=== PATIENT | male | born 1965 | race Caucasian/White ===

== ENCOUNTER 2017-01-08 08:15 | Outpatient (RCR) | payer MEDICARE, MEDICAID ==
[~2017-01-08 08:15] MED LIST: ALLE25CA OR; AMBI10TA OR; BUSP10TA2 OR; CELE40TA OR; HYDR1CAP25 PO; HYDR25CA PO; HYDR50CA2 PO; INDE1CAP5 PO; MINI2CAP PO; MIRT15TA3 PO; NORV5TAB PO; PARO20TA3 PO; PARO40TA2 PO; PAXI30TA2 PO; PAXI40TA2 PO; SERO200T PO; SERO400T OR; SERO400T PO; TRAZ100T OR; TRAZ100T2 PO; TRAZ50TA4 PO; ULTR50TA PO; VALP1CAP2 PO; VALP250S PO; VITAMIN B COMPLE1 OR; WELL100T2 PO; ambien PO; seroquel PO
== END 2017-01-13 ==
LOC: M PT 08:15
PROVIDERS: ATTEND Orthopaedic Surgery
DX: S46.112D Strain of muscle, fascia and tendon of long head of biceps, left arm, subsequent encounter (principal)
CPT/HCPCS: 97110; 97140; 97161; G8984; G8985

== ENCOUNTER 2017-02-07 08:30 | Outpatient (RCR) | payer MEDICARE, MEDICAID | END 2017-02-13 | LOC: M PT 08:30 | PROVIDERS: ATTEND Orthopaedic Surgery | DX: S46.112D Strain of muscle, fascia and tendon of long head of biceps, left arm, subsequent encounter (principal) | CPT/HCPCS: 97110; 97140; G8984; G8985 ==

== ENCOUNTER 2017-03-15 16:25 | Emergency (ER) | payer MEDICARE, MEDICAID ==
[~2017-03-15] VITALS: Ht 152.4 cm; Wt 62.5 kg
[~2017-03-15 16:25] MED LIST changes: +TRAZ50TA11 PO; -TRAZ50TA4 PO; -ULTR50TA PO; +ULTR50TA8 PO
[2017-03-15 17:06] LABS: BASO # 0.1 K/mm3 (0.0-0.2); BASO % 0.8 % (0.0-1.0); EOS # 0.3 K/mm3 (0.0-0.50); EOS % 3.2 % (0.0-3.0); LARGE UNSTAINED CELL # 0.3 K/mm3 (0.0-0.4); LARGE UNSTAINED CELL % 2.9 % (0.0-4.0); LYMPH # 3.3 K/mm3 (1.5-4.5); LYMPH % 33.2 % (24.0-44.0); MEAN CORPUSCULAR HEMOGLOBIN 29.2 pg (27.0-33.0); MEAN CORPUSCULAR HGB CONC 34.5 g/dl (32.0-36.5); MEAN CORPUSCULAR VOLUME 84.7 fl (80.0-96.0); MONO # 0.7 K/mm3 (0.0-0.8); MONO % 7.3 % (0.0-5.0); NEUTROPHILS # 5.2 K/mm3 (1.8-7.7); NEUTROPHILS % 52.6 % (36.0-66.0); PLATELET COUNT, AUTOMATED 136 k/mm3 (150-450); RED CELL DISTRIBUTION WIDTH 12.7 % (11.5-14.5)
[2017-03-15] MEDS: NS 1,000 ML IV SCH ×2 (17:15→18:24)
[2017-03-15 17:28] LABS: ANION GAP 9 MEQ/L (8-16); BLOOD UREA NITROGEN 6 MG/DL (7-18); CARBON DIOXIDE LEVEL 25 MEQ/L (21-32); CHLORIDE LEVEL 100 MEQ/L (98-107); CREATININE FOR GFR 0.99 MG/DL (0.70-1.30); GLOMERULAR FILTRATION RATE > 60.0 (>56); GLUCOSE, FASTING 83 MG/DL (70-105); POTASSIUM SERUM 4.2 MEQ/L (3.5-5.1); SODIUM LEVEL 134 MEQ/L (136-145)
[2017-03-15 18:38] VITALS: BP 126/90
--- NOTE | 2017-03-16 07:23 | ECGEPIP ---
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
== END 2017-03-15 18:41 | disposition home or self-care (01) ==
LOC: M ED 16:25
DX: F10.129 Alcohol abuse with intoxication, unspecified (principal); S50.312A Abrasion of left elbow, initial encounter; W18.09XD Striking against other object with subsequent fall, subsequent encounter; Y92.9 Unspecified place or not applicable; Y93.89 Activity, other specified; Y99.8 Other external cause status; F17.200 Nicotine dependence, unspecified, uncomplicated; Z79.899 Other long term (current) drug therapy
CPT/HCPCS: 36415; 80048; 82550; 82553; 84484; 85025; 93005; 93041; 94760; 96374; 99285; G0480

== ENCOUNTER 2017-12-06 11:55 | Inpatient (IN) | payer OTHER, MEDICARE, MEDICAID ==
[2017-12-06] MEDS: MULTIVITAMINS/MINERALS THERAP 1 TAB PO (09:00)
[2017-12-06] MEDS: NS 1,000 ML IV ×3 (12:26→18:21)
[2017-12-06 12:33] LABS: BASO # 0.1 10^3/uL (0.0-0.2); EOS # 0.1 10^3/uL (0.0-0.50); EOS % 1.4 % (0.0-3.0); HEMOGLOBIN 18.3 g/dl (14.0-18.0); IMMATURE GRANULOCYTE % 0.2 % (0-3.0); LYMPH # 1.9 10^3/uL (1.5-4.5); LYMPH % 19.1 % (24.0-44.0); MEAN CORPUSCULAR HEMOGLOBIN 29.8 pg (27.0-33.0); MEAN CORPUSCULAR HGB CONC 34.5 g/dl (32.0-36.5); MEAN CORPUSCULAR VOLUME 86.2 fl (80.0-96.0); MONO # 1.1 10^3/uL (0.0-0.8); MONO % 11.7 % (0.0-5.0); NEUTROPHILS # 6.5 10^3/uL (1.8-7.7); NEUTROPHILS % 66.6 % (36.0-66.0); PLATELET COUNT, AUTOMATED 151 10^3/uL (150-450); RED BLOOD COUNT 6.15 10^6/uL (4.30-6.10); RED CELL DISTRIBUTION WIDTH 13.1 % (11.5-14.5); WHITE BLOOD COUNT 9.7 10^3/uL (4.0-10.0)
[2017-12-06] MEDS: MECLIZINE 25 MG TABLET PO (12:51)
[2017-12-06] MEDS: LABETALOL HCL 100 MG/20 ML VIAL IV (12:52)
[2017-12-06 13:03] LABS: ACETAMINOPHEN LEVEL < 2.0 UG/ML (10.0-30.0); ALBUMIN 3.7 GM/DL (3.2-5.2); ALBUMIN/GLOBULIN RATIO 1.12 (1.00-1.93); ALKALINE PHOSPHATASE 82 U/L (45-117); ALT/SGPT 19 U/L (12-78); ANION GAP 7 MEQ/L (8-16); AST/SGOT 20 U/L (7-37); BILIRUBIN,DIRECT 0.1 MG/DL (0.0-0.2); BILIRUBIN,TOTAL 0.5 MG/DL (0.2-1.0); BLOOD UREA NITROGEN 21 MG/DL (7-18); CALCIUM LEVEL 10.7 MG/DL (8.5-10.1); CARBON DIOXIDE LEVEL 32 MEQ/L (21-32); CHLORIDE LEVEL 99 MEQ/L (98-107); CPK CREATINE PHOSPHOKINASE 106 U/L (39-308); CREATININE FOR GFR 2.65 MG/DL (0.70-1.30); ETHYL ALCOHOL (ETHANOL) < 0.003 % (0.000-0.010); GLOMERULAR FILTRATION RATE 26.9 (>56); GLUCOSE, FASTING 79 MG/DL (70-100); POTASSIUM SERUM 3.2 MEQ/L (3.5-5.1); SALICYLATE LEVEL 3.4 MG/DL (5.0-30.0); SODIUM LEVEL 138 MEQ/L (136-145); TROPONIN I < 0.02 NG/ML (< 0.10)
[2017-12-06 13:13] LABS: CK-MB VALUE MASS < 1.0 NG/ML (<3.6); MB/CK RELATIVE INDEX 0.94 (< OR =4)
[2017-12-06 14:58] LABS: KETONE, URINE AUTO RFX TRACE mg/dL (NEGATIVE); LEUKOCYTE ESTERASE UR AUTO RFX NEGATIVE (NEGATIVE); MUCUS, URINE RFX SMALL (NEGATIVE); NITRITE, URINE AUTO RFX NEGATIVE (NEGATIVE); RBC, URINE AUTO RFX 27 /HPF (0-3); SPECIFIC GRAVITY UR AUTO RFX 1.015 (1.002-1.035); SQUAM EPITHELIAL CELL UR AURFX 0 /HPF (0-6); WBC, URINE AUTO RFX 6 /HPF (0-3)
[2017-12-06 15:12] LABS: AMPHETAMINES LEVEL URINE NEGATIVE (NEGATIVE); BARBITURATES URINE NEGATIVE (NEGATIVE); BENZODIAZEPINES URINE NEGATIVE (NEGATIVE); CANNABINOIDS URINE NEGATIVE (NEGATIVE); COCAINE METABOLITE URINE NEGATIVE (NEGATIVE); METHADONE URINE NEGATIVE (NEGATIVE); OPIATES URINE NEGATIVE (NEGATIVE); PHENCYCLIDINE URINE NEGATIVE (NEGATIVE)
[2017-12-06] MEDS: THIAMINE 100 MG TAB PO (16:19)
[2017-12-06] MEDS: FOLIC ACID 1 MG TAB PO (16:19)
[2017-12-06] MEDS: NICOTINE 21MG/24HR 1 EA TRANSDERMAL TD (16:19)
[2017-12-06 16:22] LABS: OSMOLALITY SERUM 293 MOSM/KG (275-295)
[2017-12-06 16:33] LABS: URIC ACID 9.8 MG/DL (3.5-7.2)
[2017-12-06 16:33] LABS: MAGNESIUM LEVEL 1.6 MG/DL (1.8-2.4)
[2017-12-06 16:35] LABS: REASON FOR REVIEW ANEMIA / RBC MORPH; SLIDE REVIEW Report; SOURCE PERIPHERAL SMEAR
[2017-12-06 16:51] LABS: ESTIMATED AVERAGE GLUCOSE 97 MG/DL (60-110)
[2017-12-06] MEDS: OXAZEPAM 10 MG CAP PO (16:51)
[2017-12-06 17:41] LABS: ANION GAP 5 MEQ/L (8-16); BLOOD UREA NITROGEN 21 MG/DL (7-18); CALCIUM LEVEL 9.1 MG/DL (8.5-10.1); CARBON DIOXIDE LEVEL 31 MEQ/L (21-32); CHLORIDE LEVEL 104 MEQ/L (98-107); CK-MB VALUE MASS 1.1 NG/ML (<3.6); CPK CREATINE PHOSPHOKINASE 91 U/L (39-308); CREATININE FOR GFR 2.34 MG/DL (0.70-1.30); GLOMERULAR FILTRATION RATE 31.1 (>56); GLUCOSE, FASTING 101 MG/DL (70-100); POTASSIUM SERUM 2.9 MEQ/L (3.5-5.1); SODIUM LEVEL 140 MEQ/L (136-145); TROPONIN I < 0.02 NG/ML (< 0.10)
[2017-12-06 18:06] LABS: PHOSPHORUS LEVEL 2.3 MG/DL (2.5-4.9)
[2017-12-06] MEDS: MAG SULF 1GM/100ML (MAG RUN) 1 GM in APPROPRIATE DILUENT 1 EA IV ×2 (18:26→20:42)
[2017-12-06] MEDS: MIRTAZAPINE 15 MG TAB PO (20:42)
[2017-12-06] MEDS: QUEtiapine FUMARATE 200 MG TAB PO (20:42)
[2017-12-06] MEDS: BENZTROPINE 0.5 MG TAB PO (20:42)
[2017-12-06] MEDS: traZODone 100 MG TAB PO (20:43)
[2017-12-06] MEDS: amLODIPine 5 MG TAB PO (20:43)
[2017-12-06 23:42] LABS: OSMOLALITY URINE 450 MOSM/KG (500-800)
[2017-12-06 23:47] LABS: CALCIUM,RANDOM URINE 20.2 MG/DL; POTASSIUM RANDOM URINE 35.2 MEQ/L; SODIUM,RANDOM URINE 31 MEQ/L
[2017-12-07] MEDS: NS 1,000 ML IV ×2 (00:15→05:30)
[2017-12-07 01:27] LABS: CK-MB VALUE MASS 1.8 NG/ML (<3.6); CPK CREATINE PHOSPHOKINASE 106 U/L (39-308); MB/CK RELATIVE INDEX 1.69 (< OR =4); TROPONIN I < 0.02 NG/ML (< 0.10)
[2017-12-07] MEDS: POTASSIUM CHLORIDE 10 MEQ SR TABLET PO ×3 (03:56→12:51)
[2017-12-07 04:06] LABS: BASO # 0.1 10^3/uL (0.0-0.2); BASO % 0.8 % (0.0-1.0); EOS # 0.4 10^3/uL (0.0-0.50); EOS % 3.4 % (0.0-3.0); HEMATOCRIT 47.8 % (42.0-52.0); HEMOGLOBIN 16.7 g/dl (14.0-18.0); IMMATURE GRANULOCYTE % 0.3 % (0-3.0); LYMPH # 2.4 10^3/uL (1.5-4.5); LYMPH % 21.9 % (24.0-44.0); MEAN CORPUSCULAR HEMOGLOBIN 30.3 pg (27.0-33.0); MEAN CORPUSCULAR HGB CONC 34.9 g/dl (32.0-36.5); MEAN CORPUSCULAR VOLUME 86.6 fl (80.0-96.0); MONO # 1.4 10^3/uL (0.0-0.8); MONO % 12.5 % (0.0-5.0); NEUTROPHILS # 6.6 10^3/uL (1.8-7.7); NEUTROPHILS % 61.1 % (36.0-66.0); PLATELET COUNT, AUTOMATED 143 10^3/uL (150-450); RED BLOOD COUNT 5.52 10^6/uL (4.30-6.10); RED CELL DISTRIBUTION WIDTH 13.1 % (11.5-14.5); WHITE BLOOD COUNT 10.8 10^3/uL (4.0-10.0)
[2017-12-07] MEDS ORDERED: **hydrALAZINE** 10 MG TAB PO (04:15)
[2017-12-07] MEDS: hydrALAZINE INJ 20 MG/ML VIAL IV (04:18)
[2017-12-07 04:29] LABS: ALBUMIN/GLOBULIN RATIO 1.03 (1.00-1.93); ALKALINE PHOSPHATASE 66 U/L (45-117); ALT/SGPT 15 U/L (12-78); ANION GAP 6 MEQ/L (8-16); AST/SGOT 15 U/L (7-37); BILIRUBIN,TOTAL 0.3 MG/DL (0.2-1.0); BLOOD UREA NITROGEN 18 MG/DL (7-18); CALCIUM LEVEL 8.9 MG/DL (8.5-10.1); CARBON DIOXIDE LEVEL 30 MEQ/L (21-32); CHLORIDE LEVEL 107 MEQ/L (98-107); CREATININE FOR GFR 2.02 MG/DL (0.70-1.30); GLOMERULAR FILTRATION RATE 36.8 (>56); GLUCOSE, FASTING 82 MG/DL (70-100); MAGNESIUM LEVEL 2.3 MG/DL (1.8-2.4); POTASSIUM SERUM 2.8 MEQ/L (3.5-5.1); SODIUM LEVEL 143 MEQ/L (136-145); TOTAL PROTEIN 5.9 GM/DL (6.4-8.2)
[2017-12-07] MEDS ORDERED: SODIUM CHLORIDE 0.9% 1000 ML IV ×2 (04:45→05:15)
[2017-12-07] MEDS: amLODIPine 5 MG TAB PO (08:54)
[2017-12-07] MEDS: FOLIC ACID 1 MG TAB PO (08:54)
[2017-12-07] MEDS: THIAMINE 100 MG TAB PO (08:55)
[2017-12-07] MEDS: MULTIVITAMINS/MINERALS THERAP 1 TAB PO (08:55)
[2017-12-07] MEDS: PANTOPRAZOLE 40MG TAB (PROTONIX) PO (08:55)
[2017-12-07] MEDS: **hydrALAZINE** 10 MG TAB PO ×3 (08:55→17:47)
[2017-12-07 09:58] LABS: CK-MB VALUE MASS 1.4 NG/ML (<3.6); CPK CREATINE PHOSPHOKINASE 106 U/L (39-308); MB/CK RELATIVE INDEX 1.32 (< OR =4); TROPONIN I < 0.02 NG/ML (< 0.10)
[2017-12-07 14:42] LABS: ANION GAP 4 MEQ/L (8-16); BLOOD UREA NITROGEN 15 MG/DL (7-18); CALCIUM LEVEL 8.8 MG/DL (8.5-10.1); CARBON DIOXIDE LEVEL 31 MEQ/L (21-32); CHLORIDE LEVEL 110 MEQ/L (98-107); CREATININE FOR GFR 2.02 MG/DL (0.70-1.30); GLOMERULAR FILTRATION RATE 36.8 (>56); GLUCOSE, FASTING 77 MG/DL (70-100); POTASSIUM SERUM 3.9 MEQ/L (3.5-5.1); SODIUM LEVEL 145 MEQ/L (136-145)
[2017-12-07] MEDS: HEPARIN SOD (PORCINE) 5000 UNITS/ML VIAL SQ (20:56)
[2017-12-07] MEDS: **hydrALAZINE** 50 MG TAB PO (21:02)
[2017-12-07] MEDS: QUEtiapine FUMARATE 200 MG TAB PO (21:03)
[2017-12-07] MEDS: amLODIPine 10 MG TAB PO (21:03)
[2017-12-07] MEDS: traZODone 100 MG TAB PO (21:03)
[2017-12-07] MEDS: MIRTAZAPINE 15 MG TAB PO (21:03)
[2017-12-07] MEDS: BENZTROPINE 0.5 MG TAB PO (21:03)
[2017-12-08 03:51] LABS: BASO # 0.1 10^3/uL (0.0-0.2); EOS # 0.3 10^3/uL (0.0-0.50); EOS % 3.1 % (0.0-3.0); HEMATOCRIT 48.3 % (42.0-52.0); HEMOGLOBIN 16.2 g/dl (14.0-18.0); IMMATURE GRANULOCYTE % 0.1 % (0-3.0); LYMPH % 21.1 % (24.0-44.0); MEAN CORPUSCULAR HEMOGLOBIN 29.3 pg (27.0-33.0); MEAN CORPUSCULAR HGB CONC 33.5 g/dl (32.0-36.5); MEAN CORPUSCULAR VOLUME 87.5 fl (80.0-96.0); MONO # 1.3 10^3/uL (0.0-0.8); MONO % 14.4 % (0.0-5.0); NEUTROPHILS # 5.6 10^3/uL (1.8-7.7); NEUTROPHILS % 60.3 % (36.0-66.0); PLATELET COUNT, AUTOMATED 120 10^3/uL (150-450); RED BLOOD COUNT 5.52 10^6/uL (4.30-6.10); RED CELL DISTRIBUTION WIDTH 13.3 % (11.5-14.5); WHITE BLOOD COUNT 9.2 10^3/uL (4.0-10.0)
[2017-12-08 04:13] LABS: ALBUMIN 3.1 GM/DL (3.2-5.2); ALKALINE PHOSPHATASE 62 U/L (45-117); ALT/SGPT 17 U/L (12-78); ANION GAP 8 MEQ/L (8-16); AST/SGOT 18 U/L (7-37); BILIRUBIN,TOTAL 0.4 MG/DL (0.2-1.0); BLOOD UREA NITROGEN 11 MG/DL (7-18); CALCIUM LEVEL 8.5 MG/DL (8.5-10.1); CARBON DIOXIDE LEVEL 23 MEQ/L (21-32); CHLORIDE LEVEL 113 MEQ/L (98-107); CREATININE FOR GFR 1.69 MG/DL (0.70-1.30); GLOMERULAR FILTRATION RATE 45.2 (>56); GLUCOSE, FASTING 81 MG/DL (70-100); MAGNESIUM LEVEL 1.7 MG/DL (1.8-2.4); POTASSIUM SERUM 3.5 MEQ/L (3.5-5.1); SODIUM LEVEL 144 MEQ/L (136-145); TOTAL PROTEIN 6.2 GM/DL (6.4-8.2)
[2017-12-08] MEDS: HEPARIN SOD (PORCINE) 5000 UNITS/ML VIAL SQ (06:00)
[2017-12-08] MEDS: **hydrALAZINE** 50 MG TAB PO (06:19)
[2017-12-08] MEDS: FOLIC ACID 1 MG TAB PO (09:00)
[2017-12-08] MEDS: NS 1,000 ML IV (09:33)
[2017-12-08] MEDS: PANTOPRAZOLE 40MG TAB (PROTONIX) PO (09:34)
[2017-12-08] MEDS: THIAMINE 100 MG TAB PO (09:34)
[2017-12-08] MEDS: MULTIVITAMINS/MINERALS THERAP 1 TAB PO (09:34)
[2017-12-08] MEDS: POTASSIUM CHLORIDE 10 MEQ SR TABLET PO (09:34)
[2017-12-08] MEDS: MAG SULF 1GM/100ML (MAG RUN) 1 GM in APPROPRIATE DILUENT 1 EA IV (09:35)
== END 2017-12-08 13:15 | disposition home or self-care (01) | DRG 684 ==
LOC: M PCU 12-07 00:19 → M ED 11:55 → M ED INP 15:12
DX: N17.9 Acute kidney failure, unspecified (principal); E86.0 Dehydration; R55 Syncope and collapse; E87.6 Hypokalemia; I10 Essential (primary) hypertension; F41.9 Anxiety disorder, unspecified; F32.9 Major depressive disorder, single episode, unspecified; F20.9 Schizophrenia, unspecified; M19.90 Unspecified osteoarthritis, unspecified site; F10.10 Alcohol abuse, uncomplicated; Z79.899 Other long term (current) drug therapy; Z88.8 Allergy status to other drugs, medicaments and biological substances; F17.200 Nicotine dependence, unspecified, uncomplicated; Z86.73 Personal history of transient ischemic attack (TIA), and cerebral infarction without residual deficits; F43.10 Post-traumatic stress disorder, unspecified; M25.561 Pain in right knee; M25.562 Pain in left knee; R25.1 Tremor, unspecified

== ENCOUNTER → 2018-06-18 | Outpatient (CLI) | payer MEDICARE, MEDICAID, OTHER ==
[2018-06-18 11:04] LABS: BASO # 0.1 10^3/uL (0.0-0.2); BASO % 0.6 % (0.0-1.0); EOS # 0.5 10^3/uL (0.0-0.50); EOS % 4.4 % (0.0-3.0); HEMATOCRIT 31.3 % (42.0-52.0); HEMOGLOBIN 10.4 g/dl (13.5-17.5); IMMATURE GRANULOCYTE % 0.6 % (0-3.0); LYMPH # 2.4 10^3/uL (1.5-4.5); MEAN CORPUSCULAR HEMOGLOBIN 28.6 pg (27.0-33.0); MEAN CORPUSCULAR HGB CONC 33.2 g/dl (32.0-36.5); MONO # 1.3 10^3/uL (0.0-0.8); MONO % 11.5 % (0.0-5.0); NEUTROPHILS # 6.7 10^3/uL (1.8-7.7); NEUTROPHILS % 60.9 % (36.0-66.0); PLATELET COUNT, AUTOMATED 192 10^3/uL (150-450); RED BLOOD COUNT 3.64 10^6/uL (4.30-6.10); RED CELL DISTRIBUTION WIDTH 14.3 % (11.5-14.5); WHITE BLOOD COUNT 11.1 10^3/uL (4.0-10.0)
[2018-06-18 12:26] LABS: ESTIMATED AVERAGE GLUCOSE 111 MG/DL (60-110); HEMOGLOBIN A1c 5.5 %
[2018-06-18 12:35] LABS: ALT/SGPT 18 U/L (12-78); ANION GAP 9 MEQ/L (8-16); AST/SGOT 15 U/L (7-37); BLOOD UREA NITROGEN 18 MG/DL (7-18); CALCIUM LEVEL 9.3 MG/DL (8.5-10.1); CARBON DIOXIDE LEVEL 27 MEQ/L (21-32); CHLORIDE LEVEL 106 MEQ/L (98-107); CREATININE FOR GFR 1.73 MG/DL (0.70-1.30); GLOMERULAR FILTRATION RATE 43.9 (>56); GLUCOSE, FASTING 70 MG/DL (70-100); POTASSIUM SERUM 3.9 MEQ/L (3.5-5.1); PTH INTACT 33.4 PG/ML (18.5-88.0); SODIUM LEVEL 142 MEQ/L (136-145)
[2018-06-18 12:36] LABS: ALBUMIN 3.6 GM/DL (3.2-5.2); ALBUMIN/GLOBULIN RATIO 1.13 (1.00-1.93); ALKALINE PHOSPHATASE 81 U/L (45-117); BILIRUBIN,TOTAL 0.2 MG/DL (0.2-1.0); CHOLESTEROL LEVEL 193 MG/DL (<200); CHOLESTEROL RISK RATIO 4.825 (<5); FOLATE 18.8 NG/ML (>5.4); HDL CHOLESTEROL 40 MG/DL (>40); LDL CHOLESTEROL 103 MG/DL (<100); MAGNESIUM LEVEL 1.9 MG/DL (1.8-2.4); NON-HDL-C 153 MG/DL; TOTAL 25(OH) VITAMIN D 20.2 NG/ML (30.0-100.0); TOTAL PROTEIN 6.8 GM/DL (6.4-8.2); TRIGLYCERIDES LEVEL 250 MG/DL (<150)
== END ==
LOC: M LAB 10:31
DX: F20.9 Schizophrenia, unspecified (principal); N18.3 Chronic kidney disease, stage 3 (moderate); F10.99 Alcohol use, unspecified with unspecified alcohol-induced disorder; Z13.228 Encounter for screening for other metabolic disorders; I12.9 Hypertensive chronic kidney disease with stage 1 through stage 4 chronic kidney disease, or unspecified chronic kidney disease; E55.9 Vitamin D deficiency, unspecified
CPT/HCPCS: 82746

== ENCOUNTER → 2018-06-23 | Outpatient (CLI) | payer MEDICARE | LOC: M RAD 07:26 | DX: N20.0 Calculus of kidney (principal) | CPT/HCPCS: 74176 ==

== ENCOUNTER → 2018-07-03 | Outpatient (CLI) | payer MEDICARE ==
[2018-07-03 08:15] LABS: RETIC HEMOGLOBIN EQUIVALENT 31.7 pg (24-36); RETICULOCYTE # 56.6 10^9/L (17-77); RETICULOCYTE % 1.5 % (0.5-1.5)
[2018-07-03 08:40] LABS: FERRITIN 286 NG/ML (26-388); IRON (FE) 65 UG/DL (65-175); PERCENT SATURATION 26.2 % (19.7-50.0); TOTAL IRON BINDING CAPACITY 248 UG/DL (250-450)
== END ==
LOC: M RAD 07:32
DX: R91.8 Other nonspecific abnormal finding of lung field (principal); D64.9 Anemia, unspecified; Z87.891 Personal history of nicotine dependence
CPT/HCPCS: G0297

== ENCOUNTER → 2018-12-02 | Outpatient (REF) | payer MEDICARE, MEDICAID ==
[~2018-12-02] MED LIST changes: +ALKA1CHW PO; +AMLO10TA5 PO; +B-12500T2 PO; +BENZ0.5T PO; +D 101TAB PO; +D32000CA PO; +FOLI1TAB11 PO; -INDE1CAP5 PO; +INDE60CA4 PO; +MELO15TA28 PO; +MIRT45TA4 PO; +THIA100TA PO; +TRAZ-160 PO; +TRAZ-163 PO; -TRAZ50TA11 PO; +VITMTA PO
[2018-12-02 10:40] LABS: BASO # 0.1 10^3/uL (0.0-0.2); BASO % 1.2 % (0.0-1.0); EOS # 0.4 10^3/uL (0.0-0.50); EOS % 3.8 % (0.0-3.0); HEMATOCRIT 44.9 % (42.0-52.0); LYMPH # 2.2 10^3/uL (1.5-4.5); LYMPH % 23.7 % (24.0-44.0); MEAN CORPUSCULAR HEMOGLOBIN 27.6 pg (27.0-33.0); MEAN CORPUSCULAR HGB CONC 33.4 g/dl (32.0-36.5); MEAN CORPUSCULAR VOLUME 82.7 fl (80.0-96.0); MONO # 1.4 10^3/uL (0.0-0.8); MONO % 15.1 % (0.0-5.0); NEUTROPHILS # 5.2 10^3/uL (1.8-7.7); NEUTROPHILS % 55.8 % (36.0-66.0); PLATELET COUNT, AUTOMATED 166 10^3/uL (150-450); RED BLOOD COUNT 5.43 10^6/uL (4.30-6.10); WHITE BLOOD COUNT 9.3 10^3/uL (4.0-10.0)
[2018-12-02 10:58] LABS: HEMOGLOBIN A1c 5.6 %
[2018-12-02 11:20] LABS: ALBUMIN 3.6 GM/DL (3.2-5.2); BILIRUBIN,TOTAL 0.4 MG/DL (0.2-1.0); CREATININE FOR GFR 1.32 MG/DL (0.70-1.30); GLOMERULAR FILTRATION RATE 59.9 (>56); MAGNESIUM LEVEL 2.4 MG/DL (1.8-2.4); POTASSIUM SERUM 4.3 MEQ/L (3.5-5.1); THYROID STIMULATING HORMONE 1.74 uIU/ML (0.358-3.740)
== END ==
LOC: M SFHCPLAZ 09:01
PROVIDERS: ATTEND Nurse Practitioner Family
DX: D64.9 Anemia, unspecified (principal); I10 Essential (primary) hypertension; E78.5 Hyperlipidemia, unspecified
CPT/HCPCS: 36415; 80053; 80061; 83036; 83735; 84443; 85025; 85046; G0463

== ENCOUNTER → 2019-01-02 | Outpatient (REF) | payer MEDICARE, MEDICAID ==
[~2019-01-02] MED LIST changes: -D 101TAB PO; +VITA-144 PO
[2019-01-02 18:41] LABS: RHEUMATOID FACTOR QUANT < 10.0 IU/ML (<15.0)
[2019-01-02 18:42] LABS: VITAMIN B12 LEVEL 597 PG/ML
[2019-01-02 18:43] LABS: FOLATE > 24.0 NG/ML
[2019-01-07 00:06] LABS: CERULOPLASMIN 30.2 mg/dL (16.0-31.0); VITAMIN B1 LEVEL WHOLE BLOOD 153.8 nmol/L (66.5-200.0); VITAMIN B6,PYRIDOXAL PHOSPHATE 28.7 ug/L (5.3-46.7)
[2019-01-07 08:13] LABS: ANTINUCLEAR ANTIBODIES DIRECT Negative (Negative); COPPER PLASMA 125 ug/dL (72-166)
[2019-01-08 00:07] LABS: VITAMIN E(ALPHA TOCOPHEROL) 17.7 mg/L (7.0-25.1); VITAMIN E(GAMMA TOCOPHEROL) 1.6 mg/L (0.5-5.5)
== END ==
LOC: M LABNEURO 11:00
PROVIDERS: ATTEND Psychiatry & Neurology Neurology
DX: R25.1 Tremor, unspecified (principal)

== ENCOUNTER → 2019-01-27 | Outpatient (CLI) | payer MEDICARE, MEDICAID ==
--- NOTE | 2019-01-27 10:05 | REP ---
LUMBAR SPINE, FIVE VIEWS: HISTORY: Degenerative disc disease. There is no acute fracture or subluxation. The L2-3 through L5-S1 intervertebral discs are decreased in height consistent with disc degeneration. Osteophytes are present throughout the lumbar spine. The facet joints are normal in appearance. IMPRESSION:Degenerative change as described above. Electronically Signed by Darrick Harmon MD 01/27/2019 10:20 A
== END ==
LOC: M RAD 09:28
PROVIDERS: ATTEND Nurse Practitioner Family
DX: M25.78 Osteophyte, vertebrae (principal); M51.36 Other intervertebral disc degeneration, lumbar region; M51.37 Other intervertebral disc degeneration, lumbosacral region

== ENCOUNTER → 2019-03-03 | Outpatient (CLI) | payer MEDICARE, MEDICAID ==
[~2019-03-03] MED LIST changes: -TRAZ-160 PO; +TRAZ-252 PO
[2019-03-03 10:51] LABS: BASO # 0.1 10^3/uL (0.0-0.2); BASO % 1.2 % (0.0-1.0); EOS # 0.4 10^3/uL (0.0-0.50); EOS % 3.6 % (0.0-3.0); HEMOGLOBIN 14.6 g/dl (13.5-17.5); LYMPH # 2.4 10^3/uL (1.5-4.5); LYMPH % 24.7 % (24.0-44.0); MEAN CORPUSCULAR HEMOGLOBIN 27.8 pg (27.0-33.0); MEAN CORPUSCULAR HGB CONC 33.2 g/dl (32.0-36.5); MEAN CORPUSCULAR VOLUME 83.8 fl (80.0-96.0); MONO # 0.9 10^3/uL (0.0-0.8); MONO % 9.1 % (0.0-5.0); NEUTROPHILS # 5.9 10^3/uL (1.8-7.7); NEUTROPHILS % 60.9 % (36.0-66.0); PLATELET COUNT, AUTOMATED 167 10^3/uL (150-450); RED BLOOD COUNT 5.25 10^6/uL (4.30-6.10); WHITE BLOOD COUNT 9.6 10^3/uL (4.0-10.0)
[2019-03-03 11:00] LABS: INR 1.03; PROTHROMBIN TIME 13.6 SECONDS (12.1-14.4)
[2019-03-03 11:01] LABS: PARTIAL THROMBOPLASTIN TIME 28.4 SECONDS (25.4-37.6)
[2019-03-03 11:14] LABS: ALBUMIN 3.2 GM/DL (3.2-5.2); BILIRUBIN,TOTAL 0.1 MG/DL (0.2-1.0); CALCIUM LEVEL 9.3 MG/DL (8.5-10.1); CREATININE FOR GFR 1.43 MG/DL (0.70-1.30); GLOMERULAR FILTRATION RATE 54.7 (>56); MAGNESIUM LEVEL 1.9 MG/DL (1.8-2.4); POTASSIUM SERUM 4.5 MEQ/L (3.5-5.1); TOTAL PROTEIN 6.6 GM/DL (6.4-8.2)
== END ==
LOC: M LAB 09:54
PROVIDERS: ATTEND Nurse Practitioner Family
DX: I10 Essential (primary) hypertension (principal)
CPT/HCPCS: 36415; 80053; 83735; 85025; 85610; 85730; G0463

== ENCOUNTER 2019-08-27 16:47 | Observation (INO) | payer MEDICARE, MEDICAID ==
[~2019-08-27] VITALS: Ht 154.9 cm; Wt 57.8 kg
[~2019-08-27 16:47] MED LIST changes: -BENZ0.5T PO; +BENZ0.5T23 PO
--- NOTE | 2019-08-27 17:19 | REPVR ---
PROCEDURE INFORMATION: Exam: CT Head Without Contrast Exam date and time: 08/27/2019 5:09 PM Age: 54 years old Clinical history: Dizziness and weakness, extremity; Left; Additional info: CVA - nursing interventions must not delay CT TECHNIQUE: Imaging protocol: Computed tomography of the head without contrast. Radiation optimization: All CT scans at this facility use at least one of these dose optimization techniques: automated exposure control; mA and/or kV adjustment per patient size (includes targeted exams where dose is matched to clinical indication); or iterative reconstruction. Other technique: STROKE PROTOCOL was implemented. COMPARISON: CT Head without contrast 12/06/2017 12:27 PM FINDINGS: Brain: Minimal nonspecific hypodensities of the periventricular and deep subcortical white matter, most likely secondary to chronic small vessel ischemic change. No intracranial hemorrhage or extra-axial fluid collection. No evidence of mass effect or midline shift. Salgado-white matter differentiation is normal. Ventricles: No ventriculomegaly. Bones/joints: No acute osseus lesion or fracture. Sinuses: Unremarkable as visualized. Mastoid air cells: Unremarkable. Soft tissues: Unremarkable. IMPRESSION: No acute intracranial pathology. ASPECTS score 10. Electronically signed by: Mitch House On 08/27/2019 17:19:06 PM
[2019-08-27 17:44] LABS: BASO # 0.1 10^3/uL (0.0-0.2); BASO % 0.6 % (0.0-1.0); EOS # 0.1 10^3/uL (0.0-0.5); EOS % 0.9 % (0.0-3.0); HEMATOCRIT 54.4 % (42.0-52.0); HEMOGLOBIN 17.8 g/dl (13.5-17.5); LYMPH # 2.1 10^3/uL (1.5-5.0); MEAN CORPUSCULAR HEMOGLOBIN 25.2 pg (27.0-33.0); MEAN CORPUSCULAR HGB CONC 32.7 g/dl (32.0-36.5); MEAN CORPUSCULAR VOLUME 76.9 fl (80.0-96.0); MONO # 1.5 10^3/uL (0.0-0.8); NEUTROPHILS # 9.4 10^3/uL (1.5-8.5); NEUTROPHILS % 71.1 % (36.0-66.0); PLATELET COUNT, AUTOMATED 157 10^3/uL (150-450); RED BLOOD COUNT 7.07 10^6/uL (4.30-6.10); WHITE BLOOD COUNT 13.2 10^3/uL (4.0-10.0)
--- NOTE | 2019-08-27 17:47 | REP ---
REASON: Stoke like symptoms. PRIORS: 12/06/2017. FINDINGS: The superior mediastinal structures are midline. The cardiac silhouette is unremarkable in size, shape, and position. The diaphragmatic surfaces of the lungs are regular, and the costophrenic angles are clear. The pulmonary fowler are clear. The imaged osseous structures are intact. IMPRESSION: There is no acute cardiopulmonary disease. No change from the prior exam. Electronically Signed by Kalen Hahn DO 08/27/2019 05:56 P
[2019-08-27] MEDS ORDERED: ALLO100T PO (17:51)
[2019-08-27] MEDS ORDERED: AMLO5TAB6 PO (17:51)
[2019-08-27] MEDS ORDERED: HYDR-3363 PO (17:51)
[2019-08-27] MEDS ORDERED: PROAAER10 INH (17:51)
[2019-08-27] MEDS ORDERED: OMEP-221 PO (17:51)
[2019-08-27] MEDS ORDERED: SERO50TA PO (17:51)
[2019-08-27] MEDS ORDERED: DICL1GEL3 TOP (17:51)
[2019-08-27] MEDS ORDERED: CLOB0.0548 TOP (17:51)
[2019-08-27] MEDS ORDERED: CARV3.12 PO (17:51)
[2019-08-27 17:54] LABS: INR 1.08; PROTHROMBIN TIME 13.8 SECONDS (11.8-14.0)
[2019-08-27 18:08] LABS: BLOOD UREA NITROGEN 14 MG/DL (7-18); CALCIUM LEVEL 9.3 MG/DL (8.5-10.1); CARBON DIOXIDE LEVEL 26 MEQ/L (21-32); CHLORIDE LEVEL 99 MEQ/L (98-107); CPK CREATINE PHOSPHOKINASE 169 U/L (39-308); CREATININE FOR GFR 1.79 MG/DL (0.70-1.30); GLUCOSE, FASTING 107 MG/DL (70-100); MB/CK RELATIVE INDEX 0.59 (< OR =4); POTASSIUM SERUM 5.3 MEQ/L (3.5-5.1); SODIUM LEVEL 137 MEQ/L (136-145); TROPONIN I < 0.02 NG/ML (< 0.10)
[2019-08-27] MEDS ORDERED: BENZ-52 PO (18:27)
[2019-08-27] MEDS ORDERED: VITMTA PO (18:27)
[2019-08-27] MEDS ORDERED: FOLI1TAB11 PO (19:07)
[2019-08-27] MEDS ORDERED: VITA100066 PO (19:07)
[2019-08-27] MEDS ORDERED: MELA3TAB60 PO (19:07)
[2019-08-27] MEDS ORDERED: VITA-172 PO (19:07)
[2019-08-27] MEDS ORDERED: GABA-1171 PO (19:07)
[2019-08-27] MEDS ORDERED: POTA10808 PO (19:07)
[2019-08-27] MEDS ORDERED: TRAZ-186 PO (19:07)
[2019-08-27] MEDS ORDERED: SERT25TA85 PO (19:07)
[2019-08-27] MEDS ORDERED: CLOBETASOL PROPIONATE EMOLLIENT 0.05% CR 60 GM TOP PRN (19:30)
[2019-08-27] MEDS ORDERED: NS 1,000 ML IV SCH (19:30)
[2019-08-27] MEDS ORDERED: ALBUTEROL 90 MCG/ACT 8GM HFA INHALER INH PRN (19:30)
[2019-08-27] MEDS ORDERED: ASPIRIN 81 MG CHEW TABLET PO ONE (19:30)
--- NOTE | 2019-08-27 19:36 | HPEPDOC ---
[facility] Medical History & Physical Date of Admission Aug 27, 2019 Date of Service: Aug 27, 2019 Primary Care Physician: LISE ABBOTT Attending Physician: ELLIOTT FISCHER MD History and Physical TIME OF SERVICE: 8:55 PM CHIEF COMPLAINT: Slurred speech HISTORY OF PRESENT ILLNESS: The majority of the history was obtained from the patient's . The patient has been having lapses in his memory. This is a 54-year-old male who came to the hospital today because his son noticed that his speech was slurred; this has now resolved. For the last month, the patient's has noticed that his been sleeping a lot more, not eating well, and complaining of not feeling well; specifically, he has been feeling dizzy, has difficulty walking up the stairs and for long distances, and has an unsteady gait which requires him to use a cane. He has tremors which affect his hands and legs. Yesterday he "slipped off the bed", but he did not overtly fall. The patient's also added that his Psychiatrist has been tapering off his quetiapine, and adding other medications, because there is concern that he's developed parkinsonism. REVIEW OF SYSTEMS: 12 point review of systems negative except as listed in HPI PAST MEDICAL/ SURGICAL HISTORY: Chronic hypertension. Schizophrenia/PTSD/ Anxiety / depression. History of CVA / small vessel ischemic disease History of AVIS Bilateral chronic knee pain. Status post left shoulder surgery. Status post right knee surgery SOCIAL HISTORY: He smokes 2 packs per day. He drinks alcohol ( according to his he has cut down from a 6 pack from a 12 pack). [place] FAMILY HISTORY: CAD ALLERGIES: Please see below. HOME MEDICATIONS: Please see below. PHYSICAL EXAMINATION: VITAL SIGNS: Please see below. GEN: well nourished / well developed INTEGUMENT: Skin on lower neck and upper chest is flushed / has piloerection HEENT: normocephalic / atraumatic / lips acyanotic /mucus membranes moist and pink CVS: RRR/NMRG LUNGS: lungs are clear to auscultation bilaterally on room air ABDOMEN: there are no masses or lesions / bowel sounds are present / the abdomen is soft & not tender with palpation MSK/EXTREMITIES: range of motion intact in all 4 extremities NEURO: CN 2-12 are grossly intact / speech is not dysarthric / strength 5 /5 except for knee extension where the strength is +4/5 / biceps, brachioradials and patellar tendon reflexes 2+ PSYCH: alert and oriented to person place and time/ able to understand and follow all commands LABORATORY DATA: See below. IMAGING: CT of the head " IMPRESSION: No acute intracranial pathology. " Chest x-ray " IMPRESSION: There is no acute cardiopulmonary disease. No change from the prior exam." MRI of the brain without contrast " IMPRESSION: No MR evidence of acute infarct." Carotid ultrasound " IMPRESSION: 1. Minimal plaque bilaterally. 2. Otherwise negative carotid Doppler evaluation without evidence of hemodynamically significant stenosis. 0% stenosis" Renal ultrasound " IMPRESSION: No acute findings." MICROBIOLOGY: Please see below. EKG Shows Normal Sinus Rhythm with Occasional PVCs ASSESSMENT: Mr. Mcguire is a 54 old yr old with a past medical history of CVA, multiple psychiatric issues, and hypertension will be admitted for evaluation of trans ient slurred speech, possibly secondary to TIA. PLAN: 1 TIA? / History of CVA The slurred speech has resolved. On physical exam, he has lower extremity weakness , but this may be due to chronic knee pain. The unsteady gait has been ongoing for at least a month. Imaging studies including CT of the head, MRI of the brain, and carotid ultrasound were not consistent with a and acute stroke. He has no problems swallowing. Plan: admit to PCU / telemetry /fall precautions / f/u lipid panel for ACVD risk score & A1C, TSH, & Echo / PT/OT consult / c/w ASA, statin / the daytime team may consider out pt Neurology eval 2. Uncontrolled hypertension. Plan: Add HTCZ 12.5mg daily / c/w current dose of amlodipine / he may benefit from an outpatient and most her blood pressure monitor 3. Acute Renal Failure This is likely pre-renal / due to dehydration because he is not eating very much Baseline Cr 1.43--> today it is 1.79 He has a history of prerenal AVIS The renal ultrasound is unremarkable Plan: f/u BMP, ulytes for FENa or FEUrea, IVF 4.Schizophrenia/PTSD/ Anxiety / depression. Plan: Continue with current meds and follow up with psychiatrist as scheduled 5. Alcohol abuse. Plan: Fall precautions/seizure precautions/thiamine, multivitamin and folic acid / Ativan per [facility] protocol 6. Tobacco abuse. Plan: Smoking cessation education / declined nicotine patch DVT prophylaxis with SCDs. Disposition likely home after less than 2 midnight's stay Vital Signs Vital Signs Date Time Temp Pulse Resp B/P (MAP) Pulse Ox O2 Delivery O2 Flow Rate FiO2 08/27/19 18:47 94 98 08/27/19 18:45 20 148/97 (114) Room Air 08/27/19 16:52 97.7 Laboratory Data Labs 24H Laboratory Tests 2 08/27/19 17:05: Immature Granulocyte % (Auto) 0.4, Neutrophils (%) (Auto) 71.1H, Lymphocytes (%) (Auto) 16.0L, Monocytes (%) (Auto) 11.0H, Eosinophils (%) (Auto) 0.9, Basophils (%) (Auto) 0.6, Neutrophils # (Auto) 9.4H, Lymphocytes # (Auto) 2.1, Monocytes # (Auto) 1.5H, Eosinophils # (Auto) 0.1, Basophils # (Auto) 0.1, Nucleated Red Blood Cells % (auto) 0.0, Prothrombin Time 13.8, Prothromb Time International Ratio 1.08, Anion Gap 12, Glomerular Filtration Rate 42.0L, Calcium Level 9.3, Total Creatine Kinase 169, Creatine Kinase MB 1.0, Creatine Kinase MB Relative Index 0.59, Troponin I < 0.02 08/27/19 17:26: POC Glucose (Misc Panel) 118H, POC Sodium (Misc Panel) 134L, POC Potassium (Misc Panel) 5.8H, POC Chloride (Misc Panel) 100, POC Total CO2 (Misc Panel) 29.0H, POC Blood Urea Nitrogen (Misc Panel 19, POC Ionized Calcium (Misc Panel) 4.1L, POC Creatinine (Misc Panel) 1.7H, POC Hematocrit (Misc Panel) 58.0H 08/27/19 17:42: Bedside Glucose (Misc Panel) 122H CBC/BMP Laboratory Tests 08/27/19 17:05 Home Medications Scheduled Allopurinol (Allopurinol) 100 Mg Tablet, 100 MG PO DAILY Amlodipine Besylate (Amlodipine Besylate) 5 Mg Tablet, 5 MG PO DAILY Benztropine Mesylate (Benztropine Mesylate) 1 Mg Tablet, 1 MG PO QHS Cholecalciferol (Vitamin D3) (Vitamin D3) 1,000 Unit Tablet, 2,000 UNIT PO DAILY Cyanocobalamin (Vitamin B-12) (Vitamin B-12) 500 Mcg Tablet, 500 MCG PO DAILY Folic Acid (Folic Acid) 1 Mg Tablet, 1 MG PO DAILY Gabapentin (Gabapentin) 100 Mg Capsule, 100 MG PO QHS Melatonin (Melatonin) 3 Mg Tablet, 6 MG PO QHS Multivitamins (Thera M Plus Tablet) 1 Each Tablet, 1 TAB PO DAILY Omeprazole (Omeprazole) 40 Mg Capsule.dr, 40 MG PO DAILY Potassium Citrate (Potassium Citrate 10MEQ (Urocit-K)) 10 Meq Tablet.er, 10 MEQ PO DAILY Quetiapine Fumarate (Seroquel) 400 Mg Tab, 100 MG PO QHS Quetiapine Fumarate (Seroquel) 50 Mg Tablet, 75 MG PO QAM Sertraline Hcl (Sertraline HCl) 25 Mg Tablet, 75 MG PO DAILY Trazodone HCl (Trazodone HCl) 50 Mg Tablet, 50 MG PO QHS Scheduled PRN Albuterol Sulfate (Proair Hfa) 8.5 Gm Hfa.aer.ad, 2 PUFF INH Q6H PRN for SHORTNESS OF BREATH Clobetasol Propionate/Emoll (Clobetasol Emollient 0.05% Crm) 0.05% 15GM Cream..g., 1 DOSE TOP BID PRN for RASH/ITCHING APPLY TO BACK Hydroxyzine HCl (Hydroxyzine HCl) 25 Mg Tablet, 25 MG PO TID PRN for ANXIETY Allergies Coded Allergies: fluoxetine (Verified Adverse Reaction, Mild, DIZZY, 08/27/19) A-FIB/CHADSVASC A-FIB History Current/History of A-Fib/PAF?: No Current PO Anticoag Therapy: No ELLIOTT FISCHER MD Aug 27, 2019 19:36
[2019-08-27 20:07] LABS: CHOLESTEROL LEVEL 174 MG/DL (<200); CHOLESTEROL RISK RATIO 4.461 (<5); HDL CHOLESTEROL 39 MG/DL (>40); LDL CHOLESTEROL 92 MG/DL (<100); NON-HDL-C 135 MG/DL; TRIGLYCERIDES LEVEL 214 MG/DL (<150)
[2019-08-27 20:07] LABS: HEMOGLOBIN A1c 5.5 %
[2019-08-27] MEDS ORDERED: LORazepam 2 MG/ML VIAL (J2060) IV PRN (21:15)
--- NOTE | 2019-08-27 21:16 | REPVR ---
PROCEDURE INFORMATION: Exam: US Retroperitoneal Limited, Kidneys Exam date and time: 08/27/2019 8:44 PM Age: 54 years old Clinical history: Abnormal findings; Abnormal lab test; Abnormal kidney function lab tests; Additional info: Marcelino TECHNIQUE: Imaging protocol: Real-time ultrasound of the retroperitoneum with image documentation. Examination was focused on the kidneys. COMPARISON: CT ABD PELVIS W/O CONTRAST 06/23/2018 7:33 AM FINDINGS: Right kidney: The right kidney measures 9.8 cm in length. Normal echogenicity. No hydronephrosis or stones. Left kidney: The left kidney measures 10.4 cm in length. Normal echogenicity. No hydronephrosis or stones. Bladder: Unremarkable. IMPRESSION: No acute findings. Electronically signed by: Mitch House On 08/27/2019 21:16:16 PM
--- NOTE | 2019-08-27 21:37 | REPVR ---
PROCEDURE INFORMATION: Exam: US Duplex Bilateral Extracranial Arteries Exam date and time: 08/27/2019 8:44 PM Age: 54 years old Clinical history: Other: TIA TECHNIQUE: Imaging protocol: Real-time Duplex ultrasound scan of the bilateral carotid and vertebral arteries combining marquez scale, color Doppler and spectral waveform analysis. Bilateral exam. COMPARISON: CT Head without contrast 08/27/2019 5:08 PM FINDINGS: Right common carotid artery: The right common carotid artery proximally demonstrates normal waveforms and velocity of 63 cm/s, mid velocity is 55 cm/s and distal is 48 cm/s. Right internal carotid artery: Right proximal internal carotid artery demonstrates normal wave forms and velocity of 17 cm/s, mid is 25 cm/s and distally is 29 cm/s. Right ICA/CCA ratio: The right ICA/CCA ratio is 0.46. Right external carotid artery: Right external carotid artery demonstrates normal waveforms and velocity of 53 cm/s. Right vertebral artery: The right vertebral artery demonstrates antegrade flow with velocity of 15 cm/s. Left common carotid artery: The left common carotid artery proximally demonstrates normal waveforms and velocity of 54 cm/s, mid is 45 cm/s and distal is 49 cm/s. Left internal carotid artery: Left proximal internal carotid artery demonstrates normal waveforms with velocity of 36 cm/s, mid is 33 cm/s and distal is 35 cm/s. Left ICA/CCA ratio: The left ICA/CCA ratio is 0.68. Left external carotid artery: The left external carotid artery demonstrates normal wave forms and velocity of 42 cm/s. Left vertebral artery: The left vertebral artery demonstrates antegrade flow with velocity of 27 cm/s. Other findings: Minimal plaque bilaterally. IMPRESSION: 1. Minimal plaque bilaterally. 2. Otherwise negative carotid Doppler evaluation without evidence of hemodynamically significant stenosis. 0% stenosis COMMENT: Carotid Stenosis Reference using SRU criteria: Mild: less than 50% stenosis. ICA PSV is less than 125 cm/second and plaque or intimal thickening is visible. Moderate: 50-69% stenosis. ICA PSV is 125 to 230 cm/second and plaque is visible. Severe: 70-94% stenosis. ICA PSV is more than 230 cm/second and visible plaque and lumen narrowing are seen. Near occlusion: 95-99% stenosis. ICA PSV is variable and significant plaque and luminal narrowing are seen. Occluded: 100% stenosis. No flow identified. Electronically signed by: Rylan Lopez On 08/27/2019 21:37:17 PM
--- NOTE | 2019-08-27 22:11 | ECGEPIP ---
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
[2019-08-27] MEDS: NS 1,000 ML IV SCH (22:28)
[2019-08-27] MEDS: GABAPENTIN 100 MG CAP PO SCH (22:28)
[2019-08-27] MEDS: QUEtiapine FUMARATE 50 MG TAB PO SCH (22:29)
[2019-08-27] MEDS: PRAVASTATIN 20 MG TAB PO SCH (22:29)
[2019-08-27] MEDS: traZODone 50 MG TAB PO SCH (22:30)
[2019-08-27] MEDS ORDERED: THIAMINE HCL 200 MG/2 ML VIAL (J3411) IM ONE (22:30)
[2019-08-27] MEDS: BENZTROPINE 1 MG TAB PO SCH (22:31)
--- NOTE | 2019-08-27 22:33 | REPVR ---
PROCEDURE INFORMATION: Exam: MR Head Without Contrast Exam date and time: 08/27/2019 6:23 PM Age: 54 years old Clinical history: Patient HX: Dizziness, very limited exam, PT could not continue; Additional info: TIA TECHNIQUE: Imaging protocol: MR of the head without contrast. Axial DWI & ADC, and sagittal T1-weighted sequences were acquired. COMPARISON: MRI-Brain without Contrast 12/06/2017 7:25 PM FINDINGS: No restricted diffusion to suggest acute infarct. No evidence of mass effect or midline shift. Ventricles, cisterns, and sulci are normal. No evidence of hydrocephalus. Normal sized pituitary. The corpus callosum is normal. No evidence of extra-axial fluid collection. IMPRESSION: No MR evidence of acute infarct. Electronically signed by: Mitch House On 08/27/2019 22:32:37 PM
[2019-08-27] MEDS ORDERED: LORazepam 2 MG TAB PO PRN (23:45)
[2019-08-28] VITALS (7 sets, daily range): BP systolic 150–152; BP diastolic 90–100
[2019-08-28] MEDS ORDERED: hydroCHLOROthiazide 12.5 MG CAPSULE PO ONE (01:00)
[2019-08-28 06:52] LABS: HEMATOCRIT 52.1 % (42.0-52.0); HEMOGLOBIN 16.8 g/dl (13.5-17.5); MEAN CORPUSCULAR HGB CONC 32.2 g/dl (32.0-36.5); MEAN CORPUSCULAR VOLUME 77.4 fl (80.0-96.0); PLATELET COUNT, AUTOMATED 146 10^3/uL (150-450); RED BLOOD COUNT 6.73 10^6/uL (4.30-6.10); WHITE BLOOD COUNT 8.4 10^3/uL (4.0-10.0)
[2019-08-28 07:23] LABS: ALBUMIN 2.9 GM/DL (3.2-5.2); BILIRUBIN,TOTAL 0.4 MG/DL (0.2-1.0); CALCIUM LEVEL 8.4 MG/DL (8.5-10.1); CREATININE FOR GFR 1.48 MG/DL (0.70-1.30); GLOMERULAR FILTRATION RATE 52.3 (>56); POTASSIUM SERUM 3.2 MEQ/L (3.5-5.1); TOTAL PROTEIN 6.4 GM/DL (6.4-8.2)
[2019-08-28] MEDS ORDERED: FOLIC ACID 1 MG in NS 50 ML IV SCH (09:00)
[2019-08-28] MEDS ORDERED: ASPIRIN 81 MG ENTERIC TAB PO SCH (09:00)
[2019-08-28] MEDS ORDERED: FOLIC ACID 1 MG TAB PO SCH (09:00)
[2019-08-28] MEDS ORDERED: hydroCHLOROthiazide 12.5 MG CAPSULE PO SCH (09:00)
[2019-08-28] MEDS ORDERED: THIAMINE HCL 200 MG/2 ML VIAL (J3411) IM SCH (09:00)
[2019-08-28] MEDS ORDERED: amLODIPine 5 MG TAB PO SCH (09:00)
[2019-08-28] MEDS: QUEtiapine FUMARATE 25 MG TAB PO SCH (09:37)
[2019-08-28] MEDS: VITAMIN D 1,000 INTERNATIONAL UNITS TABLET PO SCH (09:37)
[2019-08-28] MEDS: ONDANSETRON 4 MG TAB (S0181) PO PRN ×2 (09:37→16:13)
[2019-08-28] MEDS: POTASSIUM CITRATE 1080 MG (10MEQ) TAB PO SCH (09:37)
[2019-08-28] MEDS: ASPIRIN 325 MG TAB PO SCH (09:38)
[2019-08-28] MEDS: CYANOCOBALAMIN 500 MCG TAB PO SCH (09:38)
[2019-08-28] MEDS: MULTIVITAMINS/MINERALS THERAP 1 TAB PO SCH (09:38)
[2019-08-28] MEDS: allopurinoL 100 MG TAB PO SCH (09:38)
[2019-08-28] MEDS: SERTRALINE HCL 25 MG TABLET PO SCH (09:38)
[2019-08-28] MEDS: hydrOXYzine 25 MG TAB PO PRN (09:38)
[2019-08-28] MEDS: OMEPRAZOLE 20 MG CAP PO SCH (09:38)
[2019-08-28] MEDS ORDERED: KCL 10MEQ/100ML SWI (KRUN) 10 MEQ in IV 1 EA IV ONE (12:00)
--- NOTE | 2019-08-28 12:17 | IPNPDOC ---
Subjective Date Seen The patient was seen on 08/28/19. Subjective Chief Complaint/HPI Presented with garbles speech and mild left sided weakness per patient. Resolved without recurrence Constitutional: Denies: Chills, Fever Pulmonary: Denies: Dyspnea, Cough Cardiovascular: Denies: Chest Pain, Palpitations Gastrointestinal: Denies: Nausea, Vomiting, Abdominal Pain, Diarrhea, Constipation Objective Physical Examination General Exam: Positive: Alert, No Acute Distress Chest Exam: Positive: Clear to auscultation, Normal air movement Heart Exam: Positive: Rate Normal, Regular Rhythm Telemetry: Positive: No significant arrhythmia Abdomen Exam: Positive: Normal bowel sounds, Soft; Negative: Tenderness Male Exam: Negative: Edema Neuro Exam: Positive: Normal Speech, Strength at 5/5 X4 ext, Cranial Nerves 3- 12 NL, Other (finger to nose intact. No asterixis) Assessment /Plan Problems (1) TIA (transient ischemic attack) Status: Acute Problem Text: 08/28 - No recurrent symptoms. ASA 325 mg started on admission MRI brain neg Carotids normal Echo pending COnt to monitor on tele for arrhythmia Get PT eval Probable d/c in am (2) Renal failure Status: Acute Response to Treatment: Improving Problem Text: renal function back to baseline Cre = 1.48 D/C HCTZ added on admission for HTN, but patient had AVIS due to "azotemia"? Cont IVF slow rate for now until we wee what renal fx is in am considering he got the HCTZ (3) HTN (hypertension) Status: Chronic Problem Text: BP remains a little high on Norvasc Stop HCTZ that was started on admission b/c of ARF on admission Increase Norvasc slightly (4) Hypokalemia Status: Acute Problem Text: Krun given (5) Alcohol intoxication Status: Acute Problem Text: patient states he drinks 3 - 5 beers a day which is a substantial decrease for him Monitor for withdrawl (6) Schizo-affective schizophrenia Status: Chronic Problem Text: Weaning off Seroquel per psych - we have him on 75 am/100 hs contu usual sertraline, Trazadone, Gabapentin, Cogentin Plan/VTE VTE Prophylaxis Ordered?: Yes VS, I&O, 24H, Fishbone Vital Signs/I&O Vital Signs Date Time Temp Pulse Resp B/P (MAP) Pulse Ox O2 Delivery O2 Flow Rate FiO2 08/28/19 09:40 92 139/95 08/28/19 06:00 97.5 17 96 Room Air I&O- Last 24 Hours up to 6 AM 08/28/19 06:00 Intake Total 510 ml Output Total 0 ml Balance 510 ml Laboratory Data 24H LABS Laboratory Tests 2 08/27/19 17:05: Immature Granulocyte % (Auto) 0.4, Neutrophils (%) (Auto) 71.1H, Lymphocytes (%) (Auto) 16.0L, Monocytes (%) (Auto) 11.0H, Eosinophils (%) (Auto) 0.9, Basophils (%) (Auto) 0.6, Neutrophils # (Auto) 9.4H, Lymphocytes # (Auto) 2.1, Monocytes # (Auto) 1.5H, Eosinophils # (Auto) 0.1, Basophils # (Auto) 0.1, Nucleated Red Blood Cells % (auto) 0.0, Prothrombin Time 13.8, Prothromb Time International Ratio 1.08, Anion Gap 12, Glomerular Filtration Rate 42.0L, Calcium Level 9.3, Total Creatine Kinase 169, Creatine Kinase MB 1.0, Creatine Kinase MB Relative Index 0.59, Troponin I < 0.02, Triglycerides Level 214H, Total Cholesterol 174, LDL Cholesterol 92, Non-HDL Cholesterol (LDL + VLDL) 135, Total HDL Cholesterol 39L, Cholesterol/HDL Ratio 4.461, Thyroid Stimulating Hormone (TSH) 2.550 08/27/19 17:26: POC Glucose (Misc Panel) 118H, POC Sodium (Misc Panel) 134L, POC Potassium (Misc Panel) 5.8H, POC Chloride (Misc Panel) 100, POC Total CO2 (Misc Panel) 29.0H, POC Blood Urea Nitrogen (Misc Panel 19, POC Ionized Calcium (Misc Panel) 4.1L, POC Creatinine (Misc Panel) 1.7H, POC Hematocrit (Misc Panel) 58.0H, Estimated Mean Plasma Glucose 111H, Hemoglobin A1c 5.5 08/27/19 17:42: Bedside Glucose (Misc Panel) 122H 08/28/19 04:37: Bedside Glucose (Misc Panel) 93 08/28/19 06:40: Nucleated Red Blood Cells % (auto) 0.0, Anion Gap 5L, Glomerular Filtration Rate 52.3L, Calcium Level 8.4L, Total Bilirubin 0.4, Aspartate Amino Transf (AST/SGOT) 17, Alanine Aminotransferase (ALT/SGPT) 19, Alkaline Phosphatase 104, Total Protein 6.4, Albumin 2.9L, Albumin/Globulin Ratio 0.83L CBC/BMP Laboratory Tests 08/27/19 17:05 08/28/19 06:40 PAXTON DE GUZMAN PA-C Aug 28, 2019 12:17
[2019-08-28] MEDS: NS 1,000 ML IV SCH (14:31)
[2019-08-28] MEDS: amLODIPine 5 MG TAB PO ONE ×2 (14:48→18:30)
[2019-08-28] MEDS: traZODone 50 MG TAB PO SCH (20:24)
[2019-08-28] MEDS: PRAVASTATIN 20 MG TAB PO SCH (20:24)
[2019-08-28] MEDS: BENZTROPINE 1 MG TAB PO SCH (20:25)
[2019-08-28] MEDS: QUEtiapine FUMARATE 50 MG TAB PO SCH (20:25)
[2019-08-28] MEDS: GABAPENTIN 100 MG CAP PO SCH (20:25)
[2019-08-29] VITALS (7 sets, daily range): BP systolic 125–162; BP diastolic 72–104
[2019-08-29] MEDS: NS 1,000 ML IV SCH (05:23)
[2019-08-29 05:58] LABS: HEMATOCRIT 49.9 % (42.0-52.0); HEMOGLOBIN 15.8 g/dl (13.5-17.5); MEAN CORPUSCULAR HEMOGLOBIN 24.8 pg (27.0-33.0); MEAN CORPUSCULAR HGB CONC 31.7 g/dl (32.0-36.5); MEAN CORPUSCULAR VOLUME 78.3 fl (80.0-96.0); PLATELET COUNT, AUTOMATED 137 10^3/uL (150-450); RED BLOOD COUNT 6.37 10^6/uL (4.30-6.10); WHITE BLOOD COUNT 9.2 10^3/uL (4.0-10.0)
[2019-08-29 06:20] LABS: ALBUMIN 2.9 GM/DL (3.2-5.2); BILIRUBIN,TOTAL 0.5 MG/DL (0.2-1.0); CREATININE FOR GFR 1.32 MG/DL (0.70-1.30); GLOMERULAR FILTRATION RATE 59.7 (>56); POTASSIUM SERUM 3.3 MEQ/L (3.5-5.1); TOTAL PROTEIN 6.4 GM/DL (6.4-8.2)
[2019-08-29] MEDS: VITAMIN D 1,000 INTERNATIONAL UNITS TABLET PO SCH (08:40)
[2019-08-29] MEDS: POTASSIUM CITRATE 1080 MG (10MEQ) TAB PO SCH (08:41)
[2019-08-29] MEDS: MULTIVITAMINS/MINERALS THERAP 1 TAB PO SCH (08:41)
[2019-08-29] MEDS: ASPIRIN 325 MG TAB PO SCH (08:41)
[2019-08-29] MEDS: CYANOCOBALAMIN 500 MCG TAB PO SCH (08:41)
[2019-08-29] MEDS: OMEPRAZOLE 20 MG CAP PO SCH (08:41)
[2019-08-29] MEDS: allopurinoL 100 MG TAB PO SCH (08:42)
[2019-08-29] MEDS: SERTRALINE HCL 25 MG TABLET PO SCH (08:42)
[2019-08-29] MEDS: QUEtiapine FUMARATE 25 MG TAB PO SCH (08:42)
[2019-08-29] MEDS: ONDANSETRON 4 MG TAB (S0181) PO PRN ×2 (08:47→15:36)
[2019-08-29] MEDS: hydrOXYzine 25 MG TAB PO PRN ×2 (08:47→18:47)
--- NOTE | 2019-08-29 18:48 | IPNPDOC ---
Subjective Date Seen The patient was seen on 08/29/19. Subjective Chief Complaint/HPI Yousuf reports he has not had any further episodes of garbled speech or confusion. Nursing staff reports he's been stable since admission to the floor. He reports that his balance is a little off, but this has been the case for years and is not any different than his baseline. General: Reports: Normal Appetite Pulmonary: Denies: Cough Cardiovascular: Denies: Chest Pain, Palpitations Neurological: Reports: Incoordination; Denies: Weakness, Numbness, Change in speech, Confusion Psych: Reports: Mood Normal Objective Physical Examination General Exam: Positive: Alert, Cooperative (sitting at the edge of his bed when I entered the room), No Acute Distress Eye Exam: Positive: Conjunctiva & lids normal; Negative: Sclera icteric ENT Exam: Positive: Mucous membr. moist/pink Neck Exam: Negative: Lymphadenopathy Chest Exam: Positive: Clear to auscultation, Normal air movement Heart Exam: Positive: Rate Normal, Regular Rhythm Telemetry: Positive: No significant arrhythmia Abdomen Exam: Positive: Normal bowel sounds, Soft; Negative: Tenderness Male Exam: Negative: Edema Extremity Exam: Negative: Edema Neuro Exam: Positive: Normal Speech, Normal Tone Psych Exam: Positive: Mental status NL, Mood NL, Oriented x 3 Assessment /Plan Problems (1) TIA (transient ischemic attack) Status: Acute Problem Text: No recurrent symptoms. ASA 325 mg started on admission. MRI brain neg. Carotids normal. Echo normal. Telemetry has showed no concerned for more than 48 hours and will be discontinued. Physical therapy has determined he is not safe for discharge yet, but may improve soon. Will likely discharge or move to [facility] in the morning. (2) HTN (hypertension) Status: Chronic Problem Text: BP remains a little high on Norvasc. We'll increase this to 10 mg starting tomorrow morning. (3) Hypokalemia Status: Acute Problem Text: I gave an oral supplement for repletion of potassium today. Continue to monitor. (4) Alcohol intoxication Status: Acute Problem Text: Patient states he drinks 3 - 5 beers a day which is a substantial decrease for him. Monitor for withdraw. [facility] protocol ordered. (5) Schizo-affective schizophrenia Status: Chronic Problem Text: Weaning off Seroquel per psych - we have him on 75 am/100 HS. Continue usual sertraline, Trazodone, Gabapentin, Cogentin (6) Renal failure Status: Resolved Response to Treatment: Improving Problem Text: Renal function back to baseline. Plan/VTE VTE Prophylaxis Ordered?: Yes (Lovenox) VS, I&O, 24H, Fishbone Vital Signs/I&O Vital Signs Date Time Temp Pulse Resp B/P (MAP) Pulse Ox O2 Delivery O2 Flow Rate FiO2 08/29/19 16:00 70 158/72 08/29/19 14:00 98.3 20 97 Room Air I&O- Last 24 Hours up to 6 AM 08/29/19 06:00 Intake Total 2330 ml Output Total 300 ml Balance 2030 ml Laboratory Data 24H LABS Laboratory Tests 2 08/29/19 05:18: Nucleated Red Blood Cells % (auto) 0.0, Anion Gap 9, Glomerular Filtration Rate 59.7, Calcium Level 8.0L, Total Bilirubin 0.5, Aspartate Amino Transf (AST/SGOT) 15, Alanine Aminotransferase (ALT/SGPT) 21, Alkaline Phosphatase 104, Total Protein 6.4, Albumin 2.9L, Albumin/Globulin Ratio 0.83L CBC/BMP Laboratory Tests 08/29/19 05:18 Eduardo Lebron MD Aug 29, 2019 6:48 pm
[2019-08-29] MEDS ORDERED: POTASSIUM CHLORIDE 10 MEQ SR TABLET PO ONE (19:00)
[2019-08-29] MEDS: QUEtiapine FUMARATE 50 MG TAB PO SCH (20:05)
[2019-08-29] MEDS: BENZTROPINE 1 MG TAB PO SCH (20:05)
[2019-08-29] MEDS: PRAVASTATIN 20 MG TAB PO SCH (20:05)
[2019-08-29] MEDS: traZODone 50 MG TAB PO SCH (20:05)
[2019-08-29] MEDS: GABAPENTIN 100 MG CAP PO SCH (20:05)
[2019-08-30 06:00] VITALS: BP_SYST 138; BP_SYST 148; BP_DIAS 90
[2019-08-30 06:15] LABS: HEMATOCRIT 49.5 % (42.0-52.0); HEMOGLOBIN 15.7 g/dl (13.5-17.5); MEAN CORPUSCULAR HEMOGLOBIN 24.8 pg (27.0-33.0); MEAN CORPUSCULAR HGB CONC 31.7 g/dl (32.0-36.5); MEAN CORPUSCULAR VOLUME 78.1 fl (80.0-96.0); PLATELET COUNT, AUTOMATED 143 10^3/uL (150-450); RED BLOOD COUNT 6.34 10^6/uL (4.30-6.10); WHITE BLOOD COUNT 9.3 10^3/uL (4.0-10.0)
[2019-08-30 06:39] LABS: ALBUMIN 2.7 GM/DL (3.2-5.2); BLOOD UREA NITROGEN 11 MG/DL (7-18); CALCIUM LEVEL 7.9 MG/DL (8.5-10.1); CARBON DIOXIDE LEVEL 25 MEQ/L (21-32); CHLORIDE LEVEL 109 MEQ/L (98-107); CREATININE FOR GFR 1.06 MG/DL (0.70-1.30); GLOMERULAR FILTRATION RATE > 60.0 (>56); GLUCOSE, FASTING 83 MG/DL (70-100); PHOSPHORUS LEVEL 2.6 MG/DL (2.5-4.9); SODIUM LEVEL 142 MEQ/L (136-145)
--- NOTE | 2019-08-30 07:33 | ECHO ---
DATE OF STUDY: 08/28/2019 REFERRING PHYSICIAN: Dr. Marcela Andrew INDICATION: Transient cerebral ischemia unspecified. HEIGHT: 155 cm. WEIGHT: 64 kg. 2-D MEASUREMENTS: Aortic root: 2.9 cm Left atrium: 3.1 cm Left ventricle diastole: 4.1 cm Ventricular septum: 0.92 cm Posterior wall: 0.92 cm Inferior vena cava: 0.9 cm (more than 50% respiratory variation) DOPPLER MEASUREMENTS: Aortic valve velocity: 97.9 cm/sec LVOT velocity: 73.1 cm/sec Mitral E velocity: 36.4 cm/sec Mitral A velocity: 75.8 cm/sec No aortic stenosis No aortic regurgitation No mitral stenosis No mitral regurgitation No tricuspid regurgitation No pulmonic regurgitation Pulmonary acceleration time: 160 ms MITRAL ANNULAR TISSUE DOPPLER: E prime septal: 4.35 cm/sec E prime lateral: 6.1 cm/sec DESCRIPTION: The rhythm was sinus. Image quality was fair. This was a 2-D, M-mode, color flow Doppler and pulse wave Doppler examination and included mitral annular tissue Doppler. CONCLUSIONS: 1. Normal left ventricle internal dimensions and wall thickness. Normal regional LV wall motion and wall thickening. Normal LV systolic function. LVEF 65% by visual estimate. Grade 1 LV diastolic dysfunction. 2. Very mild aortic valve sclerosis with a 3-cuspid aortic valve. 3. Very mild pericardial effusion. 4. Otherwise normal appearing echocardiogram Doppler findings.
[2019-08-30] MEDS ORDERED: ENOXAPARIN 40 MG/0.4 ML SYRINGE (J1650) SC SCH (09:00)
[2019-08-30] MEDS ORDERED: amLODIPine 10 MG TAB PO SCH (09:00)
[2019-08-30] MEDS: CYANOCOBALAMIN 500 MCG TAB PO SCH (09:49)
[2019-08-30] MEDS: POTASSIUM CITRATE 1080 MG (10MEQ) TAB PO SCH (09:49)
[2019-08-30] MEDS: ASPIRIN 325 MG TAB PO SCH (09:49)
[2019-08-30] MEDS: VITAMIN D 1,000 INTERNATIONAL UNITS TABLET PO SCH (09:49)
[2019-08-30] MEDS: MULTIVITAMINS/MINERALS THERAP 1 TAB PO SCH (09:49)
[2019-08-30] MEDS: OMEPRAZOLE 20 MG CAP PO SCH (09:49)
[2019-08-30] MEDS: SERTRALINE HCL 25 MG TABLET PO SCH (09:49)
[2019-08-30] MEDS: allopurinoL 100 MG TAB PO SCH (09:49)
[2019-08-30] MEDS: QUEtiapine FUMARATE 25 MG TAB PO SCH (09:49)
[2019-08-30 09:51] VITALS: BP 142/93
--- NOTE | 2019-08-30 13:15 | DS.PDOC ---
Discharge Summary General Date of Admission Aug 27, 2019 at 16:48 Date of Discharge 08/30/19 Attending Physician: Eduardo Lebron MD [facility] he reports that his physician is a Dr. Ross who practices on [facility]. Discharge Summary PROCEDURES PERFORMED DURING STAY: [None]. ADMITTING DIAGNOSES: 1. . DISCHARGE DIAGNOSES: 1. . COMPLICATIONS/CHIEF COMPLAINT: TIA. HISTORY OF PRESENT ILLNESS: . HOSPITAL COURSE: . DISCHARGE MEDICATIONS: Please see below. ALLERGIES: Please see below. PHYSICAL EXAMINATION ON DISCHARGE: VITAL SIGNS: Please see below. GENERAL: HEENT: NECK: CARDIOVASCULAR EXAMINATION: RESPIRATORY EXAMINATION: ABDOMINAL EXAMINATION: EXTREMITIES: SKIN: NEUROLOGICAL EXAMINATION: PSYCHIATRIC EXAMINATION: LABORATORY DATA: Please see below. IMAGING: PROGNOSIS: ACTIVITY: [As tolerated]. DIET: DISCHARGE PLAN: DISPOSITION: . DISCHARGE INSTRUCTIONS: 1. . ITEMS TO FOLLOWUP ON ON OUTPATIENT: 1. . DISCHARGE CONDITION: [Stable]. TIME SPENT ON DISCHARGE: Greater than minutes. Vital Signs/I&Os Vital Signs Date Time Temp Pulse Resp B/P (MAP) Pulse Ox O2 Delivery O2 Flow Rate FiO2 08/30/19 09:51 80 142/93 08/30/19 06:00 98.6 16 97 Room Air I&O- Last 24 Hours up to 6 AM 08/30/19 06:00 Intake Total 1080 ml Output Total 900 ml Balance 180 ml Laboratory Data Labs 24H Laboratory Tests 2 08/30/19 05:33: Nucleated Red Blood Cells % (auto) 0.0, Anion Gap 8, Glomerular Filtration Rate > 60.0, Calcium Level 7.9L, Phosphorus Level 2.6, Albumin 2.7L CBC/BMP Laboratory Tests 08/30/19 05:33 Discharge Medications Scheduled Allopurinol (Allopurinol) 100 Mg Tablet, 100 MG PO DAILY, (Reported) Amlodipine Besylate (Amlodipine Besylate) 5 Mg Tablet, 5 MG PO DAILY, (Reported) Benztropine Mesylate (Benztropine Mesylate) 1 Mg Tablet, 1 MG PO QHS, (Reported) Cholecalciferol (Vitamin D3) (Vitamin D3) 1,000 Unit Tablet, 2,000 UNIT PO DAILY, (Reported) Cyanocobalamin (Vitamin B-12) (Vitamin B-12) 500 Mcg Tablet, 500 MCG PO DAILY, (Reported) Folic Acid (Folic Acid) 1 Mg Tablet, 1 MG PO DAILY, (Reported) Gabapentin (Gabapentin) 100 Mg Capsule, 100 MG PO QHS, (Reported) Melatonin (Melatonin) 3 Mg Tablet, 6 MG PO QHS, (Reported) Multivitamins (Thera M Plus Tablet) 1 Each Tablet, 1 TAB PO DAILY, (Reported) Omeprazole (Omeprazole) 40 Mg Capsule.dr, 40 MG PO DAILY, (Reported) Potassium Citrate (Potassium Citrate 10MEQ (Urocit-K)) 10 Meq Tablet.er, 10 MEQ PO DAILY, (Reported) Quetiapine Fumarate (Seroquel) 400 Mg Tab, 100 MG PO QHS, (Reported) Quetiapine Fumarate (Seroquel) 50 Mg Tablet, 75 MG PO QAM, (Reported) Sertraline Hcl (Sertraline HCl) 25 Mg Tablet, 75 MG PO DAILY, (Reported) Trazodone HCl (Trazodone HCl) 50 Mg Tablet, 50 MG PO QHS, (Reported) Scheduled PRN Albuterol Sulfate (Proair Hfa) 8.5 Gm Hfa.aer.ad, 2 PUFF INH Q6H PRN for SHORTNESS OF BREATH, (Reported) Clobetasol Propionate/Emoll (Clobetasol Emollient 0.05% Crm) 0.05% 15GM Cream..g., 1 DOSE TOP BID PRN for RASH/ITCHING, (Reported) APPLY TO BACK Hydroxyzine HCl (Hydroxyzine HCl) 25 Mg Tablet, 25 MG PO TID PRN for ANXIETY, (Reported) Allergies Coded Allergies: fluoxetine (Verified Adverse Reaction, Mild, DIZZY, 08/27/19) Eduardo Lebron MD Aug 30, 2019 13:15
[2019-08-30] MEDS ORDERED: AMLO10TA5 PO (13:27)
[2019-08-30] MEDS ORDERED: ASPI-1 PO (13:27)
[2019-08-30] MEDS ORDERED: PRAV1TAB39 PO (13:27)
== END 2019-08-30 14:30 | disposition home or self-care (01) ==
LOC: M ED 16:47 → EDBD 16:47 → M ED INP 16:48 → M MSPAV 08-28 04:44
PROVIDERS: ADMIT General Practice; ATTEND Family Medicine
DX: G45.9 Transient cerebral ischemic attack, unspecified (principal); N17.9 Acute kidney failure, unspecified; I10 Essential (primary) hypertension; E87.6 Hypokalemia; F10.129 Alcohol abuse with intoxication, unspecified; F25.9 Schizoaffective disorder, unspecified; F41.9 Anxiety disorder, unspecified; F32.9 Major depressive disorder, single episode, unspecified; F17.218 Nicotine dependence, cigarettes, with other nicotine-induced disorders; Z79.899 Other long term (current) drug therapy; Z88.8 Allergy status to other drugs, medicaments and biological substances
CPT/HCPCS: 36415; 70450; 70551; 71045; 76775; 80047; 80048; 80053; 80061; 80069; 82550; 82553; 83036; 84443; 84484; 85025; 85027; 85610; 92610; 93005; 93041; 93306; 93880; 94760; 96360; 96361; 96372; 97116; 97161; 97165; 99285; G0378; J1650

== ENCOUNTER 2019-11-16 12:35 | Day surgery (SDC) | payer OTHER ==
[~2019-11-16] VITALS: Ht 154.9 cm; Wt 54.4 kg
[~2019-11-16 12:35] MED LIST changes: +ALLO100T PO; +AMLO5TAB6 PO; +ASPI-1 PO; +BENZ-52 PO; +CARV3.12 PO; +CLOB0.0548 TOP; +DICL1GEL3 TOP; +GABA-1171 PO; +HYDR-3363 PO; +MELA3TAB60 PO; +OMEP-221 PO; +POTA10808 PO; +PRAV1TAB39 PO; +PROAAER10 INH; +REME15TA2 PO; +SERO50TA PO; +SERT25TA85 PO; -TRAZ-163 PO; +TRAZ-186 PO; +TRAZ-257 PO; +VITA-172 PO; +VITA100066 PO; +VITAD1000T PO
[2019-11-16] MEDS ORDERED: MIDAZOLAM INJ 2 MG/2 ML VIAL (J2250) As Ordered ONE ×2 (13:38→13:39)
[2019-11-16] MEDS ORDERED: LIDOCAINE VISCOUS 2% SOLN 15ML UDC As Ordered ONE (13:40)
[2019-11-16] MEDS ORDERED: NS 1,000 ML IV SCH (13:45)
[2019-11-16] MEDS ORDERED: LIDOCAINE VISCOUS 2% SOLN 15ML UDC MT ONE (15:15)
[2019-11-16] MEDS ORDERED: MIDAZOLAM INJ 2 MG/2 ML VIAL (J2250) IV ONE ×2 (15:15)
[2019-11-16 15:25] VITALS: BP 136/70
--- NOTE | 2019-11-16 15:59 | T-ECHO ---
DATE OF STUDY: 11/16/2019 REFERRING PHYSICIAN: Dr. Danilo John INDICATION: Transient cerebral ischemia unspecified. PREPROCEDURE DIAGNOSIS: Transient cerebral ischemia unspecified. POSTPROCEDURE DIAGNOSIS: Transient cerebral ischemia unspecified, fibroelastoma involving the aortic valve. FINDINGS: Fibroelastoma aortic valve. PROCEDURE PERFORMED BY: Danilo John MD BITE BLOCK MAKER: None. IV SEDATION: Midazolam 4 mg IV. COMPLICATIONS: None. PROCEDURE DESCRIPTION: Rhythm was sinus. The patient received viscus lidocaine to gargle. He received a total of midazolam 4 mg IV for IV sedation. The patient tolerated the procedure well without any immediate complications. Rhythm was sinus. Left ventricle appeared normal in size and systolic function. Right ventricle appeared normal in size and systolic function. Atrial septum was intact anatomically and by color flow Doppler. Saline contrast times two was performed with Valsalva maneuver release and did not demonstrate any intracardiac shunting. Each bubble study was performed using 1 mL of the patient's own blood, 1 mL of air and 8 mL of injectable normal saline which was agitated back and forth between two 10 mL syringes via a 3-way stopcock. Aortic valve itself appeared structurally normal, however, there was the appearance of a fibroelastoma probably attached to the left aortic cusp. No aortic regurgitation. Mitral leaflets were structurally and functionally normal. Very mild mitral regurgitation was present and within physiologic limits. Pulmonary vein flow in the left upper pulmonary vein was normal. Pulmonary venous connections to the left atrium were anatomically normal. No mass or thrombi within the right atrium or right ventricle. Right ventricle was normal in systolic function. No pericardial effusion. Distal aortic arch and descending thoracic aorta showed mild atherosclerotic plaque. CONCLUSIONS: 1. 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 No aortic regurgitation. 2. Mild atherosclerotic plaque in the distal aortic arch and descending thoracic aorta. 3. Normal left ventricle size and systolic function. 4. No atrial septal defect or patent foramen ovale. Bubble study times two negative for detection of intracardiac shunting.
== END 2019-11-16 15:33 | disposition home or self-care (01) ==
LOC: M OPP 12:35
PROVIDERS: ATTEND Internal Medicine Cardiovascular Disease
DX: I35.9 Nonrheumatic aortic valve disorder, unspecified (principal); G45.9 Transient cerebral ischemic attack, unspecified; R94.31 Abnormal electrocardiogram [ECG] [EKG]; F17.210 Nicotine dependence, cigarettes, uncomplicated; Z79.899 Other long term (current) drug therapy
CPT/HCPCS: 93312; 93320; 93325; J2250

== ENCOUNTER → 2019-12-18 | Outpatient (CLI) | payer MEDICARE, OTHER ==
[2019-12-18 10:52] LABS: BASO # 0.2 10^3/uL (0.0-0.2); BASO % 1.4 % (0.0-1.0); EOS # 0.4 10^3/uL (0.0-0.5); HEMATOCRIT 47.2 % (42.0-52.0); HEMOGLOBIN 15.5 g/dl (13.5-17.5); LYMPH # 2.7 10^3/uL (1.5-5.0); LYMPH % 25.6 % (24.0-44.0); MEAN CORPUSCULAR HEMOGLOBIN 28.2 pg (27.0-33.0); MEAN CORPUSCULAR HGB CONC 32.8 g/dl (32.0-36.5); MEAN CORPUSCULAR VOLUME 85.8 fl (80.0-96.0); MONO # 0.9 10^3/uL (0.0-0.8); MONO % 8.7 % (0.0-5.0); NEUTROPHILS # 6.4 10^3/uL (1.5-8.5); NEUTROPHILS % 59.7 % (36.0-66.0); PLATELET COUNT, AUTOMATED 193 10^3/uL (150-450); WHITE BLOOD COUNT 10.6 10^3/uL (4.0-10.0)
[2019-12-18 11:20] LABS: BLOOD UREA NITROGEN 13 MG/DL (7-18); CALCIUM LEVEL 8.3 MG/DL (8.5-10.1); CARBON DIOXIDE LEVEL 25 MEQ/L (21-32); CHLORIDE LEVEL 109 MEQ/L (98-107); CREATININE FOR GFR 1.25 MG/DL (0.70-1.30); GLOMERULAR FILTRATION RATE > 60.0 (>56); GLUCOSE, FASTING 87 MG/DL (70-100); POTASSIUM SERUM 4.4 MEQ/L (3.5-5.1); SODIUM LEVEL 139 MEQ/L (136-145)
== END ==
LOC: M LAB 10:22
PROVIDERS: ATTEND Internal Medicine Cardiovascular Disease
DX: G45.9 Transient cerebral ischemic attack, unspecified (principal)

== ENCOUNTER → 2020-01-29 | Outpatient (CLI) | payer MEDICARE, MEDICAID ==
[~2020-01-29] MED LIST changes: -MELA3TAB60 PO; +MELA3TAB7 PO
--- NOTE | 2020-01-29 14:30 | REP ---
RIGHT INGUINAL ULTRASOUND WITH DUPLEX DOPPLER EVALUATION OF FEMORAL ARTERY AND VEIN: Real-time sonographic evaluation of right inguinal region performed at the site of a palpable lump, which is painful. There is a complex septated fluid collection at that location. This is located just anterior to the femoral artery and vein. It measures 4.5 x 3.1 x 6.2 cm. Duplex Doppler evaluation of the underlying femoral artery and vein demonstrate patent flow with no evidence of pseudoaneurysm. Electronically Signed by Wesley Salgado MD 01/29/2020 02:47 P
== END ==
LOC: M RAD 12:27
PROVIDERS: ATTEND Nurse Practitioner
DX: K66.8 Other specified disorders of peritoneum (principal); R10.31 Right lower quadrant pain

== ENCOUNTER → 2020-02-09 | Outpatient (CLI) | payer MEDICARE, MEDICAID ==
--- NOTE | 2020-02-09 16:19 | REP ---
Right lower extremity Duplex Doppler venous ultrasound: Real time compression and duplex Doppler interrogation of the right lower extremity deep venous system is performed. The right common femoral, superficial femoral and popliteal veins are fully compressible with transducer pressure and demonstrate normal spontaneous and phasic flow, without evidence of deep venous thrombosis. Impression: No evidence of deep venous thrombosis of the right lower extremity femoral popliteal venous system. A complex fluid collection is seen in the right inguinal region measuring 4.3 x 2.4 x 4.3 cm, likely a hematoma. Electronically Signed by Wesley Salgado MD 02/09/2020 04:09 P
== END ==
LOC: M RAD 15:26
PROVIDERS: ATTEND Nurse Practitioner
DX: M79.604 Pain in right leg (principal)

== ENCOUNTER → 2020-05-26 | Outpatient (CLI) | payer MEDICARE, MEDICAID ==
[~2020-05-26] MED LIST changes: -AMLO10TA5 PO; +AMLO1TAB24 PO; +AMLO1TAB25 PO; -AMLO5TAB6 PO; +D31000TA2 PO; -VITAD1000T PO
--- NOTE | 2020-05-26 13:15 | REPVR ---
PROCEDURE INFORMATION: Exam: MR Cervical Spine Without Contrast Exam date and time: 05/26/2020 11:52 AM Age: 55 years old Clinical indication: Pain; Cervicalgia TECHNIQUE: Imaging protocol: Multiplanar magnetic resonance images of the cervical spine without contrast. COMPARISON: No relevant prior studies available. FINDINGS: Vertebrae: There is straightening of the normal lumbar lordosis. There is 3 mm of grade 1 anterolisthesis of C4 with respect to C5. Normal vertebral body alignment is otherwise preserved. Vertebral body heights are within normal limits. There is moderate to severe intervertebral disc space loss at C6/7. Spinal cord: Normal signal. No cord compression. C2-C3: There is a shallow disc osteophyte complex. There is mild right and moderate left facet hypertrophy. There is mild left neural foraminal narrowing. C3-C4: There is a diffuse disc osteophyte complex. There is moderate to severe facet hypertrophy. There is moderate to severe bilateral neural foraminal narrowing. C4-C5: There is a diffuse disc osteophyte complex/uncovering related to listhesis. There is severe right and moderate left facet hypertrophy. There is severe right and moderate left neural foraminal narrowing. There is mild canal stenosis. C5-C6: There is a diffuse disc osteophyte complex. There is moderate facet hypertrophy. There is severe bilateral neural foraminal narrowing. There is mild canal stenosis. C6-C7: There is a diffuse disc osteophyte complex. There is moderate facet hypertrophy. There is moderate right and severe left neural foraminal narrowing. C7-T1: There is a shallow disc osteophyte complex. There is mild facet hypertrophy. There is mild bilateral neural foraminal narrowing. Vertebral arteries: Expected flow voids in the vertebral arteries. Soft tissues: Unremarkable. IMPRESSION: Degenerative disc disease and spondylosis as described. Changes contribute to multilevel moderate to severe neural foraminal narrowing. Electronically signed by: Marie Pierce On 05/26/2020 13:14:44 PM
== END ==
LOC: M RAD 11:40
PROVIDERS: ATTEND Nurse Practitioner Family
DX: M54.12 Radiculopathy, cervical region (principal); M25.78 Osteophyte, vertebrae

== ENCOUNTER → 2020-06-24 | Outpatient (CLI) | payer MEDICARE, MEDICAID ==
--- NOTE | 2020-06-29 08:08 | REP ---
CHEST CT WITHOUT CONTRAST HISTORY: Other nonspecific abnormal finding of lung field. COMPARISON: CT study of the chest from 07/03/2018. CT FINDINGS: Digital preliminary electrical prospecting operator radiograph shows surgical clips along the right mediastinum in this patient who is status post open heart surgery. There is vascular calcification along the course of the carotid. A tiny sliding-type hiatal hernia is seen. There are two tiny accessory splenules in the left upper quadrant. Normal adrenal glands. The visualized upper abdominal structures are unremarkable. There are scattered normal sized mediastinal lymph nodes, the largest of which is a precarinal lymph node. This measures 8 mm in short axis dimension and appears unchanged from the 07/03/2018 study. No pleural or pericardial effusion is seen. No bony destructive lesion is seen. Analysis of the lung windows demonstrate innumerable tiny 1-3 mm nodular densities and scattered subcentimeter nodules. There multiple new subcentimeter pulmonary nodules when compared with the 2018 prior study. There are multiple tiny subcentimeter air cysts or bullae amongst the nodular opacities. One nodular density 4 mm in diameter in the right lower lobe has a cavitary appearance or perhaps this is an air cyst with slight wall thickening. No endobronchial disease is seen. Study is otherwise unremarkable. IMPRESSION: Numerous new subcentimeter pulmonary nodules bilaterally. Multiple areas of air cyst formation or emphysematous change scattered in the lung fowler as well. This is also more prominent than on the prior study. Progressive inflammatory or granulomatous disease versus other etiologies. Malignancy is not excluded, but is considered less likely. Septic emboli would be a possibility also somewhat less likely. MTDD
[2020-07-08 01:07] LABS: ANCA-ATYPICAL <1:20 titer (Neg:<1:20); ASPERGILLUS FLAVUS ABY Negative (Neg:<1:1); ASPERGILLUS FUMIGATUS ABY Negative (Neg:<1:1); ASPERGILLUS NIGER ABY Negative (Neg:<1:1); BLASTOMYCES ANTIBODY LEVEL Negative (Neg:<1:1); CRYPTOCOCCUS ANTIGEN SER Negative (Negative); CYCLIC CITRULLINATED PEPTIDE 4 units (0-19); CYTOPLASMIC NEUTROP AB ANCA-C <1:20 titer (Neg:<1:20); PERINUCLEAR AB ANCA-P <1:20 titer (Neg:<1:20)
== END ==
LOC: M RAD 07:19
PROVIDERS: ATTEND Internal Medicine Pulmonary Disease
DX: R91.8 Other nonspecific abnormal finding of lung field (principal)

== ENCOUNTER → 2020-07-01 | Outpatient (REF) | payer MEDICARE, MEDICAID | LOC: M LAB REF 16:59 | PROVIDERS: ATTEND Internal Medicine Pulmonary Disease | DX: R91.8 Other nonspecific abnormal finding of lung field (principal) ==

== ENCOUNTER → 2020-07-09 | Outpatient (CLI) | payer MEDICARE, MEDICAID | LOC: M LABSMTC 10:36 | PROVIDERS: ATTEND Orthopaedic Surgery | DX: Z01.812 Encounter for preprocedural laboratory examination (principal); Z20.828 Contact with and (suspected) exposure to other viral communicable diseases ==

== ENCOUNTER → 2020-08-31 | Outpatient (CLI) | payer OTHER ==
--- NOTE | 2020-08-31 10:57 | REP ---
INDICATION: SOLITARY PULMONARY NODULE. COMPARISON: Chest CT studies dated 07/03/2018 in 06/24/2020. TECHNIQUE: Chest CT without IV contrast FINDINGS: There are multiple small lung nodules bilaterally as previously. Almost all these nodules are less than 6 mm in diameter with no evidence of interval enlargement. In fact, some of these nodules have decreased in size. These are all category 2 lung nodules with the possibility of malignancy less than 1% and require only annual chest CT surveillance. However, there is a 6 mm lung nodule in the lateral segment of the right middle lobe on image 53. This is unchanged from 06/24/2020 but was not present on 07/03/2018. This is a category 3 lung nodule with the probability of malignancy 1-2%. Six month follow-up chest CT for this nodule is recommended. There is no mediastinal or axillary lymph node enlargement. The study is insensitive for hilar lymph node enlargement in the absence of IV contrast. The unenhanced thoracic aorta is unremarkable except for a few calcified atheromatous plaques. Cardiac size is normal. There is no pericardial effusion. There is calcified atheroma in the coronary arteries. Upper abdomen: There is no adrenal nodule. The visualized areas of the unenhanced hepatic parenchyma, gallbladder, pancreas and spleen are unremarkable. There is a small hiatal hernia, unchanged. IMPRESSION: Category 3 right middle lobe lung nodule as described. 6 month follow-up chest CT is recommended. There are multiple other category 2 lung nodules as described above. <Electronically signed by Wesley Bay > 08/31/20 [id number]
== END ==
LOC: M RAD 09:05
PROVIDERS: ATTEND Family Medicine
DX: R91.1 Solitary pulmonary nodule (principal)

== ENCOUNTER → 2020-11-02 | Outpatient (CLI) | payer OTHER ==
[~2020-11-02] MED LIST changes: +ASPI81TA26 PO; +ATOR1TAB21 PO; +FERR32TA PO; +PRAZ2CAP PO; +PRIM50TA6 PO; +STIO1AER IN
== END ==
LOC: M LABSMTC 10:35
PROVIDERS: ATTEND Anesthesiology
DX: Z01.812 Encounter for preprocedural laboratory examination (principal); Z20.822 Contact with and (suspected) exposure to COVID-19

== ENCOUNTER 2020-11-07 12:39 | Day surgery (SDC) | payer MEDICARE, OTHER ==
[~2020-11-07] VITALS: Ht 154.9 cm; Wt 61.2 kg
[~2020-11-07 12:39] MED LIST changes: +LIDOCAINE 2% 100MG/5ML SDV (FOR ANES.) As Ordered ONE; +NS 1,000 ML IV ONE; +fentaNYL 100 MCG/2 ML INJECTION (J3010) As Ordered ONE; +propofoL 200 MG/20 ML VIAL As Ordered ONE
--- OUTSIDE RECORDS SUMMARY | 2020-11-07 13:07 | CCD | Continuity of Care Document ---
Author Author Yousuf LEE MD Organization Unknown Address [address] [place] [address] Phone [phone] Care Team Providers Care Real Estate Broker Associate Name Role Phone Lima Peralta M.D. AUTM [phone] AUTM Unavailable Sara Johnson M.D. AUTM [phone] Danilo John M.D. AUTM [phone] Problems Description No Information Available Social History Type Date Description Comments Sex Unknown ETOH Use Consumes 5 beers per day Tobacco Use Start: 09/16/78 Patient is a current smoker, smo kes every day hx: 2- 2.5 ppd. currenlty at 1/2 ppd, been slowly decreasing since last year Smoking Status Reviewed: 06/28/20 Patient is a current smoker, smokes every day hx: 2-2.5 ppd. currenlty at 1/2 ppd, been slowly decreasing since last year Allergies, Adverse Reactions, Alerts Description No Known Drug Allergies Medications Active Medications SIG Qnty Indications Ordering Provide r Date Magnesium Citrate 1.745GM/30ML Jennifer ution one 10 oz bottle green or clear only, use for additional prep at 2-3 days before procedure 296ml R93.3 Danilo Lee MD 09/21/2020 Miralax 17GM/Scoop Powder use as directed see dr lee colon preparation instructions 510gm R93.3 Hans Lee MD 09/21/2020 Nicotine Transdermal System Step 2 14mg/24HR Patches 24HR 1 patch topically every day. move patch to a different area of the skin for each application 28units F17.218 Sara Johnson M. D. 06/15/2020 Zolpidem Tartrate 10mg Tablets hs Unknown Docusate Sodium 100mg Capsules 1 by mouth twice a day Unknown Aspirin [address] Unknown Trazodone HCL 50mg Tablets 1 at bedtime Unknown Sertraline HCL 100mg Tablets 1.5 tabs by mouth every day Unknown Quetiapine Fumarate 25mg Tablets 1 tab by mouth 4 times daily as needed Unknown Primidone 50mg Tablets 1 by mouth twice a day Unknown Prazosin HCL 2mg Capsules 1 c ap daily Unknown Stiolto Respimat 2.5-2.5mcg/Act Ae rosol 2 puffs once daily Unknown Pantoprazole Sodium 40mg Tablets D R 1 tab before breakfast Unknown Hydroxyzine HCL 25mg Tablets 1 tab three times a day as needed Unknown Cyanocobalamin 500mg once daily Unknown Diclofenac Sodium 1% Gel 4gm twice daily Unknown Vitamin D (Cholecalciferol) 25mcg (1000 Ut) Capsules 1 by mouth every day Unknown 000 Ascorbic Acid 500mg Tablets 1 po qd Unknown Albuterol Sulfate HFA 108(90Base) mcg/Act Aerosol inhale two puffs by mouth four times a day as needed Unknown Clobetasol Propionate 0.05% Cream Apply To Affected Area S Of Back Twice Daily as Needed Externally For 10 Days Unknown Folic Acid 1mg Tablets Take One Tablet By Mouth Every Day Unknown Benztropine Mesylate 1mg Tablets Take One Tablet By Mouth Twice A Day Unknown Ferrous Gluconate 324(38Fe) mg Tab lets Take One Tablet By Mouth Twice A Day Unknown Potassium Citrate ER 10Meq (1080 mg) Tablets ER Take One Tablet By Mouth Three Times A Day With Meals Unknown Atorvastatin Calcium 20mg Tablets Take One Tablet By Mouth Every Day Unknown Amlodipine Besylate 10mg Tablets Take One Tablet By Mouth Every Day Unknown Allopurinol 100mg Tablets Take One Tablet By Mouth Every Day Unknown Immunizations Description No Information Available Vital Signs Date Vital Result Comment 09/21/2020 11:35am BP Systolic 130 mmHg BP Diastolic 82 mmHg Height 61 inches 5'1" Weight 144.00 lb BMI (Body Mass Index) 27.2 kg/m2 [place] Body Weight 112 lb Weight 65.318 kg BSA (Body Surface Area) 1.64 m2 06/28/2020 8:13am BP Systolic 142 mmHg BP Diastolic 84 mmHg Heart Rate 74 /min O2 % BldC Oximetry 98 % Height 61 inches 5'1" Weight 134.12 lb BMI (Body Mass Index) 25.3 kg/m2 [place] Body Weight 112 lb Weight 60.839 kg BSA (Body Surface Area) 1.59 m2 Results Test Acquired Date Facility Test Result H/L Range Note Sputum Culture And Gram Stain 07/01/2020 [facility] Main Lab [address] [place] [address] [phone] Gram Stain (SEE NOTE) Normal 1 Sputum Culture FULL REPORT IN L <SEE NOTE> Normal 2 Laboratory test finding 07/01/2020 [facility] Main Lab [address] [place] [address] [phone] Afb Smear & Culture Due to limited s <SEE NOTE> 3 Anti-Neutrophil Cytoplasmic AB 06/24/2020 [facility] Main Lab [address] [place] [address] [phone] Cytoplasmic Neutrop AB Anca-C <1:20 titer Normal N eg:<1:20 4 Perinuclear AB Anca-P <1:20 titer Normal Neg:<1:20 5 Anca-Atypical <1:20 titer Normal Neg:<1:20 6 Laboratory test finding 06/24/2020 [facility] Main Lab [address] [place] [address] [phone] Rheumatoid Factor Quant < 10.0 IU/mL Normal <15.0 Cyclic Citrullinated Peptide 4 units Normal 0-19 7 Fungal Titers([facility]) 06/24/2020 [facility] Main Lab [address] [place] [address] [phone] Histoplasmosis Antibody TNP Normal . 8 Blastomyces Antibody Level Negative Normal Neg:<1:1 Coccidiomycosis Antibody 0.2 IV Normal <=0.9 9 Cryptococcus Antigen Serum Negative Normal Negative 1 0 Aspergillus Antibodies 06/24/2020 [facility] Main Lab [address] [place] [address] [phone] Aspergillus Fumigatus Tasneem Negative Normal Neg:<1 :1 Aspergillus Flavus Tasneem Negative Normal Neg:<1:1 Aspergillus Niger Tasneem Negative Normal Neg:<1:1 FVL/Kristian 06/15/2020 [facility] SEE IMAGE FVC-Pred 3.44 L FVC-Pre 3.17 L FVC-%Pred-Pre 92 L FVC-LLN 2.73 L Fev1-Pred 2.64 L Fev1-Pre 2.54 L Fev1-%Pred-Pre 96 L Fev1-LLN 2.04 L Fev6-Pred 3.27 L Fev6-Pre 3.17 L Fev6-%Pred-Pre 96 L Fev6-LLN 2.58 L Ren1dyq-Zgzu 76 % Doq0tqh-Imo 80 % Pbd3fny-%Pred-Pre 104 % Fjx6vsr-IMO 67 % Sfb3uxp-Fjjs 95 % Cxe9nws-Qxm 100 % Tyz8cvj-%Pred-Pre 105 % FEFMax-Pred 7.53 L/E/sec FEFMax-Pre 8.04 L/E/sec FEFMax-%Pred-Pre 106 L/E/sec FEFMax-LLN 5.77 L/E/sec Qew5784-Lgaq 2.34 L/E/sec Miw0624-Wtm 2.45 L/E/sec Wpi5345-%Pred-Pre 104 L/E/sec Axw8417-AWH 1.12 L/E/sec ExpTime-Pre 5.77 sec Nrz5nlo7-Itan 79 % Ylv8hhm9-Emk 80 % Yts3aqw5-%Pred-Pre 100 % Vga9bqz2-DUW 70 % 1 QUALITY: GOOD FEW WBCS FEW EPITHELIAL CELLS MODERATE GRAM POSITIVE COCCI IN PAIRS, CHAINS AND CLUSTERS MODERATE GRAM POSITIVE RODS 2 FULL REPORT IN LAB NOTES (eC W and [facility]). NORMAL CINDI PRESENT 3 Due to limited sensitivity, smear results should be used as an adjunct in evaluating patient tuberculosis status. Cultural examination is highly recommended for clinical diagnosis. AFB smear Kinyoun NEGATIVE (NO AFB Seen ) 4 will discuss at follow-up 5 The presence of positive flu orescence exhibiting P-ANCA or C-ANCA patterns alone is not specific for the diagnosis of Nikunj's Granulomatosis (WG) or microscopic polyangiitis. Decisions about treatment should not be based solely on ANCA IFA results. The International ANCA Group Consensus recommends follow up testing of positive sera with both CO- 3 and MPO-ANCA enzyme immunoassays. As m any as 5% serum samples are positive only by EIA. Ref. AM J Clin Pathol 1999;111:507-513. 6 The atypical pANCA pattern h as been observed in a significant percentage of patients with ulcerative colitis, primary sclerosing cholangitis and autoimmune hepatitis. 7 Negative <20 Weak positive 20 - 39 Moderate positive 40 - 59 Strong positive >59 8 Test not performed. Unable t o perform test due to current unavailability of reagents or discontinuation of test. 9 INTERPRETIVE INFORMATION: Co ccidioides Antibody, Ig.9 IV or less: Negative - No signif icant level of Coccidioides IgG antibody detected. 1.0 - 1.4 IV: Equivocal - Question able presence of Coccidioides IgG antibody detected. Repeat testing in 10-14 days may be helpful. 1.5 IV or greater: Positive - Presence of IgG antibody to Coccidioides detected, suggestive of current or past infection. IgG antibody usually appears by the third week of infection and may persist for years. Both tube precipitin (TP) and CF antigens are represented in the RAMBO tests. 10 Performed at: [address] [id number] Stock Saw Operator: Taya Hathaway MD, Phone: [phone] Performed at: [employer] [place] [id number] Stock Saw Operator: Ruben Avitia MD, Phone: [phone] Procedures Date Code Description Status 06/15/2020 05767 Spirometry Completed Medical Devices Description No Information Available Encounters Type Date Location Provider Dx Diagnosis Office Visit 09/21/2020 11:30a [facility] E[facility]GI Practice Danilo Lee MD R93.3 Abnormal findings on dx imaging of prt digestive tract R12 Heartburn R91.8 Other nonspecific abnormal f inding of lung field Office Visit 06/28/2020 8:30a [facility] Pulmonary/Thoracic Sara Valera M.D. R91.8 Other nonspecific abnormal f inding of lung field J44.9 Chronic obstructive pulmonar y disease, unspecified F17.218 Nicotine dependence, cigaret naeem, w oth disorders R12 Heartburn Office Visit 06/15/2020 9:30a [facility] Pulmonary/Thoracic Sara Valera M.D. R91.8 Other nonspecific abnormal f inding of lung field J44.9 Chronic obstructive pulmonar y disease, unspecified F17.218 Nicotine dependence, cigaret naeem, w oth disorders Assessments Date Code Description Provider 09/21/2020 R93.3 Abnormal findings on diagnostic imaging of other parts of digestive tract Danilo Lee MD 09/21/2020 R12 Heartburn Danilo Lee MD 09/21/2020 R91.8 Other nonspecific abnormal findi ng of lung field Danilo Lee MD 06/28/2020 R91.8 Other nonspecific abnormal findi ng of lung field Sara Johnson M.D. 06/28/2020 J44.9 Chronic obstructive pulmonary di sease, unspecified Sara Johnson M.D. 06/28/2020 F17.218 Nicotine dependence, cigarettes, with other nicotine-induced disorders Sara Johnson M.D. 06/28/2020 R12 Heartburn Sara Johnson M.D. 06/15/2020 R91.8 Other nonspecific abnormal findi ng of lung field Sara Johnson M.D. 06/15/2020 J44.9 Chronic obstructive pulmonary di sease, unspecified Sara Johnson M.D. 06/15/2020 F17.218 Nicotine dependence, cigarettes, with other nicotine-induced disorders Sara Johnson M.D. Plan of Treatment Future Appointment(s):* 10/26/2020 1:00 pm - Pulmonary Lab at [facility] Pulmonary/Thoracic * 10/26/2020 2:00 pm - Sara Johnson M.D. at [facility] Pulmonary/Thoracic 09/21/2020 - Danilo Lee MD* R93.3 Abnormal findings on diagnostic imaging of other parts of digestive tract * R12 Heartburn * R91.8 Other nonspecific abnormal finding of lung field * * New Medication:* Magnesium Citrate 1.745 GM/30ML * Miralax 17 GM/Scoop * New Orders:* EGD/Upper Endoscopy, Ordered: 09/21/20 * Colonoscopy, Ordered: 09/21/20 * Comments:* Incidental finding of esophageal wall thickening in face of pulmonary nodules. Pt referred for eval esophagus and r/o mets --for EGD/Colon * Recommendations:* EGD/Colonoscopy Dr John to approve Functional Status Functional Condition Comment Date Status Independent with all ADL's Activ e Mental Status Mental Condition Comment Date Status None Active Referrals Refer to Reason for Referral Status Appt Date Danilo Lee MD multiple lung nodules, esoph ageal wall thickening, small hiatal hernia. Scheduled 09/21/2019 [facility], Gastroenterology [address], [address] [place] [address] [phone] Antony Baum M.D. multiple lung nodules, esop hageal wall thickening, small hiatal hernia. Last colonoscopy 5-6 yrs ago, never EGD Scheduled 09/21/2020 [address], [address] [place] [address] [phone] Radiology/Procedure 77605 CT CHEST NONE REQUIRED Closed
--- OUTSIDE RECORDS SUMMARY | 2020-11-07 13:07 | CCD | Continuity of Care Document ---
Author Author Yousuf MONACO MD Organization Unknown Address [address] [place] [address], [place] [address] Phone [phone] Care Team Providers Care Senior Quality Manager Name Role Phone Darrick Cee MD AUTM [phone] Danilo Macias MD AUTM [phone] Problems Active Problems Provider Date Transient cerebral ischemia Danilo Monaco MD Onset: 10/17 Electrocardiogram abnormal Danilo Monaco MD Onset: 10/26 Essential hypertension Danilo Monaco MD Onset: 0 Pure hyperglyceridemia Danilo Monaco MD Onset: 0 Tobacco user Danilo Monaco MD Onset: 10/26/2019 Counseling about tobacco use Danilo Monaco MD Onset: 06/2020 Dietary management surveillance Danilo Monaco MD Onset: 10/26/2019 Orthostatic hypotension Danilo Monaco MD Onset: 10/26/19 20 Benign neoplasm of heart Danilo Monaco MD Onset: 020 Preoperative cardiovascular examination Danilo Monaco MD Onset: 10/20/2020 Right bundle branch block AND left anterior fascicular block Danilo Monaco MD Onset: 10/20/2020 Single coronary vessel disease Danilo Monaco MD Onset: 0 10/20/2020 Palpitations Danilo Monaco MD Onset: 10/20/2020 Social History Type Date Description Comments Sex Unknown ETOH Use Does not consume alcohol Tobacco Use Start: Unknown Patient is a current smoker, smo kes every day started at age 14, at most 1 ppd Smoking Status Reviewed: 10/20/20 Patient is a current smoker, smokes every day started at age 14, at most 1 ppd Exercise Type/Frequency Does not exercise curren tly Exercise Limitations Shortness Of Breath Exercise Limitations Imbalance Exercise Limitations Dizziness Allergies, Adverse Reactions, Alerts Description No Known Drug Allergies Medications Active Medications SIG Qnty Indications Ordering Provide r Date Sertraline HCL 100mg Tablets 2 by mouth every day Unknown 10/19/2020 Potassium Chloride Melinda ER 10Meq Tablets ER 2 by mouth bid Unknown 10/19/2020 Quetiapine Fumarate 25mg Tablets 1 by mouth four times daily as needed Unknown 10/19/2020 Benztropine Mesylate 0.5mg Tablets 1 by mouth twice every day Unknown 10/19/2020 Ascorbic Acid 500mg Tablets 1 by mouth every day Unknown 10/19/2020 Atorvastatin Calcium 40mg Tablets 1/2 by mouth every night at bedtime Unknown 11/2020 Ferrous Gluconate 324(37.5Fe) mg T ablets 1 by mouth twice a day Unknown 10/19/2020 Pantoprazole Sodium 40mg Tablets D R 1 by mouth every day Unknown 10/19/2020 Prazosin HCL 2mg Capsules 1.5 by mouth daily at bedtime Unknown 10/19/2020 Primidone 50mg Tablets 1 by mouth twice daily Unknown 10/19/2020 Trazodone HCL 100mg Tablets 1 by mouth every night at bedtime Unknown Aspirin Ec 81mg Tablets DR 1 by mouth every day 90tabs G45.9 Danilo Monaco MD 10/26/2019 Albuterol Sulfate HFA 108(90Base) mcg/Act Aerosol inhale two puffs prior to each advair use Unknown 10/25/2019 Amlodipine Besylate 10mg Tablets 1 by mouth every day Unknown 10/25/2019 Vitamin D-3 25mcg (1000 Ut) Capsul es 2 by mouth every day Unknown 10/25/2019 Clobetasol Propionate 0.05% Cream as needed Unknown 10/25/2019 Vitamin B 12 500mcg Tablets 1 by mouth every day Unknown 10/25/2019 Diclofenac Sodium 1% Gel apply as directed Unknown 10/25/2019 Folic Acid 1mg Tablets 1 by mouth every day Unknown 10/25/2019 Hydroxyzine HCL 25mg Tablets 1 by mouth daily at bedtime as needed Unknown 10/25 Allopurinol 100mg Tablets 1 by mouth every day Unknown 10/25/2019 Striverdi Respimat 2.5mcg/Act Aero armin 2 puffs once daily Unknown 10/25/2019 Multivitamin Men Tablets 1 by mouth every day Unknown 10/18/2019 Immunizations Description No Information Available Vital Signs Date Vital Result Comment 10/20/2020 8:31am Weight 134.00 lb Height 61 inches 5'1" BMI (Body Mass Index) 25.3 kg/m2 Heart Rate 79 /min BP Systolic Sitting 133 mmHg CBP, adult cuff/Ra BP Diastolic Sitting 89 mmHg CBP, adult cuff/Ra BP Systolic Lying Down 143 mmHg Omron, adult cuff /Ra; HR: 70 bpm BP Diastolic Lying Down 80 mmHg Omron, adult cuf f/Ra; HR: 70 bpm BP Systolic Standing 119 mmHg Omron, adult cuff/R a; HR: 82 bpm BP Diastolic Standing 79 mmHg Omron, adult cuff/ Ra; HR: 82 bpm 10/26/2019 1:24pm Weight 126.00 lb Height 61 inches 5'1" BMI (Body Mass Index) 23.8 kg/m2 Heart Rate 88 /min Laying HR 81, Standi ng HR 93 BP Systolic Sitting 140 mmHg CBP adult cuff, Ra BP Diastolic Sitting 87 mmHg CBP adult cuff, Ra BP Systolic Lying Down 131 mmHg Omron adul cuff, Ra BP Diastolic Lying Down 81 mmHg Omron adul cuff, Ra BP Systolic Standing 94 mmHg Omron adult cuff Ra BP Diastolic Standing 66 mmHg Omron adult cuff R a Results Description No Information Available Procedures Date Code Description Status 10/20/2020 57584 Arterial Pressure Wa veform Analysis For Assessment Of Central Art Completed 10/20/2020 53801 ECG 12-Lead Completed Medical Devices Description No Information Available Encounters Type Date Location Provider Dx Diagnosis Office Visit 10/20/2020 8:15a Main Office Danilo Monaco MD I25.1 0 Athscl heart disease of [place] coronary artery w/o ang pctrs R94.31 Abnormal electrocardiogram [ ECG] [EKG] I10 Essential (primary) hyperten maria [place] carmen I95.1 Orthostatic hypotension I45.2 Bifascicular block Z01.810 Encounter for preprocedural cardiovascular examination F17.210 Nicotine dependence, cigaret naeem, uncomplicated R00.2 Palpitations Z71.6 Tobacco abuse counseling Assessments Date Code Description Provider 10/20/2020 I25.10 Atherosclerotic hear t disease of [place] coronary artery without angina pectoris Danilo Monaco MD 10/20/2020 R94.31 Abnormal electrocardiogram [ECG] [EKG] Danilo Monaco MD 10/20/2020 I10 Essential (primary) hypertension Danilo Monaco MD 10/20/2020 I95.1 Orthostatic hypotension Danilo Monaco MD 10/20/2020 I45.2 Bifascicular block Danilo church MD 10/20/2020 Z01.810 Encounter for preprocedural card iovascular examination Danilo Monaco MD 10/20/2020 F17.210 Nicotine dependence, cigarettes, uncomplicated Danilo Monaco MD 10/20/2020 R00.2 Palpitations Danilo Monaco MD 10/20/2020 Z71.6 Tobacco abuse counseling Danilo Monaco MD Plan of Treatment Future Appointment(s):* 10/20/2021 9:45 am - BILLY Dahl at Main Office * 12/09/2020 2:00 pm - Holter/Event/Telemetry at Main Office 10/20/2020 - Danilo Monaco MD* I25.10 Atherosclerotic heart disease of [place] coronary artery without angina pectoris * R94.31 Abnormal electrocardiogram [ECG] [EKG] * I10 Essential (primary) hypertension* New Orders:* Central Aortic Pulse Wave Analysis, Scheduled: 10/20/20 * I95.1 Orthostatic hypotension * I45.2 Bifascicular block * Z01.810 Encounter for preprocedural cardiovascular examination * F17.210 Nicotine dependence, cigarettes, uncomplicated * R00.2 Palpitations* New Orders:* Holter Monitor, Ordered: 10/20/20 * Z71.6 Tobacco abuse counseling * All * Follow up:* Follow-up in 12 months. Functional Status Functional Condition Comment Date Status Independent with all ADL's Activ e Requires assistance with ambulating with cane Active Mental Status Description No Information Available Referrals Description No Information Available
--- OUTSIDE RECORDS SUMMARY | 2020-11-07 13:07 | CCD ---
Author Author [facility] Organization [facility] Address Unknown Phone Unavailable Care Team Providers Care Center Rep Name Role Phone Rosanna Andrade Unavailable PROBLEMS Type Condition ICD9-CM Code [id number] Code Onset Dates Condition S tatus SNOMED Code Notes Problem Schizophrenia F20.9 Active 17200795 Problem Carpal tunnel syndrome of left wrist G56.02 Act maren 28802788 Problem Posttraumatic stress disorder F43.10 Active 47 851819 Problem Alcohol use disorder F10.99 Active 09316053 Problem Nicotine use disorder F17.200 Active 79884488 c ontinue to cut down Problem Vitamin D deficiency, unspecified E55.9 Active 73645884 followup with Ms. Lloyd Problem Essential tremor G25.0 Active 197393855 Problem Hyperlipidemia E78.5 Active 27216995 followup with cardiology and Ms. 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 Active 747904025 Problem Spondylosis without myelopathy or radiculopathy, cervical region M47.812 Active 3497619 ALLERGIES Allergen (clinical drug ingredient) Drug/Non Drug Allergy do cumented on EMR Reaction Allergy Type Onset Date Status fluoxetine Prozac decreased appitite Drug Allergy Acti ve ENCOUNTERS from 1963 to 2020-10-09 Encounter Location Date Provider Diagnosis [facility] [facility] [address] [facility] [address] [place] [address] Sep, Rosanna Bonej IMMUNIZATIONS Vaccine Route Administration Date Status Influenza (18 yrs & older) Flublok IM Intramuscular Jun 17, 2018 Administered Pneumococcal Adult 0.5mL (Pneumovax 23) IM Intramuscular Jul 28, 2018 Administered SOCIAL HISTORY Tobacco Use: Social History Observation Description Date Details (start date - stop date) Current Smoker Sex Assigned At : Social History Observation Description Sex Assigned At Unknown Education: Question Answer Notes Level of Education: Finished High School Audit Question Answer Notes Total Score: 17 Interpretation: Simple Advice plus Brief Counseling and Continued Monitoring Language: Question Answer Notes Languages spoken: Lao Christian: Question Answer Notes Christian 08 Bahai Sexual Hx: Question Answer Notes Had sex in the last 12 months (vaginal, oral, or anal)? Yes Have you ever had an STD? No with Women only Drug and Alcohol Question Answer Notes Total Score: 0 Interpretation: No problems reported Alcohol Screening: Question Answer Notes Did you have a drink containing alcohol in the past year? Ye s Points 8 Interpretation Positive How often did you have six or more drinks on one occas ion in the past year? Monthly (2 points) How many drinks did you have on a typica l day when you were drinking in the past year? 5 or 6 (2 points) How often did you have a drink containing alcohol in t he past year? Four or more times a week (4 points) Tobacco Use: Question Answer Notes Are you a: current smoker Smoking Cessation Information Given 09/07/2019 Patient counseled on the dangers of tobacco use and urged to quit: 09/07/2019 How many cigarettes a day do you smoke? 11-20 Are you interested in quitting? Thinking about quitting Counseled the patient on smoking cessation, education provid ed 09/07/2019 REASON FOR REFERRAL No Information VITAL SIGNS No information MEDICATIONS Medication SIG (Take, Route, Frequency, Duration) Notes Start Da te End Date Status Multivitamin Adult - Orally Acti ve Sertraline HCl 25 mg 3 tablets Orally Once a day Active Cyanocobalamin 500 MCG 1 tablet Orally Once a day Active Folic Acid 1 MG 1 tablet Orally Once a day for 30 Days Active Albuterol Sulfate HFA 108 (90 Base) MCG/ACT 2 puffs as needed Inhalation every 6 hrs Active Allopurinol 100 MG 1 tablet Orally Once a day for 30 Active Potassium Citrate ER 10 MEQ (1080 MG) 1 tablet with me als Orally Three times a day for 30 Active Gabapentin 100 MG 1 capsule Orally Once a day for 30 Active Atorvastatin Calcium 20 MG 1 tablet Orally Once a day for 30 Active AmLODIPine Besylate 10 MG 1 tablet Orally Once a day for 30 Active Benztropine Mesylate 1 MG 1 tablet at bedtime Orally Once a day Active Aspirin 325 MG 1 tablet Orally Once a day for 30 Days Active Ferrous Gluconate 324 (38 Fe) MG 1 tablet with water o r juice between meals Orally Twice a day for 30 days A ctive Quetiapine Fumarate 100 MG 1 tablet Orally Once a day Active HydrOXYzine HCl 25 MG 1 tab Orally three times daily as needed Active Cholecalciferol 1000 UNIT 2 capsules Orally Once a day for 30 Days Active DOK 100 MG 1 capsule Orally Once a day Active TraZODone HCl 100 MG 1 tablet at bedtime Orally Once a day Active Furosemide 20 MG 1 tablet Orally Once a day Not-Taking Oxycodone-Acetaminophen 5-325 MG (Schedule II Drug) 1 tablet Orally every 6 hrs as needed, mdd=4 for 30 Days January, Act maren Metoprolol Tartrate 25 mg 1/2 tablet Orally Twice a day for 30 days Active Clobetasol Propionate 0.05 % 1 application to back aff ected area Externally Twice a day as needed for 10 Act maren PROCEDURES No Information RESULTS No Results REASON FOR VISIT CT low dose lung screen program fu MEDICAL (GENERAL) HISTORY Type Description Date Medical History Schizophrenic depression - sees psych in [facility] building Medical History PTSD, h/o suicidal ideation, last attemp t 2013 Medical History disablility [facility] Medical History Nicotine use disorder -50Pack a year Medical History Hyperlipidemia Medical History Alcohol use disorder Medical History 06/2015 [facility], L ulnar nerve c ompression, 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 Ling Medical History MRI cervical Spine -11/2018 [facility] oderate cervical spondylosis At C6-7. Medical History TIA Surgical History meniscal repair L 2013 Surgical History colonoscopy 2016 Surgical History open heart Hospitalization History [facility] Hospitalization History [facility] MRI -no infarct, Carotid US: minimal plaque bilaterally 08/27/2019 - 08/30/2019 [facility] Goals Section No Information Health Concerns No Information MEDICAL EQUIPMENT No Information MENTAL STATUS No Information FUNCTIONAL STATUS No Information ASSESSMENTS No Information PLAN OF TREATMENT Medication Medication Name Sig Start Date Stop Date AmLODIPine Besylate 10 MG 1 tablet Orally Once a day for 30 Oxycodone-Acetaminophen 5-325 MG (Schedule II Drug) 1 tablet Orally every 6 hrs as needed, mdd=4 for 30 Days January, Atorvastatin Calcium 20 MG 1 tablet Orally Once a day for 30 Potassium Citrate ER 10 MEQ (1080 MG) 1 tablet with me als Orally Three times a day for 30 Gabapentin 100 MG 1 capsule Orally Once a day for 30 Aspirin 325 MG 1 tablet Orally Once a day for 30 Days Folic Acid 1 MG 1 tablet Orally Once a day for 30 Days Ferrous Gluconate 324 (38 Fe) MG 1 tablet with water o r juice between meals Orally Twice a day for 30 days Allopurinol 100 MG 1 tablet Orally Once a day for 30 Cholecalciferol 1000 UNIT 2 capsules Orally Once a day for 30 Da ys Metoprolol Tartrate 25 mg 1/2 tablet Orally Twice a day for 30 d ays Insurance Providers Payer Name Payer Address Payer Phone Insured Name Patient Relati onship to Insured Coverage Start Date Coverage End Date [facility] [id number] [facility] [id number] NANCY KEN MEDICAID [facility] [address] [facility] [address] NANCY KEN self
--- OUTSIDE RECORDS SUMMARY | 2020-11-07 13:07 | CCD ---
Author Author [facility] Organization [facility] Address Unknown Phone Unavailable Care Team Providers Care Airport Guide Name Role Phone Rosanna Andrade Unavailable PROBLEMS Type Condition ICD9-CM Code [id number] Code Onset Dates Condition S tatus W/U Status Risk SNOMED Code Notes Problem Schizophrenia F20.9 Active confirmed 209287 04 Problem Carpal tunnel syndrome of left wrist G56.02 Act maren confirmed 22646160 Problem Posttraumatic stress disorder F43.10 Active confirm ed 51672626 Problem Alcohol use disorder F10.99 Active confirmed 91568748 Problem Nicotine use disorder F17.200 Active confirmed 28974246 continue to cut down Problem Vitamin D deficiency, unspecified E55.9 Active con firmed 40318479 followup with Ms. Lloyd Problem Essential tremor G25.0 Active confirmed 609 619870 Problem Hyperlipidemia E78.5 Active confirmed 08372 004 followup with cardiology and Ms. 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 Active confirmed 721102344 Problem Spondylosis without myelopathy or radiculopathy, cervical region M47.812 Active confirmed 2793673 ALLERGIES Allergen (clinical drug ingredient) Drug/Non Drug Allergy do cumented on EMR Reaction Allergy Type Onset Date Status fluoxetine Prozac decreased appitite Drug Allergy Acti ve ENCOUNTERS from 1963 to 2020-10-28 Encounter Location Date Provider Diagnosis [address] [address] Oct, Rosanna Andrade IMMUNIZATIONS Vaccine Route Administration Date Status Influenza [...] Monitoring Language: Question Answer Notes Languages spoken: Icelandic Denominational: Question Answer Notes Denominational 08 Zoroastrian Sexual Hx: Question Answer Notes Had sex [...] Information RESULTS No Results REASON FOR VISIT pre conditions MEDICAL (GENERAL) HISTORY Type Description Date Medical History Schizophrenic depression - sees psych in [facility] building Medical History PTSD, h/o suicidal [...] History CKD stage III -Renal US 04/2018 [facility], urolithiasis Medical History Acute toxic likely metabolic encephalopathy c Acute renal failure -04/2018 [facility] Medical History COPD stage 1 - 06/2018 [...] Insured Coverage Start Date Coverage End Date MEDICAID [employer] [address] [facility] [id number] NANCY KEN [facility] [address] [facility] [id number] NANCY KEN [facility]
--- OUTSIDE RECORDS SUMMARY | 2020-11-07 13:10 | CCD ---
Author Author [facility] Address Unknown Phone Unavailable Care Team Providers Care Forensic Medical Examiner Name Role Phone EMMANUEL ELLER MD Unavailable Unavailable EMMANUEL ELLER MD Unavailable Unavailable EMMANUEL ELLER MD Unavailable Unavailable EMMANUEL ELLER MD Unavailable Unavailable EMMANUEL ELLER MD Unavailable Unavailable EMMANUEL ELLER MD Unavailable Unavailable EMMANUEL ELLER MD Unavailable Unavailable EMMANUEL ELLER MD Unavailable Unavailable EMMANUEL ELLER MD Unavailable Unavailable EMMANUEL ELLER MD Unavailable Unavailable EMMANUEL ELLER MD Unavailable Unavailable EMMANUEL ELLER MD Unavailable Unavailable EMMANUEL ELLER MD Unavailable Unavailable EMMANUEL ELLER MD Unavailable Unavailable EMMANUEL ELLER MD Unavailable Unavailable EMMANUEL ELLER MD Unavailable Unavailable EMMANUEL ELLER MD Unavailable Unavailable EMMANUEL ELLER MD Unavailable Unavailable EMMANUEL ELLER MD Unavailable Unavailable EMMANUEL ELLER MD Unavailable Unavailable EMMANUEL ELLER MD Unavailable Unavailable EMMANUEL ELLER MD Unavailable Unavailable EMMANUEL ELLER MD Unavailable Unavailable EMMANUEL ELLER MD Unavailable Unavailable EMMANUEL ELLER MD Unavailable Unavailable EMMANUEL ELLER MD Unavailable Unavailable NAZEM, AHMAD MD Unavailable Unavailable NAZEM, AHMAD MD Unavailable Unavailable NAZEM, AHMAD MD Unavailable Unavailable NAZEM, AHMAD MD Unavailable Unavailable NAZEM, AHMAD MD Unavailable Unavailable NAZEM, AHMAD MD Unavailable Unavailable NAZEM, AHMAD MD Unavailable Unavailable NAZEM, AHMAD MD Unavailable Unavailable NAZEM, AHMAD MD Unavailable Unavailable NAZEM, AHMAD MD Unavailable Unavailable NAZEM, AHMAD MD Unavailable Unavailable NAZEM, AHMAD MD Unavailable Unavailable NAZEM, AHMAD MD Unavailable Unavailable NAZEM, AHMAD MD Unavailable Unavailable NAZEM, AHMAD MD Unavailable Unavailable NAZEM, AHMAD MD Unavailable Unavailable NAZEM, AHMAD MD Unavailable Unavailable NAZEM, AHMAD MD Unavailable Unavailable NAZEM, AHMAD MD Unavailable Unavailable NAZEM, AHMAD MD Unavailable Unavailable NAZEM, AHMAD MD Unavailable Unavailable NAZEM, AHMAD MD Unavailable Unavailable NAZEM, AHMAD MD Unavailable Unavailable NAZEM, AHMAD MD Unavailable Unavailable NAZEM, AHMAD MD Unavailable Unavailable NAZEM, AHMAD MD Unavailable Unavailable NAZEM, AHMAD MD Unavailable Unavailable NAZEM, AHMAD MD Unavailable Unavailable NAZEM, AHMAD MD Unavailable Unavailable NAZEM, AHMAD MD Unavailable Unavailable NAZEM, AHMAD MD Unavailable Unavailable NAZEM, AHMAD MD Unavailable Unavailable NAZEM, AHMAD MD Unavailable Unavailable NAZEM, AHMAD MD Unavailable Unavailable Rose Jaquez MD Unavailable Unavailable Rose Jaquez MD Unavailable Unavailable Rose Jaquez MD Unavailable Unavailable Rose Jaquez MD Unavailable Unavailable Rose Jaquez MD Unavailable Unavailable Rose Jaquez MD Unavailable Unavailable Rose Jaquez MD Unavailable Unavailable Rose Jaquez MD Unavailable Unavailable Rose Jaquez MD Unavailable Unavailable Rose Jaquez MD Unavailable Unavailable oRse Jaquez MD Unavailable Unavailable Rose Jaquez MD Unavailable Unavailable Rose Jaquez MD Unavailable Unavailable Rose Jaquez MD Unavailable Unavailable Rose Jaquez MD Unavailable Unavailable Rose Jaquez MD Unavailable Unavailable Rose Jaquez MD Unavailable Unavailable Rose Jaquez MD Unavailable Unavailable MCELHERAN, NAYELY PA Unavailable Unavailable MCELHERAN, NAYELY PA Unavailable Unavailable MCELHERAN, NAYELY PA Unavailable Unavailable MCELHERAN, NAYELY PA Unavailable Unavailable MCELHERAN, NAYELY PA Unavailable Unavailable MCELHERAN, NAYELY PA Unavailable Unavailable MCELHERAN, NAYELY PA Unavailable Unavailable MCELHERAN, NAYELY PA Unavailable Unavailable MCELHERAN, NAYELY PA Unavailable Unavailable MCELHERAN, NAYELY PA Unavailable Unavailable MCELHERAN, NAYELY PA Unavailable Unavailable MCELHERAN, NAYELY PA Unavailable Unavailable MCELHERAN, NAYELY PA Unavailable Unavailable MCELHERAN, NAYELY PA Unavailable Unavailable MCELHERAN, NAYELY PA Unavailable Unavailable MCELHERAN, NAYELY PA Unavailable Unavailable MCELHERAN, NAYELY PA Unavailable Unavailable MCELHERAN, NAYELY PA Unavailable Unavailable MCELHERAN, NAYELY PA Unavailable Unavailable MCELHERAN, NAYELY PA Unavailable Unavailable MCELHERAN, NAYELY PA Unavailable Unavailable MCELHERAN, NAYELY PA Unavailable Unavailable MCELHERAN, NAYELY PA Unavailable Unavailable MCELHERAN, NAYELY PA Unavailable Unavailable MCELHERAN, NAYELY PA Unavailable Unavailable MCELHERAN, NAYELY PA Unavailable Unavailable MCELHERAN, NAYELY PA Unavailable Unavailable MCELHERAN, NAYELY PA Unavailable Unavailable Miguelito Hobbs MD Unavailable Unavailable Miguelito Hobbs MD Unavailable Unavailable Miguelito Hobbs MD Unavailable Unavailable Miguelito Hobbs MD Unavailable Unavailable Miguelito Hobbs MD Unavailable Unavailable Miguelito Hobbs MD Unavailable Unavailable Miguelito Hobbs MD Unavailable Unavailable Miguelito Hobbs MD Unavailable Unavailable Miguelito Hobbs MD Unavailable Unavailable Miguelito Hobbs MD Unavailable Unavailable Miguelito Hobbs MD Unavailable Unavailable Miguelito Hobbs MD Unavailable Unavailable Miguelito Hobbs MD Unavailable Unavailable Miguelito Hobbs MD Unavailable Unavailable Miguelito Hobbs MD Unavailable Unavailable Miguelito Hobbs MD Unavailable Unavailable Miguelito Hobbs MD Unavailable Unavailable Miguelito Hobbs MD Unavailable Unavailable Miguelito Hobbs MD Unavailable Unavailable Izabela Merritt DO Unavailable Unavailable Sun, Merritt DO Unavailable Unavailable Sun, Merritt DO Unavailable Unavailable Sun, Merritt DO Unavailable Unavailable Sun, Merritt DO Unavailable Unavailable Sun, Merritt DO Unavailable Unavailable Sun, Merritt DO Unavailable Unavailable Sun, Merritt DO Unavailable Unavailable Sun, Merritt DO Unavailable Unavailable Sun, Merritt DO Unavailable Unavailable Sun, Merritt DO Unavailable Unavailable Sun, Merritt DO Unavailable Unavailable Sun, Merritt DO Unavailable Unavailable Sun, Merritt DO Unavailable Unavailable Sun, Merritt DO Unavailable Unavailable Sun, Merritt DO Unavailable Unavailable Sun, Merritt DO Unavailable Unavailable Sun, Merritt DO Unavailable Unavailable Sun, Merritt DO Unavailable Unavailable Sun, Merritt DO Unavailable Unavailable Sun, Merritt DO Unavailable Unavailable Sun, Merritt DO Unavailable Unavailable Sun, Merritt DO Unavailable Unavailable Sun, Merritt DO Unavailable Unavailable Sun, Merritt DO Unavailable Unavailable Sun, Merritt DO Unavailable Unavailable Sun, Merritt DO Unavailable Unavailable Sun, Merritt DO Unavailable Unavailable Sun, Merritt DO Unavailable Unavailable Sun, Merritt DO Unavailable Unavailable Sun, Merritt DO Unavailable Unavailable Sun, Merritt DO Unavailable Unavailable Sun, Merritt DO Unavailable Unavailable Sun, Merritt DO Unavailable Unavailable Sun, Merritt DO Unavailable Unavailable Sun, Merritt DO Unavailable Unavailable Sun, Merritt DO Unavailable Unavailable Sun, Merritt DO Unavailable Unavailable Sun, Merritt DO Unavailable Unavailable Sun, Merritt DO Unavailable Unavailable Sun, Merritt DO Unavailable Unavailable Sun, Merritt DO Unavailable Unavailable Sun, Merritt DO Unavailable Unavailable Sun, Merritt DO Unavailable Unavailable Sun, Merritt DO Unavailable Unavailable Sun, Merritt DO Unavailable Unavailable Sun, Merritt DO Unavailable Unavailable Sun, Merritt DO Unavailable Unavailable Sun, Merritt DO Unavailable Unavailable Sun, Merritt DO Unavailable Unavailable Sun, Merritt DO Unavailable Unavailable Sun, Merritt DO Unavailable Unavailable Sun, Merritt DO Unavailable Unavailable Sun, Merritt DO Unavailable Unavailable Sun, Merritt DO Unavailable Unavailable Sun, Merritt DO Unavailable Unavailable Sun, Merritt DO Unavailable Unavailable Sun, Merritt DO Unavailable Unavailable Sun, Merritt DO Unavailable Unavailable Sun, Merritt DO Unavailable Unavailable Sun, Merritt DO Unavailable Unavailable Sun, Merritt DO Unavailable Unavailable Sun, Merritt DO Unavailable Unavailable Sun, Merritt DO Unavailable Unavailable Sara Johnson MD Unavailable Unavailable Sara Johnson MD Unavailable Unavailable Sara Johnson MD Unavailable Unavailable Sara Johnson MD Unavailable Unavailable Sara Johnson MD Unavailable Unavailable Sara Johnson MD Unavailable Unavailable Sara Johnson MD Unavailable Unavailable Sara Johnson MD Unavailable Unavailable Sara Johnson MD Unavailable Unavailable Sara Johnson MD Unavailable Unavailable Sara Johnson MD Unavailable Unavailable Sara Johnson MD Unavailable Unavailable Sara Johnson MD Unavailable Unavailable Sara Johnson MD Unavailable Unavailable Sara Johnson MD Unavailable Unavailable Sara Johnson MD Unavailable Unavailable Sara Johnson MD Unavailable Unavailable Sara Johnson MD Unavailable Unavailable Sara Johnson MD Unavailable Unavailable Sara Johnson MD Unavailable Unavailable Sara Johnson MD Unavailable Unavailable Sara Johnson MD Unavailable Unavailable Sara Johnson MD Unavailable Unavailable AlexSara mccoy MD Unavailable Unavailable AlexSara mccoy MD Unavailable Unavailable Detor, Nando Narayanany MANAGER PHOTOGRAPHY Unavailable Unavailable Detor, Nando Narayanany MANAGER PHOTOGRAPHY Unavailable Unavailable Detor, Nando Narayanany MANAGER PHOTOGRAPHY Unavailable Unavailable Detor, Nando Narayanany MANAGER PHOTOGRAPHY Unavailable Unavailable Detor, Nando Narayanany MANAGER PHOTOGRAPHY Unavailable Unavailable Detor, Nando Narayanany MANAGER PHOTOGRAPHY Unavailable Unavailable Detor, Nando Alexandra MANAGER PHOTOGRAPHY Unavailable Unavailable Detor, Nando Narayanany MANAGER PHOTOGRAPHY Unavailable Unavailable Detor, Nando Narayanany MANAGER PHOTOGRAPHY Unavailable Unavailable Detor, Nando Narayanany MANAGER PHOTOGRAPHY Unavailable Unavailable Detor, Nando Narayanany MANAGER PHOTOGRAPHY Unavailable Unavailable Detor, Nando Narayanany MANAGER PHOTOGRAPHY Unavailable Unavailable Detor, M Alexandra MANAGER PHOTOGRAPHY Unavailable Unavailable Detor, Nando Narayanany MANAGER PHOTOGRAPHY Unavailable Unavailable Detor, M Alexandra MANAGER PHOTOGRAPHY Unavailable Unavailable Detor, M Alexandra MANAGER PHOTOGRAPHY Unavailable Unavailable Detor, M Alexandra MANAGER PHOTOGRAPHY Unavailable Unavailable Detor, M Alexandra MANAGER PHOTOGRAPHY Unavailable Unavailable Detor, M Alexandra MANAGER PHOTOGRAPHY Unavailable Unavailable Detor, M Alexandra MANAGER PHOTOGRAPHY Unavailable Unavailable Detor, M Alexandra MANAGER PHOTOGRAPHY Unavailable Unavailable Detor, M Alexandra MANAGER PHOTOGRAPHY Unavailable Unavailable Detor, M Alexandra MANAGER PHOTOGRAPHY Unavailable Unavailable Detor, M Alexandra MANAGER PHOTOGRAPHY Unavailable Unavailable Detor, M Alexandra MANAGER PHOTOGRAPHY Unavailable Unavailable Detor, M Alexandra MANAGER PHOTOGRAPHY Unavailable Unavailable Detor, M Alexandra MANAGER PHOTOGRAPHY Unavailable Unavailable Detor, M Alexandra MANAGER PHOTOGRAPHY Unavailable Unavailable Detor, Nando Narayanany MANAGER PHOTOGRAPHY Unavailable Unavailable Detor, Nando Narayanany MANAGER PHOTOGRAPHY Unavailable Unavailable Detor, M Alexandra MANAGER PHOTOGRAPHY Unavailable Unavailable Detor, Nando Narayanany MANAGER PHOTOGRAPHY Unavailable Unavailable Detor, Nando Narayanany MANAGER PHOTOGRAPHY Unavailable Unavailable Detor, Nando Narayanany MANAGER PHOTOGRAPHY Unavailable Unavailable Detor, Nando Narayanany MANAGER PHOTOGRAPHY Unavailable Unavailable Detor, Nando Narayanany MANAGER PHOTOGRAPHY Unavailable Unavailable REINDL, MIGUELITO CARTWRIGHT Unavailable Unavailable REINDL, MIGUELITO CARTWRIGHT Unavailable Unavailable REINDL, MIGUELITO CARTWRIGHT Unavailable Unavailable REINDL, MIGUELITO CARTWRIGHT Unavailable Unavailable REINDL, MIGUELITO CARTWRIGHT Unavailable Unavailable REINDL, MIGUELITO CARTWRIGHT Unavailable Unavailable REINDL, MIGUELITO CARTWRIGHT Unavailable Unavailable REINDL, MIGUELITO CARTWRIGHT Unavailable Unavailable REINDL, MIGUELITO CARTWRIGHT Unavailable Unavailable REINDL, MIGUELITO CARTWRIGHT Unavailable Unavailable REINDL, MIGUELITO CARTWRIGHT Unavailable Unavailable REINDL, MIGUELITO CARTWRIGHT Unavailable Unavailable REINDL, MIGUELITO CARTWRIGHT Unavailable Unavailable REINDL, MIGUELITO CARTWRIGHT Unavailable Unavailable REINDL, MIGUELITO CARTWRIGHT Unavailable Unavailable REINDL, MIGUELITO CARTWRIGHT Unavailable Unavailable REINDL, MIGUELITO CARTWRIGHT Unavailable Unavailable REINDL, MIGUELITO CARTWRIGHT Unavailable Unavailable REINDL, MIGUELITO CARTWRIGHT Unavailable Unavailable REINDL, MIGUELITO CARTWRIGHT Unavailable Unavailable REINDL, MIGUELITO CARTWRIGHT Unavailable Unavailable REINDL, MIGUELITO CARTWRIGHT Unavailable Unavailable REINDL, MIGUELITO CARTWRIGHT Unavailable Unavailable REINDL, MIGUELITO CARTWRIGHT Unavailable Unavailable REINDL, MIGUELITO CARTWRIGHT Unavailable Unavailable REINDL, MIGUELITO CARTWRIGHT Unavailable Unavailable REINDL, MIGUELITO CARTWRIGHT Unavailable Unavailable REINDL, MIGUELITO CARTWRIGHT Unavailable Unavailable REINDL, MIGUELITO CARTWRIGHT Unavailable Unavailable REINDL, MIGUELITO CARTWRIGHT Unavailable Unavailable REINDL, MIGUELITO CARTWRIGHT Unavailable Unavailable REINDL, MIGUELITO CARTWRIGHT Unavailable Unavailable REINDL, MIGUELITO CARTWRIGHT Unavailable Unavailable REINDL, MIGUELITO CARTWRIGHT Unavailable Unavailable REINDL, MIGUELITO MD Unavailable Unavailable REINDL, MIGUELITO CARTWRIGHT Unavailable Unavailable REINDL, MIGUELITO CARTWRIGHT Unavailable Unavailable REINDL, MIGUELITO CARTWRIGHT Unavailable Unavailable REINDL, MIGUELITO CARTWRIGHT Unavailable Unavailable REINDL, MIGUELITO CARTWRIGHT Unavailable Unavailable REINDL, MIGUELITO CARTWRIGHT Unavailable Unavailable REINDL, MIGUELITO CARTWRIGHT Unavailable Unavailable REINDL, MIGUELITO CARTWRIGHT Unavailable Unavailable REINDL, MIGUELITO CARTWRIGHT Unavailable Unavailable MARK, S AYCHELLY CARTWRIGHT Unavailable Unavailable MARK, S AYMAN MD Unavailable Unavailable MARK S AYCHELLY CARTWRIGHT Unavailable Unavailable MARK, S AYCHELLY MD Unavailable Unavailable MARK S AYCHELLY MD Unavailable Unavailable MARK S AYMAN MD Unavailable Unavailable MARK, S AYMAN MD Unavailable Unavailable MARK, S AYCHELLY CARTWRIGHT Unavailable Unavailable MARK, S AYCHELLY CARTWRIGHT Unavailable Unavailable MARK, S AYCHELLY CARTWRIGHT Unavailable Unavailable MARK S AYMAN MD Unavailable Unavailable MARK, S AYCHELLY MD Unavailable Unavailable MARK, S AYCHELLY CARTWRIGHT Unavailable Unavailable MARK, S AYCHELLY CARTWRIGHT Unavailable Unavailable MARK, S AYCHELLY CARTWRIGHT Unavailable Unavailable MARK, S AYCHELLY MD Unavailable Unavailable MARK, S AYCHELLY MD Unavailable Unavailable MARK, S AYCHELLY MD Unavailable Unavailable MARK, S AYCHELLY CARTWRIGHT Unavailable Unavailable MARK, S AYCHELLY CARTWRIGHT Unavailable Unavailable MARK, S AYCHELLY CARTWRIGHT Unavailable Unavailable MARK S AYCHELLY MD Unavailable Unavailable MARK, S AYCHELLY MD Unavailable Unavailable MARK, S AYCHELLY MD Unavailable Unavailable MARK, S AYCHELLY CARTWRIGHT Unavailable Unavailable MARK, S AYCHELLY MD Unavailable Unavailable MARK, S AYCHELLY MD Unavailable Unavailable MARK S AYMAN MD Unavailable Unavailable MARK S AYMAN MD Unavailable Unavailable MARK S AYMAN MD Unavailable Unavailable MARK, S AYMAN MD Unavailable Unavailable MARK, S AYMAN MD Unavailable Unavailable MARK, S AYMAN MD Unavailable Unavailable MARK S AYMAN MD Unavailable Unavailable MARK, S AYMAN MD Unavailable Unavailable MARK, S AYMAN MD Unavailable Unavailable MARK, S AYMAN MD Unavailable Unavailable MARK, S AYMAN MD Unavailable Unavailable MARK, S AYMAN MD Unavailable Unavailable MARK, S AYMAN MD Unavailable Unavailable MARK, S AYMAN MD Unavailable Unavailable MARK, S AYMAN MD Unavailable Unavailable MARK, S AYMAN MD Unavailable Unavailable MARK, S AYMAN MD Unavailable Unavailable MARK, S AYMAN MD Unavailable Unavailable MARK, S AYMAN MD Unavailable Unavailable MARK, S AYMAN MD Unavailable Unavailable MARK, S AYMAN MD Unavailable Unavailable MARK, S AYMAN MD Unavailable Unavailable MARK, S AYMAN MD Unavailable Unavailable MARK, S AYMAN MD Unavailable Unavailable MARK, S AYMAN MD Unavailable Unavailable MARK, S AYMAN MD Unavailable Unavailable MARK, S AYMAN MD Unavailable Unavailable MARK, S AYMAN MD Unavailable Unavailable MARK, S AYMAN MD Unavailable Unavailable MARK, S AYMAN MD Unavailable Unavailable MARK, S AYMAN MD Unavailable Unavailable MARK, S AYMAN MD Unavailable Unavailable MARK, S AYMAN MD Unavailable Unavailable MARK, S AYMAN MD Unavailable Unavailable MARK, S AYMAN MD Unavailable Unavailable MARK, S AYMAN MD Unavailable Unavailable MARK, S AYMAN MD Unavailable Unavailable MARK, S AYMAN MD Unavailable Unavailable MARK, S AYMAN MD Unavailable Unavailable MARK, S AYMAN MD Unavailable Unavailable MARK, S AYMAN MD Unavailable Unavailable MARK, S AYMAN MD Unavailable Unavailable MARK, S AYMAN MD Unavailable Unavailable MARK, S AYMAN MD Unavailable Unavailable MARK, S AYMAN MD Unavailable Unavailable MARK, S AYMAN MD Unavailable Unavailable MARK, S AYMAN MD Unavailable Unavailable MARK, S AYMAN MD Unavailable Unavailable MARK, S AYMAN MD Unavailable Unavailable MARK, S AYMAN MD Unavailable Unavailable MARK, S AYMAN MD Unavailable Unavailable MARK, S AYMAN MD Unavailable Unavailable MARK, S AYMAN MD Unavailable Unavailable MARK, S AYMAN MD Unavailable Unavailable MARK, S AYMAN MD Unavailable Unavailable Natasha STERLING MD Unavailable Unavailable Natasha STERLING MD Unavailable Unavailable BART, A THOM MD Unavailable Unavailable BART, A THOM MD Unavailable Unavailable BART, A THOM MD Unavailable Unavailable BART, A THOM MD Unavailable Unavailable BART, A THOM MD Unavailable Unavailable BART, A THOM MD Unavailable Unavailable BART, A THOM MD Unavailable Unavailable BART, A THOM MD Unavailable Unavailable BART, A THOM MD Unavailable Unavailable BRAT, A THOM MD Unavailable Unavailable BART, A THOM MD Unavailable Unavailable BART, A THOM MD Unavailable Unavailable BART, A THOM MD Unavailable Unavailable BART, A THOM MD Unavailable Unavailable BART, A THOM MD Unavailable Unavailable BART, A THOM MD Unavailable Unavailable BART, A THOM MD Unavailable Unavailable BART, A THOM MD Unavailable Unavailable BART, A THOM MD Unavailable Unavailable BART, A THOM MD Unavailable Unavailable BART, A THOM MD Unavailable Unavailable BART, A THOM MD Unavailable Unavailable BART, A THOM MD Unavailable Unavailable BART, A THOM MD Unavailable Unavailable BART, A THOM MD Unavailable Unavailable BART, A THOM MD Unavailable Unavailable BART, A THOM MD Unavailable Unavailable BART, A THOM MD Unavailable Unavailable BART, A THOM MD Unavailable Unavailable BART, A THOM MD Unavailable Unavailable BART, A THOM MD Unavailable Unavailable BART, A THOM MD Unavailable Unavailable BART, A THOM MD Unavailable Unavailable BART, A THOM MD Unavailable Unavailable BART, A THOM MD Unavailable Unavailable BART, A THOM MD Unavailable Unavailable BART, A THOM MD Unavailable Unavailable BART, A THOM MD Unavailable Unavailable BART, A THOM MD Unavailable Unavailable BART, A THOM MD Unavailable Unavailable BART, A THOM MD Unavailable Unavailable BART, A THOM MD Unavailable Unavailable BART, A THOM MD Unavailable Unavailable BART, A THOM CARTWRIGHT Unavailable Unavailable BART, A THOM MD Unavailable Unavailable BATR, A THOM MD Unavailable Unavailable BART, A THOM MD Unavailable Unavailable BART, A THOM MD Unavailable Unavailable BART, A THOM MD Unavailable Unavailable BART, A THOM MD Unavailable Unavailable BART, A THOM MD Unavailable Unavailable BART, A THOM MD Unavailable Unavailable BART, A THOM MD Unavailable Unavailable BART, A THOM MD Unavailable Unavailable BART, A THOM MD Unavailable Unavailable BART, A THOM MD Unavailable Unavailable BART, A THOM MD Unavailable Unavailable BART, A THOM MD Unavailable Unavailable BART, A THOM MD Unavailable Unavailable BART, A THOM MD Unavailable Unavailable BART, A THOM CARTWRIGHT Unavailable Unavailable BART, A THOM MD Unavailable Unavailable BART, A THOM MD Unavailable Unavailable BART, A THOM MD Unavailable Unavailable BART, Natasha TOBAR MD Unavailable Unavailable BART, Natasha TOBAR MD Unavailable Unavailable BART, Natasha TOBAR MD Unavailable Unavailable BART, Natasha TOBAR MD Unavailable Unavailable ANTECOL, Farhat FARLEY MD Unavailable Unavailable ANTECOL, Farhat FARLEY MD Unavailable Unavailable ANTECOL, Farhat FARLEY MD Unavailable Unavailable ANTECOL, Farhat FARLEY MD Unavailable Unavailable ANTECOL, Farhat FARLEY MD Unavailable Unavailable ANTECOL, Farhat FARLEY MD Unavailable Unavailable ANTECOL, Farhat FARLEY MD Unavailable Unavailable ANTECOL, Farhat FARLEY MD Unavailable Unavailable ANTECOL, Farhta FARLEY MD Unavailable Unavailable ANTECOL, Farhat FARLEY MD Unavailable Unavailable ANTECOL, Farhat FARLEY MD Unavailable Unavailable ANTECOL, Farhat FARLEY MD Unavailable Unavailable ANTECOL, Farhat FARLEY MD Unavailable Unavailable ANTECOL, Farhat FARLEY MD Unavailable Unavailable ANTECOL, Farhat FARLEY MD Unavailable Unavailable ANTECOL, Farhat FARLEY MD Unavailable Unavailable ANTECOL, Farhat FARLEY MD Unavailable Unavailable ANTECOL, Farhat FARLEY MD Unavailable Unavailable ANTECOL, Farhat FARLEY MD Unavailable Unavailable ANTECOL, Farhat FARLEY MD Unavailable Unavailable ANTECOL, Farhat FARLEY MD Unavailable Unavailable ANTECOL, Farhat FARLEY MD Unavailable Unavailable ANTECOL, Farhat FARLEY MD Unavailable Unavailable ANTECOL, Farhat FARLEY MD Unavailable Unavailable ANTECOL, Farhat FARLEY MD Unavailable Unavailable ANTECOL, Farhat FARLEY MD Unavailable Unavailable ANTECOL, Farhat FARLEY MD Unavailable Unavailable ANTECOL, Farhat FARLEY MD Unavailable Unavailable ANTECOL, Farhat FARLEY MD Unavailable Unavailable ANTECOL, Farhat FARLEY MD Unavailable Unavailable ANTECOL, Farhat FARLEY MD Unavailable Unavailable ANTECOL, Farhat FARLEY MD Unavailable Unavailable ANTECOL, Farhat FARLEY MD Unavailable Unavailable ANTECOL, Farhat FARLEY MD Unavailable Unavailable ANTECOL, Farhat FARLEY MD Unavailable Unavailable ANTECOL, Farhat FARLEY MD Unavailable Unavailable ANTECOL, Farhat FARLEY MD Unavailable Unavailable ANTECOL, Farhat FARLEY MD Unavailable Unavailable ANTECOL, Farhat FARLEY MD Unavailable Unavailable ANTECOL, Farhat FARLEY MD Unavailable Unavailable ANTECOL, Farhat FARLEY MD Unavailable Unavailable ANTECOL, Farhat FARLEY MD Unavailable Unavailable ANTECOL, Farhat FARLEY MD Unavailable Unavailable ANTECOL, Farhat FARLEY MD Unavailable Unavailable ANTECOL, Farhat FARLEY MD Unavailable Unavailable ANTECOL, Farhat FARLEY MD Unavailable Unavailable ANTECOL, Farhat FARLEY MD Unavailable Unavailable ANTECOL, Farhat FARLEY MD Unavailable Unavailable ANTECOL, Farhat FARLEY MD Unavailable Unavailable ANTECOL, Farhat FARLEY MD Unavailable Unavailable ANTECOL, Farhat FARLEY MD Unavailable Unavailable ANTECOL, Farhat FARLEY MD Unavailable Unavailable ANTECOL, Farhat FARLEY MD Unavailable Unavailable ANTECOL, Farhat FARLEY MD Unavailable Unavailable ANTECOL, Farhat FARLEY MD Unavailable Unavailable Tori Bell MD Unavailable Unavailable Tori Bell MD Unavailable Unavailable Tori Bell MD Unavailable Unavailable Tori Bell MD Unavailable Unavailable Ali, Tori MD Unavailable Unavailable Ali, Tori MD Unavailable Unavailable Ali, Tori MD Unavailable Unavailable Ali, Tori MD Unavailable Unavailable Ali, Tori MD Unavailable Unavailable Ali, Tori MD Unavailable Unavailable Ali, Tori MD Unavailable Unavailable Ali, Tori MD Unavailable Unavailable Ali, Tori MD Unavailable Unavailable Ali, Tori MD Unavailable Unavailable Ali, Tori MD Unavailable Unavailable Ali, Tori MD Unavailable Unavailable Ali, Tori MD Unavailable Unavailable Ali, Tori MD Unavailable Unavailable Ali, Tori MD Unavailable Unavailable Ali, Tori MD Unavailable Unavailable Ali, Tori MD Unavailable Unavailable Ali, Tori MD Unavailable Unavailable Ali, Tori MD Unavailable Unavailable Ali, Tori MD Unavailable Unavailable Ali, Tori MD Unavailable Unavailable Ali, Tori MD Unavailable Unavailable Ali, Tori MD Unavailable Unavailable Ali, Tori MD Unavailable Unavailable Ali, Tori MD Unavailable Unavailable Ali, Tori MD Unavailable Unavailable Ali, Tori MD Unavailable Unavailable Ali, Tori MD Unavailable Unavailable Ali, Tori MD Unavailable Unavailable Ali, Tori MD Unavailable Unavailable Ali, Tori MD Unavailable Unavailable Ali, Tori MD Unavailable Unavailable Ali, Tori MD Unavailable Unavailable Ali, Tori MD Unavailable Unavailable Ali, Tori MD Unavailable Unavailable Ali, Tori MD Unavailable Unavailable Ali, Tori MD Unavailable Unavailable Ali, Tori MD Unavailable Unavailable Ali, Tori MD Unavailable Unavailable Ali, Tori MD Unavailable Unavailable Ali, Tori MD Unavailable Unavailable Ali, Tori MD Unavailable Unavailable Ali, Tori MD Unavailable Unavailable Ali, Tori MD Unavailable Unavailable Ali, Tori MD Unavailable Unavailable NAZEM, AHMAD MD Unavailable Unavailable NAZEM, AHMAD MD Unavailable Unavailable NAZEM, AHMAD MD Unavailable Unavailable NAZEM, AHMAD MD Unavailable Unavailable NAZEM, AHMAD MD Unavailable Unavailable NAZEM, AHMAD MD Unavailable Unavailable NAZEM, AHMAD MD Unavailable Unavailable NAZEM, AHMAD MD Unavailable Unavailable NAZEM, AHMAD MD Unavailable Unavailable NAZEM, AHMAD MD Unavailable Unavailable NAZEM, AHMAD MD Unavailable Unavailable NAZEM, AHMAD MD Unavailable Unavailable NAZEM, AHMAD MD Unavailable Unavailable NAZEM, AHMAD MD Unavailable Unavailable NAZEM, AHMAD MD Unavailable Unavailable NAZEM, AHMAD MD Unavailable Unavailable NAZEM, AHMAD MD Unavailable Unavailable NAZEM, AHMAD MD Unavailable Unavailable NAZEM, AHMAD MD Unavailable Unavailable NAZEM, AHMAD MD Unavailable Unavailable NAZEM, AHMAD MD Unavailable Unavailable NAZEM, AHMAD MD Unavailable Unavailable NAZEM, AHMAD MD Unavailable Unavailable NAZEM, AHMAD MD Unavailable Unavailable NAZEM, AHMAD MD Unavailable Unavailable NAZEM, AHMAD MD Unavailable Unavailable NAZEM, AHMAD MD Unavailable Unavailable NAZEM, AHMAD MD Unavailable Unavailable NAZEM, AHMAD MD Unavailable Unavailable NAZEM, AHMAD MD Unavailable Unavailable NAZEM, AHMAD MD Unavailable Unavailable NAZEM, AHMAD MD Unavailable Unavailable NAZEM, AHMAD MD Unavailable Unavailable NAZEM, AHMAD MD Unavailable Unavailable NAZEM, AHMAD MD Unavailable Unavailable NAZEM, AHMAD MD Unavailable Unavailable NAZEM, AHMAD MD Unavailable Unavailable NAZEM, AHMAD MD Unavailable Unavailable NAZEM, AHMAD MD Unavailable Unavailable NAZEM, AHMAD MD Unavailable Unavailable NAZEM, AHMAD MD Unavailable Unavailable NAZEM, AHMAD MD Unavailable Unavailable NAZEM, AHMAD MD Unavailable Unavailable NAZEM, AHMAD MD Unavailable Unavailable NAZEM, AHMAD MD Unavailable Unavailable NAZEM, AHMAD MD Unavailable Unavailable NAZEM, AHMAD MD Unavailable Unavailable NAZEM, AHMAD MD Unavailable Unavailable NAZEM, AHMAD MD Unavailable Unavailable NAZEM, AHMAD MD Unavailable Unavailable NAZEM, AHMAD MD Unavailable Unavailable NAZEM, AHMAD MD Unavailable Unavailable NAZEM, AHMAD MD Unavailable Unavailable NAZEM, AHMAD MD Unavailable Unavailable NAZEM, AHMAD MD Unavailable Unavailable NAZEM, AHMAD MD Unavailable Unavailable NAZEM, AHMAD MD Unavailable Unavailable NAZEM, AHMAD MD Unavailable Unavailable NAZEM, AHMAD MD Unavailable Unavailable NAZEM, AHMAD MD Unavailable Unavailable Rose Fan MD Unavailable Unavailable Rose Fan MD Unavailable Unavailable Rose Fan MD Unavailable Unavailable Rose Fan MD Unavailable Unavailable Rose Fan MD Unavailable Unavailable Rose Fan MD Unavailable Unavailable Rose Fan MD Unavailable Unavailable Rose Fan MD Unavailable Unavailable Rose Fan MD Unavailable Unavailable Rose Fan MD Unavailable Unavailable Fan, Rose Avalos MD Unavailable Unavailable Fan, Rose Avalos MD Unavailable Unavailable Fan, Rose Avalos MD Unavailable Unavailable Fan, Rose Avalos MD Unavailable Unavailable Fan, Rose Avalos MD Unavailable Unavailable Fan, Rose Avalos MD Unavailable Unavailable Fan, Rose Avalos MD Unavailable Unavailable Fan, Rose Avalos MD Unavailable Unavailable Fan, Rose Avalos MD Unavailable Unavailable Fan, Rose Avalos MD Unavailable Unavailable Fan, Rose Avalos MD Unavailable Unavailable Fna, Rose Avalos MD Unavailable Unavailable Fan, Rose Avalos MD Unavailable Unavailable Fan, Rose Avalos MD Unavailable Unavailable Fan, Rose Avalos MD Unavailable Unavailable Fan, Rose Avalos MD Unavailable Unavailable Fan, Rose Avalos MD Unavailable Unavailable Fan, Rose Avalos MD Unavailable Unavailable Fan, Rose Avalos MD Unavailable Unavailable Fan, Rose Avalos MD Unavailable Unavailable Fan, Rose Avalos MD Unavailable Unavailable Fan, Rose Avalos MD Unavailable Unavailable Fan, Rose Avalos MD Unavailable Unavailable Fan, Rose Avalos MD Unavailable Unavailable Fan, Rose Avalos MD Unavailable Unavailable Fan, Rose Avalos MD Unavailable Unavailable Fan, Rose Avalos MD Unavailable Unavailable Fan, Rose Avalos MD Unavailable Unavailable Fan, Rose Avalos MD Unavailable Unavailable Fan, Rose Avalos MD Unavailable Unavailable Fan, Rose Avalos MD Unavailable Unavailable Fan, Rose Avalos MD Unavailable Unavailable Fan, Rose Avalos MD Unavailable Unavailable Fan, Rose Avalos MD Unavailable Unavailable Fan, Rose Avalos MD Unavailable Unavailable Fan, Rose Avalos MD Unavailable Unavailable Fan, Rose Avalos MD Unavailable Unavailable Fan, Rose Avalos MD Unavailable Unavailable Barter, D Andres MANAGER PHOTOGRAPHY Unavailable Unavailable Barter, D Andres MANAGER PHOTOGRAPHY Unavailable Unavailable Barter, D Andres MANAGER PHOTOGRAPHY Unavailable Unavailable Barter, D Andres MANAGER PHOTOGRAPHY Unavailable Unavailable Barter, D Andres MANAGER PHOTOGRAPHY Unavailable Unavailable Barter, D Andres MANAGER PHOTOGRAPHY Unavailable Unavailable Barter, D Andres MANAGER PHOTOGRAPHY Unavailable Unavailable Barter, D Andres MANAGER PHOTOGRAPHY Unavailable Unavailable Barter, D Andres MANAGER PHOTOGRAPHY Unavailable Unavailable Barter, D Andres MANAGER PHOTOGRAPHY Unavailable Unavailable Barter, D Andres MANAGER PHOTOGRAPHY Unavailable Unavailable Barter, D Andres MANAGER PHOTOGRAPHY Unavailable Unavailable Barter, D Andres MANAGER PHOTOGRAPHY Unavailable Unavailable Barter, D Andres MANAGER PHOTOGRAPHY Unavailable Unavailable Barter, D Andres MANAGER PHOTOGRAPHY Unavailable Unavailable Barter, D Andres MANAGER PHOTOGRAPHY Unavailable Unavailable Barter, D Andres MANAGER PHOTOGRAPHY Unavailable Unavailable Barter, D Andres MANAGER PHOTOGRAPHY Unavailable Unavailable Barter, D Andres MANAGER PHOTOGRAPHY Unavailable Unavailable Barter, D Andres MANAGER PHOTOGRAPHY Unavailable Unavailable Barter, D Andres MANAGER PHOTOGRAPHY Unavailable Unavailable Barter, D Andres MANAGER PHOTOGRAPHY Unavailable Unavailable Barter, D Andres MANAGER PHOTOGRAPHY Unavailable Unavailable Barter, D Andres MANAGER PHOTOGRAPHY Unavailable Unavailable Barter, D Andres MANAGER PHOTOGRAPHY Unavailable Unavailable Barter, D Andres MANAGER PHOTOGRAPHY Unavailable Unavailable Barter, D Andres MANAGER PHOTOGRAPHY Unavailable Unavailable Barter, D Andres MANAGER PHOTOGRAPHY Unavailable Unavailable Barter, D Andres MANAGER PHOTOGRAPHY Unavailable Unavailable Barter, D Andres MANAGER PHOTOGRAPHY Unavailable Unavailable Barter, D Andres MANAGER PHOTOGRAPHY Unavailable Unavailable Barter, D Andres MANAGER PHOTOGRAPHY Unavailable Unavailable Barter, D Andres MANAGER PHOTOGRAPHY Unavailable Unavailable Barter, D Andres MANAGER PHOTOGRAPHY Unavailable Unavailable Barter, D Andres MANAGER PHOTOGRAPHY Unavailable Unavailable Barter, D Andres MANAGER PHOTOGRAPHY Unavailable Unavailable Barter, D Andres MANAGER PHOTOGRAPHY Unavailable Unavailable Barter, D Andres MANAGER PHOTOGRAPHY Unavailable Unavailable Barter, D Andres MANAGER PHOTOGRAPHY Unavailable Unavailable Barter, D Andres MANAGER PHOTOGRAPHY Unavailable Unavailable Barter, D Andres MANAGER PHOTOGRAPHY Unavailable Unavailable Barter, D Andres MANAGER PHOTOGRAPHY Unavailable Unavailable Barter, D Andres MANAGER PHOTOGRAPHY Unavailable Unavailable Barter, D Andres MANAGER PHOTOGRAPHY Unavailable Unavailable Barter, D Andres MANAGER PHOTOGRAPHY Unavailable Unavailable Barter, D Andres MANAGER PHOTOGRAPHY Unavailable Unavailable Barter, D Andres MANAGER PHOTOGRAPHY Unavailable Unavailable Barter, D Andres MANAGER PHOTOGRAPHY Unavailable Unavailable Barter, D Andres MANAGER PHOTOGRAPHY Unavailable Unavailable Barter, D Andres MANAGER PHOTOGRAPHY Unavailable Unavailable Barter, D Andres MANAGER PHOTOGRAPHY Unavailable Unavailable Barter, D Andres MANAGER PHOTOGRAPHY Unavailable Unavailable Barter, D Andres MANAGER PHOTOGRAPHY Unavailable Unavailable Barter, D Andres MANAGER PHOTOGRAPHY Unavailable Unavailable Re-disclosure Warning The records that you are about to access may contain information from federally-assisted alcohol or drug abuse programs. If such information is present, then the following federally mandated warning applies: This information has been disclosed to you from records protected by federal confidentiality rules (42 CFR part 2). The federal rules prohibit you from making any further disclosure of this information unless further disclosure is expressly permitted by the written consent of the person to whom it pertains or as otherwise permitted by 42 CFR part 2. A general authorization for the release of medical or other information is NOT sufficient for this purpose. The Federal rules restrict any use of the information to criminally investigate or prosecute any alcohol or drug abuse patient.The records that you are about to access may contain highly sensitive health information, the redisclosure of which is protected by Article 27-F of the [facility] Public Health law. If you continue you may have access to information: Regarding HIV / AIDS; Provided by facilities licensed or operated by the [facility] Office of Mental Health; or Provided by the [facility] Office for People With Developmental Disabilities. If such information is present, then the following [facility] mandated warning applies: This information has been disclosed to you from confidential records which are protected by state law. State law prohibits you from making any further disclosure of this information without the specific written consent of the person to whom it pertains, or as otherwise permitted by law. Any unauthorized further disclosure in violation of state law may result in a fine or fci sentence or both. A general authorization for the release of medical or other information is NOT sufficient authorization for further disc losure. Allergies and Adverse Reactions Type Description Substance Reaction Status Data Source(s ) Prozac Prozac Fluoxetine 40 MG Oral Capsule [Prozac] decrease d appitite Active eCW1 ([facility]) Family History Family Member Name Family Member Gender Family Member Status Date o f Status Description Data Source(s) Unknown Male Problem MEDENT ([facility]) Unknown Unknown Problem MEDENT ([facility]) Encounters Encounter Providers Location Date Indications Data Source(s ) Unknown [address] [facility] [address] 10/28/2020 12:00:00 AM EST eCW1 ([facility]) Outpatient Referrer: EMMANUEL ELLER MD 10/20/2020 02:58:59 PM EST [facility] Outpatient Attender: MIGUELITO JOHN MD Main Office 10/20/2020 07:15:00 AM EST MEDENT ([facility]) Unknown [address] [facility] [address] 09/27/2020 12:00:00 AM EST eCW1 ([facility]) Outpatient Attender: MIGUELITO Saini/Itz/Yuval/Rein dl 09/21/2020 10:30:00 AM EST MEDENT ([facility]) Office Visit Attender: NAYELY CERVANTES Physical Therapy 07/20/2020 01:30:00 PM EST MEDENT ([facility]) Outpatient Attender: Sara Saini/Itz/Yuval/Nura ndl 06/28/2020 08:30:00 AM EDT MEDENT ([facility]) Outpatient Attender: Sara Saini/Itz/Yuval/Nura ndrose 06/15/2020 09:30:00 AM EDT MEDENT ([facility]) Outpatient Attender: Robbie Fan MD Physical Therapy 06/09/2020 0 8:15:00 AM EDT MEDENT ([facility]) Outpatient Attender: Robbie Fna MD Physical Therapy 06/02/2020 0 8:15:00 AM EDT MEDENT ([facility]) Outpatient Referrer: Andres ROBERTS 02/15/2020 05:52:[address] [facility] Outpatient Attender: Alexandra ROBERTS MOCAM-MOCAM[facility] 02/09/2020 0 1:08:15 PM ED[place] [address] [address] 02/01/2020 12:00:00 AM EDT eCW1 ([facility] [address] [address] 01/29/2020 12:00:00 AM EDT eCW1 ([facility] [address] [address] 01/28/2020 12:00:00 AM EDT eCW1 ([facility] [address] [place] [address] 01/28/2020 12:00:00 AM EDT eCW1 ([facility] [address] [address] 01/28/2020 12:00:00 AM EDT eCW1 ([facility]) Outpatient Attender: Alexandra ROBERTS M[place]ATH[place]-MOCAM 01/26/2020 12:00:00 AM EDT [facility] Inpatient Attender: EMMANUEL ELLER MDAdmitter: EMMANUEL ELLER MD [id number] 01/11/2020 05:13:00 AM EDT - 01/18/2020 11:07:00 AM EDT [facility] Patient discharged. Outpatient Attender: EMMANUEL ELLER MDReferrer: EMMANUEL ELLER MD [id number] 01/07/2020 08:36:00 AM EDT - 01/07/2020 11:59:00 PM EDT [facility] Patient discharged. Outpatient Attender: EMMANUEL ELLER MDReferrer: EMMANUEL ELLER MD [email or web address] 01/07/2020 07:37:44 AM EDT - 01/07/2020 08:45:55 AM EDT [facility] Outpatient Attender: Tori Bell MD Main office [facility] 01/01/2020 10:45:00 AM EDT MEDENT ([facility]) Outpatient Attender: PRISCILLA FLORES MDA dmitter: PRISCILLA FLORES MDReferrer: PRISCILLA FLORES MD [id number].CVAU 12/30/2019 09:58:00 AM EDT - 12/30/2019 03:40:00 PM EDT [facility] Patient discharged. SDC Attender: Rylan Jaquez MDAt tender: THOM STERLING MDAdmitter: THOM STERLING MDReferrer: Miguelito Hobbs MD [id number] 12/16/2019 11:04:42 AM EDT - 12/22/2019 12:50:00 PM EDT [facility] Patient discharged. Outpatient Attender: Merritt Gurrola DO [facility] 5 12/11/2019 10:30:00 A M EDT MEDENT ([facility]) Outpatient Referrer: EMMANUEL ELLER MD 12/09/2019 09:15:22 AM EDT [facility] Outpatient Attender: EMMANUEL ELLER MD [email or web address].CSA 020 12:00:00 AM EDT - 12/09/2019 09:20:18 AM EDT [facility] es Outpatient Attender: MIGUELITO JOHN MD Main Office 11/24/2019 09:00:00 AM EDT MEDENT ([facility]) [facility] Rheumatology [address] [place] [address] 11/10/2019 12:00:00 AM EST eCW1 ([facility]) [facility] [address] [address] 11/10/2019 12:00:00 AM EST eCW1 ([facility]) Outpatient Attender: MIGUELITO JOHN MD Main Office 10/26/2019 12:30:00 PM EST MEDENT ([facility]) [facility] [address] [address] 10/05/2019 12:00:00 AM EST eCW1 ([facility]) Outpatient Referrer: Andres ROBERTS 09/17/2019 08:42:00 P M EST [facility] Immunizations Vaccine Date Status Description Data Source(s) INFLUENZA VIRUS VACCINE QUADRIVALENT 2020-21 (6 MOS AN D UP) 06/10/2020 12:00:00 AM EDT completed [facility] Medications Medication Brand Name Start Date Product Form Dose Route Admi nistrative Instructions Pharmacy Instructions Status Indications Reaction Description Data Source(s) Prazosin 2 MG Oral Capsule Prazosin HCL 10/19/2020 12:00:00 AM EST ORAL active MEDENT ([facility]) pantoprazole 40 MG Delayed Release Oral Tablet Pantoprazole Sodium 10/19/2020 12:00:00 AM EST ORAL active M EDENT ([facility]) Trazodone Hydrochloride 100 MG Oral Tablet Trazodone HCL 10/19/2020 12:00:00 AM EST ORAL active MEDENT ([facility]) Primidone 50 MG Oral Tablet Primidone 10/19/2020 12:00:00 AM EST ORAL active MEDENT ([facility]) atorvastatin 40 MG Oral Tablet Atorvastatin Calcium 10/19/2020 1 2:00:00 AM EST ORAL active MEDENT ( [facility]) Ascorbic Acid 500 MG Oral Tablet Ascorbic Acid 10/19/2020 12:00:00 AM EST ORAL active MEDENT ([facility]) ferrous gluconate 324 MG Oral Tablet Ferrous Gluconate 11/2020 12:00:00 AM EST ORAL active MEDENT ([facility]) Potassium Chloride 10 MEQ Extended Release Oral Tablet Potassium Chloride [facility] 10/19/2020 12:00:00 AM EST ORAL active MEDENT ([facility]) Sertraline 100 MG Oral Tablet Sertraline HCL 10/19/2020 12:00:[address] ORAL active MEDENT ([facility]) benztropine mesylate 0.5 MG Oral Tablet Benztropine Mesylate 10/19/2020 12:00:00 AM EST ORAL active MEDENT ([facility]) quetiapine 25 MG Oral Tablet Quetiapine Fumarate 10/19/2020 12:00:00 AM EST ORAL active MEDENT ([facility]) 17 gram/dose 09/21/2020 12:00:00 AM EST powder [address] ROGERS FOR COLON PREPERATION INSTRUCTIONS USE DIRECTED BY DR ROGERS FOR COLON PREPERATION INSTRUCTIONS SOLD: 09/22/2020 [facility] magnesium citrate 58.2 MG/ML Oral Solution Magnesium Citrate 09/21/2020 12:00:00 AM EST active MEDENT ([facility], ) POLYETHYLENE GLYCOL 3350 142 MG/ML Oral Solution [Miralax] M iralax 09/21/2020 12:00:00 AM EST active M EDENT ([facility], ) 50 mg 09/13/2020 12:00:00 AM EST tablet 60 TAKE 1/2 TABLET BY MOUTH AT BEDTIME FOR 1 WEEK THEN TAKE 1/2 TABLET TWO TIMES A DAY FOR 1 WEEK THEN TAKE ONE TABLET BY MOUTH TWICE A DAY TAKE 1/2 TABLET BY MOUTH AT BEDTIME FOR 1 WEEK THEN TAKE 1/2 TABLET TWO TIMES A DAY FOR 1 WEEK THEN TAKE ONE TABLET BY MOUTH TWICE A DAY SOLD: 09/19/2020 [facility] 50 mg 09/13/2020 12:00:00 AM EST tablet 60 TAKE 1/2 TABLET BY MOUTH AT BEDTIME FOR 1 WEEK THEN TAKE 1/2 TABLET TWO TIMES A DAY FOR 1 WEEK THEN TAKE ONE TABLET BY MOUTH TWICE A DAY TAKE 1/2 TABLET BY MOUTH AT BEDTIME FOR 1 WEEK THEN TAKE 1/2 TABLET TWO TIMES A DAY FOR 1 WEEK THEN TAKE ONE TABLET BY MOUTH TWICE A DAY SOLD: 10/19/2020 [facility] 10 mEq (1,080 mg) 07/27/2020 12:00:00 AM EST tablet extended release 90 TAKE ONE TABLET BY MOUTH THREE TIMES A DAY WITH MEALS TAKE ONE TABLET BY MOUTH THREE TIMES A DAY WITH MEALS SOLD: 07/29/2020 [facility] 100 mg 07/27/2020 12:00:00 AM EST capsule 30 TAKE ONE CAPSULE BY MOUTH EVERY DAY TAKE ONE CAPSULE BY MOUTH EVERY DAY SOLD: 07/29/2020 [facility] atorvastatin 20 MG Oral Tablet ATORVASTATIN CALCIUM 07/27/2020 1 2:00:00 AM EST tablet 30 TAKE ONE TABLET BY MOUTH EVERY D AY TAKE ONE TABLET BY MOUTH EVERY DAY SOLD: 07/29/2020 [facility] 100 mg 07/27/2020 12:00:00 AM EST tablet 30 TAKE ONE TABLET BY MOUTH EVERY DAY TAKE ONE TABLET BY MOUTH EVERY DAY SOLD: 07/29/2020 [facility] 10 mg 07/27/2020 12:00:00 AM EST tablet 30 TAKE ONE TABLET BY MOUTH EVERY DAY TAKE ONE TABLET BY MOUTH EVERY DAY SOLD: 07/29/2020 [facility] 1 mg 07/15/2020 12:00:00 AM EDT tablet 60 TAKE ONE TABLET BY MOUTH TWICE A DAY TAKE ONE TABLET BY MOUTH TWICE A DAY SOLD: 07/21/2020 [facility] 50 mg 07/15/2020 12:00:00 AM EDT tablet 60 TAKE 1/2 TABLET BY MOUTH AT BEDTIME FOR 1 WEEK THEN TAKE 1/2 TABLET TWO TIMES A DAY FOR 1 WEEK THEN TAKE ONE TABLET BY MOUTH TWICE A DAY TAKE 1/2 TABLET BY MOUTH AT BEDTIME FOR 1 WEEK THEN TAKE 1/2 TABLET TWO TIMES A DAY FOR 1 WEEK THEN TAKE ONE TABLET BY MOUTH TWICE A DAY SOLD: 07/21/2020 [facility] 50 mg 07/15/2020 12:00:00 AM EDT tablet 60 TAKE 1/2 TABLET BY MOUTH AT BEDTIME FOR 1 WEEK THEN TAKE 1/2 TABLET TWO TIMES A DAY FOR 1 WEEK THEN TAKE ONE TABLET BY MOUTH TWICE A DAY TAKE 1/2 TABLET BY MOUTH AT BEDTIME FOR 1 WEEK THEN TAKE 1/2 TABLET TWO TIMES A DAY FOR 1 WEEK THEN TAKE ONE TABLET BY MOUTH TWICE A DAY SOLD: 08/17/2020 [facility] 5-325 mg 07/14/2020 12:00:00 AM EDT tablet 6 TAKE ONE TABLET BY MOUTH EVERY 4 TO 6 HOURS NEEDED FOR POST OP PAIN, MAXIMUM DAILY DOSE = SIX TABLETS TAKE ONE TABLET BY MOUTH EVERY 4 TO 6 HOURS NEEDED FOR POST OP PAIN, MAXIMUM DAILY DOSE = SIX TABLETS SOLD: 07/14/2020 [facility] Acetaminophen 325 MG / Hydrocodone Bitartrate 5 MG Ora l Tablet Hydrocodone-Acetaminophen 06/23/2020 12:00:00 AM EDT active MEDENT ([facility]) 24 HR Nicotine 0.583 MG/HR Transdermal Patch Nicotine Transd ermal System Step 2 06/15/2020 12:00:00 AM EDT active MEDENT ([facility], ) 14 mg/24 hr 06/15/2020 12:00:00 AM EDT patch 24 hour 28 APPLY ONE PATCH TO THE SKIN EVERY DAY, MOVE PATCH TO A DIFFERENT AREA EACH APPLICATION APPLY ONE PATCH TO THE SKIN EVERY DAY, MOVE PATCH TO A DIFFERENT AREA EACH APPLICATION SOLD: 06/16/2020 [facility] Acetaminophen 325 MG / Oxycodone Hydroch loride 5 MG Oral Tablet Oxycodone- Acetaminophen 5-325 MG Oxycodone-Acetaminophen 5-325 MG 02/01/2020 12:00:00 A M EDT active Oxycodone-Acetami nophen 5-325 MG eCW1 ([facility]) Acetaminophen 325 MG / Oxycodone Hydroch loride 5 MG Oral Tablet Oxycodone- Acetaminophen 5-325 MG Oxycodone-Acetaminophen 5-325 MG 02/01/2020 12:00:00 A M EDT active Oxycodone-Acetami nophen 5-325 MG eCW1 ([facility]) Acetaminophen 325 MG / Oxycodone Hydroch loride 5 MG Oral Tablet Oxycodone- Acetaminophen 5-325 MG Oxycodone-Acetaminophen 5-325 MG 02/01/2020 12:00:00 A M EDT active ([facility] ) 1 tablet eCW1 ([facility]) 5-325 mg 02/01/2020 12:00:00 AM EDT tablet 120 TAKE ONE TABLET BY MOUTH EVERY 6 HOURS NEEDED MAXIMUM DAILY DOSE = 4 TABLETS TAKE ONE TABLET BY MOUTH EVERY 6 HOURS NEEDED MAXIMUM DAILY DOSE = 4 TABLETS SOLD: 02/01/2020 [facility] 100 mg 01/29/2020 12:00:00 AM EDT tablet 30 TAKE ONE TABLET BY MOUTH EVERY DAY TAKE ONE TABLET BY MOUTH EVERY DAY SOLD: 06/29/2020 [facility] atorvastatin 20 MG Oral Tablet ATORVASTATIN CALCIUM 01/29/2020 1 2:00:00 AM EDT tablet 30 TAKE ONE TABLET BY MOUTH EVERY D AY TAKE ONE TABLET BY MOUTH EVERY DAY SOLD: 04/23/2020 [facility] 10 mEq (1,080 mg) 01/29/2020 12:00:00 AM EDT tablet extended release 90 TAKE ONE TABLET BY MOUTH THREE TIMES A DAY WITH MEALS TAKE ONE TABLET BY MOUTH THREE TIMES A DAY WITH MEALS SOLD: 05/24/2020 [facility] 10 mg 01/29/2020 12:00:00 AM EDT tablet 30 TAKE ONE TABLET BY MOUTH EVERY DAY TAKE ONE TABLET BY MOUTH EVERY DAY SOLD: 06/29/2020 [facility] 100 mg 01/29/2020 12:00:00 AM EDT capsule 30 TAKE ONE CAPSULE BY MOUTH EVERY DAY TAKE ONE CAPSULE BY MOUTH EVERY DAY SOLD: 05/24/2020 [facility] atorvastatin 20 MG Oral Tablet ATORVASTATIN CALCIUM 01/29/2020 1 2:00:00 AM EDT tablet 30 TAKE ONE TABLET BY MOUTH EVERY D AY TAKE ONE TABLET BY MOUTH EVERY DAY SOLD: 06/29/2020 [facility] 100 mg 01/29/2020 12:00:00 AM EDT tablet 30 TAKE ONE TABLET BY MOUTH EVERY DAY TAKE ONE TABLET BY MOUTH EVERY DAY SOLD: 02/26/2020 [facility] 100 mg 01/29/2020 12:00:00 AM EDT capsule 30 TAKE ONE CAPSULE BY MOUTH EVERY DAY TAKE ONE CAPSULE BY MOUTH EVERY DAY SOLD: 01/29/2020 [facility] 100 mg 01/29/2020 12:00:00 AM EDT capsule 30 TAKE ONE CAPSULE BY MOUTH EVERY DAY TAKE ONE CAPSULE BY MOUTH EVERY DAY SOLD: 02/26/2020 [facility] 10 mg 01/29/2020 12:00:00 AM EDT tablet 30 TAKE ONE TABLET BY MOUTH EVERY DAY TAKE ONE TABLET BY MOUTH EVERY DAY SOLD: 03/25/2020 [facility] 25 mg 01/29/2020 12:00:00 AM EDT tablet 30 TAKE 1/2 TABLET BY MOUTH TWO TIMES A DAY TAKE 1/2 TABLET BY MOUTH TWO TIMES A DAY SOLD: 01/29/2020 [facility] 10 mg 01/29/2020 12:00:00 AM EDT tablet 30 TAKE ONE TABLET BY MOUTH EVERY DAY TAKE ONE TABLET BY MOUTH EVERY DAY SOLD: 04/23/2020 [facility] 100 mg 01/29/2020 12:00:00 AM EDT capsule 30 TAKE ONE CAPSULE BY MOUTH EVERY DAY TAKE ONE CAPSULE BY MOUTH EVERY DAY SOLD: 06/29/2020 [facility] 10 mg 01/29/2020 12:00:00 AM EDT tablet 30 TAKE ONE TABLET BY MOUTH EVERY DAY TAKE ONE TABLET BY MOUTH EVERY DAY SOLD: 02/26/2020 [facility] 10 mg 01/29/2020 12:00:00 AM EDT tablet 30 TAKE ONE TABLET BY MOUTH EVERY DAY TAKE ONE TABLET BY MOUTH EVERY DAY SOLD: 05/24/2020 [facility] 10 mg 01/29/2020 12:00:00 AM EDT tablet 30 TAKE ONE TABLET BY MOUTH EVERY DAY TAKE ONE TABLET BY MOUTH EVERY DAY SOLD: 01/29/2020 [facility] atorvastatin 20 MG Oral Tablet ATORVASTATIN CALCIUM 01/29/2020 1 2:00:00 AM EDT tablet 30 TAKE ONE TABLET BY MOUTH EVERY D AY TAKE ONE TABLET BY MOUTH EVERY DAY SOLD: 02/24/2020 [facility] 100 mg 01/29/2020 12:00:00 AM EDT capsule 30 TAKE ONE CAPSULE BY MOUTH EVERY DAY TAKE ONE CAPSULE BY MOUTH EVERY DAY SOLD: 03/25/2020 [facility] 100 mg 01/29/2020 12:00:00 AM EDT capsule 30 TAKE ONE CAPSULE BY MOUTH EVERY DAY TAKE ONE CAPSULE BY MOUTH EVERY DAY SOLD: 04/23/2020 [facility] 100 mg 01/29/2020 12:00:00 AM EDT tablet 30 TAKE ONE TABLET BY MOUTH EVERY DAY TAKE ONE TABLET BY MOUTH EVERY DAY SOLD: 03/25/2020 [facility] 100 mg 01/29/2020 12:00:00 AM EDT tablet 30 TAKE ONE TABLET BY MOUTH EVERY DAY TAKE ONE TABLET BY MOUTH EVERY DAY SOLD: 05/24/2020 [facility] 100 mg 01/29/2020 12:00:00 AM EDT tablet 30 TAKE ONE TABLET BY MOUTH EVERY DAY TAKE ONE TABLET BY MOUTH EVERY DAY SOLD: 01/29/2020 [facility] 1 mg 01/29/2020 12:00:00 AM EDT tablet 30 TAKE ONE TABLET BY MOUTH EVERY DAY TAKE ONE TABLET BY MOUTH EVERY DAY SOLD: 01/29/2020 [facility] 10 mEq (1,080 mg) 01/29/2020 12:00:00 AM EDT tablet extended release 90 TAKE ONE TABLET BY MOUTH THREE TIMES A DAY WITH MEALS TAKE ONE TABLET BY MOUTH THREE TIMES A DAY WITH MEALS SOLD: 06/29/2020 [facility] 10 mEq (1,080 mg) 01/29/2020 12:00:00 AM EDT tablet extended release 90 TAKE ONE TABLET BY MOUTH THREE TIMES A DAY WITH MEALS TAKE ONE TABLET BY MOUTH THREE TIMES A DAY WITH MEALS SOLD: 03/25/2020 [facility] 10 mEq (1,080 mg) 01/29/2020 12:00:00 AM EDT tablet extended release 90 TAKE ONE TABLET BY MOUTH THREE TIMES A DAY WITH MEALS TAKE ONE TABLET BY MOUTH THREE TIMES A DAY WITH MEALS SOLD: 01/29/2020 [facility] 10 mEq (1,080 mg) 01/29/2020 12:00:00 AM EDT tablet extended release 90 TAKE ONE TABLET BY MOUTH THREE TIMES A DAY WITH MEALS TAKE ONE TABLET BY MOUTH THREE TIMES A DAY WITH MEALS SOLD: 02/26/2020 [facility] 10 mEq (1,080 mg) 01/29/2020 12:00:00 AM EDT tablet extended release 90 TAKE ONE TABLET BY MOUTH THREE TIMES A DAY WITH MEALS TAKE ONE TABLET BY MOUTH THREE TIMES A DAY WITH MEALS SOLD: 04/23/2020 [facility] atorvastatin 20 MG Oral Tablet ATORVASTATIN CALCIUM 01/29/2020 1 2:00:00 AM EDT tablet 30 TAKE ONE TABLET BY MOUTH EVERY D AY TAKE ONE TABLET BY MOUTH EVERY DAY SOLD: 03/25/2020 [facility] atorvastatin 20 MG Oral Tablet ATORVASTATIN CALCIUM 01/29/2020 1 2:00:00 AM EDT tablet 30 TAKE ONE TABLET BY MOUTH EVERY D AY TAKE ONE TABLET BY MOUTH EVERY DAY SOLD: 05/24/2020 [facility] 100 mg 01/29/2020 12:00:00 AM EDT tablet 30 TAKE ONE TABLET BY MOUTH EVERY DAY TAKE ONE TABLET BY MOUTH EVERY DAY SOLD: 04/23/2020 [facility] atorvastatin 20 MG Oral Tablet ATORVASTATIN CALCIUM 01/29/2020 1 2:00:00 AM EDT tablet 30 TAKE ONE TABLET BY MOUTH EVERY D AY TAKE ONE TABLET BY MOUTH EVERY DAY SOLD: 01/29/2020 [facility] 5-325 mg 01/26/2020 12:00:00 AM EDT tablet 20 TAKE ONE TABLET BY MOUTH EVERY 6 HOURS NEEDED MAXIMUM DAILY DOSE = FOUR TABLETS TAKE ONE TABLET BY MOUTH EVERY 6 HOURS NEEDED MAXIMUM DAILY DOSE = FOUR TABLETS SOLD: 01/26/2020 [facility] 100 mg 01/18/2020 12:00:00 AM EDT capsule 60 TAKE ONE CAPSULE BY MOUTH TWICE A DAY TAKE ONE CAPSULE BY MOUTH TWICE A DAY SOLD: 02/24/2020 [facility] Ascorbic Acid 500 MG Oral Tablet ascorbic acid (VITAMI N C) 500 MG tablet ascorbic acid (VITAMIN C) 500 MG tablet 01/18/2020 12:00:00 AM EDT 500 mg Oral active Take 1 tablet (500 m g total) by mouth daily [facility] atorvastatin 20 MG Oral Tablet atorvastatin (LIPITOR) 20 MG tablet atorvastatin (LIPITOR) 20 MG tablet 01/18/2020 12:00:00 AM EDT 20 mg Oral active Take 1 tablet (20 mg total) by mouth daily [facility] atorvastatin 20 MG Oral Tablet ATORVASTATIN CALCIUM 01/18/2020 1 2:00:00 AM EDT tablet 30 TAKE ONE TABLET BY MOUTH EVERY D AY TAKE ONE TABLET BY MOUTH EVERY DAY SOLD: 01/18/2020 [facility] 5-325 mg 01/18/2020 12:00:00 AM EDT tablet 30 TAKE ONE TABLET BY MOUTH EVERY 4 HOURS NEEDED, MAXIMUM DAILY DOSE = SIX TABLETS TAKE ONE TABLET BY MOUTH EVERY 4 HOURS NEEDED, MAXIMUM DAILY DOSE = SIX TABLETS SOLD: 01/18/2020 [facility] ferrous gluconate 324 MG Oral Tablet ferrous gluconate (FERGON) 324 MG tablet ferrous gluconate (FERGON) 324 MG tablet 01/18/2020 12:00:00 AM EDT 324 mg Oral active Take 1 tablet (324 m g total) by mouth 2 (two) times a day [facility] Docusate Sodium 100 MG Oral Capsule docusate sodium (, DSS,) 100 MG CAPS docusate sodium (,DSS,) 100 MG CAPS 01/18/2020 12:00:00 AM EDT 100 mg Oral active Take 1 capsule (100 mg total) by mouth 2 (two) times a day [facility] Furosemide 20 MG Oral Tablet furosemide (LASIX) 20 MG tablet furosemide (LASIX) 20 MG tablet 01/18/2020 12:00:00 AM EDT 20 mg Oral activ e Take 1 tablet (20 mg total) by mouth every morning for 7 days [facility] Metoprolol Tartrate 25 MG Oral Tablet me toprolol tartrate (LOPRESSOR) 25 MG tablet metoprolol tartrate (LOPRESSOR) 25 MG tablet 01/18/2020 12:0 0:00 AM EDT 12.5 mg Oral active Take 0.5 tablets (12.5 mg total) by mouth 2 (two) times a day [facility] Acetaminophen 325 MG / Oxycodone Hydroch loride 5 MG Oral Tablet oxyCODONE- acetaminophen (PERCOCET) 5-325 MG per tablet oxyCODONE-acetaminophen (PERCOCET) 5-325 MG per tablet 01/18/2020 12:00:00 AM EDT 1 {tbl} Oral active Take 1 tablet by mouth every 4 (four) hours as needed Max Daily Amount: 6 tablets [facility] potassium chloride SA (K-DUR,KLOR-CON) 10 MEQ tablet [id number] 01/18/2020 12:00:00 AM EDT 10 meq Oral active Take 1 tablet (10 mEq total) by mouth daily for 7 days Take with Lasix [facility] 25 mg 01/18/2020 12:00:00 AM EDT tablet 30 TAKE 1/2 TABLET BY MOUTH TWO TIMES A DAY TAKE 1/2 TABLET BY MOUTH TWO TIMES A DAY SOLD: 01/18/2020 [facility] 20 mg 01/18/2020 12:00:00 AM EDT tablet 7 TAKE ONE TABLET BY MOUTH EVERY MORNING FOR 7 DAYS TAKE ONE TABLET BY MOUTH EVERY MORNING FOR 7 DAYS SOLD : 01/26/2020 [facility] 20 mg 01/18/2020 12:00:00 AM EDT tablet 7 TAKE ONE TABLET BY MOUTH EVERY MORNING FOR 7 DAYS TAKE ONE TABLET BY MOUTH EVERY MORNING FOR 7 DAYS SOLD : 01/18/2020 [facility] 25 mg 01/18/2020 12:00:00 AM EDT tablet 30 TAKE 1/2 TABLET BY MOUTH TWO TIMES A DAY TAKE 1/2 TABLET BY MOUTH TWO TIMES A DAY SOLD: 02/24/2020 [facility] 500 mg 01/18/2020 12:00:00 AM EDT tablet 30 TAKE ONE TABLET BY MOUTH EVERY DAY TAKE ONE TABLET BY MOUTH EVERY DAY SOLD: 02/24/2020 [facility] 324 mg (38 mg iron) 01/18/2020 12:00:00 AM EDT tablet 60 TAKE ONE TABLET BY MOUTH TWICE A DAY TAKE ONE TABLET BY MOUTH TWICE A DAY SOLD: 01/18/2020 [facility] 324 mg (38 mg iron) 01/18/2020 12:00:00 AM EDT tablet 60 TAKE ONE TABLET BY MOUTH TWICE A DAY TAKE ONE TABLET BY MOUTH TWICE A DAY SOLD: 02/24/2020 [facility] 10 mEq 01/18/2020 12:00:00 AM EDT tablet,ER particles/cry stals 7 TAKE ONE TABLET BY MOUTH EVERY DAY FOR 7 DAYS WITH FUROSEMIDE TAKE ONE TABLET BY MOUTH EVERY DAY FOR 7 DAYS WITH FUROSEMIDE SOLD: 01/18/2020 [facility] 100 mg 01/18/2020 12:00:00 AM EDT capsule 60 TAKE ONE CAPSULE BY MOUTH TWICE A DAY TAKE ONE CAPSULE BY MOUTH TWICE A DAY SOLD: 01/18/2020 [facility] 500 mg 01/18/2020 12:00:00 AM EDT tablet 30 TAKE ONE TABLET BY MOUTH EVERY DAY TAKE ONE TABLET BY MOUTH EVERY DAY SOLD: 01/18/2020 [facility] Folic Acid 1 MG Oral Tablet folic acid (FOLVITE) table t 1 mg folic acid (FOLVITE) tablet 1 mg 01/17/2020 09:00:00 AM EDT 1 mg Oral active 1 mg, Oral, Daily, First dose on 01/17/20 at 0900, Post-op [facility] Medication administered onsite Ascorbic Acid 500 MG Oral Tablet ascorbic acid (VITAMI N C) tablet 500 mg ascorbic acid (VITAMIN C) tablet 500 mg 01/17/2020 09:00:00 AM EDT 500 mg Oral active 500 mg, Oral, Daily, First dose on 01/17/20 at 0900, Post-op [facility] Medication administered onsite DAILY ULI (THERAGRAN) 1 tablet [id number] 01/17/2020 09:00:00 AM EDT 1 {tbl} Oral active 1 tablet, Oral, Daily, First dose on 01/17/20 at 0900, Post-op [facility] Medication administered onsite POLYETHYLENE GLYCOL 3350 142 MG/ML Oral Solution polyethylene glycol (GLYCOLAX) packet 17 g polyethylene glycol (GLYCOLAX) packet 17 g 01/17/2020 09:00:00 AM EDT 17 g Oral active 17 g, Or al, Daily, First dose on 01/17/20 at 0900, Post-op
Start 2nd POD and continue until result.
[facility] Medication administered onsite Furosemide 20 MG Oral Tablet furosemide (LASIX) tablet 20 mg furosemide (LASIX) tablet 20 mg 01/17/2020 09:00:00 AM EDT 20 mg Oral activ e 20 mg, Oral, Every morning, First dose on 01/17/20 at 0900 [facility] Medication administered onsite Docusate Sodium 100 MG Oral Capsule docusate sodium (C OLACE) capsule 100 mg docusate sodium (COLACE) capsule 100 mg 01/16/2020 09:00:00 PM EDT 100 mg Oral active 100 mg, Oral, 2 times daily, First dose on 01/16/20 at 2100, Post-op
hold for loose stools
[facility] Medication administered onsite ferrous gluconate 324 MG Oral Tablet ferrous gluconate (FERGON) tablet 324 mg ferrous gluconate (FERGON) tablet 324 mg 01/16/2020 09:00:00 PM EDT 324 mg Oral active 324 mg, Oral, 2 times daily, First dose on 01/16/20 at 2100, Post-op
Start when taking good p.o. intake.
[facility] Medication administered onsite normal saline flush 0.9 % injection 3 mL [id number] 01/16/2020 02:00:00 PM EDT 3 mL Intravenous active 3 mL , Intravenous, PROTOCOL, First dose on 01/16/20 at 1400, Post-op
May convert IV to a saline lock when taking in good p.o. intake (minimally 600 mL).
[facility] Medication administered onsite heparin (porcine) injection 5,000 Units [id number] 01/16/20 02:00:00 PM EDT 5000 U Subcutaneous active 5,000 Units , Subcutaneous, Every 8 hours (scheduled), First dose on 01/16/20 at 1400, Post-op
Hold for platelet count less than 90,000, INR greater than or equal to 1.7 if receiving coumadin therapy
[facility] Medication administered onsite acetaminophen (TYLENOL) 325 MG tablet 650 mg 0 12:32:38 PM EDT 650 mg Oral active [Order 1 S tart] Name: acetaminophen (TYLENOL) 325 MG tablet 650 mg Signed Summary: 650 mg, Oral, Every 4 hours PRN, fever, for temperature of 101 or greater. May also give for mild non-cardiac pain., Starting 01/16/20 at 1232, Post-op
"Maximum dose of acetaminophen is 4,000 mg from all sources in 24 hours."
[Order 1 End] [Order 2 Start] Name: acetaminophen (TYLENOL) suppository 650 mg Signed Summary: 650 mg (1 suppository), Rectal, Every 4 hours PRN, fever, for temperature of 101 or greater. May also give for mild non-cardiac pain., Starting 01/16/20 at 1232, Post-op [Order 2 End] [facility] Medication administered onsite potassium chloride SA (K-DUR,KLOR-CON) CR tablet 10 mEq 5528 901/16/2020 12:32:37 PM EDT 10 meq Oral active 10 mEq, Oral, As needed, Serum K+ 3.9-4.1, Starting 01/16/20 at 1232, Post-op
For serum creatinine (SCR) greater than 1.5
[facility] Medication administered onsite potassium chloride SA (K-DUR,KLOR-CON) CR tablet 20 mEq 5528 935901/16/2020 12:32:37 PM EDT 20 meq Oral active 20 mEq, Oral, As needed, Serum K+ 3.5-3.8, Starting 01/16/20 at 1232, Post-op
For serum creatinine (SCR) greater than 1.5
[facility] Medication administered onsite potassium chloride SA (K-DUR,KLOR-CON) CR tablet 20 mEq 5528 901/16/2020 12:32:37 PM EDT 20 meq Oral active 20 mEq, Oral, As needed, Serum K+ 3.9-4.1, Starting 01/16/20 at 1232, Post-op
For serum creatinine (SCR) 0.8 to 1.5
[facility] Medication administered onsite potassium chloride SA (K-DUR,KLOR-CON) CR tablet 40 mEq 5528 9-359-01/16/2020 12:32:37 PM EDT 40 meq Oral active 40 mEq, Oral, As needed, Serum K+ 3.5-3.8, Starting 01/16/20 at 1232, Post-op
For serum creatinine (SCR) 0.8 to 1.5
[facility] Medication administered onsite magnesium sulfate 1 g in dextrose 5% infusion (premix) 17213 -[id number] 01/16/2020 12:32:36 PM EDT 1 g Intravenous active 1 g, Intravenous, at 200 mL/hr, As needed, serum Mg 1.9-2.1, Starting 01/16/20 at 1232, Post-op
Give 1 grams magnesium sulfate IV x 1 run over 1 hourFor serum creatinine (SCR) greater than 1.5
[facility] Medication administered onsite 50 ML Magnesium Sulfate 40 MG/ML Injecti on magnesium sulfate 2 g in sterile diluent magnesium sulfate 2 g in sterile diluent 01/16/2020 12:32:36 PM EDT 2 g Intravenous active 2 g, Int ravenous, at 50 mL/hr, As needed, serum Mg 1.5-1.8, Starting 01/16/20 at 1232, Post-op
Give 2 grams magnesium sulfate IV x 1 run over 1 hour.For serum creatinine (SCR) greater than 1.5
[facility] Medication administered onsite 50 ML Magnesium Sulfate 40 MG/ML Injecti on magnesium sulfate 2 g in sterile diluent magnesium sulfate 2 g in sterile diluent 01/16/2020 12:32:36 PM EDT 2 g Intravenous active 2 g, Int ravenous, at 50 mL/hr, As needed, serum Mg 1.9-2.1, Starting 01/16/20 at 1232, Post-op
Give 2 grams magnesium sulfate IV x 1 run over 1 hour.For serum creatinine (SCR) 0.8 to 1.5
[facility] Medication administered onsite 50 ML Magnesium Sulfate 40 MG/ML Injecti on magnesium sulfate 2 g in sterile diluent magnesium sulfate 2 g in sterile diluent 01/16/2020 12:32:36 PM EDT 2 g Intravenous active 2 g, Int ravenous, at 50 mL/hr, As needed, serum Mg 1.5-1.8, Starting 01/16/20 at 1232, Post-op
Give 2 grams magnesium sulfate IV x 2 runs over 1 hour each.For serum creatinine (SCR) 0.8 to 1.5
[facility] Medication administered onsite Bisacodyl 10 MG Rectal Suppository bisacodyl (DULCOLAX ) suppository 10 mg bisacodyl (DULCOLAX) suppository 10 mg 01/16/2020 12:32:36 PM EDT 10 mg Rectal active 10 mg, Rectal, Daily PRN, constipation, Starting 01/16/20 at 1232, Post-op
If polyethylene glycol not effective.
[facility] Medication administered onsite ondansetron (ZOFRAN) injection 4 mg [id number] 01/16/2020 12:32:3 6 PM EDT 4 mg Intravenous active 4 mg, In travenous, Every 6 hours PRN, nausea, vomiting, Starting 01/16/20 at 1232, Post-op
If no response in 15-30 minutes, give metoclopramide 10 mg IV x 1 then q6h prn N/V.
[facility] Medication administered onsite Nitroglycerin 0.4 MG Sublingual Tablet n itroglycerin (NITROSTAT) SL tablet 0.4 mg nitroglycerin (NITROSTAT) SL tablet 0.4 mg 01/16/2020 12:32:36 P M EDT 0.4 mg Sublingual active 0.4 mg, S ublingual, Every 5 min PRN, chest pain, Starting 01/16/20 at 1232, Post-op
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 Notify MD/PA/[employer].
[facility] Medication administered onsite Aluminum Hydroxide 64 MG/ML Oral Suspens ion aluminum hydroxide (ALTERNAGEL) suspension 15 mL aluminum hydroxide (ALTERNAGEL) suspension 15 mL 01/15 12:32:35 PM EDT 15 mL Oral active 15 mL, Oral, Every 4 hours PRN, for indigestion/ gas, Starting 01/16/20 at 1232, Post-op [facility] Medication administered onsite Albuterol 0.83 MG/ML Inhalant Solution a lbuterol (PROVENTIL) nebulizer solution 2.5 mg albuterol (PROVENTIL) nebulizer solution 2.5 mg 2019 12:32:35 PM EDT 2.5 mg active 2.5 mg, Nebulization, RT every 2 hours as needed, wheezing, shortness of breath, Starting 01/16/20 at 1232, Post-op [facility] Medication administered onsite furosemide (LASIX) injection 40 mg [id number] 01/16/2020 09:00:00 AM EDT 40 mg Intravenous completed 40 mg, I ntravenous, Once, 01/16/20 at 0900, For 1 dose [facility] Medication administered onsite furosemide (LASIX) injection 40 mg [id number] 01/15/2020 05:00:00 PM EDT 40 mg Intravenous aborted 40 mg, I ntravenous, LOOPBID, First dose on Sat01/15/20 at 1700 [facility] Medication administered onsite furosemide (LASIX) injection 40 mg [id number] 01/15/2020 10:00:00 AM EDT 40 mg Intravenous completed 40 mg, I ntravenous, Once, Sat01/15/20 at 1000, For 1 dose [facility] Medication administered onsite furosemide (LASIX) injection 40 mg [id number] 01/14/2020 09:00:00 PM EDT 40 mg Intravenous completed 40 mg, I ntravenous, Once, Erin 01/14/20 at 2100, For 1 dose [facility] Medication administered onsite potassium chloride SA (K-DUR,KLOR-CON) CR tablet 40 mEq [id number] 01/14/2020 08:00:00 PM EDT 40 meq Oral completed 40 mEq, Oral, Once, Erin 01/14/20 at 2000, For 1 dose [facility] Medication administered onsite Magnesium Oxide (MAG-OX) tablet 400 mg [id number] 0 08:00:00 PM EDT 400 mg Oral completed 400 mg, Oral, Once, Sat01/14/20 at 2000, For 1 dose [facility] Medication administered onsite Methylprednisolone 40 MG/ML Injectable S olution methylPREDNISolone sodium succinate (Solu-MEDROL) injection 60 mg methylPREDNISolone sodium succinate (Solu-MEDROL) injection 60 mg 01/14/2020 09:00:00 AM EDT 60 mg I ntravenous completed 60 mg, Intraveno us, Every 12 hours (scheduled), First dose on Sat01/14/20 at 0900, For 4 doses [facility] Medication administered onsite Metoprolol Tartrate 25 MG Oral Tablet me toprolol tartrate (LOPRESSOR) tablet 12.5 mg metoprolol tartrate (LOPRESSOR) tablet 12.5 mg 09:00:00 AM EDT 12.5 mg Oral active 12.5 mg, Oral, 2 times daily, First dose on Sat01/14/20 at 0900
Hold for SBP<105 HR<60
[facility] Medication administered onsite furosemide (LASIX) injection 20 mg [id number] 01/13/2020 05:00:00 PM EDT 20 mg Intravenous aborted 20 mg, I ntravenous, LOOPBID, First dose on Sat01/13/20 at 1700 [facility] Medication administered onsite POLYETHYLENE GLYCOL 3350 142 MG/ML Oral Solution polyethylene glycol (GLYCOLAX) packet 17 g polyethylene glycol (GLYCOLAX) packet 17 g 01/13/2020 09:00:00 AM EDT 17 g Oral aborted 17 g, Or al, Daily, First dose on Sat01/13/20 at 0900, PACU & Post-op
Starting 2nd POD, give every day until result
[facility] Medication administered onsite ferrous gluconate 324 MG Oral Tablet ferrous gluconate (FERGON) tablet 324 mg ferrous gluconate (FERGON) tablet 324 mg 01/13/2020 07:00:00 AM EDT 324 mg Oral aborted 324 mg, Oral, 2 times daily before meals, First dose on Sat01/13/20 at 0700, PACU & Post-op
Start POD #2
[facility] Medication administered onsite norepinephrine bitartrate (LEVOPHED) 4 m g in sodium chloride (NS) 0.9 % 250 mL infusion 01/13/2020 02:00:00 AM EDT Intravenous ab orted 0-4 mcg/min (0-15 mL/hr), Intravenous, Continuous, Starting Sat01/13/20 at 0200, Until 01/16/20 at 1232, at 0-15 mL/hr [facility] Medication administered onsite Dexmedetomidine HCl 400 mcg in sodium chloride (NS) 0.9 % 10 0 mL infusion 01/12/2020 10:00:00 PM EDT Intravenous aborted 0.2-0.4 mcg/kg/hr ?? 64.9 kg (3.245-6.49 mL/hr, rounded to 3.2-6.5 mL/hr), Intravenous, Continuous, Starting Sat01/12/20 at 2200, Until 01/16/20 at 1232, at 3.2-6.5 mL/hr [facility] Medication administered onsite 60 ACTUAT formoterol fumarate 0.005 MG/A CTUAT / mometasone furoate 0.2 MG/ACTUAT Metered Dose Inhaler mometasone-formoterol (DULERA) 200-5 MCG/ACT inhaler 2 puff mometasone-formoterol (DULERA) 200-5 MCG/ACT inhaler 2 puff 01/12/2020 08:00:00 PM EDT 2 {puff} Inhalation aborted 2 pu ff, Inhalation, 2 times daily, First dose on Sat01/12/20 at 2000
Please send a spacer home with patient if discharged with a metered dose inhaler. After use of steroid inhaler please have patient rinse mouth with water
[facility] Medication administered onsite furosemide (LASIX) injection 40 mg [id number] 01/12/2020 06:00:00 PM EDT 40 mg Intravenous completed 40 mg, I ntravenous, Once, Sat01/12/20 at 1800, For 1 dose [facility] Medication administered onsite fentaNYL Citrate (PF) (SUBLIMAZE) injection 25 mcg [id number] 01/12/2020 01:36:37 PM EDT 25 ug Intravenous aborted 25 mcg, Intravenous, Every 2 hour PRN, severe pain if oral ineffective after 1 hour, or if unable to take PO pain meds, Starting Sat01/12/20 at 1336, For 7 days [facility] Medication administered onsite clopidogrel 75 MG Oral Tablet clopidogrel (PLAVIX) tab let 75 mg clopidogrel (PLAVIX) tablet 75 mg 01/12/2020 09:00:00 AM EDT 75 mg Oral active 75 mg, Oral, Daily, First dose on Sat01/12/20 at 0900
Start first PODHold for Platelet count less than 90,000
[facility] Medication administered onsite Aspirin 81 MG Delayed Release Oral Tablet aspirin EC t ablet 81 mg aspirin EC tablet 81 mg 01/12/2020 09:00:00 AM EDT 81 mg Oral activ e 81 mg, Oral, Daily, First dose on Sat01/12/20 at 0900
Hold for platelet count less than 90,000.If OG tube in place, give non-enteric coated aspirin.
[facility] Medication administered onsite Ascorbic Acid 500 MG Oral Tablet ascorbic acid (VITAMI N C) tablet 500 mg ascorbic acid (VITAMIN C) tablet 500 mg 01/12/2020 09:00:00 AM EDT 500 mg Oral aborted 500 mg, Oral, Daily, First dose on Sat01/12/20 at 0900, PACU & Post-op
Give PO/OG.Start first POD.
[facility] Medication administered onsite Folic Acid 1 MG Oral Tablet folic acid (FOLVITE) table t 1 mg folic acid (FOLVITE) tablet 1 mg 01/12/2020 09:00:00 AM EDT 1 mg Oral aborted 1 mg, Oral, Daily, First dose on Sat01/12/20 at 0900, PACU & Post-op
Give PO/OG.Start first POD
[facility] Medication administered onsite Docusate Sodium 100 MG Oral Capsule docusate sodium (C OLACE) capsule 100 mg docusate sodium (COLACE) capsule 100 mg 01/12/2020 09:00:00 AM EDT 100 mg Oral aborted 100 mg, Oral, Daily, First dose on Sat01/12/20 at 0900, PACU & Post-op
Give PO/OG.Start first POD
[facility] Medication administered onsite heparin (porcine) injection 5,000 Units [id number] 01/12/20 06:00:00 AM EDT 5000 U Subcutaneous aborted 5,000 Units , Subcutaneous, Every 8 hours (scheduled), First dose on Sat01/12/20 at 0600, PACU & Post-op
Start first POD. Hold for platelet count less than 90,000, INR greater than or equal to 1.7 if receiving coumadin therapy.
[facility] Medication administered onsite normal saline flush 0.9 % injection 3 mL [id number] 01/12/2020 06:00:00 AM EDT 3 mL Intravenous aborted 3 mL , Intravenous, PROTOCOL, First dose on Sat01/12/20 at 0600, PACU & Post-op
May convert to saline lock with minimally 600 ml PO intake on first POD; prior to transfer
[facility] Medication administered onsite albumin human 5 % bottle 25 g [id number] 01/11/2020 09:02:50 PM EDT 25 g Intravenous completed 25 g, Intrave nous, As needed, other, volume, Indications: volume, Starting Sat01/11/20 at 2102, For 1 dose [facility] Medication administered onsite pantoprazole 40 MG Delayed Release Oral Tablet pantoprazole (PROTONIX) EC tablet 40 mg pantoprazole (PROTONIX) EC tablet 40 mg 01/11/2020 09:00:00 PM E DT 40 mg Oral active Gastroesophageal Reflux Diseas e 40 mg, Oral, Daily, Indications: Gastroesophageal Reflux Disease, First dose on Sat01/11/20 at 2100
Start after extubationDo Not Crush
[facility] Gastroesophageal Reflux Disease Medication administered onsite Regular Insulin, Human 100 UNT/ML Inject able Solution [Humulin R] insulin regular (HumuLIN,NovoLIN) IV injection 10 Units insulin regular (HumuLIN,NovoLIN) IV injection 10 Units 01/11/2020 09:00:00 PM EDT 10 U Intravenous completed 10 Units, Int ravenous, Once, Sat01/11/20 at 2100, For 1 dose [facility] Medication administered onsite Trazodone Hydrochloride 100 MG Oral Tablet traZODone ( DESYREL) tablet 50 mg traZODone (DESYREL) tablet 50 mg 01/11/2020 09:00:00 PM EDT 50 mg Oral active 50 mg, Oral, Nightly, First dose on Sat01/11/20 at 2100 [facility] [facility] dextrose 10 % infusion [id number] 01/11/2020 09:00:00 PM EDT 75 mL/h Intravenous completed 75 mL/hr, Int ravenous, at 75 mL/hr, Continuous, Starting Sat01/11/20 at 2100, For 6 hours [facility] Medication administered onsite dextrose 50 % solution 25-50 g [id number] 01/11/2020 09:00:00 PM ED T Intravenous completed 25-50 g, Intr avenous, Once, Sat01/11/20 at 2100, For 1 dose
For BS <150 give 50 g (2 amp D50 or 100 ml)For BS 150-300 give 25 g (1 amp D50 or 50 ml).For BS>300 hold D50.
[facility] Medication administered onsite furosemide (LASIX) injection 40 mg [id number] 01/11/2020 09:00:00 PM EDT 40 mg Intravenous completed 40 mg, I ntravenous, Once, Sat01/11/20 at 2100, For 1 dose [facility] Medication administered onsite dextrose 5 % and sodium chloride 0.45 % infusion [id number] 0 01/11/2020 08:00:00 PM EDT Intravenous aborted at 0-80 mL/hr, Intravenous, Continuous, Starting Sat01/11/20 at 2000
80 ml/hr total IV rate. From 0600 first post-op day, adjust IV and PO intake so that total fluid intake is 2 liters in 24 hours.
[facility] Medication administered onsite sodium bicarbonate 8.4 % injection 100 mEq [id number] 01/11/2020 08:00:00 PM EDT 100 meq Intravenous completed 10 0 mEq, Intravenous, Once, Sat01/11/20 at 2000, For 1 dose [facility] Medication administered onsite Cefazolin 1000 MG Injection ceFAZolin (ANCEF) injectio n 1 g ceFAZolin (ANCEF) injection 1 g 01/11/2020 07:00:00 PM EDT 1 g Intravenous completed 1 g, Intravenous, Every 8 hours (relative), First dose on Sat01/11/20 at 1900, For 5 doses, PACU & Post-op
Not to exceed 48 hours from time of closure.Time of closure = 1200Reconstitute with 10 ml sterile water for injection. Administer IV push over 3 minutes. Use within 1 hour of reconstitution
[facility] Medication administered onsite albumin human 5 % bottle 12.5 g [id number] 01/11/2020 03:30:49 PM EDT 12.5 g Intravenous aborted 12.5 g, Intra venous, As needed, other, volume, Indications: volume, Starting Sat01/11/20 at 1530, For 1 day [facility] Medication administered onsite benztropine mesylate 1 MG Oral Tablet benztropine (COG ENTIN) tablet 1 mg benztropine (COGENTIN) tablet 1 mg 01/11/2020 02:00:00 PM EDT 1 mg Oral active 1 mg, Oral, 2 times daily, First dose on Sat01/11/20 at 1400 [facility] Medication administered onsite Vitamin B 12 1 MG/ML Injectable Solution cyanocobalami n injection 1,000 mcg cyanocobalamin injection 1,000 mcg 01/11/2020 02:00:00 PM EDT 10 00 ug Subcutaneous completed 1,000 mcg, S ubcutaneous, Once, Sat01/11/20 at 1400, For 1 dose, PACU & Post-op
DEEP SUBCUTANEOUS
[facility] Medication administered onsite Famotidine (PEPCID) injection 20 mg [id number] 01/11/2020 02:00:0 0 PM EDT 20 mg Intravenous aborted 20 mg, I ntravenous, Every 12 hours (scheduled), First dose on Sat01/11/20 at 1400, PACU & Post-op
D/C after extubation
[facility] Medication administered onsite quetiapine 100 MG Oral Tablet QUEtiapine (SEROquel) ta blet 100 mg QUEtiapine (SEROquel) tablet 100 mg 01/11/2020 02:00:00 PM EDT 100 mg Oral active 100 mg, Oral, 2 times daily, First dose on Sat01/11/20 at 1400 [facility] Medication administered onsite Primidone 50 MG Oral Tablet primidone (MYSOLINE) table t 50 mg primidone (MYSOLINE) tablet 50 mg 01/11/2020 02:00:00 PM EDT 50 mg Oral active 50 mg, Oral, Daily, First dose on Sat01/11/20 at 1400 [facility] Medication administered onsite Albuterol 0.833 MG/ML / Ipratropium Brom belle 0.167 MG/ML Inhalant Solution ipratropium-albuterol (DUO-NEB) 0.5-2.5 mg/mL nebulizer solution 3 mL ipratropium-albuterol (DUO-NEB) 0.5-2.5 mg/mL nebulizer solution 3 mL 01/11/2020 02:00:00 PM EDT 3 mL Inhalation active 3 mL, Inhalation, 3 times daily, First dose on Sat01/11/20 at 1400 [facility] Medication administered onsite Dexmedetomidine HCl 400 mcg in sodium chloride (NS) 0.9 % 10 0 mL infusion 01/11/2020 01:00:00 PM EDT Intravenous aborted Post-op, 0.2-0.7 mcg/kg/hr ?? 62.9 kg (3.145-11.0075 mL/hr, rounded to 3.1-11 mL/hr), Intravenous, Continuous, Starting Sat01/11/20 at 1300, Until Sat01/11/20 at 2345, at 3.1-11 mL/hr [facility] Medication administered onsite propofol (DIPRIVAN) infusion 10 mg/mL [id number] 01/11/2020 01:00 :00 PM EDT Intravenous completed 0-25 mcg /kg/min ?? 62.9 kg (0-9.435 mL/hr, rounded to 0-9.4 mL/hr), Intravenous, at 0-9.4 mL/hr, Continuous, Starting Sat01/11/20 at 1300, For 2 hours, Post-op
Titrate to maintain target RASS score 0 to -2May give IV bolus of 0.5 mg/kg over 1 minute to maintain target sedation score. If needed may repeat x 1 in 10 minutes prn.PROPOFOL OFF 2 HOURS AFTER A DMISSION TO CVICU
[facility] Medication administered onsite dextrose 5 % and sodium chloride 0.45 % with KCl 20 mEq/L in fusion [id number] 01/11/2020 01:00:00 PM EDT Intravenous aborted at 0-80 mL/hr, 0-80 mL/hr, Intravenous, Continuous, Starting Sat01/11/20 at 1300, Post-op
80 ml/hr total IV rate. From 0600 first post-op day, adjust IV and PO intake so that total fluid intake is 2 liters in 24 hours.
[facility] Medication administered onsite EPINEPHrine 4 mg in dextrose 5 % 250 mL infusion 01/10 01:00:00 PM EDT Intravenous aborted PACU & P ost-op, 0-2 mcg/min (0-7.5 mL/hr), Intravenous, Continuous, Starting Sat01/11/20 at 1300, Until 01/16/20 at 1232, at 0-7.5 mL/hr [facility] Medication administered onsite oxyCODONE-acetaminophen (PERCOCET) 5-325 MG 1 tablet 01/11/2020 12:41:58 PM EDT 1 {tbl} Oral active [Order 1 Start] Name: oxyCODONE-acetaminophen (PERCOCET) 5-325 MG 1 tablet Signed Summary: 1 tablet, Oral, Every 4 hours PRN, moderate pain (4-6), Starting Sat01/11/20 at 1241, For 7 days
For pain after extubation. Discontinue all previous opiate orders before starting.
[Order 1 End] [Order 2 Start] Name: oxyCODONE-acetaminophen (PERCOCET) 5-325 MG 2 tablet Signed Summary: 2 tablet, Oral, Every 4 hours PRN, severe pain (7-10), Starting Sat01/11/20 at 1241, For 7 days
For pain after extubation. Discontinue all previous opiate orders before starting.
[Order 2 End] [facility] Medication administered onsite sodium chloride 0.9% (NS) infusion [id number] 01/11/2020 12:41:57 PM EDT 10 mL/h Intravenous aborted at 10 mL /hr, 10 mL/hr, Intravenous, As needed, other, Starting Sat01/11/20 at 1241, Post-op
Flush solution for hemodynamic monitoring lines
[facility] Medication administered onsite potassium chloride 20 mEq in 50 mL IVPB (ICU/PCU Only) [id number] 01/11/2020 12:41:57 PM EDT 20 meq Intravenous aborted 20 mEq, Intravenous, Administer over 60 Minutes, As needed, other, Starting Sat01/11/20 at 1241, PACU & Post-op
For Serum K+ 3.5 to 3.8, give 20 meq for 2 doses, each dose over an hour through a central lineFor Serum K+ 3.9 to 4.1, give 20 meq for 1 dose, over 1 hour through a central line
[facility] Medication administered onsite 50 ML Magnesium Sulfate 40 MG/ML Injecti on magnesium sulfate 2 g in sterile diluent magnesium sulfate 2 g in sterile diluent 01/11/2020 12:41:56 PM EDT 2 g Intravenous aborted 2 g, Int ravenous, Administer over 1 Hours
As needed, for serum Mg+ 1.5 to 1.8, Starting Sat01/11/20 at 1241, PACU & Post- op
Run over 1 hour through a central line
[facility] Medication administered onsite HYDROmorphone (DILAUDID) injection 0.5 mg [id number] 01/11/2020 12:41:56 PM EDT 0.5 mg Intravenous aborted 0.5 mg, Intravenous, Every 5 min PRN, severe pain (7-10), Starting 01/11/20 at 1241, For 7 days
Indicated for patients less than 75 years of age and not frail patients.FOR EXTUBATED PATIENTS ONLY. DISCONTINUE 6 HOURS POST EXTUBATION.Maximum dose 2 mg.
[facility] Medication administered onsite HYDROmorphone (DILAUDID) injection 0.5 mg [id number] 01/11/2020 12:41:56 PM EDT 0.5 mg Intravenous aborted 0.5 mg, Intravenous, Every 10 min PRN, severe pain (7-10), Starting 01/11/20 at 1241, For 7 days, PACU & Post- op
Indicated for patients less than 75 years of age and not frail patients.FOR INTUBATED PATIENTS ONLY. DISCONTINUE POST EXTUBATION.Maximum dose 3 mg.
[facility] Medication administered onsite ondansetron (ZOFRAN) injection 4 mg [id number] 01/11/2020 12:41:5 6 PM EDT 4 mg Intravenous aborted 4 mg, In travenous, Every 6 hours PRN, nausea, vomiting, Starting 01/11/20 at 1241, PACU & Post-op [facility] Medication administered onsite fentaNYL Citrate (PF) (SUBLIMAZE) injection 25 mcg [id number] 01/11/2020 12:41:55 PM EDT 25 ug Intravenous aborted 25 mcg, Intravenous, Every 10 min PRN, moderate pain (4-6), Starting 01/11/20 at 1241, For 7 days, PACU & Post-op
Maximum 10 doses in a 24-hour period. DISCONTINUE 6 HOURS POST EXTUBATION
[facility] Medication administered onsite albumin human 5 % bottle 12.5 g [id number] 01/11/2020 12:41:54 PM EDT 12.5 g Intravenous completed Hypotension 12.5 g, Intr avenous, As needed, other, Fluid resuscitation, Indications: Hypotension, Starting 01/11/20 at 1241, For 2 doses, PACU & Post-op
Patient must have at least one of the following criteria:Urine output less than 0.5 mL/kg/hrMAP less than 65 mmHgSystolic BP less than 90 mmHgHeart rate greater than 100 beats/minute with MAP less than 65 mmHgCardiac Index less than 2.0 L/min
[facility] Hypotension Medication administered onsite BUPIVACAINE 0.5% (Q-BALL) 330 mL 01/11/2020 10:00:00 AM EDT 330 mL Topical active 330 mL, Topical , Continuous, Starting Sat01/11/20 at 1000, Intra- op
OR room 5
Please indicate single or double lumen: Double Lumen [facility] Medication administered onsite Metoprolol Tartrate 25 MG Oral Tablet me toprolol tartrate (LOPRESSOR) tablet 12.5 mg metoprolol tartrate (LOPRESSOR) tablet 12.5 mg 020 09:00:00 AM EDT 12.5 mg Oral aborted 12.5 mg, Oral, 2 times daily, First dose on Sat01/11/20 at 0900, Pre-op
Hold for HR < 60, or SBP <100
[facility] Medication administered onsite Magnesium Chloride 0.55310 MEQ/ML / Pota ssium Chloride 0.0497 MEQ/ML / Sodium Acetate 0.0163 MEQ/ML / Sodium Chloride 0.0899 MEQ/ML / Sodium gluconate 5.02 MG/ML Injectable Solution [Normosol-R] electrolyte-R (NORMOSOL-R/PLASMALYTE-R) solution electrolyte-R (NORMOSOL-R/PLASMALYTE-R) solution 01/10 06:00:00 AM EDT Intravenous aborted at 3 0 mL/hr, Intravenous, Continuous, Starting Sat01/11/20 at 0600, Pre-op
For cardiac surgery patients only
[facility] Medication administered onsite heparin (porcine) injection 5,000 Units [id number] 01/11/20 06:00:00 AM EDT 5000 U Subcutaneous completed 5,000 Uni ts, Subcutaneous, Once, Sat01/11/20 at 0600, For 1 dose, Pre-op
Once on admission. Hold for platelets < 90,000.
[facility] Medication administered onsite 10 mg 01/06/2020 12:00:00 AM EDT cartridge 504 INHALE 1 CARTRIDGE BY MOUTH NEEDED FOR SMOKING CESSATION ( TAKE DEEP INHALATIONS OVER 20 MINUTES ) , MAXIMUM DAILY DOSE = 16 CARTRIDGES INHALE 1 CARTRIDGE BY MOUTH NEEDED FO R SMOKING CESSATION ( TAKE DEEP INHALATIONS OVER 20 MINUTES ) , MAXIMUM DAILY DOSE = 16 CARTRIDGES SOLD: 01/06/2020 [facility] 1 mg 01/01/2020 12:00:00 AM EDT tablet 60 TAKE ONE TABLET BY MOUTH TWICE A DAY TAKE ONE TABLET BY MOUTH TWICE A DAY SOLD: 03/09/2020 [facility] Primidone 50 MG Oral Tablet Primidone 01/01/2020 12:00:00 AM EDT active [facility] ([facility], ) 1 mg 01/01/2020 12:00:00 AM EDT tablet 60 TAKE ONE TABLET BY MOUTH TWICE A DAY TAKE ONE TABLET BY MOUTH TWICE A DAY SOLD: 02/10/2020 [facility] 1 mg 01/01/2020 12:00:00 AM EDT tablet 60 TAKE ONE TABLET BY MOUTH TWICE A DAY TAKE ONE TABLET BY MOUTH TWICE A DAY SOLD: 01/01/2020 [facility] 1 mg 01/01/2020 12:00:00 AM EDT tablet 60 TAKE ONE TABLET BY MOUTH TWICE A DAY TAKE ONE TABLET BY MOUTH TWICE A DAY SOLD: 06/12/2020 [facility] 1 mg 01/01/2020 12:00:00 AM EDT tablet 60 TAKE ONE TABLET BY MOUTH TWICE A DAY TAKE ONE TABLET BY MOUTH TWICE A DAY SOLD: 04/07/2020 [facility] 1 mg 01/01/2020 12:00:00 AM EDT tablet 60 TAKE ONE TABLET BY MOUTH TWICE A DAY TAKE ONE TABLET BY MOUTH TWICE A DAY SOLD: 05/10/2020 [facility] 50 mg 01/01/2020 12:00:00 AM EDT tablet 60 TAKE 1/2 TABLET BY MOUTH AT BEDTIME FOR 1 WEEK THEN TAKE 1/2 TABLET TWO TIMES A DAY FOR 1 WEEK THEN TAKE ONE TABLET BY MOUTH TWICE A DAY TAKE 1/2 TABLET BY MOUTH AT BEDTIME FOR 1 WEEK THEN TAKE 1/2 TABLET TWO TIMES A DAY FOR 1 WEEK THEN TAKE ONE TABLET BY MOUTH TWICE A DAY SOLD: 05/10/2020 [facility] 50 mg 01/01/2020 12:00:00 AM EDT tablet 60 TAKE 1/2 TABLET BY MOUTH AT BEDTIME FOR 1 WEEK THEN TAKE 1/2 TABLET TWO TIMES A DAY FOR 1 WEEK THEN TAKE ONE TABLET BY MOUTH TWICE A DAY TAKE 1/2 TABLET BY MOUTH AT BEDTIME FOR 1 WEEK THEN TAKE 1/2 TABLET TWO TIMES A DAY FOR 1 WEEK THEN TAKE ONE TABLET BY MOUTH TWICE A DAY SOLD: 04/07/2020 [facility] 50 mg 01/01/2020 12:00:00 AM EDT tablet 60 TAKE 1/2 TABLET BY MOUTH AT BEDTIME FOR 1 WEEK THEN TAKE 1/2 TABLET TWO TIMES A DAY FOR 1 WEEK THEN TAKE ONE TABLET BY MOUTH TWICE A DAY TAKE 1/2 TABLET BY MOUTH AT BEDTIME FOR 1 WEEK THEN TAKE 1/2 TABLET TWO TIMES A DAY FOR 1 WEEK THEN TAKE ONE TABLET BY MOUTH TWICE A DAY SOLD: 01/01/2020 [facility] 50 mg 01/01/2020 12:00:00 AM EDT tablet 60 TAKE 1/2 TABLET BY MOUTH AT BEDTIME FOR 1 WEEK THEN TAKE 1/2 TABLET TWO TIMES A DAY FOR 1 WEEK THEN TAKE ONE TABLET BY MOUTH TWICE A DAY TAKE 1/2 TABLET BY MOUTH AT BEDTIME FOR 1 WEEK THEN TAKE 1/2 TABLET TWO TIMES A DAY FOR 1 WEEK THEN TAKE ONE TABLET BY MOUTH TWICE A DAY SOLD: 03/09/2020 [facility] 50 mg 01/01/2020 12:00:00 AM EDT tablet 60 TAKE 1/2 TABLET BY MOUTH AT BEDTIME FOR 1 WEEK THEN TAKE 1/2 TABLET TWO TIMES A DAY FOR 1 WEEK THEN TAKE ONE TABLET BY MOUTH TWICE A DAY TAKE 1/2 TABLET BY MOUTH AT BEDTIME FOR 1 WEEK THEN TAKE 1/2 TABLET TWO TIMES A DAY FOR 1 WEEK THEN TAKE ONE TABLET BY MOUTH TWICE A DAY SOLD: 02/10/2020 [facility] 50 mg 01/01/2020 12:00:00 AM EDT tablet 60 TAKE 1/2 TABLET BY MOUTH AT BEDTIME FOR 1 WEEK THEN TAKE 1/2 TABLET TWO TIMES A DAY FOR 1 WEEK THEN TAKE ONE TABLET BY MOUTH TWICE A DAY TAKE 1/2 TABLET BY MOUTH AT BEDTIME FOR 1 WEEK THEN TAKE 1/2 TABLET TWO TIMES A DAY FOR 1 WEEK THEN TAKE ONE TABLET BY MOUTH TWICE A DAY SOLD: 06/12/2020 [facility] sodium chloride 0.9% (NS) infusion [id number] 12/30/2019 02:00:00 PM EDT 75 mL/h Intravenous active at 75 mL /hr, 75 mL/hr, Intravenous, Continuous, Starting Sat12/30/19 at 1400, For 2 hours, Post-op [facility] Medication administered onsite normal saline flush 0.9 % injection 3 mL [id number] 12/30/2019 02:00:00 PM EDT 3 mL Intravenous active 3 mL , Intravenous, Every 8 hours (scheduled), First dose on Sat12/30/19 at 1400, Pre-op
Rapid push positive pressure flushing shall be performed with a 10 cc normal saline syringe to check the PATENCY of a PIV site prior to any infusion therapy initiation unless resistance is met.
[facility] Medication administered onsite normal saline flush 0.9 % injection 3 mL [id number] 12/30/2019 02:00:00 PM EDT 3 mL Intravenous active 3 mL , Intravenous, PROTOCOL, First dose on Sat12/30/19 at 1400, Pre-op
flush per protocol, D/C Main IV fluid if appropriate
[facility] Medication administered onsite iopamidol (ISOVUE-370) 76 % [id number] 12/30/2019 01:17:44 PM EDT active As needed, Starting Sat12/30/19 at 1317, Intra-Procedu re [facility] Medication administered onsite 1 ML heparin sodium, porcine 1000 UNT/ML Injection hep juanito (porcine) injection heparin (porcine) injection 12/30/2019 01:12:43 PM EDT active As needed, Starting Sat12/30/19 at 1312, Intra-Procedure [facility] Medication administered onsite 4 ML Verapamil hydrochloride 2.5 MG/ML Injection verap zuleyka (ISOPTIN) injection verapamil (ISOPTIN) injection 12/30/2019 01:12:34 PM EDT active As needed, Starting Sat12/30/19 at 1312, Intra-Procedure [facility] Medication administered onsite lidocaine 1 % injection [id number] 12/30/2019 01:11:02 PM EDT active As needed, Starting Sat12/30/19 at 1311, Intra-Procedure [facility] Medication administered onsite fentaNYL Citrate (PF) (SUBLIMAZE) injection [id number] 12/30/2019 01:04:47 PM EDT active As neede d, Starting Sat12/30/19 at 1304, Intra-Procedure [facility] Medication administered onsite 2 ML Midazolam 1 MG/ML Injection midazolam (VERSED) in jection midazolam (VERSED) injection 12/30/2019 01:04:35 PM EDT active As needed, Starting Sat12/30/19 at 1304, Intra-Procedure [facility] Medication administered onsite sodium chloride 0.9% (NS) infusion [id number] 12/30/2019 11:00:00 AM EDT 100 mL/h Intravenous active at 100 m L/hr, 100 mL/hr, Intravenous, Continuous, Starting Sat12/30/19 at 1100, Pre-op
Start two hours prior to scheduled start time
[facility] Medication administered onsite Acetaminophen 325 MG Oral Tablet acetaminophen (TYLENO L) 325 MG tablet 650 mg acetaminophen (TYLENOL) 325 MG tablet 650 mg 12/30/2019 10:19:34 AM EDT 650 mg Oral active 650 mg, Or al, Every 4 hours PRN, headaches, and non cardiac pain, Starting Sat12/30/19 at 1019, Pre-op
"Maximum dose of acetaminophen is 4,000 mg from all sources in 24 hours."
[facility] Medication administered onsite normal saline flush 0.9 % injection 3 mL [id number] 12/22/2019 02:00:00 PM EDT 3 mL Intravenous active 3 mL , Intravenous, Every 8 hours (scheduled), First dose on Sat12/22/19 at 1400, Pre-op
Rapid push positive pressure flushing shall be performed with a 10 cc normal saline syringe to check the PATENCY of a PIV site prior to any infusion therapy initiation unless resistance is met.
[facility] Medication administered onsite Albuterol 0.833 MG/ML / Ipratropium Brom belle 0.167 MG/ML Inhalant Solution ipratropium-albuterol (DUO-NEB) 0.5-2.5 mg/mL nebulizer solution 3 mL ipratropium-albuterol (DUO-NEB) 0.5-2.5 mg/mL nebulizer solution 3 mL 12/22/2019 12:09:35 PM EDT 3 mL Inhalation active 3 mL, Inhalation, Once as needed, shortness of breath, Starting 12/22/19 at 1209, For 1 dose, PACU (only) [facility] Medication administered onsite ondansetron (ZOFRAN) injection 4 mg [id number] 12/22/2019 12:09:3 5 PM EDT 4 mg Intravenous active 4 mg, In travenous, Once as needed, nausea, vomiting, Starting 12/22/19 at 1209, For 1 dose, PACU (only)
If not given in last 4 hours
[facility] Medication administered onsite clopidogrel 75 MG Oral Tablet Clopidogrel Bisulfate 12/15/2019 1 2:00:00 AM EDT active MED[facility] ( [facility]) 75 mg 12/15/2019 12:00:00 AM EDT tablet 5 TAKE 2 TABLETS BY MOUTH ON 12/27/19 FOLLOWED BY 1 TABLET BY MOUTH EVERY MORNING UNTIL PROCEDURE TAKE 2 TABLETS BY MOUTH ON 12/27/19 FOLLOWED BY 1 TABLET BY MOUTH EVERY MORNING UNTIL PROCEDURE SOLD: 12/16/2019 [facility] Aspirin 81 MG Delayed Release Oral Tablet Aspirin Ec 2019 12:00:00 AM EST ORAL active MED[facility] ( [facility]) Cholecalciferol 1000 UNT Oral Capsule Vitamin D-3 10/25/2019 12:00 :00 AM EST ORAL active [facility] ([facility]) Clobetasol Propionate 0.5 MG/ML Topical Cream Clobetasol Pro pionate 10/25/2019 12:00:00 AM EST active M [facility]ENT ([facility]) Vitamin B 12 0.5 MG Oral Tablet Vitamin B 12 10/25/2019 12:00:[address] ORAL active [facility] ([facility]) Diclofenac Sodium 0.01 MG/MG Topical Gel Diclofenac Sodium 10/25/2019 12:00:00 AM EST active [facility] ([facility]) 60 ACTUAT Albuterol 0.09 MG/ACTUAT Metered Dose Inhaler Albu terol Sulfate HFA 10/25/2019 12:00:00 AM EST RESPIRATORY active [facility] ([facility]) Amlodipine 10 MG Oral Tablet Amlodipine Besylate 10/25/2019 12:00:00 AM EST ORAL active [facility] ([facility]) Folic Acid 1 MG Oral Tablet Folic Acid 10/25/2019 12:00:00 AM EST ORAL active [facility] ([facility]) gabapentin 100 MG Oral Capsule Gabapentin 10/25/2019 12:00:00 AM EST ORAL completed [facility] ([facility]) quetiapine 100 MG Oral Tablet Quetiapine Fumarate 10/25/2019 12:00: 00 AM EST ORAL active [facility] ([facility]) Sertraline 100 MG Oral Tablet Sertraline HCL 10/25/2019 12:00:[address] ORAL active [facility] ([facility]) carvedilol 3.125 MG Oral Tablet Carvedilol 10/25/2019 12:00:00 AM EST ORAL completed [facility] ([facility]) potassium citrate 10 MEQ Extended Release Oral Tablet Potass ium Citrate ER 10/25/2019 12:00:00 AM EST ORAL active [facility] ([facility]) Allopurinol 100 MG Oral Tablet Allopurinol 10/25/2019 12:00:00 AM EST ORAL active [facility] ([facility]) Hydroxyzine Hydrochloride 25 MG Oral Tablet Hydroxyzine HCL 10/25/2019 12:00:00 AM EST ORAL active [facility] ([facility]) benztropine mesylate 1 MG Oral Tablet Benztropine Mesylate 0 10/25/2019 12:00:00 AM EST ORAL active [facility] ([facility]) 60 ACTUAT olodaterol 0.0025 MG/ACTUAT Metered Dose Inh aler [Striverdi] Striverdi Respimat 10/25/2019 12:00:00 AM EST RESPIRATORY active [facility] ([facility]) Ascorbic Acid 60 MG / Beta Carotene 5000 UNT / Copper Sulfate 40 MG / dl-alpha tocopheryl acetate 30 UNT / Sodium Selenite 0.04 MG / Zinc Oxide 40 MG Oral Tablet Multivitamin Men 10/18/2019 12:00:00 AM EST ORAL active [facility] ([facility]) Melatonin 3 MG Oral Capsule Melatonin 10/18/2019 12:00:00 AM EST ORAL active [facility] ([facility]) 0.05 % 08/17/2019 12:00:00 AM EST cream 30 APPLY TO AFFECTED AREA(S) OF BACK TWICE DAILY NEEDED EXTERNALLY FOR 10 DAYS APPLY TO AFFECTED AREA(S) OF BACK TWICE DAILY NEEDED EXTERNALLY FOR 10 DAYS SOLD: 12/18/2019 [facility] 40 mg 07/27/2019 12:00:00 AM EST capsule,delayed release (DR/EC) 90 TAKE ONE CAPSULE BY MOUTH EVERY DAY TAKE ONE CAPSULE BY MOUTH EVERY DAY SOLD: 10/27/2019 [facility] 100 mg 07/22/2019 12:00:00 AM EST tablet 90 TAKE ONE TABLET BY MOUTH EVERY DAY TAKE ONE TABLET BY MOUTH EVERY DAY SOLD: 10/22/2019 [facility] Mirtazapine 15 MG Oral Tablet mirtazapine (REMERON) 15 MG tablet mirtazapine (REMERON) 15 MG tablet 15 mg Oral aborted Take 15 mg by mouth nightly [facility] Melatonin 3 MG Oral Tablet Melatonin 3 MG TABS Melatonin 3 MG TABS 6 mg Oral aborted Take 6 mg by mouth n ightly [facility] Amlodipine 10 MG Oral Tablet amLODIPine (NORVASC) 10 M G tablet amLODIPine (NORVASC) 10 MG tablet 10 mg Oral aborted T taylor 10 mg by mouth daily [facility] Vitamin B 12 0.5 MG Oral Tablet vitamin B-12 (CYANOCOB ALAMIN) 500 MCG tablet vitamin B-12 (CYANOCOBALAMIN) 500 MCG tablet 500 ug Oral aborted Take 500 mcg by mouth daily [facility] gabapentin 100 MG Oral Capsule gabapentin (NEURONTIN) 100 MG capsule gabapentin (NEURONTIN) 100 MG capsule 100 mg Oral aborted Take 100 mg by mouth daily [facility] Insurance Providers Payer name Policy type / Coverage type Policy ID Covered libertarian ID Covered libertarian's relationship to jean Policy Jean Plan Information [facility] [id number] SP [id number] ADMINISTRATION [id number] SP [id number] [facility] O [id number] S [id number] EMEDNY [id number] SP [id number] [facility]) O [id number] S [id number] MEDICAID M [id number] [facility] [id number] SP [id number] MEDICAID [id number] Katt [id number] [facility] MEDICARE [id number] Katt [id number] MEDICAID [id number] Katt [id number] [facility] MEDICARE [id number] Katt [id number] WPS [facility] [id number] SP [id number] MEDICAID [id number] SP [id number] MEDICAID [id number] [facility] MEDICARE [id number] MEDICARE [id number] Katt [id number] [facility] [id number] SP [id number] MEDICARE [id number] Katt [id number] MEDICARE [id number] Katt [id number] M21 OTHER B [id number] Self [id number] UHC UNITED MEDICARE DUAL G [id number] Self [id number] MEDICARE A [id number] Self [id number] A ANSI-Commercial [id number] ANSI-Not a Secondary Insurance [id number] ANSI-Medicaid [id number] ANSI-Medicaid [id number] ANSI-Medicare Part B [id number] ANSI-Medicare Part B [id number] ANSI-Medicaid [id number] ANSI-Not a Secondary Insurance [id number] ANSI-Medicaid [id number] ANSI-Commercial [id number] BS Ren[place] Hmo Blue Option Medigap Part B [id number] Self [id number] [place] Medig[place] Part B [id number] Self [id number] [facility] Medicare Dual Complet Commercial [id number] Self [id number] ANSI-Not a Secondary Insurance [id number] ANSI-Medicaid [id number] ANSI-Commercial [id number] ANSI-Medicaid [id number] ANSI-Medicare Part B [id number] BS Ren[place] Hmo Blue Option Medigap Part B [id number] Self [id number] [place] [id number] Self [id number] [facility] Medicare Dual Complet Commercial [id number] Self [id number] BS Ren[place] Hmo Blue Option Medigap Part B [id number] Self [id number] [place]ig[place] [id number] Self [id number] [facility] Medicare Dual Complet Commercial [id number] Self [id number] BS [place] Hmo Blue Option Medigap Part B [id number] Self [id number] [place] [id number] Self [id number] [facility] Medicare Dual Complet Commercial [id number] Self [id number] ANSI-Commercial [id number] ANSI-Medicaid [id number] ANSI-Medicare Part B [id number] ANSI-Medicaid [id number] ANSI-Not a Secondary Insurance [id number] MEDICARE [id number] SP [id number] ANSI-Medicaid [id number] ANSI-Not a Secondary Insurance [id number] ANSI-Medicaid [id number] ANSI-Medicare Part B [id number] ANSI-Commercial [id number] BS [place] Hmo Blue Option Medigap Part B [id number] Self [id number] [place] [id number] Self [id number] [facility] Medicare Dual Complet Commercial [id number] Self [id number] ANSI-Medicare Part B [id number] ANSI-Not a Secondary Insurance [id number] ANSI-Medicaid [id number] ANSI-Commercial [id number] ANSI-Medicaid [id number] ANSI-Medicaid [id number] ANSI-Medicaid [id number] ANSI-Commercial [id number] ANSI-Not a Secondary Insurance [id number] ANSI-Medicare Part B [id number] ANSI-Medicaid [id number] ANSI-Medicare Part B [id number] ANSI-Not a Secondary Insurance [id number] ANSI-Commercial [id number] ANSI-Medicaid [id number] ANSI-Not a Secondary Insurance [id number] ANSI-Medicaid [id number] ANSI-Medicare Part B [id number] ANSI-Medicaid [id number] ANSI-Commercial [id number]-[id number] ANSI-Commercial [id number]-[id number] ANSI-Medicare Part B [id number] ANSI-Medicaid [id number] ANSI-Medicaid [id number] ANSI-Not a Secondary Insurance [id number] 4[facility] [id number] ANSI-Not a Secondary Insurance [id number] ANSI-Medicaid [id number] ANSI-Medicare Part B [id number] ANSI-Commercial [id number]-[id number]-[id number] ANSI-Medicaid [id number] ANSI-Commercial [id number]-[id number]-[id number] ANSI-Medicaid [id number] ANSI-Medicare Part B [id number] ANSI-Not a Secondary Insurance [id number] ANSI-Medicaid [id number] ANSI-Medicaid [id number] ANSI-Medicare Part B [id number] ANSI-Medicaid [id number] ANSI-Commercial [id number] ANSI-Not a Secondary Insurance [id number] ANSI-Medicaid [id number] ANSI-Commercial [id number] ANSI-Not a Secondary Insurance [id number] ANSI-Medicaid [id number] ANSI-Medicare Part B [id number] ANSI-Commercial [id number] ANSI-Not a Secondary Insurance [id number] ANSI-Medicaid [id number] ANSI-Medicare Part B [id number] ANSI-Medicaid [id number] OTHER B [id number] Self [id number] [facility] I [id number] Self [id number] MEDICARE [id number] SP [id number] A MEDICARE C [id number] S [id number] A UNHC AMERICHOICE XIX -HMO [id number] 18 [id number] MEDICARE PART A -CLINIC [id number] 18 [id number] MEDICAID -CLINIC [id number] UNHC AMERICHOICE XIX -HMO [id number] 18 [id number] [employer]/UNHC MEDICARE -CLINIC [id number] 18 [id number] [facility] HMO O [id number] S [id number] MEDICARE PART A -O/P [id number] 18 [id number] [employer] UNHC MEDICARE -O/P [id number] 18 [id number] [facility]) O [id number] S [id number] MEDICARE COMPLETE [id number] SP [id number] [facility] DUAL COMPLETE O [id number] S [id number] MEDICARE PART A -CLINIC [id number] 18 [id number] [facility] [id number] S [id number] [facility] O [id number] S [id number] UNHC COMMUNITY PLAN [facility] [id number] SP [id number] [facility] Medicaid Medicaid Self Medicare [place] Medicare Primary Self [facility] I [id number] Self [id number] [facility] [id number] SP [id number] UNHC COMMUNITY PLAN [facility] [id number] SP [id number] NON VA CARE [id number] SP [id number] [facility] BLUE [id number] SP [id number] [facility] P [id number] S [id number] Problems, Conditions, and Diagnoses Code Display Name Description Problem Type Effective Dates Data Source(s) 73867199 Palpitations Palpitations Problem 10/20/2020 12:00:00 A M EST [facility] ([facility]) 076028646 Single coronary vessel disease Single coronary vessel disease Problem 10/20/2020 12:00:00 AM EST [facility] ([facility]) 22997383 Right bundle branch block AND left anter ior fascicular block Right bundle branch block AND left anterior fascicular block Problem 10/20/2020 12:00:00 AM EST [facility] ([facility]) 855878888 Preoperative cardiovascular examination Preoperative cardiovascular examination Problem 10/20/2020 12:00:00 AM EST [facility] ([facility]) C80.1 [id number] Blastoma Problem 01/28/2020 12:00:00 AM ED T eCW1 ([facility]) C80.1 249897060 Blastoma Problem 01/28/2020 12:00:00 AM ED T eCW1 ([facility]) F41.9 Anxiety Anxiety 88357089 01/13/2020 12:00:00 AM ED T [facility] F10.10 Alcohol abuse Alcohol abuse 00828782 01/13/2020 12:00:00 AM EDT [facility] F33.41 Recurrent major depressive disorder, in partial remission Recurrent major depressive disorder, in partial remission 68923616 01/13/2020 12:00: 00 AM EDT [facility] F25.0 Schizo affective schizophrenia Schizo affective schizo phrenia 98481341 01/13/2020 12:00:00 AM EDT [facility] I10 Essential hypertension Essential hypertension 44724557 01/13/2020 12:00:00 AM EDT [facility] K21.9 Gastroesophageal reflux disease without esophagitis Gastroesophageal reflux disease without esophagitis 72768435 01/13/2020 12:00:00 AM ED T [facility] 659427103 Essential tremor Essential tremor Problem 01/01/2020 12 :00:00 AM EDT [facility] ([facility] ) I35.9 Aortic valve disease Aortic valve disease 78886585 12/11/2019 12:00:00 AM EDT [facility] 13197857 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) 72105325 Orthostatic hypotension Orthostatic hypotension Proble m 10/26/2019 12:00:00 AM EST [facility] ([facility]) 939952011 Dietary management surveillance Dietary manageme nt surveillance Problem 10/26/2019 12:00:00 AM EST [facility] ([facility]) 436089602 Counseling about tobacco use Counseling about tobacco use Problem 10/26/2019 12:00:00 AM EST [facility] ([facility]) 460955499 Tobacco user Tobacco user Problem 10/26/2019 12:00:00 A M EST [facility] ([facility]) 020689526 Pure hyperglyceridemia Pure hyperglyceridemia Problem 10/26/2019 12:00:00 AM EST [facility] ([facility]) 37018416 Essential hypertension Essential hypertension Problem 10/26/2019 12:00:00 AM EST [facility] ([facility]) 620517701 Electrocardiogram abnormal Electrocardiogram abnormal Problem 10/26/2019 12:00:00 AM EST [facility] ([facility]) 644371608 Transient cerebral ischemia Transient cerebral ischemi a Problem 10/26/2019 12:00:00 AM EST [facility] (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 Diag nosis 01/11/2020 05:13:00 AM EDT [facility] I35.9 Nonrheumatic aortic valve disorder, unsp ecified Nonrheumatic aortic valve disorder, unsp Diagnosis 01/11/2020 05:13:00 AM EDT [facility] Q23.1 Congenital insufficiency of aortic valve Congenital insufficiency of aortic valve Diagnosis 01/11/2020 05:13:00 AM EDT [facility] Z01.810 Encounter for preprocedural cardiovascul ar examination Encounter for preprocedural cardiovascul Diagnosis 12/30/2019 09:58:00 AM EDT [facility] R94.39 Abnormal result of other cardiovascular function study Abnormal result of other cardiovascular Diagnosis 12/30/2019 09:58:00 AM EDT [facility] R93.3 Abnormal findings on diagnostic imaging of other parts of digestive tract Abnormal findings on diagnostic imaging Diagnosis 12/22/2019 09:07:00 AM EDT [facility] I35.9 Nonrheumatic aortic valve disorder, unsp ecified Nonrheumatic aortic valve disorder, unsp Diagnosis 12/09/2019 08:24:06 AM EDT [facility] Surgeries/Procedures Procedure Description Date Indications Data Source(s) ECG ROUTINE ECG W/LEAST 12 LDS W/I&R 10/20/2020 12:00: 00 AM EST [facility] ([facility]) Arterial Pressure Waveform Analysis For Assessment Of Centra l Art 10/20/2020 12:00:00 AM EST [facility] ([facility]) TENDON SHEATH INCISION 07/14/2020 12:00:00 AM EDT [facility] ([facility]) Spirometry 06/15/2020 12:00:00 AM EDT Nando CUEVAS ([facility]) RADEX SPINE CRV COMPL W/OBLQ&FLEX&/XTN STDS 06/09/2020 12:00:00 AM EDT [facility] ([facility] ) RADEX FINGR MINIMUM 2 VIEWS 05/27/2020 12:00:00 AM EDT [facility] ([facility]) TRANS CARE MGMT 14 DAY DISCH 01/28/2020 12:00:00 AM ED T eCW1 ([facility]) BLOOD COUNT COMPLETE AUTOMATED CBC Timed 01/18/2020 1:55 A M EDT 01/18/2020 05:55:00 AM EDT [facility] MAGNESIUM MAGNESIUM Timed 01/18/2020 1:55 AM EDT 01/18/2020 05:55:00 AM EDT [facility] BASIC METABOLIC PANEL CALCIUM TOTAL BASIC METABOLIC PANEL Timed 01/18/2020 1:55 AM EDT 01/18/2020 05:55:00 AM EDT [facility] XR CHEST PA AND LATERAL XR CHEST PA AND LATERAL Routine 01/17/2020 8:40 AM EDT 01/17/2020 12:40:39 PM EDT [facility] ECG ROUTINE ECG W/LEAST 12 LDS TRCG ONLY W/O I&R ECG 12-LEAD Routine 01/17/2020 5:47 AM EDT 01/17/2020 09:47:37 AM EDT [facility] BLOOD COUNT COMPLETE AUTOMATED CBC Timed 01/17/2020 2:28 A M EDT 01/17/2020 06:28:00 AM EDT [facility] MAGNESIUM MAGNESIUM Timed 01/17/2020 2:28 AM EDT 01/17/2020 06:28:00 AM EDT [facility] BASIC METABOLIC PANEL CALCIUM TOTAL BASIC METABOLIC PANEL Timed 01/17/2020 2:28 AM EDT 01/17/2020 06:28:00 AM EDT [facility] GLUC BLD GLUC MNTR DEV CLEARED FDA SPEC HOME USE POCT GLUCOSE Routine 01/16/2020 8:25 AM EDT 01/16/2020 12:25:00 PM EDT [facility] BLOOD COUNT COMPLETE AUTOMATED CBC STAT 01/16/2020 3:31 A M EDT 01/16/2020 07:31:00 AM EDT [facility] MAGNESIUM MAGNESIUM STAT 01/16/2020 3:31 AM EDT 01/16/2020 07:31:00 AM EDT [facility] BASIC METABOLIC PANEL CALCIUM TOTAL BASIC METABOLIC PANEL Routi ne 01/16/2020 3:31 AM EDT 01/16/2020 07:31:00 AM EDT [facility] POTASSIUM SERUM PLASMA/WHOLE BLOOD POTASSIUM STAT 01/15/2020 11: 38 PM EDT 01/16/2020 03:38:00 AM EDT [facility] MAGNESIUM MAGNESIUM STAT 01/15/2020 11:38 PM EDT 01/16/2020 03:38:00 AM EDT [facility] POTASSIUM SERUM PLASMA/WHOLE BLOOD POTASSIUM STAT 01/15/2020 8: 42 PM EDT 01/16/2020 12:42:00 AM EDT [facility] MAGNESIUM MAGNESIUM STAT 01/15/2020 8:42 PM EDT 01/16/2020 12:42:00 AM EDT [facility] POTASSIUM SERUM PLASMA/WHOLE BLOOD POTASSIUM STAT 01/15/2020 12: 16 PM EDT 01/15/2020 04:16:00 PM EDT [facility] MAGNESIUM MAGNESIUM STAT 01/15/2020 12:16 PM EDT 01/15/2020 04:16:00 PM EDT [facility] XR CHEST PORTABLE XR CHEST PORTABLE STAT 01/15/2020 8:02 AM EDT 01/15/2020 12:02:25 PM EDT [facility] PROCALCITONIN (PCT) PROCALCITONIN STAT 01/15/2020 6:55 AM EDT 01/15/2020 10:55:00 AM EDT [facility] POC ARTERIAL BLOOD GAS POC ARTERIAL BLOOD GAS Routine 020 6:45 AM EDT 01/15/2020 10:45:00 AM EDT [facility] BLOOD COUNT AUTOMATED DIFFERENTIAL WBC COUNT MANUAL DIFFERENTIA L Add-On 01/15/2020 3:00 AM EDT 01/15/2020 07:00:00 AM EDT [facility] BLOOD COUNT COMPLETE AUTOMATED CBC Routine 01/15/2020 3:00 A M EDT 01/15/2020 07:00:00 AM EDT [facility] MAGNESIUM MAGNESIUM Routine 01/15/2020 3:00 AM EDT 01/15/2020 07:00:00 AM EDT [facility] BASIC METABOLIC PANEL CALCIUM TOTAL BASIC METABOLIC PANEL Routi ne 01/15/2020 3:00 AM EDT 01/15/2020 07:00:00 AM EDT [facility] POTASSIUM SERUM PLASMA/WHOLE BLOOD POTASSIUM Routine 01/14/2020 6:44 PM EDT 01/14/2020 10:44:00 PM EDT [facility] MAGNESIUM MAGNESIUM Routine 01/14/2020 6:44 PM EDT 01/14/2020 10:44:00 PM EDT [facility] GLUC BLD GLUC MNTR DEV CLEARED FDA SPEC HOME USE POCT GLUCOSE Routine 01/14/2020 12:37 PM EDT 01/14/2020 04:37:00 PM EDT [facility] GLUC BLD GLUC MNTR DEV CLEARED FDA SPEC HOME USE POCT GLUCOSE Routine 01/14/2020 7:57 AM EDT 01/14/2020 11:57:00 AM EDT [facility] BLOOD COUNT COMPLETE AUTOMATED CBC Timed 01/14/2020 3:25 A M EDT 01/14/2020 07:25:00 AM EDT [facility] MAGNESIUM MAGNESIUM Timed 01/14/2020 3:25 AM EDT 01/14/2020 07:25:00 AM EDT [facility] CALCIUM IONIZED CALCIUM, IONIZED Timed 01/14/2020 3:25 AM EDT 01/14/2020 07:25:00 AM EDT [facility] BASIC METABOLIC PANEL CALCIUM TOTAL BASIC METABOLIC PANEL Timed 01/14/2020 3:25 AM EDT 01/14/2020 07:25:00 AM EDT [facility] GLUC BLD GLUC MNTR DEV CLEARED FDA SPEC HOME USE POCT GLUCOSE Routine 01/13/2020 6:08 PM EDT 01/13/2020 10:08:00 PM EDT [facility] POC ARTERIAL BLOOD GAS POC ARTERIAL BLOOD GAS Routine 020 12:24 PM EDT 01/13/2020 04:24:00 PM EDT [facility] ECHO TTHRC R-T 2D W/WOM-MODE COMPL SPEC&COLR DOP ECHOCARDIO GRAM TRANSTHORACIC Routine 01/13/2020 10:38 AM EDT 01/13/2020 02:38:19 PM EDT [facility] XR CHEST PORTABLE XR CHEST PORTABLE STAT 01/13/2020 9:51 AM EDT 01/13/2020 01:51:22 PM EDT [facility] GLUC BLD GLUC MNTR DEV CLEARED FDA SPEC HOME USE POCT GLUCOSE Routine 01/13/2020 7:53 AM EDT 01/13/2020 11:53:00 AM EDT [facility] BLOOD COUNT COMPLETE AUTOMATED CBC Timed 01/13/2020 2:18 A M EDT 01/13/2020 06:18:00 AM EDT [facility] MAGNESIUM MAGNESIUM Timed 01/13/2020 2:18 AM EDT 01/13/2020 06:18:00 AM EDT [facility] CALCIUM IONIZED CALCIUM, IONIZED Timed 01/13/2020 2:18 AM EDT 01/13/2020 06:18:00 AM EDT [facility] BASIC METABOLIC PANEL CALCIUM TOTAL BASIC METABOLIC PANEL Timed 01/13/2020 2:18 AM EDT 01/13/2020 06:18:00 AM EDT [facility] POTASSIUM SERUM PLASMA/WHOLE BLOOD POTASSIUM STAT 01/12/2020 9: 53 PM EDT 01/13/2020 01:53:00 AM EDT [facility] MAGNESIUM MAGNESIUM STAT 01/12/2020 9:53 PM EDT 01/13/2020 01:53:00 AM EDT [facility] POC ARTERIAL BLOOD GAS POC ARTERIAL BLOOD GAS Routine 020 2:06 PM EDT 01/12/2020 06:06:00 PM EDT [facility] XR CHEST PORTABLE XR CHEST PORTABLE STAT 01/12/2020 1:31 PM EDT 01/12/2020 05:31:56 PM EDT [facility] GLUC BLD GLUC MNTR DEV CLEARED FDA SPEC HOME USE POCT GLUCOSE Routine 01/12/2020 12:34 PM EDT 01/12/2020 04:34:00 PM EDT [facility] POC MIX VENOUS BLOOD GAS POC MIX VENOUS BLOOD GAS Routine 01/12/2020 12:02 PM EDT 01/12/2020 04:02:00 PM EDT [facility] POC ARTERIAL BLOOD GAS POC ARTERIAL BLOOD GAS Routine 020 11:58 AM EDT 01/12/2020 03:58:00 PM EDT [facility] GLUC BLD GLUC MNTR DEV CLEARED FDA SPEC HOME USE POCT GLUCOSE Routine 01/12/2020 5:32 AM EDT 01/12/2020 09:32:00 AM EDT [facility] GLUC BLD GLUC MNTR DEV CLEARED FDA SPEC HOME USE POCT GLUCOSE Routine 01/12/2020 3:25 AM EDT 01/12/2020 07:25:00 AM EDT [facility] BLOOD COUNT COMPLETE AUTOMATED CBC Timed 01/12/2020 3:18 A M EDT 01/12/2020 07:18:00 AM EDT [facility] MAGNESIUM MAGNESIUM Timed 01/12/2020 3:18 AM EDT 01/12/2020 07:18:00 AM EDT [facility] CALCIUM IONIZED CALCIUM, IONIZED Timed 01/12/2020 3:18 AM EDT 01/12/2020 07:18:00 AM EDT [facility] BASIC METABOLIC PANEL CALCIUM TOTAL BASIC METABOLIC PANEL Timed 01/12/2020 3:18 AM EDT 01/12/2020 07:18:00 AM EDT [facility] GLUC BLD GLUC MNTR DEV CLEARED FDA SPEC HOME USE POCT GLUCOSE Routine 01/12/2020 2:15 AM EDT 01/12/2020 06:15:00 AM EDT [facility] GLUC BLD GLUC MNTR DEV CLEARED FDA SPEC HOME USE POCT GLUCOSE Routine 01/11/2020 11:54 PM EDT 01/12/2020 03:54:00 AM EDT [facility] POC ARTERIAL BLOOD GAS POC ARTERIAL BLOOD GAS Routine 020 11:07 PM EDT 01/12/2020 03:07:00 AM EDT [facility] GLUC BLD GLUC MNTR DEV CLEARED FDA SPEC HOME USE POCT GLUCOSE Routine 01/11/2020 11:06 PM EDT 01/12/2020 03:06:00 AM EDT [facility] GLUC BLD GLUC MNTR DEV CLEARED FDA SPEC HOME USE POCT GLUCOSE Routine 01/11/2020 10:33 PM EDT 01/12/2020 02:33:00 AM EDT [facility] BASIC METABOLIC PANEL CALCIUM TOTAL BASIC METABOLIC PANEL Timed 01/11/2020 10:30 PM EDT 01/12/2020 02:30:00 AM EDT [facility] GLUC BLD GLUC MNTR DEV CLEARED FDA SPEC HOME USE POCT GLUCOSE Routine 01/11/2020 10:00 PM EDT 01/12/2020 02:00:00 AM EDT [facility] POC ARTERIAL BLOOD GAS W LYTES POC ARTERIAL BLOOD GAS W MERY R outine 01/11/2020 9:24 PM EDT 01/12/2020 01:24:00 AM EDT [facility] GLUC BLD GLUC MNTR DEV CLEARED FDA SPEC HOME USE POCT GLUCOSE Routine 01/11/2020 9:01 PM EDT 01/12/2020 01:01:00 AM EDT [facility] GLUC BLD GLUC MNTR DEV CLEARED FDA SPEC HOME USE POCT GLUCOSE Routine 01/11/2020 8:30 PM EDT 01/12/2020 12:30:00 AM EDT [facility] BASIC METABOLIC PANEL CALCIUM TOTAL BASIC METABOLIC PANEL Timed 01/11/2020 8:30 PM EDT 01/12/2020 12:30:00 AM EDT [facility] BLOOD COUNT COMPLETE AUTOMATED CBC STAT 01/11/2020 7:35 P M EDT 01/11/2020 11:35:00 PM EDT [facility] LACTATE LACTIC ACID Timed 01/11/2020 7:35 PM EDT 01/11/2020 11:35:00 PM EDT [facility] POC ARTERIAL BLOOD GAS W LYTES POC ARTERIAL BLOOD GAS W JOBYTES R outine 01/11/2020 7:17 PM EDT 01/11/2020 11:17:00 PM EDT [facility] GLUC BLD GLUC MNTR DEV CLEARED FDA SPEC HOME USE POCT GLUCOSE Routine 01/11/2020 7:09 PM EDT 01/11/2020 11:09:00 PM EDT [facility] POTASSIUM SERUM PLASMA/WHOLE BLOOD POTASSIUM STAT 01/11/2020 7: 07 PM EDT 01/11/2020 11:07:00 PM EDT [facility] POTASSIUM SERUM PLASMA/WHOLE BLOOD POTASSIUM STAT 01/11/2020 5: 14 PM EDT 01/11/2020 09:14:00 PM EDT [facility] GLUC BLD GLUC MNTR DEV CLEARED FDA SPEC HOME USE POCT GLUCOSE Routine 01/11/2020 5:10 PM EDT 01/11/2020 09:10:00 PM EDT [facility] POC ARTERIAL BLOOD GAS POC ARTERIAL BLOOD GAS Routine 020 5:06 PM EDT 01/11/2020 09:06:00 PM EDT [facility] GLUC BLD GLUC MNTR DEV CLEARED FDA SPEC HOME USE POCT GLUCOSE Routine 01/11/2020 3:15 PM EDT 01/11/2020 07:15:00 PM EDT [facility] LEVEL IV SURG PATHOLOGY GROSS&MICROSCOPIC EXAM [facility] HISTOLOGY Routine 01/11/2020 2:50 PM EDT 01/11/2020 06:50:00 PM EDT [facility] POC ARTERIAL BLOOD GAS POC ARTERIAL BLOOD GAS Routine 020 1:21 PM EDT 01/11/2020 05:21:00 PM EDT [facility] GLUC BLD GLUC MNTR DEV CLEARED FDA SPEC HOME USE POCT GLUCOSE Routine 01/11/2020 1:19 PM EDT 01/11/2020 05:19:00 PM EDT [facility] XR CHEST PORTABLE XR CHEST PORTABLE STAT 01/11/2020 1:03 PM EDT 01/11/2020 05:03:13 PM EDT [facility] ECG ROUTINE ECG W/LEAST 12 LDS TRCG ONLY W/O I&R ECG 12-LEAD Routine 01/11/2020 1:00 PM EDT 01/11/2020 05:00:57 PM EDT [facility] GLUC BLD GLUC MNTR DEV CLEARED FDA SPEC HOME USE POCT GLUCOSE Routine 01/11/2020 12:51 PM EDT 01/11/2020 04:51:00 PM EDT [facility] BLOOD COUNT COMPLETE AUTOMATED CBC STAT 01/11/2020 12:45 P M EDT 01/11/2020 04:45:00 PM EDT [facility] MAGNESIUM MAGNESIUM STAT 01/11/2020 12:45 PM EDT 01/11/2020 04:45:00 PM EDT [facility] CALCIUM IONIZED CALCIUM, IONIZED STAT 01/11/2020 12:45 PM EDT 01/11/2020 04:45:00 PM EDT [facility] BASIC METABOLIC PANEL CALCIUM TOTAL BASIC METABOLIC PANEL STAT 01/11/2020 12:45 PM EDT 01/11/2020 04:45:00 PM EDT [facility] POC ARTERIAL BLOOD GAS W MERY POC ARTERIAL BLOOD GAS W MERY mckeon 01/11/2020 11:49 AM EDT 01/11/2020 03:49:00 PM EDT [facility] POC ACT POC ACT Routine 01/11/2020 11:48 AM EDT 020 03:48:00 PM EDT [facility] POCT VENOUS BLOOD GAS W MERY POCT VENOUS BLOOD GAS W MERY kunz 01/11/2020 11:11 AM EDT 01/11/2020 03:11:00 PM EDT [facility] POC ACT POC ACT Routine 01/11/2020 11:11 AM EDT 020 03:11:00 PM EDT [facility] THROMBOPLASTIN TIME PARTIAL PLASMA/WHOLE BLOOD APTT Routine 01/11/2020 11:10 AM EDT 01/11/2020 03:10:00 PM EDT [facility] PROTHROMBIN TIME PROTIME-INR Routine 01/11/2020 11:10 AM EDT 01/11/2020 03:10:00 PM EDT [facility] POCT VENOUS BLOOD GAS W MERY POCT VENOUS BLOOD GAS W MERY kunz 01/11/2020 10:48 AM EDT 01/11/2020 02:48:00 PM EDT [facility] POC ACT POC ACT Routine 01/11/2020 10:48 AM EDT 020 02:48:00 PM EDT [facility] POCT VENOUS BLOOD GAS W LYTES POCT VENOUS BLOOD GAS W JOBYELIZABETH Leonel knighte 01/11/2020 10:18 AM EDT 01/11/2020 02:18:00 PM EDT [facility] POC ACT POC ACT Routine 01/11/2020 10:17 AM EDT 020 02:17:00 PM EDT [facility] POC ARTERIAL BLOOD GAS W LYTES POC ARTERIAL BLOOD GAS W LYELIZABETH R outine 01/11/2020 9:42 AM EDT 01/11/2020 01:42:00 PM EDT [facility] POCT VENOUS BLOOD GAS W LYTES POCT VENOUS BLOOD GAS W MERY kunz 01/11/2020 9:38 AM EDT 01/11/2020 01:38:00 PM EDT [facility] POC ACT POC ACT Routine 01/11/2020 9:37 AM EDT 020 01:37:00 PM EDT [facility] POC ARTERIAL BLOOD GAS W LYTES POC ARTERIAL BLOOD GAS W JOBYELIZABETH R outine 01/11/2020 8:59 AM EDT 01/11/2020 12:59:00 PM EDT [facility] POC ACT POC ACT Routine 01/11/2020 8:58 AM EDT 020 12:58:00 PM EDT [facility] POCT VENOUS BLOOD GAS W LYTES POCT VENOUS BLOOD GAS W MERY kunz 01/11/2020 8:09 AM EDT 01/11/2020 12:09:00 PM EDT [facility] POC ACT POC ACT Routine 01/11/2020 8:09 AM EDT 020 12:09:00 PM EDT [facility] EXC INTRACARDIAC 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, WITH ATRIAL MYXOMA EXCISION 01/11/2020 7:25 AM EDT Congenital insufficiency of aortic valve 01/11/2020 11 :25:00 AM EDT - 01/11/2020 05:22:00 PM EDT Congenital insufficiency of aortic valve [facility] Congenital insufficiency of aortic valve POCT VENOUS BLOOD GAS W MERY POCT VENOUS BLOOD GAS W MERY knighte 01/11/2020 6:18 AM EDT 01/11/2020 10:18:00 AM EDT [facility] GLUC BLD GLUC MNTR DEV CLEARED FDA SPEC HOME USE POCT GLUCOSE Routine 01/11/2020 5:58 AM EDT 01/11/2020 09:58:00 AM EDT [facility] BLOOD TYPING ABO PREPARE RBC Routine 01/11/2020 12:01 AM EDT 01/11/2020 04:01:00 AM EDT [facility] POC ARTERIAL BLOOD GAS POC ARTERIAL BLOOD GAS Routine 020 8:45 AM EDT 01/07/2020 12:45:00 PM EDT [facility] ECG ROUTINE ECG W/LEAST 12 LDS TRCG ONLY W/O I&R ECG 12-LEAD Routine 01/07/2020 8:20 AM EDT Benign neoplasm of heart 01/07/2020 12:20:18 PM EDT Benign neopl asm of [facility] Benign neoplasm of heart URNLS DIP STICK/TABLET RGNT AUTO W/O MICROSCOPY URINALYSIS W/O MICRO Routine 01/07/2020 8:20 AM EDT Benign neoplasm of heart 01/07/2020 12:20:00 PM EDT Benign neopl asm of [facility] Benign neoplasm of heart ROOM TEMP AB SCREEN ROOM TEMP AB SCREEN Routine 01/07/2020 8 :10 AM EDT Benign neoplasm of heart 01/07/2020 12:10:00 PM EDT Benign neopl asm of heart [facility] Benign neoplasm of heart NT PRO BNP NT PRO BNP Routine 01/07/2020 8:10 AM EDT Benign neoplasm of heart 01/07/2020 12:10:00 PM EDT Benign neopl asm of heart [facility] Benign neoplasm of heart THROMBOPLASTIN TIME PARTIAL PLASMA/WHOLE BLOOD APTT Routine 01/07/2020 8:10 AM EDT Benign neoplasm of heart 01/07/2020 12:10:00 PM EDT Benign neopl asm of [facility] Benign neoplasm of heart PROTHROMBIN TIME PROTIME-INR Routine 01/07/2020 8:10 AM EDT Benign neoplasm of heart 01/07/2020 12:10:00 PM EDT Benign neopl asm of heart [facility] Benign neoplasm of heart BLOOD COUNT COMPLETE AUTO&AUTO DIFRNTL WBC COUNT CBC AND DIFFER ENTIAL Routine 01/07/2020 8:10 AM EDT Benign neoplasm of heart 01/07/2020 12:10:00 PM EDT Benign neopl asm of heart [facility] Benign neoplasm of heart BLOOD TYPING ABO TYPE AND SCREEN Routine 01/07/2020 8:10 AM EDT Benign neoplasm of heart 01/07/2020 12:10:00 PM EDT Benign neopl asm of heart [facility] Benign neoplasm of heart HEMOGLOBIN GLYCOSYLATED A1C HEMOGLOBIN A1C Routine 01/07/2020 8:10 AM EDT Benign neoplasm of heart 01/07/2020 12:10:00 PM EDT Benign neopl asm of heart [facility] Benign neoplasm of heart COMPREHENSIVE METABOLIC PANEL COMPREHENSIVE METABOLIC PANEL Rou ze 01/07/2020 8:10 AM EDT Benign neoplasm of heart 01/07/2020 12:10:00 PM EDT Benign neopl asm of heart [facility] Benign neoplasm of heart CARDIAC CATHETERIZATION CARDIAC CATHETERIZATION Routine 12/30/2019 1:19 PM EDT Abnormal result of other cardiovascular function study Pre-operative cardiovascular examination 12/30/2019 05:19:14 PM EDT Pre- operative cardiovascular examinationAbnormal result of other cardiovascular function study [facility] Pre-operative cardiovascular examination Abnormal result of other cardiovascular function study Coronary Angiography W/O LHC No LV Gram 12/30/2019 12: 00:00 AM EDT [facility] ([facility]) UPPER NDSC BIOPSY SINGLE/MULTIPLE 12/22/2019 12:00:00 AM EDT [facility] ([facility]) XTRNL PT ACTIVATED ECG RECORD MONITOR 30 DAYS 11/11/19 20 12:00:00 AM EST [facility] ([facility]) XTRNL PT ACTIVTD ECG DWNLD 30 DAYS PHYS R&I 11/11/2019 12:00:00 AM EST [facility] ([facility]) ECG ROUTINE ECG W/LEAST 12 LDS W/I&R 10/26/2019 12:00: 00 AM EST [facility] ([facility]) Arterial Pressure Waveform Analysis For Assessment Of Centra l Art 10/26/2019 12:00:00 AM EST [facility] ([facility]) Results ID Date Data Source [id number] 11/02/2020 10:20:00 AM EST [facility] Name Value Range Interpretation Code Description Data Jennifer rce(s) Supporting Document(s) SARS coronavirus 2 RNA Not Detected [facility] This lab was ordered by [facility] and reported by [facility]. ID Date Data Source [id number] 07/09/2020 11:00:00 AM EDT [facility] ([facility]) Name Value Range Interpretation Code Description Data Jennifer rce(s) Supporting Document(s) Coronavirus 2019 Nasopharygeal Laboratory test result [facility] ([facility]) This nucleic acid amplification test was developed and its performance characteristics determined by [facility]. Nucleic acid amplification tests include PCR and TMA. This test has not been FDA cleared or approved. This test has been authorized by FDA under an Emergency Use Authorization (EUA). This test is only authorized for the duration of time the declaration that circumstances exist justifying the authorization of the emergency use of in vitro diagnostic tests for detection of SARS-CoV-2 virus and/or diagnosis of COVID-19 infection under section 564(b)(1) of the Act, 21 U.S.C. 360bbb-3 (b) (1), unless the authorization is terminated or revoked sooner. When diagnostic testing is negative, the possibility of a false negative result should be considered in the context of a patient's recent exposures and the presence of clinical signs and symptoms consistent with COVID-19. An individual without symptoms of COVID-19 and who is not shedding SARS-CoV-2 virus would expect to have a negative (not detected) result in this assay. Performed at: [facility] [id number] Customer Field Representative: Shirlene Hernández MD, Phone: [phone] Not Detected ID Date Data Source [id number] 07/09/2020 11:00:00 AM EDT [facility] Name Value Range Interpretation Code Description Data Jennifer rce(s) Supporting Document(s) SARS coronavirus 2 RNA [facility] This lab was ordered by [facility] and reported by [facility]. ID Date Data Source [id number] 07/01/2020 08:46:00 AM EDT [facility] ([facility]) Name Value Range Interpretation Code Description Data Jennifer rce(s) Supporting Document(s) Mycobacterium sp identified in Unspecifi ed specimen by Organism specific culture Laboratory test result [facility] ([facility]) Due to limited sensitivity, smear result s should be used as an adjunct in evaluating patient tuberculosis status. Cultural examination is highly recommended for clinical diagnosis. AFB smear Kinyoun NEGATIVE (NO AFB Seen ) ID Date Data Source [id number] 07/01/2020 08:46:00 AM EDT [facility] ([facility]) Name Value Range Interpretation Code Description Data Jennifer rce(s) Supporting Document(s) Gram Stain Laboratory test result Normal (applies to non-n umeric results) [facility] ([facility]) QUALITY: GOOD FEW WBCS FEW EPITHELIAL CELLS MODERATE GRAM POSITIVE COCCI IN PAIRS, CHAINS AND CLUSTERS MODERATE GRAM POSITIVE RODS Sputum Culture Laboratory test result Normal (applies to non-numeric results) [facility] ([facility]) FULL REPORT IN LAB NOTES ([facility] and [facility] ). NORMAL CINDI PRESENT ID Date Data Source [id number] 06/24/2020 07:49:00 AM EDT [facility] ([facility]) Name Value Range Interpretation Code Description Data Jennifer rce(s) Supporting Document(s) Aspergillus Fumigatus Tasneem Laboratory test result Normal (applies to non- numeric results) [facility] ([facility]) will discuss at follow-up Aspergillus Flavus Tasneem Laboratory test result No rmal (applies to non-numeric results) [facility] ([facility]) will discuss at follow-up Aspergillus Niger Tasneem Laboratory test result Nor mal (applies to non-numeric results) [facility] ([facility]) will discuss at follow-up ID Date Data Source [id number] 06/24/2020 07:49:00 AM EDT [facility] ([facility]) Name Value Range Interpretation Code Description Data Jennifer rce(s) Supporting Document(s) Blastomyces Antibody Level Laboratory test result Normal (applies to non- numeric results) [facility] ([facility]) will discuss at follow-up Histoplasmosis Antibody Laboratory test result N ormal (applies to non-numeric results) [facility] ([facility]) will discuss at follow-up Cryptococcus sp Ag [Presence] in Serum by Immunoassay Laboratory test result Normal (applies to non-numeric results) [facility] ([facility]) will discuss at follow-up Coccidioides sp Ab [Units/volume] in Serum 0.2 IV Normal (applies to non- numeric results) [facility] ([facility]) will discuss at follow-up ID Date Data Source [id number] 06/24/2020 07:49:00 AM EDT [facility] ([facility]) Name Value Range Interpretation Code Description Data Jennifer rce(s) Supporting Document(s) Rheumatoid factor [Units/volume] in Serum or Plasma Laboratory t est result Normal (applies to non-numeric results) [facility] ([facility]) will discuss at follow-up Cyclic citrullinated peptide IgG Ab [Units/volume] in Serum or Plasma 4 units 0-19 Normal (applies to non-numeric results) [facility] ([facility]) will discuss at follow-up ID Date Data Source [id number] 06/24/2020 07:49:00 AM EDT [facility] ([facility]) Name Value Range Interpretation Code Description Data Jennifer rce(s) Supporting Document(s) Cytoplasmic Neutrop AB Anca-C Laboratory test result Normal (applies to non- numeric results) [facility] ([facility]) will discuss at follow-up Perinuclear AB Anca-P Laboratory test result Nor mal (applies to non-numeric results) [facility] ([facility]) will discuss at follow-up Anca-Atypical Laboratory test result Normal (applies t o non-numeric results) [facility] ([facility]) will discuss at follow-up ID Date Data Source [id number] 06/15/2020 09:01:00 AM EDT [facility]) Name Value Range Interpretation Code Description Data Jennifer rce(s) Supporting Document(s) PDFReport Laboratory test result [facility] ([facility], ) FVC-Pred 3.44 L [facility] ([facility], ) FVC-Pre 3.17 L [facility] ([facility]) FVC-%Pred-Pre 92 L [facility] ([facility]) Fev1-Pred 2.64 L [facility] ([facility], ) FVC-LLN 2.73 L [facility] ([facility]) Fev1-%Pred-Pre 96 L [facility] ([facility]) Fev1-LLN 2.04 L [facility] ([facility]) Fev1-Pre 2.54 L [facility] ([facility]) Fev6-%Pred-Pre 96 L [facility] ([facility]) Fev6-Pre 3.17 L [facility] ([facility]) Fev6-Pred 3.27 L [facility] ([facility]) Fev6-LLN 2.58 L [facility] ([facility]) Gdv7cko-Tevl 76 % [facility] ([facility]) Oua8wmv-Fez 80 % [facility] ([facility]) Joa4epw-Yzkt 95 % [facility] ([facility]) Wsw6njl-YKC 67 % [facility] ([facility]) Ajt6bwb-%Pred-Pre 104 % [facility] ([facility]) Mzl4nte-%Pred-Pre 105 % [facility] ([facility]) Dzs4riq-Oxd 100 % [facility] ([facility]) FEFMax-Pred 7.53 L/E/sec [facility] ([facility]) FEFMax-Pre 8.04 L/E/sec [facility] ([facility]) FEFMax-%Pred-Pre 106 L/E/sec [facility] ([facility]) FEFMax-LLN 5.77 L/E/sec [facility] ([facility]) [id number]-Dhbt 2.34 L/E/sec [facility] ([facility], ) Ezo9971-Dfd 2.45 L/E/sec [facility] ([facility], ) Kuv9511-%Pred-Pre 104 L/E/sec [facility] ([facility], ) ExpTime-Pre 5.77 sec [facility] ([facility]) Oyr2eub8-Kvfw 79 % [facility] ([facility], ) Mvn7xnj9-Qxk 80 % [facility] ([facility]) Glx4505-QKC 1.12 L/E/sec [facility] ([facility]) Mgl9aew3-KVV 70 % [facility] ([facility]) Zkl2yhq7-%Pred-Pre 100 % [facility] ([facility]) ID Date Data Source [id number] 06/03/2020 10:37:00 AM EDT [facility] ([facility]) Name Value Range Interpretation Code Description Data Jennifer rce(s) Supporting Document(s) Laboratory test finding (navigational concept) Laboratory test result [facility] ([facility]) ID Date Data Source [id number] 02/09/2020 08:14:11 PM [facility]T [facility]FORMATION[facility] Name Date of Age Gend*PT [id number] Yousuf Ken 1965 54 years M ---PT Location Admission Date/Time Visit ID Attending Provider --- --- --- --- EPI ID CSN Admitting Provider [id number] ---Cardiothoracic Surgery Post Operative Follow UpName: Yousuf Ken : 1965MRN: [id number] Visit Date: February 09, 2020ASSESSMENT:Pt doing well 1 month s/p excision fibroelastomaRight thigh pain, not classic nerve pain or post op pain so will r/o DVTalthough suspicion lowVSS and incisions healedPLAN:-[facility] to r/o DVT- may use heat or ice PRN to right medial thigh. Call for any worseningdiscomfort, erythema, edema.- 15 lbs lifting restriction x 6 weeks from surgeryFollow up with Supervisor Asphalt Paving: Dr. John and PCP: Luann Kwan to office 6 months pulm nodulesSUBJECTIVE:Yousuf Ken is a pleasant 54 years male who recently underwent minimallyinvasive and aortic valve exploration and removal of the fibroelastoma from theleft main coronary cusp and right femoral arterial and venous cannulation andinsertion of the left subclavian pacemaker catheter on 01/11/[address] Eller.Pt tolerated the procedure well. He did require bipap and high flow oxygen Andwas given IV steroids after extubation. The patient was discharged on POD 7.The patient reported edema to right groin femoral cannulation site so we r/ofemoral artery pseudoaneurysm about 2 weeks ago. He later c/o pain and numbnessto anterior thigh. He describes this pain as deep and "comes and goes" but hedoes c/o pain when he presses on the anterior thigh from the groin to middle ofthigh. From the mid thigh to knee he c/o numbness. He does not describe aburning sensation. He has not noted edema or discoloration to the leg. Heotherwise feels well. The patient denies any fevers, chills, dizziness, dyspnea,chest pain or palpitations. Past Medical History:Diagnosis Date Advanced Airway Equipment Used Alcohol abuse Anxiety Benign neoplasm of heart Chronic kidney disease Depression GERD (gastroesophageal reflux disease) Hypertension Knee pain, left using cane for ambulation Papillary fibroelastoma of heart Schizoaffective schizophrenia Seizures last episode was possibly 2019 ?? TIA (transient ischemic attack) 08/27/2019Past Surgical History:Procedure Laterality Date ATRIAL MYXOMA EXCISION N/A 01/11/2020 Procedure: RIGHT HEARTPORT THORACOTOMY, RIGHT FEMORAL ARTERIAL AND VENOUSCANNULATION, REMOVAL OF AORTIC TUMOR FIBROELASTOMA, WITH CLAIRE; Surgeon: MD Alexandro; Laterality: N/A; CARDIAC CATHETERIZATION N/A 12/30/2019 Procedure: CATHETERIZATION, HEART, LEFT; Surgeon: Priscilla Flores MD;Laterality: N/A; CARPAL TUNNEL RELEASE Left COLONOSCOPY ELBOW ARTHROSCOPY Left KNEE CARTILAGE SURGERY Left PANENDOSCOPY N/A 12/22/2019 Procedure: ENDOSCOPY, UPPER GASTROINTESTINAL (GI) TRACT W BIOPSY; Surgeon:Thom Sterling MD; Laterality: N/A; ROTATOR CUFF REPAIR LeftAllergies: Prozac [fluoxetine hcl]OBJECTIVE:VITALS: blood pressure is 106/72 and his pulse is 79. His respiration is 16 andoxygen saturation is 98%.Physical ExamGeneral: AO x 3. In no apparent distress.Heart: +S1,S2. RegularLungs: Clear to auscultation bilaterally. Good respiratory ef fort. No use ofaccessory muscles. No wheezes, rales, rhonchiIncision: right chest incision healed, right groin healed.Extremities: Warm and well perfused. No edema. No erythema. No warmth to touch.Numbness from knee to mid thigh right leg, discomfort to palpation mid anteriorthigh to right groin. No palpable cords.Neuro: Grossly intactSignature: Alexandra Joaquin NPDate: February 09, 2020Time: 1:44 PM Name Value Range Interpretation Code Description Data Jennifer rce(s) Supporting Document(s) ID Date Data Source [id number] 01/31/2020 09:09:55 PM EDT [facility] INFORMATIONPatient MRN Name Date of Age Gend*PT [id number] Yousuf Ken W 1965 54 years M IPPT Location Admission Date/Time Visit ID Attending [id number] 01/11/20 0513 --- --- EPI ID CSN Admitting Prov ider [id number] Emmanuel Eller MD([id number]) Attestation signed by Emmanuel Eller MD at 01/31/2020 9:09 PMI saw and evaluated the patient and reviewed PA/CARBIDE DIE MAKER's note. I agree with thehistory, physical and medical decision making.Emmanuel Eller MD01/31/20209:09 PM Surgical Discharge SummaryYousuf KenMRN: [id number] date: 01/11/2020Admitting Physician: LOPEZ Beverlyischarge date and time:Discharge Orders Placed(From admission, onward) Start Ordered 01/18/20 09 Discharge patient OnceExpected Discharge Date: 01/18/20Expected Discharge Time: MiddayDischarge Disposition: Home or Self Care 01/18/20920Discharge Physician: Radames Santoyo Diagnosis: Aortic valve diseaseSecondary Diagnoses:Active Hospital Problems Diagnosis Date Noted Gastroesophageal reflux disease without esophagitis 01/13/2020 Essential hypertension 01/13/2020 Schizo affective schizophrenia 01/13/2020 Recurrent major depressive disorder, in partial remission 01/13/2020 Alcohol abuse 01/13/2020 Anxiety 01/13/2020 Aortic valve disease 12/11/2019Resolved Hospital ProblemsNo resolved problems to display.Discharge Medications: see AVSIndication for Admission: Mr Tammy hall is a 54 years old white male with history ofhypertension, depression anxiety, schizophrenia, tobacco dependence, alcoholabuse, and seizure disorder who was evaluated [facility] ER on08/27/2019 with a syncopal episode, questionable TIA. CT chest indicatedfibro-elastoma. Subsequently he underwent cardiac evaluation. CLAIRE date11/16/2019 concluded fibroelastoma attached to the aortic valve. Patientunderwent cardiac catheterization in preparation for the surgery which showedmild LAD lesion 40% stenosis. Patient denies any chest pain, heart palpitation, PND, peripheral edema,shortn ess of breath, or further syncopal episode. Subsequently he was referredto Dr. Eller for surgical evaluation. All options were discussed. Patient isnow scheduled to undergo MEDIAN STERNOTOMY, WITH ATRIAL MYXOMA EXCISION PER MDRESECTION FIBROELASTOMA on 01/11/2020Hospital Course & Complications:Patient was taken to the OR on 01/11/2020 for Heartport Removal of AVFibroelastoma, the patient tolerated this procedure well and was taken to theCVICU in stable condition. Patient was on an Epi and Levo drip post operativelyand these drips were weaned. Patient was in a sinus rhythm. Patient wasextubated on operative night but required bipap and high flow oxygen for a fewdays in the ICU. He was also given IV steroids for 48 hours, this in conjunctionwith diuresis we were able to wean his oxygen by POD5. Patient was transferredto the D4 step down unit in stable condition on POD5. The chest tubes wereremoved on POD2. Patient did well over the next two days, was diuresed, weanedoff oxygen, ambulated, wo rked on incentive spirometry, had a BM, started on aBB, ASA/Plavix, Statin.The patient is now safe for discharge on POD7, and care plan was discussed withcovering attending provider. The patient is eager to go [place] today.Lab ResultsComponent Value Date WBC 14.5 (H) 01/18/2020 HGB 11.0 (L) 01/18/2020 HCT 33.9 (L) 01/18/2020 PLT 221 01/18/2020 ALT 54 01/07/2020 AST 31 01/07/2020 NA 141 01/18/2020 K 4.1 01/18/2020 CL 104 01/18/2020 CREATININE 1.09 01/18/2020 BUN 42 (H) 01/18/2020 CO2 29 01/18/2020 INR 1.31 01/11/2020 HGBA1C 5.4 01/07/2020Past Medical History:Past Medical History:D iagnosis Date Advanced Airway Equipment Used Alcohol abuse Anxiety Benign neoplasm of heart Chronic kidney disease Depression GERD (gastroesophageal reflux disease) Hypertension Knee pain, left using cane for ambulation Papillary fibroelastoma of heart Schizoaffective schizophrenia Seizures last episode was possibly 2019 ?? TIA (transient ischemic attack) 08/27/2019Surgical Procedures:Procedure(s):RIGHT HEARTPORT THORACOTOMY, RIGHT FEMORAL ARTERIAL AND VENOUS CANNULATION,REMOVAL OF AORTIC TUMOR FIBROELASTOMA, WITH CLAIRE (N/A)Discharge Exam:Vitals: Temp: [98 F-98.9 F] 98.1 FHeart Rate: [72-84] 80Resp: [18-20] 18BP: (100-121)/(58-75) 114/73Awake in Bed. NADWound Healing Well. No Drainage. No Erythema.Heart RegularLungs CTAABD Soft NTExt Warm No EdemaFemoral Cannulation Site: RLE Healing Well. No Drainage. Small seroma forming.Mildly TTP.Discharged Condition:stableDisposition: Home or Self CareSignature: Fede Song PADate: January 18, 2020Time: 10:37 AM Name Value Range Interpretation Code Description Data Jennifer rce(s) Supporting Document(s) ID Date Data Source [id number] 01/26/2020 11:39:01 AM [facility]T [facility]FORMATIONPatient MRN Name Date of Age Gend*PT [id number] Yousuf Ken W 1965 54 years M ---PT Location Admission Date/Time Visit ID Attending Provider --- --- --- --- EPI ID CSN Admitting Pro vider [id number] ---Assessment/Plan:Diagnoses and all orders for this visit:Right groin pain- US Lower extremity arterial doppler RIGHT; Future Will schedule @ [facility] and call patient with time. Explained will r/opseuodaneurysm. If worsening pain, or if erythema, edema, drainage/bleedingdevelop present to ED. Overall low suspicion. Pain should resolve with timeAortic valve disease - 15 lbs lifting restriction x 6 weeksDIAGNOSISAORTIC VALVE - LEFT MAIN CUSP, BIOPSY: FIBROELASTOMA. F/u with Dr. John and PCPOther orders- oxyCODONE-acetaminophen (PERCOCET) 5-325 MG per tablet; Take 1 tablet bymouth every 6 (six) hours as needed Max Daily Amount: 4 tabletsistop Reference #: [id number] doing very well 3 weeks s/p excision fibroelastoma.BP well controlledIncisions healing wellPain to femoral cannulation site with "episodes" of swelling - r/opseudoaneurysm as aboveThis telemedicine assessment was conducted remotely with the assistance ofelectronic communication technology: Telephone and Interactive Video [id number] -1+HPI, ROS, Low MDM or 15+ min counseling services director Face to FaceI have spent 15 minutes with the patient discussing the above diagnoses andcounseling/coordinating the patient's care.Imaging results were reviewed with the patient. and Other medical recordsreviewed.Subjective:Patient was identifie d by name and date of .Verbal consent was obtained from the patient for this telemedicine visit.Patient is aware of the risks, limitations, and benefits of a telemedicinevisit.Patient ID: Yousuf Ken is a 54 years male.Chief Complaint: s/p minimally invasive and aortic valve exploration and removalof the fibroblastoma from the left main coronary cusp and right femoral arterialand venous cannulation and insertion of the left subclavian pacemaker catheterHPI This patient underwent minimally invasive and aortic valve exploration andremoval of the fibroblastoma from the left main coronary cusp and right femoralarterial and venous cannulation and insertion of the left subclavian pacemakercatheter on 01/11/[address] Eller. Pt tolerated the procedure well. He didrequire bipap and high flow oxygen And was given IV steroids after extubation.The patient was discharged on POD 7.He presents for 3 week telemed follow up. He feels well. The patient denies anyfevers, chills, dizziness, dyspnea, chest pain or palpitations. His onlycomplaint is some incisional pain in the chest and more so in the right groin.He states the area is swollen at times and has been bothering him sincedischarge. He denies any erythema, drainage from the site and no pulsatile mass.The following portions of the patient's history were reviewed and updated asappropriate: allergies, current medications were reconciled with dischargemedications if applicable, past medical history, past surgical history andproblem listReview of Systems see HPIObjective:Vital Signs: As reported by patient are BP 112/73 . If Blood pressure was notreported, no BP cuff was available.Physical Exam: General: Alert, No acute distress.Oriented to person, place, and situation.Respiratory: Normal respiratory effort, no increased work of breathing.Psych: Mood and affect appropriate.Right chest healing wellRight groin healing well, no erythema, edema or open areas noted Name Value Range Interpretation Code Description Data Jennifer rce(s) Supporting Document(s) ID Date Data Source [id number] 01/18/2020 08:28:00 AM EDT [facility] Name Value Range Interpretation Code Description Data Jennifer rce(s) Supporting Document(s) White Blood Count 14.5 [facility] Platelets 221 [facility] Red Blood Count 4.10 [facility] Hemoglobin 11.0 [facility] ([facility]) Hematocrit 33.9 [facility] ([facility]) ID Date Data Source [id number] 01/18/2020 08:28:00 AM EDT [facility] Name Value Range Interpretation Code Description Data Jennifer rce(s) Supporting Document(s) Magnesium Level 2.2 [facility] ([facility] ID Date Data Source [id number] 01/18/2020 08:28:00 AM EDT [facility]) Name Value Range Interpretation Code Description Data Jennifer rce(s) Supporting Document(s) Glucose 88 [facility] Blood Urea Nitrogen 42 [facility] ([facility]) Sodium 141 [facility] Creatinine 1.09 [facility] ([facility]) Potassium 4.1 [facility] Carbon Dioxide 29 [facility] Chloride 104 [facility] Calcium 8.8 [facility] Glomerular filtration rate/1.73 sq M.pre dicted [Volume Rate/Area] in Serum or Plasma by Creatinine-based formula (MDRD) Laboratory test result [facility] ([facility]) ID Date Data Source [id number] 01/18/2020 02:56:22 AM EDT [facility] Name Value Range Interpretation Code Description Data Jennifer rce(s) Supporting Document(s) MAGNESIUM 2.2 mg/dL (1.7-2.4) [facility] ID Date Data Source [id number] 01/18/2020 02:56:22 AM EDT [facility] Name Value Range Interpretation Code Description Data Jennifer rce(s) Supporting Document(s) SODIUM 141 mmol/L (136-145) [facility] POTASSIUM 4.1 mmol/L (3.6-5.2) [facility] CHLORIDE 104 mmol/L (100-108) [facility] CO2 29 mmol/L (22-31) [facility] ANION GAP 8 mmol/L (7-16) [facility] UREA NITROGEN 42 mg/dL (7-24) H [facility] CREATININE 1.09 mg/dL (0.80-1.30) [facility] BUN/CREAT RATIO 38.5 RATIO (10.0-20.0) H [facility] GLUCOSE 88 mg/dL (70-99) [facility] CALCIUM 8.8 mg/dL (8.4-10.2) [facility] GFR >60 ml/min/1.73m2 (>59) [facility] GFR ( AMER) >60 ml/min/1.73m2 (>59) [facility] GFR INTERPRETATION [facility] --NORMAL KIDNEY FUNCTION OR MILD DISEASE - GFR >OR= 60CHRONIC KIDNEY DISEASE - GFR 15 - 59RENAL FAILURE - GFR <15 Est. GFR calculation based on the MDRDstudy equation, which assumes a steadystate for creatinine. Est. GFR should notbe used for medication dosing. ID Date Data Source [id number] 01/18/2020 02:38:42 AM EDT [facility] Name Value Range Interpretation Code Description Data Jennifer rce(s) Supporting Document(s) WBC 14.5 10*3/uL (4.1-11.0) H [facility] RBC 4.10 10*6/uL (4.60-6.10) L [facility] HGB 11.0 g/dL (13.5-18.0) L [facility] HCT 33.9 % (41.0-53.0) L [facility] MCV 82.7 fL (80.0-95.0) [facility] MCH 26.9 pg (27.0-32.0) L [facility] MCHC 32.5 g/dL (32.0-36.0) [facility] RDW 14.1 % (10.5-14.5) [facility] PLT 221 10*3/uL (150-450) [facility] MPV 10.2 fL (7.1-10.7) [facility] ID Date Data Source [id number] 01/17/2020 08:49:27 AM EDT [address] [address]Ec[place] Name: YOUSUF DAWSONOB: 1965Sex: MOrdering Provider: MARISSA DANGAuthoridavey Prov: MARISSA DANGRefsaskia Provider: Procedure Performed: XR CHEST PA AND LATERALExam Date: 01/17/2020 08:40MRN: [id number] Number: [id number] Class: InpatientAccount #: [id number] for Exam: ATX/effusionsTechnique: PA and lateral views obtained.Comparison: January 15, 2020Findings: Mild emphysematous changes. Significantly improved pulmonary edema. Small residual pleural effusions are noted. Minimal streaky infiltrate left lung base.There are multiple wires and surgical clips overlying the mediastinum. There is no pneumothorax. The bones appear slightly osteopenic for a male. Cardiac size is upper normal. No adenopathy is appreciated.IMPRESSION: Improving pulmonary edema. Small residual pleural effusions and mild left basilar atelectasis.Report electronically signed by: MONSE BUTLER On 01/17/2020 8:49 AMWorkstation ID: [id number] Name Value Range Interpretation Code Description Data Jennifer rce(s) Supporting Document(s) ID Date Data Source [id number] 01/17/2020 08:16:20 AM EDT [facility] Name Value Range Interpretation Code Description Data Jennifer rce(s) Supporting Document(s) EKG [facility] TDBSDz4yGuUHImPer3CwZnIcCQAvNW6ewuj7D5R1cFIsX4OcpMMpd4hnE8SgI8YfOJReFIYGGJ6KcZKr jb2 [file] wYllXBtriRCn0tEA8OHlZUJYGbEQPFMsXKHuRGPGMSALoONWCHjGTWLCiXJMxNNxBQ5KKoJLWZCpVVAC TTJLBQQOvRFTJYiYVAIUmXXYjAKooGjLPspSPMZdMHQ4STASG6BSwwOKGJtTHNRWrTKRQVTuwVKDUlvY OWFtGKOjPRFeCdPNofJJUwblPVKkcVWM2EOdoOASyf bJFVuiRZJaQTRpEDTKr0WUNs8hJ9yoNJXk8ZG77tjj6ZbmqrW97T26sp95COX9miO0LH7etWI5SrTdox /GjRh7hrMYCX6qntC+VXNVzV/OiSf9kl3DPQ30zEjlq+1cBVw6+xnLr7NDIBYm4k4ckfJl9lccabyct1 5d7iQs98vt4w3/N1nx/f1GqtJwql8gRCztuTOCgxFD VrlBQOk/I1CwiPZmjkISSYqwAl1DsG+ruBFuclVR9TX0v6EeVAK9O0sTpOFHQ+Og7egKht96Gn4OIrbI T3oNrM8TmwSYAi6SZLr/T7tskBQXcmJWZXaCqUivKCsb4wEUdN0QQHqtFpmdFEbLxOh58kK/PtaczVfI 1n6YhCfpHRCWDaNBuMZis+woLbUGNBKXaElvqmW3Cw AE9eEUgW0clXOtvPyP6iEjgmyv7k2+vz5/VB8XAeT4xe5wrKedocgfxe3IiFviyyawzq13hOkoro9vaj 5XwSftdvKrjc5oaEpbdmiqvw1VwRyrkkMsgr23aTglnd2zmmc6+8gr/DWkzmy04U4Mdl1/lwsPFQbEAU GxHFhkSxMVFsUBQbFcWGRbFxUWxgFBsZxYZGsbFRbH DIVq1Pezf1hU/6/O3NK9jZ9p/k49S+y3nS//e6MzmXqJOtQ4+1cct//9Umygvl/Pe135fNkfPiZAof4M DuKA+ZZ4qX7z7RE+lggVqx3aU6B+bzmHod0dW8P+pidAci5ug2N+opyGon9zv2Q+eldTsx1ib4N+pdqH na5kU5U+xclYaw0dZ3L+idxMcd1r32U+rkcFgv1l75 N+fnnGls0g38o+/TvFXjf3FEwuZI3UNN1/Ajh7ggfxx3FX+U91s+n3ruNQELuUzFKxLE3tF2mdaS6c18 aF5FwgqcLqz7fF6MjmeuFzu0hD9Chkteefz9up0Ihrfogri1zp3Dashfdjb6xv0NjgmqFif4hu8Smbel Quc9ai3Mdkze3fx2i73Sosxp7pe8u05Sxcmg0iu6w3 RiVUPyXXC50N84jStjUgDF1X4uc3s/eBIpI6SBapByLgfh1PNvYI+LP8o6MZ/SI2FlTI4A9B3IB9LnED 3B1W9WJ3SeDA6B4V9OP3RvCQ0O7Q2FD7JpUX5R1S3Uf2UuCf9U0R6Mn8NcGf1N1V1Ip5CwMs6n6X9Ub1 RrNc5g0Y0Vx5RoIe1w1Z6PzG+1bZtsI2Lip9a6Nm+6 7N8O/NfvJuILf/4kAbX5HiwUleYdopkEZozJCaY6YXmA2ZDfLGDB+gFZsA+twtnaV0ZJLVa2yr9volgy X5jeoaTQOupEZcJuAJJNscBN8pGlwQpp6rqvAYia67XDrVV3VZzkQLwGsEMqUmrVnd2EoSZq58rVsm9e IM8e0TJVZx9wW/WXcSQOTUTa1RAgEYYyNzAW9uiyIH r1KbbXaDZZtCvXRMdr8GFJOfG28pIiLUgGrHmtVH+YlR9dL2k3KtG4jJeWXWvgSpGmRRioxQTvJ1JR9p MARIA GUADALUPE+oZVSsIldAInT+QLmJxtHwHifM3IH+EQghCJTRCJ/PO2JFv31UBR+A8VESlKwqmQhahUDk/YBAmYR [file] 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2) [facility] CHLORIDE 100 mmol/L (100-108) [facility] CO2 30 mmol/L (22-31) [facility] ANION GAP 8 mmol/L (7-16) [facility] UREA NITROGEN 45 mg/dL (7-24) H [facility] CREATININE 1.19 mg/dL (0.80-1.30) [facility] BUN/CREAT RATIO 37.8 RATIO (10.0-20.0) H [facility] GLUCOSE 86 mg/dL (70-99) [facility] CALCIUM 8.8 mg/dL (8.4-10.2) [facility] GFR >60 ml/min/1.73m2 (>59) [facility] GFR ( AM) >60 ml/min/1.73m2 (>59) [facility] GFR INTERPRETATION [facility] --NORMAL KIDNEY FUNCTION OR MILD DISEASE - GFR >OR= 60CHRONIC KIDNEY DISEASE - GFR 15 - 59RENAL FAILURE - GFR <15 Est. GFR calculation based on the MDRDstudy equation, which assumes a steadystate for creatinine. Est. GFR should notbe used for medication dosing. ID Date Data Source [id number] 01/17/2020 03:31:25 AM EDT [facility] Name Value Range Interpretation Code Description Data Jennifer rce(s) Supporting Document(s) WBC 11.2 10*3/uL (4.1-11.0) H [facility] RBC 3.85 10*6/uL (4.60-6.10) L [facility] HGB 10.4 g/dL (13.5-18.0) L [facility] HCT 32.0 % (41.0-53.0) L [facility] MCV 83.2 fL (80.0-95.0) [facility] MCH 27.2 pg (27.0-32.0) [facility] MCHC 32.6 g/dL (32.0-36.0) [facility] RDW 13.9 % (10.5-14.5) [facility] PLT 164 10*3/uL (150-450) [facility] MPV 10.4 fL (7.1-10.7) [facility] ID Date Data Source [id number] 01/16/2020 08:26:59 AM EDT [facility] Name Value Range Interpretation Code Description Data Jennifer rce(s) Supporting Document(s) POC NOVA GLU 106 mg/dL (70-99) H [facility] ID Date Data Source [id number] 01/16/2020 04:40:47 AM EDT [facility] Name Value Range Interpretation Code Description Data Jennifer rce(s) Supporting Document(s) SODIUM 137 mmol/L (136-145) [facility] POTASSIUM 4.3 mmol/L (3.6-5.2) [facility] CHLORIDE 99 mmol/L (100-108) L [facility] CO2 31 mmol/L (22-31) [facility] ANION GAP 7 mmol/L (7-16) [facility] UREA NITROGEN 49 mg/dL (7-24) H [facility] CREATININE 1.28 mg/dL (0.80-1.30) [facility] BUN/CREAT RATIO 38.3 RATIO (10.0-20.0) H [facility] GLUCOSE 123 mg/dL (70-99) H [facility] CALCIUM 9.2 mg/dL (8.4-10.2) [facility] GFR 58 ml/min/1.73m2 (>59) L [facility] GFR ( AMER) >60 ml/min/1.73m2 (>59) [facility] GFR INTERPRETATION [facility] --NORMAL KIDNEY FUNCTION OR MILD DISEASE - GFR >OR= 60CHRONIC KIDNEY DISEASE - GFR 15 - 59RENAL FAILURE - GFR <15 Est. GFR calculation based on the MDRDstudy equation, which assumes a steadystate for creatinine. Est. GFR should notbe used for medication dosing. ID Date Data Source [id number] 01/16/2020 04:40:47 AM EDT [facility] Name Value Range Interpretation Code Description Data Jennifer rce(s) Supporting Document(s) MAGNESIUM 2.4 mg/dL (1.7-2.4) [facility] ID Date Data Source [id number] 01/16/2020 04:38:13 AM EDT [facility] Name Value Range Interpretation Code Description Data Jennifer rce(s) Supporting Document(s) WBC 15.0 10*3/uL (4.1-11.0) H [facility] RBC 3.61 10*6/uL (4.60-6.10) L [facility] HGB 9.9 g/dL (13.5-18.0) L [facility] HCT 30.1 % (41.0-53.0) L [facility] MCV 83.3 fL (80.0-95.0) [facility] MCH 27.4 pg (27.0-32.0) [facility] MCHC 32.9 g/dL (32.0-36.0) [facility] RDW 13.7 % (10.5-14.5) [facility] PLT 131 10*3/uL (150-450) L [facility] MPV 11.0 fL (7.1-10.7) H [facility] ID Date Data Source [id number] 01/16/2020 12:22:24 AM EDT [facility] Name Value Range Interpretation Code Description Data Jennifer rce(s) Supporting Document(s) MAGNESIUM 2.2 mg/dL (1.7-2.4) [facility] ID Date Data Source [id number] 01/16/2020 12:18:13 AM EDT [facility] Name Value Range Interpretation Code Description Data Jennifer rce(s) Supporting Document(s) POTASSIUM 4.2 mmol/L (3.6-5.2) [facility] ID Date Data Source [id number] 01/15/2020 09:31:35 PM EDT [facility] Name Value Range Interpretation Code Description Data Jennifer rce(s) Supporting Document(s) MAGNESIUM 2.2 mg/dL (1.7-2.4) [facility] ID Date Data Source [id number] 01/15/2020 09:29:06 PM EDT [facility] Name Value Range Interpretation Code Description Data Jennifer rce(s) Supporting Document(s) POTASSIUM 4.0 mmol/L (3.6-5.2) [facility] ID Date Data Source [id number] 01/15/2020 01:24:11 PM EDT [facility] Name Value Range Interpretation Code Description Data Jennifer rce(s) Supporting Document(s) MAGNESIUM 2.5 mg/dL (1.7-2.4) H [facility] ID Date Data Source [id number] 01/15/2020 01:21:41 PM EDT [facility] Name Value Range Interpretation Code Description Data Jennifer rce(s) Supporting Document(s) POTASSIUM 4.2 mmol/L (3.6-5.2) [facility] ID Date Data Source [id number] 01/15/2020 08:17:42 AM EDT [address] [address]Bkkbl[place] Name: YOUSUF DAWSONOB: 1965Sex: MOrdering Provider: FEDE COLOSIMOAuthorizing Prov: FEDE COLOSIMOReferring Provider: Procedure Performed: XR CHEST PORTABLEExam Date: 01/15/2020 08:02MRN: [id number] Number: [id number] Class: InpatientAccount #: [id number] for Exam: effusionsTechnique: AP portable view obtained.Comparison: Multiple prior studies most recent 01/13/2020Findings: There is a left-sided central venous line sheath with tip overlying mid left brachiocephalic vein. [place] catheter has been removed in the interval. No pneumothorax.Interval worsening of moderate diffuse bilateral parenchymal lung disease compatible pneumonia or edema. No pleural effusions or pneumothorax. Cardiac and mediastinal silhouettes likely unchanged allowing for differences in patient positioning; supine today compared to upright imaging previously.IMPRESSION: Increasing moderate diffuse bilateral parenchymal lung disease compatible with pneumonia or edema.No pneumothorax. No obvious pleural effusions.Prominence to the cardiac and mediastinal silhouettes, but this may be secondary to differences in patient positioning. Image obtained with the patient in supine position today.This study was communicated via the departmental critical results reporting protocol. .Report electronically signed by: LESLY ROBLERO On 01/15/2020 8:17 AMWorkstation ID: [id number] Name Value Range Interpretation Code Description Data Jennifer rce(s) Supporting Document(s) ID Date Data Source [id number] 01/15/2020 08:15:42 AM EDT [facility] Name Value Range Interpretation Code Description Data Jennifer rce(s) Supporting Document(s) PROCALCITONIN @ 0.94 ng/mL (<0.10) H [facility] INTERPRETATION OF RESULT < 0.51 Sepsis is not likely.0.51-2.00 Sepsis is possible, but other conditions are known to elevate PCT.2.01-9.99 Sepsis is likely, unless other causes are known. > 9.99 Important systemic inflammatory response, almost exclusively due to severe bacterial sepsis or septic shock.PERFORMED AT [address] [place] [address] ID Date Data Source [id number] 01/15/2020 06:49:49 AM EDT [facility] Name Value Range Interpretation Code Description Data Jennifer rce(s) Supporting Document(s) POC TEMPERATURE [facility] POC SOURCE [facility] PUNCTURE SITE [facility] O2 THERAPY [facility] POC FIO2 90 [facility] AC TEST [facility] LITER FLOW 20 L/min [facility] P[facility] PH 7.42 pH (7.35-7.45) [facility] POC PCO2 49.8 MMHG (32.0-48.0) H [facility] POC PO2 123 MMHG (83-108) H [facility] POC SAT O2 99 % (95-99) [facility] P[facility] BASE EXCESS 7 MMOL/L (0-3) H [facility] POC HCO3 32.3 MMOL/L (21.0-29.0) H [facility] POC TOTAL CO2 34 MMOL/L (23.0-32.0) [facility] ID Date Data Source [id number] 01/15/2020 04:01:50 AM EDT [facility] Name Value Range Interpretation Code Description Data Jennifer rce(s) Supporting Document(s) SODIUM 138 mmol/L (136-145) [facility] POTASSIUM 4.4 mmol/L (3.6-5.2) [facility] CHLORIDE 101 mmol/L (100-108) [facility] CO2 29 mmol/L (22-31) [facility] ANION GAP 8 mmol/L (7-16) [facility] UREA NITROGEN 30 mg/dL (7-24) H [facility] CREATININE 1.13 mg/dL (0.80-1.30) [facility] BUN/CREAT RATIO 26.5 RATIO (10.0-20.0) H [facility] GLUCOSE 114 mg/dL (70-99) H [facility] CALCIUM 8.6 mg/dL (8.4-10.2) [facility] GFR >60 ml/min/1.73m2 (>59) [facility] GFR ( AMER) >60 ml/min/1.73m2 (>59) [facility] GFR INTERPRETATION [facility] --NORMAL KIDNEY FUNCTION OR MILD DISEASE - GFR >OR= 60CHRONIC KIDNEY DISEASE - GFR 15 - 59RENAL FAILURE - GFR <15 Est. GFR calculation based on the MDRDstudy equation, which assumes a steadystate for creatinine. Est. GFR should notbe used for medication dosing. ID Date Data Source [id number] 01/15/2020 03:48:20 AM EDT [facility] Name Value Range Interpretation Code Description Data Jennifer rce(s) Supporting Document(s) WBC 18.5 10*3/uL (4.1-11.0) [facility] RBC 3.59 10*6/uL (4.60-6.10) L [facility] HGB 9.7 g/dL (13.5-18.0) L [facility] HCT 29.3 % (41.0-53.0) [facility] MCV 81.6 fL (80.0-95.0) [facility] MCH 27.0 pg (27.0-32.0) [facility] MCHC 33.0 g/dL (32.0-36.0) [facility] RDW 14.2 % (10.5-14.5) [facility] PLT 78 10*3/uL (150-450) L [facility] MPV 11.0 fL (7.1-10.7) [facility] ID Date Data Source [id number] 01/15/2020 08:07:44 AM EDT [facility] Name Value Range Interpretation Code Description Data Jennifer rce(s) Supporting Document(s) NEUT % 91.0 % (35.0-75.0) [facility] LYMPH % 2.0 % (16.0-52.0) L [facility] MONO % 7.0 % (0.0-8.0) [facility] NEUT # 16.8 10*3/uL (1.8-7.7) [facility] LYMPH # 0.4 10*3/uL (1.2-4.8) L [facility] MONO # 1.3 10*3/uL (0.0-0.8) [facility] POLY 1+ [facility] TARGET 1+ [facility] LARGE PLT 1+ [facility] ID Date Data Source [id number] 01/15/2020 04:01:50 AM EDT [facility] Name Value Range Interpretation Code Description Data Jennifer rce(s) Supporting Document(s) MAGNESIUM 2.2 mg/dL (1.7-2.4) [facility] ID Date Data Source [id number] 01/14/2020 07:20:27 PM EDT [facility] Name Value Range Interpretation Code Description Data Jennifer rce(s) Supporting Document(s) MAGNESIUM 2.1 mg/dL (1.7-2.4) [facility] ID Date Data Source [id number] 01/14/2020 07:20:27 PM EDT [facility] Name Value Range Interpretation Code Description Data Jennifer rce(s) Supporting Document(s) POTASSIUM 3.7 mmol/L (3.6-5.2) [facility] ID Date Data Source [id number] 01/14/2020 12:38:53 PM EDT [facility] Name Value Range Interpretation Code Description Data Jennifer rce(s) Supporting Document(s) POC NOVA GLU 120 mg/dL (70-99) H [facility] ID Date Data Source [id number] 01/14/2020 07:58:44 AM EDT [facility] Name Value Range Interpretation Code Description Data Jennifer rce(s) Supporting Document(s) POC NOVA GLU 116 mg/dL (70-99) H [facility] ID Date Data Source [id number] 01/14/2020 04:18:42 AM EDT [facility] Name Value Range Interpretation Code Description Data Jennifer rce(s) Supporting Document(s) MAGNESIUM 2.1 mg/dL (1.7-2.4) [facility] ID Date Data Source [id number] 01/14/2020 04:18:42 AM EDT [facility] Name Value Range Interpretation Code Description Data Jennifer rce(s) Supporting Document(s) SODIUM 137 mmol/L (136-145) [facility] POTASSIUM 4.3 mmol/L (3.6-5.2) [facility] CHLORIDE 103 mmol/L (100-108) [facility] CO2 26 mmol/L (22-31) [facility] ANION GAP 8 mmol/L (7-16) [facility] UREA NITROGEN 23 mg/dL (7-24) [facility] CREATININE 1.01 mg/dL (0.80-1.30) [facility] BUN/CREAT RATIO 22.8 RATIO (10.0-20.0) [facility] GLUCOSE 99 mg/dL (70-99) [facility] CALCIUM 8.6 mg/dL (8.4-10.2) [facility] GFR >60 ml/min/1.73m2 (>59) [facility] GFR ( AMER) >60 ml/min/1.73m2 (>59) [facility] GFR INTERPRETATION [facility] --NORMAL KIDNEY FUNCTION OR MILD DISEASE - GFR >OR= 60CHRONIC KIDNEY DISEASE - GFR 15 - 59RENAL FAILURE - GFR <15 Est. GFR calculation based on the MDRDstudy equation, which assumes a steadystate for creatinine. Est. GFR should notbe used for medication dosing. ID Date Data Source [id number] 01/14/2020 04:08:57 AM EDT [facility] Name Value Range Interpretation Code Description Data Jennifer rce(s) Supporting Document(s) CALCIUM IONIZED 5.28 mg/dL (4.64-5.28) [facility] IONIZED CALCIUM NORMALIZED TO PH 7.40 AN D 37 DEGREES C. ID Date Data Source [id number] 01/14/2020 03:54:40 AM EDT [facility] Name Value Range Interpretation Code Description Data Jennifer rce(s) Supporting Document(s) WBC 15.8 10*3/uL (4.1-11.0) H [facility] RBC 3.42 10*6/uL (4.60-6.10) L [facility] HGB 9.6 g/dL (13.5-18.0) L [facility] HCT 28.4 % (41.0-53.0) L [facility] MCV 83.0 fL (80.0-95.0) [facility] MCH 28.2 pg (27.0-32.0) [facility] MCHC 34.0 g/dL (32.0-36.0) [facility] RDW 13.8 % (10.5-14.5) [facility] PLT 60 10*3/uL (150-450) L [facility] MPV 10.1 fL (7.1-10.7) [facility] ID Date Data Source [id number] 01/13/2020 06:10:08 PM EDT [facility] Name Value Range Interpretation Code Description Data Jennifer rce(s) Supporting Document(s) POC NOVA GLU 110 mg/dL (70-99) H [facility] ID Date Data Source [id number] 01/13/2020 12:27:45 PM EDT [facility] Name Value Range Interpretation Code Description Data Jennifer rce(s) Supporting Document(s) POC TEMPERATURE [facility] 37.0C POC SOURCE [facility] PUNCTURE SITE [facility] O2 THERAPY [facility] POC FIO2 95 [facility] AC TEST [facility] LITER FLOW 40 L/min [facility] POC PH 7.43 pH (7.35-7.45) [facility] POC PCO2 38.9 MMHG (32.0-48.0) [facility] POC PO2 80 MMHG (83-108) L [facility] POC SAT O2 96 % (95-99) [facility] POC BASE EXCESS 1 MMOL/L (0-3) [facility] POC HCO3 25.8 MMOL/L (21.0-29.0) [facility] POC TOTAL CO2 27 MMOL/L (23.0-32.0) [facility] ID Date Data Source [id number] 01/13/2020 11:03:04 AM EDT [facility] Name Value Range Interpretation Code Description Data Jennifer rce(s) Supporting Document(s) &PDF [facility] QVBETd7tMeLFKlBt96/PYWvdNRNiu2OfVPorOKx0SFwjNNNwX7FssEguPGZRYc4VJOnFFh5KQXlqDzNg yKE [file] V3h82RTDW+T1hPyJZBKTWi9O9WIqA2zCiRq7x7WwcwReJ6jj6kV6rbcnkQ8aLH7MjLt+DtvfJvA7R+castañeda [file] ICAgICAgICAgICAgICAgICAgICAgICAgICAgICAgIC AgICAgICAgICAgICAgICAgICAgICAgICAgICAgICAgICAgICAgICAgICAgICAgICAgICAgICAgICAgIC KiTX1KWPIrPXQjISHbGXNbPDRzJOZiNCAbTIWiJPHkDBRwTRFnVRIvOPNlEAGxJJCyQLTdJDOaYWPyLT AgICAgICAgICAgICAgICAgICAgICAgICAgICAgICAg QTNuNCTsMIKdOWQpPJ5IIEGnMMUoBAFyLIMdKNVrOESqDGAdAUHzBLCxHGMmPEFyIOEcFGGaIOHoMWHw EJDoLVHhCJApNWLhRLRmPCLiXPYiPABmMTZvWTDcMUZwQYZkTAQxQTJyFFUhSZZqYWAtJUAaCT5LNNDz ICAgICAgICAgICAgICAgICAgICAgICAgICAgICAgIC AgICAgICAgICAgICAgICAgICAgICAgICAgICAgICAgICAgICAgICAgICAgICAgICAgICAgICAgICAgIC SnSRHpMX0PCYWgJWLlICLxVGRnLYVuQTSwJUTyWOTwANZsHRVyKNQtZWToHEEfYKDySKSzQRGxJHAeGJ AgICAgICAgICAgICAgICAgICAgICAgICAgICAgICAg UYAySCNhMIKeAKMgVVCzMK6QNVZuAZWiHAWsORKdGMIaBGQfBKAcFBUpDTVaZGZyPOFfYYWkHURtXXZo QLWdJULoLZZiQTQwMKNsXUWuRNEmDCNoHQHwUIRmLORsYNZgDXWqWIYfZCJbKXKaNOEgAZGiSPXaTN2I ICAgICAgICAgICAgICAgICAgICAgICAgICAgICAgIC AgICAgICAgICAgICAgICAgICAgICAgICAgICAgICAgICAgICAgICAgICAgICAgICAgICAgICAgICAgIC TtCIKeRZJzWN5GUCUgEXYaCUNgMFGgOOGpRITzBGYmEPUjHYYbBSFiTPClJXTeGKNaTLHpTMHxFPNdYF AgICAgICAgICAgICAgICAgICAgICAgICAgICAgICAg CDLzMFFfEXOeTRPhKYGxXVLnNB1OCQJnDSZwZHZjZNZnPTZbVFJaAEDcMPJeBHRqHUSfUFVlKFIiVCYe ICAgICAgICAgICAgICAgICAgICAgICAgICAgICAgICAgICAgICAgICAgICAgICAgICAgICAgICAgICAg VS2DIHUdVTTnJSXyYFZqIRHvKYRsOUCiKGZnFSPtHQ AgICAgICAgICAgICAgICAgICAgICAgICAgICAgICAgICAgICAgICAgICAgICAgICAgICAgICAgICAgIC XvZEMnUTJpKOLuUD0DKG67lQZdx4B8RCSmPI7qudo/Ej3KBGmxneNbcOLlJC3MMpDlPX2kob3SVfOzLL 7aaz1OIAlACgAyR3L4hQRwFISrKZUVHkTzD15aHGhf Vm59SRhkIZYrGeXdVLk0Yi7AAuXcJ7cfTJSlFxN8PMJgZiU6HVFxWeI4PXSwJyJlJHGhSRRnCE0TUIWa F123vlPmCH9SYi7PCgAxQR2orn1SSsdkTZGySxoEIxr6BRtdZY8OfAKbW4CxdPLgs5fXCoSsH1XHJIV9 EIZpTz3HVIVyMdYfACMmSAzvNP9jHCHaKZNQwLfgof K1EI2VQV1zwqCdIX1FZuFuIb1zXb9SKuFsF0CwD0XpMHHnAMNIZIonQW9CYNPnHHY5GVNjMFWhKIMDHs XkN37cNZ5TU4Dmh15rYaD5UUZpCqBtEHvxKH82oHrlrnRlsQOraIdyWU9ANe8+DQplbmRvYmoNCnhyZW WKKtRpGVXXEjIiUZIeFRPjQTAmSwA5BaHrLq4HNQCf TSNvOQZnWgGqQQCnXPEaPVyqAPDfCPG7NmI2IYDnTXXmZB5HCyBsJOAwAxO6GqJnHWBqXBGlkw1LRIBw FWSpMYF0PlYvNJZlMGSoNMacTNOsALAtUDfjXAEqVJCqTN1SNxGxPCWdJWOkDKsgDZQdLYHdjf6JREVg GHAdYBbkWjEiQDBiLKYdKPqgZQUrAGF7PJY2RZWvRP KkSR4NWgNiGNVnGHlhNfpyXXJrHPZyhy6CXZLaYNLwKnM7TSRwNPDaORTnNQhwSARsXGT5OwkkUVHeVM KzMW4TOxDuEOJeARl9MZjpCTWnAOBrio5SCVQwQZZsFYQ0DWFuMOHbXJEsOUcyDOBbSQF0BaN8YOYpVQ CrEO7UPmDmIWXeZTt9PgrwVQZoZINptp0TFCPjCKKy IZx5WyHwNLGgQIKtRTdjWSKaBGToSZp0WJEpVPUsXV7WPqPsITWgKFAkBGubCZFfUKEecx5SOEJoZOTe QwF9UAShBHHzYDKjOAzjRDIjHEMzQJReZCJsMHWoQW3QMeOiMIVcQWB7BtetSJGcKWJtwp0BSFMgVYTj WmdpLxZtCETxWILwGGtlFANeLAXgBTB7HISfCSZsKA 5ZDaIzWIMqUtR7GSBaAVQiZZGbip8EXRUhAKYjJPF7HPZwQXLxYGDoQTazXMUwWTK2Cwv6SVHqETRoTM 0SZjWuDSNcNuLoFQugGPTxKBOqsb0YIIEyQJTrBSG4THIwVLUtHJKeFYpyKQQrKFJ0PXnsPTQkLJUaOY 0OLzRkDRQbBci7KWImEZOgJGZzrn1LOHGjDXY3JwG3 BKThVMOsRPDqGKkfJHKhUBR1LSA4SYGwMRYeLX1UJwWoNYUjLIPfAeNoLBDtGXGctj1VFCMxHKW8OES0 XVLsSHLxWEZgTVfiNCKuXGP6YSYpPXCrPQBhCO7FGfBkHNLpCdA5QHLtYVBfQPNutf6UAJQjQGW5MEX1 KTZmBSLkYGRkODyoBSQkNJZ7Yyr7PCSiYCKaPN6ZJw IzBYKeNoA7MLMxCDMpTGPvca9NiHZaqOiypd3MYQmFUw0GkVlzMEOlGYvqWh5wdQCiYBCfXIPODn5Qji FtKRDnPOUWFLchXGVmGYJqWSL8UJWhMFYnHLb6EDNyPrn6YzI3STFfCOz7OMgfUvD0OuA6VeYzXBDoBh KeTJedTZZdBvF6Cfs4LNHpXUH9IED+BV6cWMv+Yv8Ib5GolkZ9syVdYMi8RejoPA7ZULDPG1RMSw== ID Date Data Source [id number] 01/13/2020 09:58:14 AM EDT [address] [address]Xatwcgp Name: YOUSUF Puga NILAMONDOB: 1965Sex: MOrdering Provider: NAYELY Curry Prov: NAYELY Arce Provider: Procedure Performed: XR CHEST PORTABLEExam Date: 01/13/2020 09:51MRN: [id number] Number: [id number] Class: InpatientAccount #: [id number] for Exam: s/p CT removalTechnique: AP portable view obtained.Comparison: Chest x-ray 01/12/2020.Findings: Right-sided chest tube is been removed. No pneumothorax is seen. Brookside-Josiah catheter and left-sided pacing wire unchanged. Bilateral patchy parenchymal disease compatible with pneumonia versus edema unchanged.IMPRESSION: 1. Right-sided chest tube removed. No pneumothorax.2. Bilateral patchy airspace disease compatible with pneumonia versus edema unchanged.Report electronically signed by: CHADD BRITT On 01/13/2020 9:58 AMWorkstation ID: [id number] Name Value Range Interpretation Code Description Data Jennifer rce(s) Supporting Document(s) ID Date Data Source [id number] 01/13/2020 07:56:14 AM EDT [facility] Name Value Range Interpretation Code Description Data Jennifer rce(s) Supporting Document(s) POC NOVA GLU 108 mg/dL (70-99) H [facility] ID Date Data Source [id number] 01/13/2020 03:12:42 AM EDT [facility] Name Value Range Interpretation Code Description Data Jennifer rce(s) Supporting Document(s) MAGNESIUM 2.5 mg/dL (1.7-2.4) H [facility] ID Date Data Source [id number] 01/13/2020 03:12:42 AM EDT [facility] Name Value Range Interpretation Code Description Data Jennifer rce(s) Supporting Document(s) SODIUM 139 mmol/L (136-145) [facility] POTASSIUM 4.2 mmol/L (3.6-5.2) [facility] CHLORIDE 104 mmol/L (100-108) [facility] CO2 28 mmol/L (22-31) [facility] ANION GAP 7 mmol/L (7-16) [facility] UREA NITROGEN 21 mg/dL (7-24) [facility] CREATININE 1.35 mg/dL (0.80-1.30) H [facility] BUN/CREAT RATIO 15.6 RATIO (10.0-20.0) [facility] GLUCOSE 105 mg/dL (70-99) H [facility] CALCIUM 8.5 mg/dL (8.4-10.2) [facility] GFR 55 ml/min/1.73m2 (>59) L [facility] GFR ( AMER) >60 ml/min/1.73m2 (>59) [facility] GFR INTERPRETATION [facility] --NORMAL KIDNEY FUNCTION OR MILD DISEASE - GFR >OR= 60CHRONIC KIDNEY DISEASE - GFR 15 - 59RENAL FAILURE - GFR <15 Est. GFR calculation based on the MDRDstudy equation, which assumes a steadystate for creatinine. Est. GFR should notbe used for medication dosing. ID Date Data Source [id number] 01/13/2020 03:03:17 AM EDT [facility] Name Value Range Interpretation Code Description Data Jennifer rce(s) Supporting Document(s) CALCIUM IONIZED 4.80 mg/dL (4.64-5.28) [facility] IONIZED CALCIUM NORMALIZED TO PH 7.40 AN D 37 DEGREES C. ID Date Data Source [id number] 01/13/2020 02:52:47 AM EDT [facility] Name Value Range Interpretation Code Description Data Jennifer rce(s) Supporting Document(s) WBC 17.8 10*3/uL (4.1-11.0) H [facility] RBC 3.59 10*6/uL (4.60-6.10) L [facility] HGB 9.7 g/dL (13.5-18.0) L [facility] HCT 29.7 % (41.0-53.0) L [facility] MCV 82.7 fL (80.0-95.0) [facility] MCH 27.0 pg (27.0-32.0) [facility] MCHC 32.7 g/dL (32.0-36.0) [facility] RDW 14.3 % (10.5-14.5) [facility] PLT 75 10*3/uL (150-450) L [facility] MPV 10.6 fL (7.1-10.7) [facility] ID Date Data Source [id number] 01/12/2020 10:35:02 PM EDT [facility] Name Value Range Interpretation Code Description Data Jennifer rce(s) Supporting Document(s) MAGNESIUM 1.8 mg/dL (1.7-2.4) [facility] ID Date Data Source [id number] 01/12/2020 10:32:28 PM EDT [facility] Name Value Range Interpretation Code Description Data Jennifer rce(s) Supporting Document(s) POTASSIUM 3.9 mmol/L (3.6-5.2) [facility] ID Date Data Source [id number] 01/12/2020 02:09:40 PM EDT [facility] Name Value Range Interpretation Code Description Data Jennifer rce(s) Supporting Document(s) POC TEMPERATURE [facility] 37.0C POC SOURCE [facility] PUNCTURE SITE [facility] O2 THERAPY [facility] POC FIO2 90 [facility] AC TEST [facility] LITER FLOW 40 L/min [facility] POC PH 7.39 pH (7.35-7.45) [facility] POC PCO2 38.4 MMHG (32.0-48.0) [facility] POC PO2 80 MMHG (83-108) L [facility] POC SAT O2 96 % (95-99) [facility] POC BASE DEFICIT 2 MMOL/L (0-2) [facility] POC HCO3 23.2 MMOL/L (21.0-29.0) [facility] POC TOTAL CO2 24 MMOL/L (23.0-32.0) [facility] ID Date Data Source [id number] 01/12/2020 01:44:36 PM EDT [address] [address]Mfncyfr Name: YOUSUF DAWSONOB: 1965Sex: MOrdering Provider: CROW MORELDAuthorizing Prov: CROW MORELDReferring Provider: Procedure Performed: XR CHEST PORTABLEExam Date: 01/12/2020 13:31MRN: [id number] Number: [id number] Class: InpatientAccount #: [id number] for Exam: SOB POD1 s/p Open heart SurgeryTechnique: AP portable view obtained.Comparison: 01/11/2020Findings: Endotracheal tube and NG tube have been removed. Distal tip of Brookside-Josiah catheter in the right main pulmonary artery. Right-sided chest tube unchanged.Diffuse central pulmonary opacity asymmetrically involving both lungs most likely representing pulmonary edema. No pleural effusion. No abnormal mediastinal widening.IMPRESSION: Diffuse central pulmonary opacity asymmetrically involving both lungs most likely representing pulmonary edema. Bilateral pneumonia could have a similar appearance.Report electronically signed by: MERRITT WOLFE On 01/12/2020 1:44 PMWorkstation ID: [id number] Name Value Range Interpretation Code Description Data Jennifer rce(s) Supporting Document(s) ID Date Data Source [id number] 01/12/2020 12:36:36 PM EDT [facility] Name Value Range Interpretation Code Description Data Jennifer rce(s) Supporting Document(s) POC NOVA GLU 99 mg/dL (70-99) [facility] ID Date Data Source [id number] 01/12/2020 12:05:18 PM EDT [facility] Name Value Range Interpretation Code Description Data Jennifer rce(s) Supporting Document(s) POC TEMPERATURE [facility] 37.0C POC SOURCE [facility] PUNCTURE SITE [facility] O2 THERAPY [facility] CP BYPASS [facility] AC TEST [facility] LITER FLOW 15 L/min [facility] POC MIX FRANCISCO PH 7.33 (7.32-7.36) [facility] POC MIX FRANCISCO PCO2 49.4 mm[Hg] (46.0-50.0) [facility] POC MIX FRANCISCO PO2 24 mm[Hg] (35-45) L [facility] POC MIX FRANCISCO SO2 39 % (60-80) L [facility] POC MIX [place]ANCISCO BASE EX 0 mmol/L [facility] POC MIX [place]ANCISCO HCO3 26.3 mmol/L [facility] POC MIX [place]ANCISCO CO2 28 mmol/L [facility] POC HCT 31 % (41.0-53.0) L [facility] POC SODIUM 139 MMOL/L (136-145) [facility] POC POTASSIUM 4.5 MMOL/L (3.6-5.2) [facility] POC IONIZED CALCIUM 5.0 MG/DL (4.6-5.3) [facility] POC GLU 102 MG/DL (70-99) H [facility] PER[facility] ID Date Data Source [id number] 01/12/2020 12:05:13 PM EDT [facility] Name Value Range Interpretation Code Description Data Jennifer rce(s) Supporting Document(s) POC TEMPERATURE [facility] 37.0C POC SOURCE [facility] PUNCTURE SITE [facility] O2 THERAPY [facility] AC TEST [facility] LITER FLOW 15 L/min [facility] POC PH 7.37 pH (7.35-7.45) [facility] POC PCO2 40.6 MMHG (32.0-48.0) [facility] POC PO2 55 MMHG (83-108) L [facility] POC SAT O2 87 % (95-99) L [facility] POC BASE DEFICIT 2 MMOL/L (0-2) [facility] POC HCO3 23.4 MMOL/L (21.0-29.0) [facility] POC TOTAL CO2 25 MMOL/L (23.0-32.0) [facility] ID Date Data Source [id number] 01/12/2020 09:46:49 AM EDT [facility] Name Value Range Interpretation Code Description Data Jennifer rce(s) Supporting Document(s) EKG [facility] BWTFYi0uEeHFGxKkh4ZlSiPgWIZgFI8gqrb9Z9Z1fZFoI8AclWDyg2qeQ2NhS4NoXIYrGFITHU5BuHTg jb2 [file] 7t8Oonqk0ZUs7kJDOTWA3Aw/Juan Jose/MshjHcNWRnxJBKQqyzRCRtcDJzK9tUcBYRjlaDKrS6hZcf1tPRt [file] GZt/fUy8Y4hPrhto1/19x+YXaciL58/ybdSX7+/vl+X7+6tr613g6i9K+/thNJSx26/7/P6d+tdvY/tree deadener f//mcmxV0L/+4F1sGoye5J/wna+yxgLD8cTruHQZRea3vJbGZbpplAByg7lpStai6gaEOlo68oHNbg91 fjLkY43q8amJ65n8giV4sq7idP1mt3km1+raomuLri 89qkoswpqWvj24owbnicaTdt73bljr003p4ry002z4nv398c9ua135wmcZiVWTZ5ZT0WWVayJ/J5h470 L7ge6Lz50a48jI9QX+gm/Q6KqVL1LFm6ZJWx/d8HRbMOBvf4AEuc5oaFGmo6vkQeqz7paDEra56bCJcf 80vzpkX96g7yaY21d5odE4yu7xhV0gp3xcJuc49Sda l0ryHlg12Dirf5hmIud00qXrnl49cyyc255u5iz401v5ma276e0xwL26CQHYEP8I3cgEgavhZQyljlL3 sAzXOo2v+RmVLWYllVZjgEX77M8bFBgpsK3fCaz7jbs2dv6bxl3py7mn0+whDuk8b8fLlp5scIUbn0ny Uuwg5kvTnzf77jWoqh96exU0AxmWEZm4svM3TfrMCX u4neK3Spt2x6nvlz9lqGkns5iaQsqk1htPrhi92oDzhsf6WLcedaNw+8L//td5hrp++/mJoV4szaiI2q TaRT9h/8KvbuameVUzX/idr/3RUpvnW9+jwswdEsOCK8CSESwWqtJ6qbcB+on0E/QF+nE8vw5WipNsLg SElnop5CQ4rUz8OwaE3gU2AFfB8ZC65J5yRBUw6Noy ep0lvMS1uoOoPd915C1lJl4C4w+O/xtK4fB0LiRr9Y0h3y69yyUxIJ46MOG4m8J0MaY9hT+FA/QAfYOO 2kcy97Wdn/6cNCagC+gHi+ykv+587ME8GMcJOOs3rxZ+6Jn+bKynxakJPLnlfl7j5G/alrdwxMIVtv6I 77eNritQ04186b/BxJwS6ie4Un4V2VrT4LHllzVl2f su1UC01O21r/hcK9hXfV/4HaFVd4/osiQg5Hvp4i6ru+n15AdmvA6EZ608d6p2nWwjuGs/y1JZZiUT0e zT0sgdJ7aY8s6qSW9rYdshbS2/fuEF+ur/WAM6CQ9/d+7+jwv/d+H/esPiBtcczFg1jte4JuaeayZJ57 tloFv32+NhV5KD3HvIf+7/m0QtgGkEn9FI254+nqbH R7wWGy7ARGwWOk5Ku29N2/oRYz9jYiZ+w0GfSH/tmcr0jSUsnSkHXQhzDR+7/T40hF9uczqVPB4r7sU4 0he4n7Kw3HsrxgBU5Co48pL946L7E+TskJen5IB54ep0A/x4fRu755kal6z9h8fPT3gsQr70o4HNx+fV 4rbhXB2agnGiT/oJ+fO0qg8Q8vHX3ZSiYf7Z4NWgn9 YH0bHI3dO/195f/86H/E94Q2Nwpa/0Wg/9N1zciH2g27jGQG8nbfx7/yb41MD4/p4qwD9btTakRS50HK 7iFZ82yvKNyy07hIDCfG0ocSS8BdcKAha9chBKRlz9eb8y+WvPV+fxZYdBX9/7vO1p0cp1Lp1Q/HzeXX 7hDfpu+rupg2fu+HI6td5jDqn2Ih6qLiw2+vNAfx74 j4PNNqu9uqFzQX9Ml0k/GT90kyOKIljxzAds+KhfdtM4i6xTs1uWtnPzEEb/0gqWhmX0ItkqwitBL6rl 5ljfCoJlQ2BRsgY2aKhXVtgeU1K49tt/17Wdof3F2L0Wcn3n0YH9M+WjvY7/6/i/ttI71wtsrQX/+kI5 cJ2D1o6Hd/87MV/ZN8M56fcb90Ba9To/c4CO/jwNdM xXE+2dmK8m+lVfXr5jaUNh2XGW4JO9uV2lOv44KhAJ+Wr1/ss3nijoa/+j6aLbhufScZnwuQULcZQB0v dc6AQdzyarpx7F66ygG+ecF1/QxuFLIwy4kr0cbcJB4Ffz4rQzc9k43/vU97zt/q9lIryKl5rChIun2z qXzkg0jRSj5RjOgGJ/f/R+QQtfnbZH7/uKA7rzarXn /mnq7TG9+Cipbosb9VU3Epj4mXy0O8KTxdusok83GC3Y/DvaXfG0w4Y2Nn/o8x1yDy8d6VZk3PuyQ88t n2KJfjt/gezcf3X/b6y/G/24rl2OXxxknIMz8nY4GWgcl5vlVK9hU42H7+hiCq5CNHQ+6lC05idrjO2W vrxMEg2YYrQ+ovwF+kL5ja/Os8bqD+PZ+J7+v0P6/w 7p/zuk5+otAK0UsXa5Od9S8PcOXLjayY2PwaDCOXm7lfQirjnp8CF+OsHHQ4HdbMqeWl/2/Dy05+eh3Z +HCtKjvYr/q/i/iv+r+I1eIK7oO+3VCTram/hiF81N2lfAbc2pYZvysoluj6sq/oTIlKHracK89cFV1b 07ImOteejhCs1j45T2Z9/dsHcaR/re75/1pD9DlPB+ QD/s4Ey83TnbB3ql6iucPD9GI8tkIzA+EBB7qOsqGYbgg95V0JBszrTjbRb5353v7IoVYHVg+1TYOzyR dsOq932mExcK8YP4Phjj6dU+WkZ8e1vs0XaGvlDhKywv9K52ZhLVrkZ1GpVLwu9UhR//TyFIpkw24aSH /+v4v47/6/i/FtCQ0Yx81e+Q0vrHMB/QBXQBXbsfpv 7oywK7idskqx5+nPqr7P+z19+R+qtKg/am/mqGihiCf7jesv0y9pWYo/hN/WCUcd3xtt72yTmB71P6DQ i/C+T08DuBK0Wb0Ymd5Vco0QtOt7XX7YoEZhUivvw83SdFCt3VjAl7S/WQsY8xH4YiK2mE6cu+cATaGw C4ohMLyzDoOf6BFUFS+RxX2or8iqha3aOIvOhOxOd+ D8zPG+8tX3hr1nt5/x7UaFiiI4LpsZbb8bh/G/44w039gy9R5ryVQ0/e+L8b//tpH5h8dsrm291k+XkM FEqT9nSxvKPPWcpoqbkGZvcp0h+mm1JvsEnawrwk6K8WcrqU3cXTcu0o0YRQo81VCH5vXeCB9VIqF1Vh gI60rmY27zZ/Oi/9ghhGcOD36thlUY5oJEa5Jnp268 ddi8001bE1yR48Ol/P52HfR+/5+Mzla6q6iSc8nwkXKUT8U7/T+vbzoO9+j/U2tD9pOQ37f/ynn9GL04 vDb3XEpZEg+dyO0x6r5NOu2muURveoxkr8oalL+xEeYjgK8Y72+L+j8aQN/N/VrCGuPvt3W3LrQNsgHB S9dcQ3Ib/uvVNOj9qW+jraGH0axY2MrM+aPiCD72VV /VYO17pY/udkvSSU7qTQ/lmahHo0P9aRgqiqnMFH6Upei+H/GtoL/CCOh5VO/wv9lUF/KJ92Pwiw+L+O 9roifetjDforc/wjw73egD/vW+qvbhjlnPYevYGl/hhRbk9xSsttPO2+d929F8Nx8bpVG1/7ezLCdl38 b7qn16FOW7pTII/aFz4j2e2vYuOU484Dpggd1RFBd6 sOe6c5+pzK+4Q65Haapz7IZAnZicXmwj1+GtmWg6/pq7aG164npeJ+son+jTfppMDyf3Fy0uzUfcA9+3 9Xr7+K81CZdiBkU6O3fT5+Jcgg5H2/WOjPq/YB38mvR+/021af314YoQ3+vNCfF/hwJH4Q8j+jS9Ee6d oD81Vg/Ab6c6A/B/zyRWdR5gwmq4K8ppM7aH/orwz6 K4u+u7LGM7abxi2Ornny1d8wwW15xvbLz/t4smPNt/3FJuEsaJ9jtygZ+iuD/kanh6GZ6HbyfaCsJskq Moz2Qn/l0F/50/pYh/7FK0G4YEeOeCIn+hx/cx197G6y+isHvnKcD/ylCQ6og8LxFC2WsxAG6tomY5b1 uWa2Cqn6MmxY+v6/Dv2VQ3/n2O552FibljKgc1bSJ3 L3+k0K04ZfYjTMkmjApnlekMRexQ9v0m2Ci+9MglAMhdDMLsp8/2npeOUkgn1/civacpAybZ6l+WCFG0 +6Ud769I86vopq0MP51MwOKyM5BF921WPXV+tzfAjorc/t9F7yymTCI+cjv8ijlUgMmmr3uQbkLEMQHL sR0JxmX+dk92C5Y61ID4ihqHJQnlghxbcpxGjocN/c P89ESGC3V03Y5jJI/uU266KiuBe1/2DNv9q0elAc7/tu6M/e+fo63BsWQ42Up4s9/XVHf/YB+uR5hyK5 P+czVE9gA6T+kb73++1te3K7Aut3l9bA0/jE+L03O7mh7/j6LxnJkBbq5M0j2kb/qryGcgzpHXRH+gk6 9npK1CynMRexJ/CVT/cvoiccX6PMUy8tmJ9F20vb1L 5c1WbTvpFdd/ZP3l61m8U7r/XtvtDehfZCf+NTWfx3R04V8os/xUyj6vA/N9Be3L/yUKQfSI//C/2VQ3 /rlqKP3vsmlplcshBb+Tz3YlIqajHlUu+w88YslYnZ+NkD/ve8b0msoNb0Ljxe95Q6nz2h+Em549713L dTFnF9D/3dWH9x/4p49JTO4vK6pQAs+Q6Ug/+7N+rt 9s6n+/J6B3qb8vpxGqlyAT2H4/uiE+92ZuqvPNPk/Cu2cl44p8m1l8qRxzNgkpW6ss0N58+ZT+B7At+5 Qe/+PKX/00NM5COrXkzcxppn/Y7c9NLKwfcN+SsLna45lHvqxGi4vxo/ju1YtjQeJMy1TDG+o/w+H5za 56JQW7EX9B8PUlK5MBF+aI88gdvPU6m2tkXxtMZBdq CqOggL9bSRCvkzZEgcs6dd7h1pFx27sa+a0F/Qmn77OFZuakoxZ72hPEw8hj+aA+2F/ulEilTZYOx7G2 /C61EqoB7tfE5LftxNl+H/GtqL++2L49ft9ZjL6D+hv5qG/zq86fRiT81Wajz96/p8YSa+yvForY+christopher /WmmM0dK7op76sC06Ee2VTxnnmqpIsf5XjbzTttT98 7TgZJrQTO9GnY6ijoYmri1yBW+H5qscyu3w3q8yPkyVRzkLl89jTudch1Mu4VtHLhngolBIAlcCcteC8 anq/64rb01Dn8OmB3D+9198J/eAhvL45L+zvrbp6iw83Yhfpef5IaANy/u9s/fOcGL/NM0B23SrhpZ3n 7UGecw9nJ+/40awOv1Bbkc2Ts32VX+bC/FdZd8bzT7 nD93TCvnjqn9Tx8E2t9DYAbvmH5F4M3NP+Tc3kgR5+F/7vQnsXxi/ut0/awqeGr6X6Lr+nTNxvnzGQHv MV7l/JLID78COjNZyN/yfO4pT8v/PfmSI2vi/r48GJeVDTtcpw4oqPX+oGm36og1nr/UA5Bjr+70Z7N9 yQ47U6GR2boUuwpzUxp2McLeSozt17Qc23mfOwV/Ru 33pR6E3ceGtN3/Pf9bR+Lt6C0g28J65C65hzsud+mLWZtbpBrgai49Tfztq2hd0663rM5htTakoo118/ iYCuoOd+P+s8y5UGJN4SO/3VIyMXe0lh8q4d+QP30mK3lOrrfWTVh062fhlef/k8OeNQ94lTzl+64W9d W6m/laIPB0nmYT+gn/SQ0j61W2zuw7T7/u6ED5C9xx yE75V2S41TrmA7V/RNSNkxp5h0l2g4+f0LHp7CZrf/is05UOR491O7uNTgsjj+3jLjr87GOk4NStr/tX D/te9986q/DPSiK89v6T4lH00m80hL3+9K/VWmMQFdQO/0bYe7b4Mrl1n2mD4FDj08M4m02NRP+tnj2t PbU3zpsP6yZ+horzXeWHg/aErRh7l5ClF9544nxfU7 K9g4BL0hxApOROKO+eqt7cXbi9b/IU7EZ8o0AF/9/nLMz6W/Sgfc1EGCT/cqYr2Sibq7oR9OxtdpH/F/ in7fquhDdJw66j6UiupdFOsetAZ4z5Yi+roF/dXC/luZ03OS2wvLgkaJ8i8zfP+m6ho40aKAK+eig68i +9FTX1OV8oaJthDjAJ7wnGot2Cr6znF0lvO+cK3GGw t2ypMpmMP6/09yePovXklmtskvUj37D8jP+6KSGbvoqjU6Tn3l3BgMdW/g/wb6M/RXK7D+QrnswQn4nn a+icl028cTrwffiy0/cu2+P7kSX+V/SXxVaQzlWM/w46Zq4emTT8vKMk4oGg/eGL+143as9xx0wXE+d+ PJeBo/x/OZ0cgIcIc+lxasgifO1DZzL+i/43HU [file] blvvP//vU/f//hXZb+mwb+/tef//concrete batching plant operator//7z9///vOPv//C89Z/OdjzY2etjq1x/zQskoj3Yv4iicR4c+ [file] MDAwMDAyOTggMDAwMDAgbiAKMDAwMDAwMDQwOSAwMD EzCJPpQKojPMHmDTCwQEByOCZsRZSpTW5bTuJsNXSeLOM4TNTtRGQtUEOttwDJQEWdMJIhWCq5HNOpIA UvQCDhDSilFKEcZJXxFBQ2GPMzFNSeWM1jBhDuSAOwRGY8UlUqFBEkBMQosiRWQYIlRVOfHPP4RsToOU KpCYAnHHisDIXnHKJuDWpaERRoETXrAR0dLyDhRVWv UTWdITzfEGNxSIDhfbHGROAaNUYgDAAiVzWeBBXaYWFjVJfoPDBhYHD0MIJtEDMyRRUfCG6jUsAoIMVn PML6YLlxJCNwENFptvCKBLDiFALrPIqjFVWsBSEhNUEkWPwfRVLjSYHjJKH1TADzLBUfSX6iYyDbQYMo FIHlBWArHrV2GmGwNhIXtYGiqUjbkta0SUkxE9p2QR CjKKouYX4cqkPyUORcIhznIh5pyJQ6NQHbKspGWd4Uz3SqxaM9vsFlFuZtHaC3FupnMRKGHv== ID Date Data Source [id number] 01/12/2020 07:23:36 AM EDT [facility] INFORMATIONPatient MRN Name Date of Age Gend*PT [id number] Yousuf Ken W 1965 54 years M SDAPT Location Admission Date/Time Visit ID Attending Provider --- --- --- --- EPI ID [facility] Admitting Provider [id number] ---CLAIRE ExamPerformed by: Chung Palmer MDInformation: Diagnostic Indication for CLAIRE: hemodynamic monitoring and defect repairevaluation Physician Requesting Echo: Emmanuel Eller MD Patient Location: [place] Intubated: Yes Bite Block: Yes Heart Visualized: Yes Insertion: Easy Probe Type: Multiplane Modalities: 2D, color flow mapping, continuous wave Doppler and pulse waveDopplerEchocardiographic and Doppler Measurements:Ventricles: Right Ventricle: Cavity size: normal Hypertrophy: No Thrombus: No Global Function: normal Left Ventricle: Cavity size: normal Hypertrophy: No Thrombus: No Global Function: Normal Ejection Fraction %: 60 Regional wall motion is normal unless noted below:Valves: Aortic Valve: Annulus: normal Stenosis: none Area (cm ): 2.29 Mean Gradient (mmHg): 2 Regurg: none Leaflet Morphology: vegetation Leaflet Motion: normal Mitral Valve: Annulus: normal Stenosis: none Area (cm ): 4 Mean Gradient (mmHg): 1 Regurg: none Leaflet Morphology: normal Leaflet Motion: normal Tricuspi d Valve: Annulus: normal Stenosis: none Regurg: trace/trivial Leaflet Morphology: normal Pulmonic Valve: Annulus: normal Stenosis: none Regurg: trace/trivialAorta: Ascending Aorta: Size: normal Dissection: No Plaque thickness (mm): 0-3 Plaque Mobile: No Aortic Arch: Size: normal Dissection: No Plaque thickness (mm): 0-3 Plaque Mobile: No Descending Aorta: Size: normal Dissection: No Plaque thickness (mm): 0-3 Plaque Mobile: NoAtria: Right Atrium: Size: normal SEC (Smoke): No Thrombus: No Tumor: No Device: Yes Left Atrium: Size: normal SEC (Smoke): No Thrombus: No Tumor: No Device: No Left Atrial Appendage: normal Septa: Intra-Atrial Septal Morphology: normal Intra-Ventricular Septal Morphology: normalSTS Required Documentation: Pre OP CPB: Diffuse Aortic Calcification (Porcelain Aorta): No Assessment of Ascending Aorta/Arch for Atheroma/Plaque: Yes Assessment of Aorta Disease: Normal Aorta/No or minimal plaque Aortic Condition Altered Plan: No Highest Level Aortic Insufficiency/Regurg: None Highest Level Mitral Insufficiency/Regurg: None Highest Level Tricuspid Insufficiency/Regurg: Trace/trivial MARCIO (cm ): 2.29 Aortic Mean Gradient (mmHg): 2 MVA (cm ): 4 Mitral Mean Gradient (mmHg): 1 Post OP CPB: Post Op Echo Performed to Evaluate Valve(s): Yes Highest Level Aortic Insufficiency/Regurg: None Highest Level Mitral Insufficiency/Regurg: None Highest Level Tricuspid Insufficiency/Regurg: Trace/trivial Highest Level Pulmonic Insufficiency/Regurg: Trace/trivial Post Op Ejection Fraction %: 60 Repaired/Replaced Aortic Valve: No MARCIO (cm ): 2.24 Mean Gradient (mmHg): 2 Repaired/Replaced Mitral Valve: No MVA (cm ): 4 Mean Gradient (mmHg): 1 Repaired/Replaced Tricuspid Valve: No Mean Gradient (mmHg): Not assessed New RWMAs: NoAnesthesia Information: Anesthesiologist: Chung Palmer MD 2nd Anesthesiologist: Gallo Adamson MD Addl Anesthesia Staff: Puc. [place] Surgeon: Emmanuel Eller MD Echocardiogram Comments: There is a mobile mass on the left AV leaflet. It isdifficult to get an accurate size or tell where it is originating from butappears in some views to be at the tip of the left AV leaflet.Post CPB there is no foreign material seen remaining on the AV. There is no ,AI, TALIA, aortic dissection or PFO seen. His LV and RV function was initiallydepressed coming off CPB but going back on bypass and waiting a bit thisimproved back up to his pre bypass RV and LV function. Name Value Range Interpretation Code Description Data Jennifer rce(s) Supporting Document(s) ID Date Data Source [id number] 01/12/2020 05:33:29 AM EDT [facility] Name Value Range Interpretation Code Description Data Jennifer rce(s) Supporting Document(s) POC NOVA GLU 121 mg/dL (70-99) H [facility] [place] [facility] CLINICAL STAFF ID Date Data Source [id number] 01/12/2020 03:27:43 AM EDT [facility] Name Value Range Interpretation Code Description Data Jennifer rce(s) Supporting Document(s) POC NOVA GLU 137 mg/dL (70-99) H [facility] [place] [facility] STAFF ID Date Data Source [id number] 01/12/2020 04:05:10 AM EDT [facility] Name Value Range Interpretation Code Description Data Jennifer rce(s) Supporting Document(s) SODIUM 141 mmol/L (136-145) [facility] POTASSIUM 4.7 mmol/L (3.6-5.2) [facility] CHLORIDE 107 mmol/L (100-108) [facility] CO2 25 mmol/L (22-31) [facility] ANION GAP 9 mmol/L (7-16) [facility] UREA NITROGEN 17 mg/dL (7-24) [facility] CREATININE 1.55 mg/dL (0.80-1.30) H [facility] BUN/CREAT RATIO 11.0 RATIO (10.0-20.0) [facility] GLUCOSE 122 mg/dL (70-99) H [facility] CALCIUM 8.5 mg/dL (8.4-10.2) [facility] GFR 47 ml/min/1.73m2 (>59) L [facility] GFR ( AMER) 56 ml/min/1.73m2 (>59) L [facility] GFR INTERPRETATION [facility] --NORMAL KIDNEY FUNCTION OR MILD DISEASE - GFR >OR= 60CHRONIC KIDNEY DISEASE - GFR 15 - 59RENAL FAILURE - GFR <15 Est. GFR calculation based on the MDRDstudy equation, which assumes a steadystate for creatinine. Est. GFR should notbe used for medication dosing. ID Date Data Source [id number] 01/12/2020 04:05:10 AM EDT [facility] Name Value Range Interpretation Code Description Data Jennifer rce(s) Supporting Document(s) MAGNESIUM 2.2 mg/dL (1.7-2.4) [facility] ID Date Data Source [id number] 01/12/2020 03:54:24 AM EDT [facility] Name Value Range Interpretation Code Description Data Jennifer rce(s) Supporting Document(s) CALCIUM IONIZED 4.80 mg/dL (4.64-5.28) [facility] IONIZED CALCIUM NORMALIZED TO PH 7.40 AN D 37 DEGREES C. ID Date Data Source [id number] 01/12/2020 03:33:14 AM EDT [facility] Name Value Range Interpretation Code Description Data Jennifer rce(s) Supporting Document(s) WBC 14.0 10*3/uL (4.1-11.0) H [facility] RBC 3.61 10*6/uL (4.60-6.10) L [facility] HGB 9.9 g/dL (13.5-18.0) L [facility] HCT 30.2 % (41.0-53.0) L [facility] MCV 83.8 fL (80.0-95.0) [facility] MCH 27.3 pg (27.0-32.0) [facility] MCHC 32.6 g/dL (32.0-36.0) [facility] RDW 14.0 % (10.5-14.5) [facility] PLT 91 10*3/uL (150-450) L [facility] MPV 10.7 fL (7.1-10.7) [facility] ID Date Data Source [id number] 01/12/2020 02:16:42 AM EDT [facility] Name Value Range Interpretation Code Description Data Jennifer rce(s) Supporting Document(s) POC NOVA GLU 149 mg/dL (70-99) H [facility] [place] [facility] STAFF ID Date Data Source [id number] 01/11/2020 11:56:09 PM EDT [facility] Name Value Range Interpretation Code Description Data Jennifer rce(s) Supporting Document(s) POC NOVA GLU 130 mg/dL (70-99) H [facility] [place] [facility] STAFF ID Date Data Source [id number] 01/11/2020 11:44:56 PM [facility]T [facility] INFORMATIONPatient MRN Name Date of Age Gend*PT [id number] Yousuf Ken W 1965 54 years M IPPT Location Admission Date/Time Visit ID Attending [id number] 01/11/20 0513 --- Emmanuel Eller MD([id number]) EPI ID CSN Admitting Provider [id number] Emmanuel Eller MD([id number])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 Wise supply assistant Jesusita TallahasseeAnesthesia General anesthesiaFindings height 154 weight 62 kg pump time 118 cross-clamp time 43 perfusiontemperature 33The right lung through the right minithoracotomy was back of chart suggestive ofsevere COPD and emphysemaProcedure minimally invasive and aortic valve exploration and removal of thefibroblastoma from the left main coronary cusp and right femoral arterial andvenous cannulation and insertion of the left subclavian pacemaker catheterIndication for surgery this 54-year-old gentleman with a history of syncopepossible TIA whose echocardiogram showed fibroblastoma on the left main hasAfter the patient was brought to the OR endotracheal general anesthesia wasinduced prepping draping was done routine fashion right minithoracotomy incision7 cm was made in the on the second intercostal space carried down to the chestupon entering the intercostals entering the right pleural space lungs lookedlike a bag of charcoal we identified the pericardium pericardiac the pericardiumwas entered we were far away from phrenic nerve meanwhile the right femoral areawas approached right femoral vein and artery was identified pursestring sutureswere applied heparin was given cannulation of the femoral vein was doneSeldinger technique and the catheter was advanced to the right atrium andsuperior vena cava and then the right femoral artery was cannulated with thesame method with #17 femoral arterial cannula patient was placed oncardiopulmonary bypass right superior pulmonary vein was identified and LV ventwas advanced through the right superior pulmonary vein into the mitral and theleft ventricle then we did not want to give cardioplegia antegradely through theaorta itself we preferred to open the aorta and gave cardioplegia directly intothe left main and the right coronary for that reason we clamped the aorta withthe severe t Signet clamp and aortotomy was done and we identified the left mainwe gave 500 cc of cold cardioplegia through the left main and 200 through theright coronary we identified all the cost is explored very carefully the onlything we found was a lesion which was relieved by 3 cm on the aortic side of theleft because I initiated after leaflet without any damage to the leaflet and weexplored again we did not find anything else at this point the aortotomy wasclosed with 4-0 Prolene in a running fashion we placed the root vent and thenthe air root completely then put both vents root vent plus LV vent all tominimize the size of the ventricles to be able to place bipolar ventricular wireand which was very difficult to do and after the incident brought throughseveral sounds secured and the patient was placed on Trendelenburg position withthe aortic root more and cross-clamp was removed the heart remains standstillwhile in the paced the ventricle good capturing to atrium was remarkable so somesecured at 37 degree after we made sure there was no air in the system the LVvent was removed and the site was secured root vent also was removed and sitewas secured at 37 degree the abdomen wanted to come off we noticed that thebipolar ventricular wire was not capturing for that reason we insertedballoontipped pacemaker catheter in the right subclavian by incision the leftside of The Left Subclavian Vein Stenting and Left Subclavian Vein and Advancingthe Balloontipped Catheter into the Right Ventricle Then Finally Able to Placethe Patient and Come off Cardiopulmonary Bypass and Noticed at This Point thePatient Had Sinus Rhythm of His Own V Remove the Venous Cannula and the Site WasSecured Protamine Started Decannulation of the Femoral Artery Was Done and theSite Was Secured We Had Great Pulses Distally the Femoral Site Was CopiouslyIrrigated with Antibiotic Solution and Closed in Layers Standard Fashion thePatient Mentioned That upon Entering the Chest Will Be Not Read and I Will Placethe Back with the Fiber Wire Reapproximated the Ribs with Heavy Vicryl afterCopious Irrigation with Antibiotic Solution Closed in Layers Standard FashionUsing 2-0 Vicryl for Those Layers Patient Ribs We Used Heavier Vicryl SubcuTissues Closed 2-0 Vicryl Skin Was Closed with 4-0 Monocryl Used On-Q for PostOp Analgesia the Patient Completely Remained Stable and Cardiac Index Improvedthe Echocardiogram Showed the Valve Was Functioning Very Well No Regurgitationand the Lesions Disappeared Which Is OBVIOUS the Patient Was Transferred toCVICU in Stable Condition Patient Should Mention That We Copiously IrrigatedThis Side of the Wounds with Antibiotic Solution Please Send a Copy of This toDr. Mark Cantu. Name Value Range Interpretation Code Description Data Jennifer rce(s) Supporting Document(s) ID Date Data Source [id number] 01/11/2020 11:25:50 PM EDT [facility] INFORMATIONPatient MRN Name Date of Age Gend*PT [id number] Yousuf Ken 1965 54 years M IPPT Location Admission Date/Time Visit ID Attending [id number] 01/11/20 0513 --- Emmanuel Eller MD([id number]) EPI ID CSN Admitting Provider [id number] Emmanuel Eller MD([id number])H&P reviewed. The patient was examined and there are no changes to the H&P.Emmanuel Eller MD11:25 PM Name Value Range Interpretation Code Description Data Jennifer rce(s) Supporting Document(s) ID Date Data Source [id number] 01/11/2020 11:46:11 PM EDT [facility] Name Value Range Interpretation Code Description Data Jennifer rce(s) Supporting Document(s) POC TEMPERATURE [facility] 37.0C POC SOURCE [facility] PUNCTURE SITE [facility] O2 THERAPY [facility] POC FIO2 50 [facility] AC TEST [facility] MODE [facility] PEEP/MAP 8 CM H2O [facility] PRESSURE SUPPORT 10 CM H2O [facility] SP RATE 16 BMP [facility] POC PH 7.30 pH (7.35-7.45) L [facility] POC PCO2 50.2 MMHG (32.0-48.0) H [facility] POC PO2 89 MMHG (83-108) [facility] POC SAT O2 96 % (95-99) [facility] POC BASE DEFICIT 2 MMOL/L (0-2) [facility] POC HCO3 24.4 MMOL/L (21.0-29.0) [facility] POC TOTAL CO2 26 MMOL/L (23.0-32.0) [facility] STAFF ID Date Data Source [id number] 01/11/2020 11:08:13 PM EDT [facility] Name Value Range Interpretation Code Description Data Jennifer rce(s) Supporting Document(s) POC NOVA GLU 118 mg/dL (70-99) H [facility] [place] [facility] STA[facility] ID Date Data Source [id number] 01/11/2020 10:35:11 PM EDT [facility] Name Value Range Interpretation Code Description Data Jennifer rce(s) Supporting Document(s) POC NOVA GLU 126 mg/dL (70-99) H [facility] [place] [facility] ST[facility] ID Date Data Source [id number] 01/11/2020 11:02:33 PM EDT [facility] Name Value Range Interpretation Code Description Data Jennifer rce(s) Supporting Document(s) SODIUM 143 mmol/L (136-145) [facility] POTASSIUM 4.1 mmol/L (3.6-5.2) [facility] CHLORIDE 110 mmol/L (100-108) H [facility] CO2 25 mmol/L (22-31) [facility] ANION GAP 8 mmol/L (7-16) [facility] UREA NITROGEN 17 mg/dL (7-24) [facility] CREATININE 1.36 mg/dL (0.80-1.30) H [facility] BUN/CREAT RATIO 12.5 RATIO (10.0-20.0) [facility] GLUCOSE 127 mg/dL (70-99) H [facility] CALCIUM 8.5 mg/dL (8.4-10.2) [facility] GFR 54 ml/min/1.73m2 (>59) L [facility] GFR ( AMER) >60 ml/min/1.73m2 (>59) [facility] GFR INTERPRETATION [facility] --NORMAL KIDNEY FUNCTION OR MILD DISEASE - GFR >OR= 60CHRONIC KIDNEY DISEASE - GFR 15 - 59RENAL FAILURE - GFR <15 Est. GFR calculation based on the MDRDstudy equation, which assumes a steadystate for creatinine. Est. GFR should notbe used for medication dosing. ID Date Data Source [id number] 01/11/2020 10:02:32 PM EDT [facility] Name Value Range Interpretation Code Description Data Jennifer [facility](s) Supporting Document(s) POC NOVA GLU 153 mg/dL (70-99) H [facility] STA[facility] ID Date Data Source [id number] 01/11/2020 09:29:36 PM EDT [facility] Name Value Range Interpretation Code Description Data Jennifer rce(s) Supporting Document(s) POC TEMPERATURE [facility] 37.0C POC SOURCE [facility] PUNCTURE SITE [facility] O2 THERAPY [facility] POC FIO2 50 [facility] CP BYPASS [facility] AC TEST [facility] MODE [facility] PEEP/MAP 8 CM H2O [facility] PRESSURE SUPPORT 10 CM H2O [facility] SP RATE 16 BMP [facility] POC PH 7.27 pH (7.35-7.45) L [facility] POC PCO2 49.9 MMHG (32.0-48.0) H [facility] POC PO2 79 MMHG (83-108) L [facility] POC SAT O2 93 % (95-99) L [facility] POC BASE DEFICIT 4 MMOL/L (0-2) H [facility] POC HCO3 22.8 MMOL/L (21.0-29.0) [facility] POC TOTAL CO2 24 MMOL/L (23.0-32.0) [facility] POC HCT 33 % (41.0-53.0) L [facility] POC SODIUM 139 MMOL/L (136-145) [facility] POC POTASSIUM 4.0 MMOL/L (3.6-5.2) [facility] POC IONIZED CALCIUM 5.2 MG/DL (4.6-5.3) [facility] POC GLU 191 MG/DL (70-99) H [facility] ID Date Data Source [id number] 01/11/2020 09:02:29 PM EDT [facility] Name Value Range Interpretation Code Description Data Jennifer rce(s) Supporting Document(s) POC NOVA GLU 222 mg/dL (70-99) H [facility] ID Date Data Source [id number] 01/11/2020 09:40:32 PM EDT [facility] Name Value Range Interpretation Code Description Data Jennifer rce(s) Supporting Document(s) SODIUM 142 mmol/L (136-145) [facility] POTASSIUM 4.4 mmol/L (3.6-5.2) [facility] CHLORIDE 108 mmol/L (100-108) [facility] CO2 23 mmol/L (22-31) [facility] ANION GAP 11 mmol/L (7-16) [facility] UREA NITROGEN 17 mg/dL (7-24) [facility] CREATININE 1.57 mg/dL (0.80-1.30) H [facility] BUN/CREAT RATIO 10.8 RATIO (10.0-20.0) [facility] GLUCOSE 311 mg/dL (70-99) H [facility] CALCIUM 8.1 mg/dL (8.4-10.2) L [facility] GFR 46 ml/min/1.73m2 (>59) L [facility] GFR ( AMER) 56 ml/min/1.73m2 (>59) L [facility] GFR INTERPRETATION [facility] --NORMAL KIDNEY FUNCTION OR MILD DISEASE - GFR >OR= 60CHRONIC KIDNEY DISEASE - GFR 15 - 59RENAL FAILURE - GFR <15 Est. GFR calculation based on the MDRDstudy equation, which assumes a steadystate for creatinine. Est. GFR should notbe used for medication dosing. ID Date Data Source [id number] 01/11/2020 08:31:40 PM EDT [facility] Name Value Range Interpretation Code Description Data Jennifer rce(s) Supporting Document(s) POC NOVA GLU 334 mg/dL (70-99) H [facility] ID Date Data Source [id number] 01/11/2020 08:10:43 PM EDT [facility] Name Value Range Interpretation Code Description Data Jennifer rce(s) Supporting Document(s) WBC 13.7 10*3/uL (4.1-11.0) H [facility] RBC 3.61 10*6/uL (4.60-6.10) L [facility] HGB 9.9 g/dL (13.5-18.0) L [facility] HCT 29.8 % (41.0-53.0) L [facility] MCV 82.7 fL (80.0-95.0) [facility] MCH 27.5 pg (27.0-32.0) [facility] MCHC 33.3 g/dL (32.0-36.0) [facility] RDW 13.9 % (10.5-14.5) [facility] PLT 96 10*3/uL (150-450) L [facility] MPV 10.2 fL (7.1-10.7) [facility] ID Date Data Source [id number] 01/11/2020 08:07:17 PM EDT [facility] Name Value Range Interpretation Code Description Data Jennifer rce(s) Supporting Document(s) LACTIC ACID 1.5 mmol/L (0.4-2.0) [facility] ID Date Data Source [id number] 01/11/2020 07:28:07 PM EDT [facility] Name Value Range Interpretation Code Description Data Jennifer rce(s) Supporting Document(s) POC TEMPERATURE [facility] 37.0C POC SOURCE [facility] PUNCTURE SITE [facility] O2 THERAPY [facility] POC FIO2 40 [facility] CP BYPASS [facility] AC TEST [facility] MODE [facility] PEEP/MAP 5 CM H2O [facility] PRESSURE SUPPORT 8 CM H2O [facility] SP RATE 20 BMP [facility] POC PH 7.23 pH (7.35-7.45) L [facility] POC PCO2 47.9 MMHG (32.0-48.0) [facility] POC PO2 73 MMHG (83-108) L [facility] POC SAT O2 91 % (95-99) L [facility] POC BASE DEFICIT 8 MMOL/L (0-2) H [facility] POC HCO3 19.8 MMOL/L (21.0-29.0) L [facility] POC TOTAL CO2 21 MMOL/L (23.0-32.0) L [facility] POC HCT 33 % (41.0-53.0) L [facility] POC SODIUM 137 MMOL/L (136-145) [facility] POC POTASSIUM 6.1 MMOL/L (3.6-5.2) [facility] POC IONIZED CALCIUM 5.2 MG/DL (4.6-5.3) [facility] POC GLU 117 MG/DL (70-99) H [facility] ID Date Data Source [id number] 01/11/2020 07:11:24 PM EDT [facility] Name Value Range Interpretation Code Description Data Jennifer rce(s) Supporting Document(s) POC NOVA GLU 130 mg/dL (70-99) H [facility] ID Date Data Source [id number] 01/11/2020 07:59:41 PM EDT [facility] Name Value Range Interpretation Code Description Data Jennifer rce(s) Supporting Document(s) POTASSIUM 6.2 mmol/L (3.6-5.2) [facility] ALERTED CRITICAL [place] [address] ON 01.11.20 [place] [address] [place] [id number] ID Date Data Source [id number] 01/11/2020 06:08:32 PM EDT [facility] Name Value Range Interpretation Code Description Data Jennifer rce(s) Supporting Document(s) POTASSIUM 6.0 mmol/L (3.6-5.2) H [facility] ID Date Data Source [id number] 01/11/2020 05:11:59 PM EDT [facility] Name Value Range Interpretation Code Description Data Jennifer rce(s) Supporting Document(s) POC NOVA GLU 113 mg/dL (70-99) H [facility] [place] [facility] ID Date Data Source [id number] 01/11/2020 05:12:31 PM EDT [facility] Name Value Range Interpretation Code Description Data Jennifer rce(s) Supporting Document(s) POC TEMPERATURE [facility] 37.0C POC SOURCE [facility] PUNCTURE SITE [facility] O2 THERAPY [facility] POC FIO2 40 [facility] AC TEST [facility] MODE [facility] PEEP/MAP 5 CM H2O [facility] PRESSURE SUPPORT 8 CM H2O [facility] SP RATE 21 BMP [facility] POC PH 7.24 pH (7.35-7.45) L [facility] POC PCO2 50.0 MMHG (32.0-48.0) H [facility] POC PO2 81 MMHG (83-108) L [facility] POC SAT O2 93 % (95-99) L [facility] POC BASE DEFICIT 6 MMOL/L (0-2) H [facility] POC HCO3 21.4 MMOL/L (21.0-29.0) [facility] POC TOTAL CO2 23 MMOL/L (23.0-32.0) [facility] ID Date Data Source [id number] 01/11/2020 03:16:33 PM EDT [facility] Name Value Range Interpretation Code Description Data Jennifer rce(s) Supporting Document(s) POC NOVA GLU 108 mg/dL (70-99) H [facility] [facility] STA[facility] ID Date Data Source [id number] 01/12/2020 10:20:15 AM EDT [facility] [address] [address] [place], [place] [address]Jxt# Surgical Pathology ReportAccession #:[id number](s) ReceivedA: Left main cusp fibroelastomaClinical Diagnosis and HistoryCongenital insufficiency of aortic valveDIAGNOSISAORTIC VALVE - LEFT MAIN CUSP, BIOPSY: FIBROELASTOMA. Gross DescriptionReceived in formalin labeled "left main cusp fibroelastoma" is a 0.4 x 0.2x 0.1 cm marquez-white irregular fragment of tissue. Entirely submitted asA1. Processed at [facility], Histopathology, [address] [place] [address], [id number].[email or web address] Reported: 01/12/2020Electronically Signed Out By Jorje Hampton MD [facility] This report may include immunohistochemical or in-situ hybridizationresults. Testing was developed and the performance characteristicsdetermined by [facility] as required by CLIA '88. The FDAhas determined that approval for specific use is not necessary forclinical use. The quality of Hematoxylin and Eosin stains and asapplicable, for all immunohistochemical and/or special stains, includingpositive and negative controls, were reviewed and considered appropriate.ICD codes Q23.1CPT codesA: 69646X Name Value Range Interpretation Code Description Data Jennifer rce(s) Supporting Document(s) ID Date Data Source [id number] 01/11/2020 01:25:28 PM EDT [facility] Name Value Range Interpretation Code Description Data Jennifer rce(s) Supporting Document(s) POC TEMPERATURE [facility] 37.0C POC SOURCE [facility] PUNCTURE SITE [facility] O2 THERAPY [facility] POC FIO2 80 [facility] AC TEST [facility] MODE [facility] TIDAL VOLUME 500 mL [facility] RATE 18 BPM [facility] PEEP/MAP 10 CM H2O [facility] PRESSURE SUPPORT 12 CM H2O [facility] SP RATE 0 BMP [facility] POC PH 7.31 pH (7.35-7.45) L [facility] POC PCO2 45.1 MMHG (32.0-48.0) [facility] POC PO2 194 MMHG (83-108) H [facility] POC SAT O2 100 % (95-99) H [facility] POC BASE DEFICIT 4 MMOL/L (0-2) H [facility] POC HCO3 22.6 MMOL/L (21.0-29.0) [facility] POC TOTAL CO2 24 MMOL/L (23.0-32.0) [facility] ID Date Data Source [id number] 01/11/2020 01:20:26 PM EDT [facility] Name Value Range Interpretation Code Description Data Jennifer rce(s) Supporting Document(s) POC NOVA GLU 102 mg/dL (70-99) H [facility] ID Date Data Source [id number] 01/11/2020 01:07:11 PM EDT [address] [address]Ysqoear Name: YOUSUF DAWSONOB: 1965Sex: MOrdering Provider: JESUSITA Noble Prov: JESUSITA Coates Provider: Procedure Performed: XR CHEST PORTABLEExam Date: 01/11/2020 13:03MRN: [id number] Number: [id number] Class: InpatientAccount #: [id number] for Exam: Evaluate for [facility] catheter placement and/or endotracheal tubeTechnique: AP portable view obtained.Comparison: NoneFindings: The heart is mildly enlarged. [facility] catheter tip in the region of the main pulmonary artery. ET tube tip 3 cm above the tammie. NG tube tip just in the stomach with side-port at the level of the GE junction. Right-sided chest tube seen. No pneumothorax noted. Lungs clear allowing for overlying pads.IMPRESSION: 1. ET tube tip 3 cm above the tammie. [facility] catheter tip in the main pulmonary artery.2. No pneumothorax.Report electronically signed by: CHADD BRITT On 01/11/2020 1:07 PMWorkstation ID: [id number] Name Value Range Interpretation Code Description Data Jennifer rce(s) Supporting Document(s) ID Date Data Source [id number] 01/11/2020 12:53:09 PM EDT [facility] Name Value Range Interpretation Code Description Data Jennifer rce(s) Supporting Document(s) POC NOVA GLU 100 mg/dL (70-99) H [facility] [place] [facility]FORMED [facility] ID Date Data Source [id number] 01/11/2020 02:16:41 PM EDT [facility] Name Value Range Interpretation Code Description Data Jennifer rce(s) Supporting Document(s) MAGNESIUM 3.2 mg/dL (1.7-2.4) H [facility] ID Date Data Source [id number] 01/11/2020 02:16:41 PM EDT [facility] Name Value Range Interpretation Code Description Data Jennifer rce(s) Supporting Document(s) SODIUM 140 mmol/L (136-145) [facility] POTASSIUM 4.9 mmol/L (3.6-5.2) [facility] CHLORIDE 108 mmol/L (100-108) [facility] CO2 21 mmol/L (22-31) L [facility] ANION GAP 11 mmol/L (7-16) [facility] UREA NITROGEN 16 mg/dL (7-24) [facility] CREATININE 1.21 mg/dL (0.80-1.30) [facility] BUN/CREAT RATIO 13.2 RATIO (10.0-20.0) [facility] GLUCOSE 94 mg/dL (70-99) [facility] CALCIUM 8.7 mg/dL (8.4-10.2) [facility] GFR >60 ml/min/1.73m2 (>59) [facility] GFR ( AMER) >60 ml/min/1.73m2 (>59) [facility] GFR INTERPRETATION [facility] --NORMAL KIDNEY FUNCTION OR MILD DISEASE - GFR >OR= 60CHRONIC KIDNEY DISEASE - GFR 15 - 59RENAL FAILURE - GFR <15 Est. GFR calculation based on the MDRDstudy equation, which assumes a steadystate for creatinine. Est. GFR should notbe used for medication dosing. ID Date Data Source [id number] 01/11/2020 02:04:35 PM EDT [facility] Name Value Range Interpretation Code Description Data Jennifer rce(s) Supporting Document(s) CALCIUM IONIZED 4.92 mg/dL (4.64-5.28) [facility] IONIZED CALCIUM NORMALIZED TO PH 7.40 AN D 37 DEGREES C. ID Date Data Source [id number] 01/11/2020 01:42:59 PM EDT [facility] Name Value Range Interpretation Code Description Data Jennifer rce(s) Supporting Document(s) WBC 20.3 10*3/uL (4.1-11.0) H [facility] RBC 4.16 10*6/uL (4.60-6.10) L [facility] HGB 11.4 g/dL (13.5-18.0) L [facility] HCT 34.6 % (41.0-53.0) L [facility] MCV 83.1 fL (80.0-95.0) [facility] MCH 27.4 pg (27.0-32.0) [facility] MCHC 33.0 g/dL (32.0-36.0) [facility] RDW 14.3 % (10.5-14.5) [facility] PLT 108 10*3/uL (150-450) L [facility] MPV 10.3 fL (7.1-10.7) [facility] ID Date Data Source [id number] 01/11/2020 11:53:08 AM EDT [facility] Name Value Range Interpretation Code Description Data Jennifer rce(s) Supporting Document(s) POC SOURCE [facility] POC TEMPERATURE [facility] POC FIO2 [facility] POC PH 7.41 pH (7.35-7.45) [facility] POC PCO2 32.6 MMHG (32.0-48.0) [facility] P[facility] PO2 246 MMHG (83-108) H [facility] POC SAT O2 100 % (95-99) H [facility] POC BASE DEFICIT 4 MMOL/L (0-2) H [facility] POC HCO3 20.6 MMOL/L (21.0-29.0) L [facility] POC TOTAL CO2 22 MMOL/L (23.0-32.0) L [facility] POC HCT 28 % (41.0-53.0) L [facility] POC SODIUM 134 MMOL/L (136-145) L [facility] POC POTASSIUM 5.2 MMOL/L (3.6-5.2) [facility] POC IONIZED CALCIUM 4.8 MG/DL (4.6-5.3) [facility] POC GLU 116 MG/DL (70-99) H [facility] ID Date Data Source [id number] 01/11/2020 11:54:03 AM EDT [facility] Name Value Range Interpretation Code Description Data Jennifer rce(s) Supporting Document(s) POC ACT 114 s (80-140) [facility] ID Date Data Source [id number] 01/11/2020 11:35:06 AM EDT [facility] Name Value Range Interpretation Code Description Data Jennifer rce(s) Supporting Document(s) POC ACT 411 s (80-140) H [facility] ID Date Data Source [id number] 01/11/2020 11:14:34 AM EDT [facility] Name Value Range Interpretation Code Description Data Jennifer rce(s) Supporting Document(s) POC SOURCE [facility] POC TEMPERATURE [facility] 37.0C POC FIO2 90 [facility] POC VENOUS PH 7.46 pH (7.33-7.43) H [facility] POC VENOUS PCO2 31.9 MM HG (38.0-50.0) L [facility] POC VENOUS PO2 32 MM HG (30-50) [facility] POC VENOUS SO2 67 % (60-85) [facility] POC VENOUS BASE DEFICIT 1 MMOL/L (0-2) [facility] POC VENOUS HCO3 22.5 MMOL/L (23.0-27.0) L [facility] POC VENOUS TOTAL CO2 23 MMOL/L (24-28) L [facility] POC HCT 26 % (41.0-53.0) L [facility] POC SODIUM 134 MMOL/L (136-145) L [facility] POC POTASSIUM 5.6 MMOL/L (3.6-5.2) H [facility] POC IONIZED CALCIUM 4.8 MG/DL (4.6-5.3) [facility] POC GLU 96 MG/DL (70-99) [facility] ID Date Data Source [id number] 01/11/2020 12:31:08 PM EDT [facility] Name Value Range Interpretation Code Description Data Jennifer rce(s) Supporting Document(s) PT 13.5 s (9.2-11.9) H [facility] PERFORMED AT [address] [place] [address] N Y [address] INR 1.31 [facility] SUGGESTED THERAPEUTIC RANGES USING INR F ORSTABILIZED ANTICOAGULATED PATIENTS:STANDARD DOSE THERAPY INR 2.0-3.0 DVT, PE, PREVENT DVT OR EMBOLISMHIGH DOSE THERAPY INR 2.5-3.5 PREVENT EMBOLISM FROM MECHANICAL HEART VALVE ID Date Data Source [id number] 01/11/2020 12:31:08 PM EDT [facility] Name Value Range Interpretation Code Description Data Jennifer rce(s) Supporting Document(s) APTT 26.9 s (22.0-34.3) [facility] [address] [place] [address] N Y [address] ID Date Data Source [id number] 01/11/2020 11:35:06 AM EDT [facility] Name Value Range Interpretation Code Description Data Jennifer rce(s) Supporting Document(s) POC ACT 400 s (80-140) H [facility] ID Date Data Source [id number] 01/11/2020 10:51:37 AM EDT [facility] Name Value Range Interpretation Code Description Data Jennifer rce(s) Supporting Document(s) POC SOURCE [facility] POC TEMPERATURE [facility] 37.0C POC FIO2 90 [facility] POC VENOUS PH 7.47 pH (7.33-7.43) H [facility] POC VENOUS PCO2 30.5 MM HG (38.0-50.0) L [facility] POC VENOUS PO2 37 MM HG (30-50) [facility] POC VENOUS SO2 76 % (60-85) [facility] POC VENOUS BASE DEFICIT 1 MMOL/L (0-2) [facility] POC VENOUS HCO3 22.3 MMOL/L (23.0-27.0) L [facility] POC VENOUS TOTAL CO2 23 MMOL/L (24-28) L [facility] POC HCT 27 % (41.0-53.0) L [facility] POC SODIUM 132 MMOL/L (136-145) L [facility] POC POTASSIUM 6.0 MMOL/L (3.6-5.2) H [facility] POC IONIZED CALCIUM 5.3 MG/DL (4.6-5.3) [facility] POC GLU 102 MG/DL (70-99) H [facility] ID Date Data Source [id number] 01/11/2020 10:21:06 AM EDT [facility] Name Value Range Interpretation Code Description Data Jennifer rce(s) Supporting Document(s) POC SOURCE [facility] POC TEMPERATURE [facility] 37.0C POC FIO2 75 [facility] POC VENOUS PH 7.46 pH (7.33-7.43) H [facility] POC VENOUS PCO2 31.0 MM HG (38.0-50.0) L [facility] POC VENOUS PO2 40 MM HG (30-50) [facility] POC VENOUS SO2 79 % (60-85) [facility] POC VENOUS BASE DEFICIT 1 MMOL/L (0-2) [facility] POC VENOUS HCO3 21.9 MMOL/L (23.0-27.0) L [facility] POC VENOUS TOTAL CO2 23 MMOL/L (24-28) L [facility] POC HCT 28 % (41.0-53.0) L [facility] POC SODIUM 131 MMOL/L (136-145) L [facility] POC POTASSIUM 6.5 MMOL/L (3.6-5.2) HH [facility] POC IONIZED CALCIUM 4.8 MG/DL (4.6-5.3) [facility] POC GLU 96 MG/DL (70-99) [facility] ID Date Data Source [id number] 01/11/2020 10:28:37 AM EDT [facility] Name Value Range Interpretation Code Description Data Jennifer rce(s) Supporting Document(s) POC ACT 510 s (80-140) H [facility] ID Date Data Source [id number] 01/11/2020 09:45:04 AM EDT [facility] Name Value Range Interpretation Code Description Data Jennifer rce(s) Supporting Document(s) POC SOURCE [facility] POC TEMPERATURE [facility] 37.0C POC FIO2 80 [facility] POC PH 7.43 pH (7.35-7.45) [facility] POC PCO2 33.3 MMHG (32.0-48.0) [facility] POC PO2 435 MMHG (83-108) H [facility] POC SAT O2 100 % (95-99) H [facility] POC BASE DEFICIT 2 MMOL/L (0-2) [facility] POC HCO3 22.2 MMOL/L (21.0-29.0) [facility] POC TOTAL CO2 23 MMOL/L (23.0-32.0) [facility] POC HCT 33 % (41.0-53.0) L [facility] POC SODIUM 132 MMOL/L (136-145) L [facility] POC POTASSIUM 4.4 MMOL/L (3.6-5.2) [facility] POC IONIZED CALCIUM 4.8 MG/DL (4.6-5.3) [facility] POC GLU 95 MG/DL (70-99) [facility] ID Date Data Source [id number] 01/11/2020 09:44:58 AM EDT [facility] Name Value Range Interpretation Code Description Data Jennifer rce(s) Supporting Document(s) POC SOURCE [facility] POC TEMPERATURE [facility] 37.0C POC FIO2 80 [facility] POC VENOUS PH 7.37 pH (7.33-7.43) [facility] POC VENOUS PCO2 37.8 MM HG (38.0-50.0) L [facility] POC VENOUS PO2 45 MM HG (30-50) [facility] POC VENOUS SO2 80 % (60-85) [facility] POC VENOUS BASE DEFICIT 3 MMOL/L (0-2) H [facility] POC VENOUS HCO3 21.8 MMOL/L (23.0-27.0) L [facility] POC VENOUS TOTAL CO2 23 MMOL/L (24-28) L [facility] POC HCT 33 % (41.0-53.0) L [facility] POC SODIUM 134 MMOL/L (136-145) L [facility] POC POTASSIUM 4.4 MMOL/L (3.6-5.2) [facility] POC IONIZED CALCIUM 5.1 MG/DL (4.6-5.3) [facility] POC GLU 95 MG/DL (70-99) [facility] ID Date Data Source [id number] 01/11/2020 09:55:37 AM EDT [facility] Name Value Range Interpretation Code Description Data Jennifer rce(s) Supporting Document(s) POC ACT 692 s (80-140) H [facility] ID Date Data Source [id number] 01/11/2020 09:22:45 AM EDT [facility] INFORMATIONPatient MRN Name Date of Age Gend*PT [id number] Yousuf Ken W 1965 54 years M SDAPT Location Admission Date/Time Visit ID Attending Provider --- --- --- --- EPI ID CSN Admitting Provider [id number] ---Introducer AdditionsPatient location during procedure: ORIndications for introducer addition: Vascular access, Vasoactive infusions andHemodynamic monitoringStaffingPerformed by: Chung Palmer MDApproved by: REBEKAH Fuentesompleted: patient identified, risks and benefits discussed, surgical consentobtained, anesthesia consent obtained, monitors and equipment checked, pre-opevaluation completed, timeout performed, patient was prepped and draped in usualsterile fashion,Introducer AdditionsIntroducer addition: Pulmonary Artery CatheterInsertion depth (cm): 44Introducer placed: At time of introducer additionPA Catheter procedure: Oximetric PA Catheter introduced, Pulmonary arteryidentified and balloon taken back down and PAOP was not obtainedAssessmentSecurement method: securement deviceAssessment: tolerated well Name Value Range Interpretation Code Description Data Jennifer rce(s) Supporting Document(s) ID Date Data Source [id number] 01/11/2020 09:22:09 AM EDT [facility] NT INFORMATIONPatient MRN Name Date of Age Gend*PT [id number] Yousuf Ken W 1965 54 years M SDAPT Location Admission Date/Time Visit ID Attending Provider --- --- --- --- EPI ID CSN Admitting Provider [id number] ---Central Line InsertionPatient location during procedure: ORIndications for central line: hemodynamic monitoring, hypovolemia, vascularaccess and vasoactive infusionsStaffingPerformed by: Brianna Fuentesroved by: REBEKAH Fuentesompleted: patient identified, risks and benefits discussed, surgical consentobtained, anesthesia consent obtained, monitors and equipment checked, pre-opevaluation completed, timeout performed, patient was prepped and draped in usualsterile fashion,Central LineCatheter type: IntroducerCVC type: non-tunnel ledNeedle gauge: 18 GCatheter size: 9 FrSite prep: chlorhexidine gluconateLaterality: rightLocation: internal jugularTechnique: CVC inserted using ultrasound guidanceProcedure: Catheter inserted and manometry was performed, Guidewire passedthrough the catheter, No arrythmias and Catheter was withdrawnAssessmentSecurement method: SuturedPlacement verification: UltrasoundAssessment: tolerated well Name Value Range Interpretation Code Description Data Jennifer rce(s) Supporting Document(s) ID Date Data Source [id number] 01/11/2020 09:20:47 AM EDT [facility] NT INFORMATIONPatient MRN Name Date of Age Gend*PT [id number] Yousuf Ken W 1965 54 years M SDAPT Location Admission Date/Time Visit ID Attending Provider --- --- --- --- EPI ID CSN Admitting Provider [id number] ---Arterial Line PlacementPatient location during procedure: ORIndications for arterial line: multiple ABGs and hemodynamic monitoringStaffingPerformed by: Brianna Fuentesroved by: REBEKAH Fuentesompleted: patient identified, risks and benefits discussed, surgical consentobtained, anesthesia consent obtained, monitors and equipment checked, pre-opevaluation completed, timeout performed, patient was prepped and draped in usualsterile fashion,Arterial Line InsertionSite prep: chlorhexidineAnesthesia: local infiltrationLocal anesthetic: lidocaine 1% without epinephrineLaterality: rightLocation: radial arteryNeedle gauge: 18 GTechnique: Seldinger technique used and ultrasound guidedNumber of attempts: 1AssessmentSutured: noDressing: dressing appliedPatient tolerance: tolerated well Name Value Range Interpretation Code Description Data Jennifer rce(s) Supporting Document(s) ID Date Data Source [id number] 01/11/2020 09:20:16 AM EDT [facility] INFORMATIONPatient MRN Name Date of Age Gend*PT [id number] Yousuf Ken Edd 1965 54 years M SDAPT Location Admission Date/Time Visit ID Attending Provider --- --- --- --- EPI ID CSN Admitting Provider [id number] ---AirwayPatient location during procedure: ORUrgency: electiveDifficult airway: noAdvanced airway equipment used: yesStaffingPerformed by: Chung Palmer MDAnesthesiologist: Chung Palmer MDIndications and Patient ConditionIndications for airway management: anesthesiaPreoxygenated: yesPatient position: sniffingIn-line stabilization: noMask ventilation: 0 - not attemptedFinal Airway/ApproachesFinal airway type: ETTNumber of attempts at final approach: 1Number of other approaches attempted: 0Final Airway DetailsFinal ETT airway: ETT - singleCuffed: yesTechnique used for successful ETT placement: GlidescopeCricoid pressure: noRSI: yesInsertion site: oralBlade type/size: MAC 3ETT size: 8.0 mmMeasured from: lipsETT to lips: 24 cmPlacement verified by: chest auscultation, bronchoscopy and + MOII1Htslsfnzkqeq: CTA and equal breath sounds bilateralGrade view: grade I - full view of glottisAdditional NotesI performed this patients' endotracheal intubation which required substantiallyincreased work beyond that of the typical emergency endotracheal intubationbased on the need to use COVID-19 precautions which required increased time andskill employed through use of personal protective equipment in preparing for andduring the intubation as well as the additional time spent properly disposing ofthe equipment upon completion of the procedure. Bronchial wolf then placedwith bronchoscopic guidance Name Value Range Interpretation Code Description Data Jennifer rce(s) Supporting Document(s) ID Date Data Source [id number] 01/11/2020 09:03:12 AM EDT [facility] Name Value Range Interpretation Code Description Data Jennifer rce(s) Supporting Document(s) POC SOURCE [facility] POC TEMPERATURE [facility] 37.0C POC FIO2 100 [facility] POC PH 7.31 pH (7.35-7.45) L [facility] POC PCO2 50.7 MMHG (32.0-48.0) H [facility] POC PO2 426 MMHG (83-108) H [facility] POC SAT O2 100 % (95-99) H [facility] POC BASE DEFICIT 1 MMOL/L (0-2) [facility] POC HCO3 25.7 MMOL/L (21.0-29.0) [facility] POC TOTAL CO2 27 MMOL/L (23.0-32.0) [facility] POC HCT 37 % (41.0-53.0) L [facility] POC SODIUM 136 MMOL/L (136-145) [facility] POC POTASSIUM 4.4 MMOL/L (3.6-5.2) [facility] POC IONIZED CALCIUM 5.1 MG/DL (4.6-5.3) [facility] POC GLU 90 MG/DL (70-99) [facility] ID Date Data Source [id number] 01/11/2020 09:10:15 AM EDT [facility] Name Value Range Interpretation Code Description Data Jennifer rce(s) Supporting Document(s) POC ACT 615 s (80-140) H [facility] ID Date Data Source [id number] 01/11/2020 08:23:04 AM EDT [facility] Name Value Range Interpretation Code Description Data Jennifer rce(s) Supporting Document(s) POC SOURCE [facility] POC TEMPERATURE [facility] 37.0C POC FIO2 100 [facility] POC VENOUS PH 7.34 pH (7.33-7.43) [facility] POC VENOUS PCO2 47.9 MM HG (38.0-50.0) [facility] POC VENOUS PO2 440 MM HG (30-50) H [facility] POC VENOUS SO2 100 % (60-85) H [facility] POC VENOUS BASE DEFICIT 1 MMOL/L (0-2) [facility] POC VENOUS HCO3 25.8 MMOL/L (23.0-27.0) [facility] POC VENOUS TOTAL CO2 27 MMOL/L (24-28) [facility] POC HCT 41 % (41.0-53.0) [facility] POC SODIUM 136 MMOL/L (136-145) [facility] POC POTASSIUM 4.7 MMOL/L (3.6-5.2) [facility] POC IONIZED CALCIUM 5.2 MG/DL (4.6-5.3) [facility] POC GLU 90 MG/DL (70-99) [facility] ID Date Data Source [id number] 01/11/2020 08:22:44 AM EDT [facility] Name Value Range Interpretation Code Description Data Jennifer rce(s) Supporting Document(s) POC ACT 125 s (80-140) [facility] ID Date Data Source [id number] 01/11/2020 06:24:27 AM EDT [facility] Name Value Range Interpretation Code Description Data Jennifer rce(s) Supporting Document(s) POC SOURCE [facility] POC TEMPERATURE [facility] POC FIO2 [facility] POC VENOUS PH (7.33-7.43) [facility] POC VENOUS PCO2 (38.0-50.0) [facility] POC VENOUS PO2 (30-50) [facility] POC VENOUS SO2 (60-85) [facility] POC VENOUS BASE EXCESS [facility] POC VENOUS HCO3 (23.0-27.0) [facility] POC VENOUS TOTAL CO2 (24-28) [facility] POC HCT 42 % (41.0-53.0) [facility] POC SODIUM (136-145) [facility] POC POTASSIUM 4.5 MMOL/L (3.6-5.2) [facility] POC IONIZED CALCIUM (4.6-5.3) [facility] POC GLU 80 MG/DL (70-99) [facility] ID Date Data Source [id number] 01/11/2020 06:00:40 AM EDT [facility] Name Value Range Interpretation Code Description Data Jennifer rce(s) Supporting Document(s) POC NOVA GLU 90 mg/dL (70-99) [facility] [place] [facility] ID Date Data Source [id number] 01/11/2020 02:37:23 PM EDT [facility] SPEC EXP DATE 01/12/2020TEST ING SITE PERFORMED AT [address] [place] [address] [place] [address]WAPJ NUMBER [id number] COMPONENT TYPE LEUKOPOOR RED CELLSUNIT DIVISION 00STATUS OF UNIT REL FROM ALLOCTRANSFUSION STATUS OK TO TRANSFUSECROSSMATCH RESULT COMPATIBLEUNIT NUMBER [id number] COMPONENT TYPE LEUKOPOOR RED CELLS (PT B)UNIT DIVISION 00STATUS OF UNIT REL FROM ALLOCTRANSFUSION STATUS OK TO TRANSFUSECROSSMATCH RESULT COMPATIBLE Name Value Range Interpretation Code Description Data Jennifer rce(s) Supporting Document(s) TRANSFUSE RED CELLS [facility] TESTING SITE PERFORMED AT [address] [place] [address] [place] [address] ID Date Data Source [id number] 01/07/2020 08:58:11 AM EDT [facility] Name Value Range Interpretation Code Description Data Jennifer rce(s) Supporting Document(s) EKG [facility] MSMDDg4pZnFVXeBcl0HgLdMoDNJiUW2xwxh5J8N7gBOgA2KuvRSrn1lkE6KzP2JsFGToZLCFVK0LzPOa jb2 [file] castañeda/NkBCwk1YOVuEI4lwgi+ld77Q+UG0uG92f64l7heUKYCJzCRwKI4ba0DXcDAjknQ/qBY9W5R7XE9Vg [file] z2BSQwUpiVDjYm0q5P+NOv4fMCO19alGrY4zkip+nrHKr7Z5k+[employer]+RTC660mnLCDMd3Md96UlO3ruY0a [file] [id number]+QmlksSBujAhnXKMGUZK0PxTRRHKMX7V= ID Date Data Source [id number] 01/07/2020 08:51:15 AM EDT [facility] Name Value Range Interpretation Code Description Data Jennifer rce(s) Supporting Document(s) POC TEMPERATURE [facility] POC SOURCE [facility] PUNCTURE SITE [facility] O2 THERAPY [facility] AC TEST [facility] POC PH 7.36 pH (7.35-7.45) [facility] POC PCO2 34.9 MMHG (32.0-48.0) [facility] POC PO2 106 MMHG (83-108) [facility] POC SAT O2 98 % (95-99) [facility] POC BASE DEFICIT 5 MMOL/L (0-2) H [facility] POC HCO3 19.5 MMOL/L (21.0-29.0) L [facility] POC TOTAL CO2 21 MMOL/L (23.0-32.0) L [facility] ID Date Data Source [id number] 01/07/2020 08:36:26 AM EDT [facility] NT INFORMATIONPatient MRN Name Date of Age Gend*PT [id number] Yousuf Ken 1965 54 years M OPPT Location Admission Date/Time Visit ID Attending Provider --- --- --- Emmanuel Eller MD([id number]) EPI ID CSN Admitting Provider [id number] ---HISTORY PHYSICALName: Yousuf Ken : 1965 Sex: male Care Provider: Gabriele Kwanending Physician: Dr. Carneyformant: The patient who is reliable.Chief Complaint: " I have tumor in my heart"HISTORY OF PRESENT ILLNESS: Mr Ken is a 54 years old white male with historyof hypertension, depression anxiety, schizophrenia, tobacco dependence, alcoholabuse, and seizure disorder who was evaluated at the [facility] ER on08/27/2019 with a syncopal episode, questionable TIA. CT chest indicatedfibro-elastoma. Subsequently he underwent cardiac evaluation. CLAIRE date11/16/2019 concluded fibroelastoma attached to the aortic valve. Patientunderwent cardiac catheterization in preparation for the surgery which showedmild LAD lesion 40% stenosis.Patient denies any chest pain, heart palpitation, PND, peripheral edema,shortness of breath, or further syncopal episode. Subsequently he was referredto Dr. Eller for surgical evaluation. All options were discussed. Patient isnow scheduled to undergo MEDIAN STERNOTOMY, WITH ATRIAL MYXOMA EXCISION PER MDRESECTION FIBROELASTOMA on 01/11/2020PAST MEDICAL HISTORY:Past Medical History:Diagnosis Date Alcohol abuse Anxiety Benign neoplasm of heart Chronic kidney disease Depression GERD (gastroesophageal reflux disease) Hypertension Knee pain, left using cane for ambulation Papillary fibroelastoma of heart Schizoaffective schizophrenia Seizures last episode was possibly 2019 ?? TIA (transient ischemic attack) 08/27/2019PAST SURGICAL HISTORY:Past Surgical History:Procedure Laterality Date CARDIAC CATHETERIZATION N/A 12/30/2019 Procedure: CATHETERIZATION, HEART, LEFT; Surgeon: Priscilla Flores MD;Laterality: N/A; CARPAL TUNNEL RELEASE Left COLONOSCOPY ELBOW ARTHROSCOPY Left KNEE CARTILAGE SURGERY Left PANENDOSCOPY N/A 12/22/2019 Procedure: ENDOSCOPY, UPPER GASTROINTESTINAL (GI) TRACT W BIOPSY; Surgeon:Thom Sterling MD; Laterality: N/A; ROTATOR CUFF REPAIR LeftALLERGIES: No Known Drug AllergiesMEDICATIONS:Prior to Admission medicationsMedication Sig Start Date End Date Taking? Authorizing ProviderAlbuterol Sulfate 108 (90 Base) MCG/ACT AEPB Inhale 2 puffs 4 (four) times a dayHistorical Provider, BryantmLODIPine (NORVASC) 10 MG tablet Take 10 mg by mouth daily HistoricalProvider, Bryantspirin EC 81 MG EC tablet Take 81 mg by mouth daily Historical Provider, benztropine (COGENTIN) 1 MG tablet Take 1 mg by mouth 2 (two) times a dayHistorical Provider, REBEKAHholecalciferol (VITAMIN D-3) 25 MCG (1000 UT) CAPS Take 1,000 Units by mouthdaily Historical Provider, Rebekahlopidogrel (PLAVIX) 75 MG tablet Take 75 mg by mouth daily HistoricalProvider, LOPEZAILY ULI (THERAGRAN) per tablet Take 1 tablet by mouth daily HistoricalProvider, folic acid (FOLVITE) 1 MG tablet Take 1 mg by mouth daily HistoricalProvider, hydrOXYzine (ATARAX) 25 MG tablet Take 25 mg by mouth 2 (two) times a day asneeded for itching Historical Provider, omeprazole (PRILOSEC) 40 MG capsule Take 40 mg by mouth daily HistoricalProvider, MDprimidone (MYSOLINE) 50 MG tablet Take 50 mg by mouth daily MD KevintraZODone (DESYREL) 50 MG tablet Take 50 mg by mouth nightly HistoricalJUANA Guerraocial HistorySocioeconomic History Marital status: Spouse name: Not on file Number of children: Not on file Years of education: Not on file Highest education level: Not on fileOccupational History Not on fileSocial Needs Financial resource strain: Not on file Food insecurity: Worry: Not on file Inability: Not on file Transportation needs: Medical: Not on file Non-medical: Not on fileTobacco Use Smoking status: Current Every Day Smoker Packs/day: 2.00 Years: 40.00 Pack years: 80.00 Types: Cigarettes Smokeless tobacco: Never Used Tobacco comment: cutting down to half pack a day nowSubstance and Sexual Activity Alcohol use: Yes Comment: 3-5 beers a day everyday Drug use: Never Sexual activity: Not on fileLifestyle Physical activity: Days per week: Not on file Minutes per session: Not on file Stress: Not on fileRelationships Social connections: Talks on phone: Not on file Gets together: Not on file Attends mormon service: Not on file Active member of club or organization: Not on file Attends meetings of clubs or organizations: Not on file Relationship status: Not on file Intimate partner violence: Fear of current or ex partner: Not on file Emotionally abused: Not on file Physically abused: Not on file Forced sexual activity: Not on fileOther Topics Concern Bike Helmet Not Asked History of Falls Not Asked Self-Exams Not Asked Caffeine Concern Not Asked Hobby Hazards Not Asked Sleep Concern Not Asked Daily Calcium Supplement Not Asked Lead Exposure Not Asked Special Diet Not Asked Daily Vitamin D Supplement Not Asked Service Not Asked Stress Concern Not Asked Domestic Violence in home Not Asked Radon exposure Not Asked Weight Concern Not Asked Exercise Not Asked Seat Belt Not Asked Well water Not Asked Firearms in home Not AskedSocial History Narrative Not on fileFamily HistoryProblem Relation Age of Onset Stroke Mother Mental illness Mother Heart disease Father Heart attack Father Malig Hyperthermia Neg HxREVIEW OF SYSTEMS:Constitution: Weight stable, Denies fatigue, fever or chills. Caffeine intake: 4soda/day.HEENT: He wears bifocals. Denies any blurred vision, double vision, dizziness,tinnitus, dysphagia or headaches.Respiratory: Denies any shortness of breath, cough, yellow sputum production orwheezing.Cardiovascular: Denies any chest pain, pressure or tightness. Denies anyproximal nocturnal dyspnea or orthopnea.Muscle/Skeletal System: Denies any muscle ache, joint ache or weakness.Neurologic: Denies any numbness, tingling, tremors or syncope.GI: De nies any nausea, vomiting, diarrhea, constipation or melena.: Denies any dysuria, hematuria or nocturia.Endocrine: Denies polyuria, polydipsia or polyphagia. Denies any heat or coldintolerance, fatigue or night sweats.Hematology: Denies any bleeding or bruising tendencies.DNR Status: Full Code per the patient.HCP: No per patient.PHYSICAL EXAM:General: He is a 54 years old, pleasant white male, in no acute distress at timeof examination. Vitals on arrival to the office are BP 130/79 (BP Location: Leftupper arm, Patient Position: Sitting) | Pulse 74 | Temp 97 F (Tympanic) | Ht1.549 m (5' 1") | Wt 62.9 kg (138 lb 9.6 oz) | SpO2 98% | BMI 26.19 kg/m Body mass index is 26.19 kg/m ..Skin is pink warm and dry.HEENT: He is normocephalic, atraumatic. [place] conjunctivae. Anicteric sclerae.Pupils are equal, round, reactive to light and accommodation. Extraocularmovements are intact. Ears: Without drainage or lesion. Mouth: Dentition is infair repair with multiple missing. He has a grade I airway. Neck is supplemidline without cervical adenopathy. There is no tonsillo pharyngeal congestion.Mucous membranes are moist. There are no oral lesions. No jugular distention. Nocarotid bruit.CHEST/BREAST: A/P less than transverse. Breast exam declined.LUNGS: Clear to auscultation. No wheezes, rhonchi or crackles.HEART: Rate rhythm regular. S1, S2. No murmur, rub or gallop.ABDOMEN: Bowel sounds positive times four. Soft, non tender. No reboundtenderness. No hepatosplenomegaly. Negative CVAT.GENITAL/RECTAL: Deferred.MUSCLE/SKELETAL: Strength is 5/5 with very slight weaker LLE. Celery Stripper are equal.NEUROLOGICALLY: Cranial nerves II through XII are grossly intact.VASCULAR: Pulses are positive. NO edema.Anesthesia complications: DeniesSteroid use: He denies any oral steroid therapy for three weeks or greaterwithin the last 3 months.CSHA Frailty Scale :: 4/10 Vulnerable (while not dependent on others for dailyhelp, often symptoms limit activities. A common complaint is being "slowed up",and /or being tired during the day).Stop Bang Questionnaire - Total Score:STOP-Bang Total Score: 4IMPRESSION and PLAN:Primary Diagnosis: Benign neoplasm of heart surgery as per Dr. Eller.Secondary Diagnosis and Plan:1. Hypertension Continuation of prior to admission anti-hypertensivemedications unless precluded by clinical status.2. GI prophylaxis Per surgeon3. DVT prophylaxis Early ambulation. Pneumatic compression device.Subcutaneous Heparin or LMW Heparin if clinically indicated4. Tobacco dependence Cigarettes Smoking cessation information givento patient including [facility]. Nicotine replacement products ifindicated by the attending5. Alcohol dependence Routine evaluation using GMAW withdrawal scale and PRNbenzodiazepines based on GMAW scoreBased on above medical co morbidities, length of stay may be prolonged greaterthan previously anticipated.ALLERGIES:Patient has no known drug allergies.01/07/2020 8:35 Lexi Corea document or parts of this document, were dictated using GeneriMed speaking software. A reasonable attempt at proofreading has beenmade to minimize errors. Please call with any questions or corrections. Name Value Range Interpretation Code Description Data Jennifer rce(s) Supporting Document(s) ID Date Data Source [id number] 01/08/2020 07:05:13 AM EDT [facility] SPECIMEN DESCRIPTION MIDSTREAM UR INE,CLEAN CATCHCULTURE RESULTS NO GROWTHREPORT STATUS FINAL 01/08/2020 Name Value Range Interpretation Code Description Data Jennifer rce(s) Supporting Document(s) ID Date Data Source [id number] 01/07/2020 12:21:06 PM EDT [facility] Name Value Range Interpretation Code Description Data Jennifer rce(s) Supporting Document(s) COLOR [facility] APPEARANCE [facility] SPEC GRAV URINE 1.008 (1.003-1.030) [facility] PH URINE 5.0 (5.0-7.5) [facility] LEUK ESTERASE (NEG) [facility] NITRITE URINE (NEG) [facility] PROTEIN URINE (NEG) [facility] GLUCOSE URINE (NEG) [facility] KETONE URINE (NEG) [facility] SALAZAR UROBILINOGEN 0.2 mg/dL (0-1.0) [facility] [place] BILIRUBIN URINE (NEG) [facility] BLOOD/HGB URINE (NEG) [facility] ID Date Data Source [id number] 01/07/2020 07:48:22 PM EDT [facility] Name Value Range Interpretation Code Description Data Jennifer rce(s) Supporting Document(s) ROOM TEMP AB SCREEN [facility] ROOM TEMP AB SCREEN NEGATIVE ID Date Data Source [id number] 01/07/2020 02:52:43 PM EDT [facility] SPEC EXP DATE 01/12/2020PATI ENT ABO/Rh O POSITIVEANTIBODY SCREEN NEGATIVETESTING SITE PERFORMED AT [address] [place] [address] Name Value Range Interpretation Code Description Data Jennifer rce(s) Supporting Document(s) TYPE AND SCREEN [facility] ID Date Data Source [id number] 01/07/2020 12:54:10 PM EDT [facility] Name Value Range Interpretation Code Description Data Jennifer rce(s) Supporting Document(s) HEMOGLOBIN A1C @ 5.4 % (4.0-6.0) [facility] REAVES Performed using Siemens [place] immunoassa y.Care must be taken when interpreting UxR4vrueeitt in patients with a hemoglobin variantor decreased erythrocyte lifespan. Values 5.7 - 6.4% suggest prediabetes.Values >=6.5% are diagnostic for diabetes.REFERENCE: DIABETES CARE 2018: 41(S13-S27). EST AVERAGE GLUCOSE 108 mg/dL [facility] ID Date Data Source [id number] 01/07/2020 12:38:39 PM EDT [facility] Name Value Range Interpretation Code Description Data Jennifer rce(s) Supporting Document(s) PT 9.8 s (9.2-11.9) [facility] INR 0.94 [facility] SUGGESTED THERAPEUTIC RANGES USING INR F ORSTABILIZED ANTICOAGULATED PATIENTS:STANDARD DOSE THERAPY INR 2.0-3.0 DVT, PE, PREVENT DVT OR EMBOLISMHIGH DOSE THERAPY INR 2.5-3.5 PREVENT EMBOLISM FROM MECHANICAL HEART VALVE ID Date Data Source [id number] 01/07/2020 12:29:31 PM EDT [facility] Name Value Range Interpretation Code Description Data Jennifer rce(s) Supporting Document(s) SODIUM 139 mmol/L (136-145) [facility] POTASSIUM 4.7 mmol/L (3.6-5.2) [facility] CHLORIDE 109 mmol/L (100-108) H [facility] CO2 23 mmol/L (22-31) [facility] ANION GAP 7 mmol/L (7-16) [facility] UREA NITROGEN 22 mg/dL (7-24) [facility] CREATININE 1.07 mg/dL (0.80-1.30) [facility] BUN/CREAT RATIO 20.6 RATIO (10.0-20.0) H [facility] GLUCOSE 59 mg/dL (70-99) L [facility] CALCIUM 8.8 mg/dL (8.4-10.2) [facility] TOTAL PROTEIN 6.7 g/dL (6.4-8.2) [facility] ALBUMIN 3.7 g/dL (3.5-4.6) [facility] GLOBULIN 3.0 g/dL (2.7-4.3) [facility] ALB/GLOB RATIO 1.2 RATIO [facility] ALKALINE PHOSPHATASE 98 U/L (45-117) [facility] BILIRUBIN,TOTAL 0.2 mg/dL (0.0-1.0) [facility] PLEASE NOTE:Total bilirubin results may be falselyelevated in patients taking Eltrombopag. AST (SGOT) 31 U/L (11-39) [facility] ALT (SGPT) 54 U/L (12-78) [facility] GFR >60 ml/min/1.73m2 (>59) [facility] GFR ( AMER) >60 ml/min/1.73m2 (>59) [facility] GFR INTERPRETATION [facility] --NORMAL KIDNEY FUNCTION OR MILD DISEASE - GFR >OR= 60CHRONIC KIDNEY DISEASE - GFR 15 - 59RENAL FAILURE - GFR <15 Est. GFR calculation based on the MDRDstudy equation, which assumes a steadystate for creatinine. Est. GFR should notbe used for medication dosing. ID Date Data Source [id number] 01/07/2020 12:29:31 PM EDT [facility] Name Value Range Interpretation Code Description Data Jennifer rce(s) Supporting Document(s) NT PRO BNP 223 pg/mL (0-125) H [facility] ID Date Data Source [id number] 01/07/2020 12:06:12 PM EDT [facility] Name Value Range Interpretation Code Description Data Jennifer rce(s) Supporting Document(s) WBC 11.2 10*3/uL (4.1-11.0) H [facility] RBC 5.33 10*6/uL (4.60-6.10) [facility] HGB 14.7 g/dL (13.5-18.0) [facility] HCT 44.6 % (41.0-53.0) [facility] MCV 83.8 fL (80.0-95.0) [facility] MCH 27.7 pg (27.0-32.0) [facility] MCHC 33.0 g/dL (32.0-36.0) [facility] RDW 14.7 % (10.5-14.5) H [facility] PLT 148 10*3/uL (150-450) L [facility] MPV 10.5 fL (7.1-10.7) [facility] NEUT % 59.9 % (35.0-75.0) [facility] LYMPH % 23.1 % (16.0-52.0) [facility] MONO % 12.8 % (0.0-8.0) H [facility] EOS % 3.3 % (0.0-5.0) [facility] BASO % 0.9 % (0.0-4.0) [facility] NEUT # 6.7 10*3/uL (1.8-7.7) [facility] LYMPH # 2.6 10*3/uL (1.2-4.8) [facility] MONO # 1.4 10*3/uL (0.0-0.8) H [facility] Eosinophils [#/volume] in Blood by Automated count 0.4 10*3/uL (0.0-0 .5) [facility] BASO # 0.1 10*3/uL (0.0-0.2) [facility] ID Date Data Source [id number] 01/07/2020 12:38:39 PM EDT [facility] Name Value Range Interpretation Code Description Data Jennifer rce(s) Supporting Document(s) APTT 25.3 s (22.0-34.3) [facility] ID Date Data Source [id number] 01/08/2020 09:07:33 AM EDT [facility] Name Value Range Interpretation Code Description Data Jennifer rce(s) Supporting Document(s) SPECIMEN DESCRIPTION [facility] STAPH SCREEN RESULTS (ONEGSA) [facility] COMMENT [facility] GENE TO DETECT STAPH AUREUS. (2) RT-P CR WAS PERFORMED FOR THE mecA AND SCCmec GENES TO DETECT METHICILLIN RESISTANCE IN STAPH AUREUS. ID Date Data Source [id number] 12/31/2019 09:43:27 AM EDT [facility] Name Value Range Interpretation Code Description Data Jennifer rce(s) Supporting Document(s) [facility] VTZDSt0mIyYHLaPab3GhUhWnGNHqKY0iski7J7R8lOAwF7CgrNPiv0mbT9QyB3NqADRdIONEUP5PlKRj jb2 [file] ejfqVRzSDIEwXv+PCOYajXi50hFxgs/CARBIDE DIE MAKER/U8r+rIFf+bMyoX/CVUtOD/TaocZsQ2AGalo4oSkaJjnu4T [file] 1pIZfPcx+J99pewlm/X3/5f43bA7X/Kaykay+3hl7jEGs 5C2RmxlpAZ/3cOl2zPt5v3l/Goa4GIyoavU9rAmtw7aCCA+T1ei52sW+4XH2cy/1QgS5sJ93uM8ZI9hU 0h7Edi/aeYOxUd7krX1/IAd3Sz0++/qPTzvAVnEhPfj+lwZQi0Uuh02Dj/L3x5+++jjlKIPZ044xm+B+ L/Xx3V+v7v54c/f+0/e3cjh8+ANa3QgEG/j05S3qJ/ vw6ow/uK7ZnZYrzRa8+tXv79+8Ov6Rs+XR88+oUyPQye7SN5+U9kpnYDMtG1SIB14h6115xNPdz40E/9 fGkRaoD4wA/bG7HX/pcx0oi0ufKlJV4Gi9QJvS5mqI6LeCrCi/cXZG70pLl73yKs92seKE61yIFuj6/w dnAoGPAjNbSBA6tqXbaBkeewWqEksBDMbjNHPzFbw5 GK8ZhZAnPYUmV8Z6EUEodu8tGVQoEUYpkQMnCjVfZMNKBO2DiEOgHR8OBWg6CHSrUIAbHzRnCEYzcmU4 ULZgJBFqHJQvR0GemhPeoNBvDLOgHy6+NM7ma3GiNuHbFPHhZye6UD5LjOQlAJ8HwLXhxO3nekPsU886 yjVeCPVcUhsvc1LgBRoiCKNSYW5SKBV9UBW9JTCoRw 4+JT7pg9GqRhUxYSOnEgl9BW8NzHNup5CgSD0IO6DvJIHgSZZGQOT9w8ZoFUAkrrhjikwuG1BvPYN1eK 1aUQV5ADOyTVtmEQGeANZyZzN0TJEdFYtgIOObUSIpISFyGMTpLHj6rGMtXE2MD0OfDUCcPCINUGEzqp BfOr3pIYXQBp7ENZPHKW3NJRGIXGQ9VJP5DIP7RPrw Z3R7RyqbF9GrIS8ED4KwAJIwDLNQHOQtnwIvZY6WztUxzN4tJUoJAOPZAHlYZGisUzF2x80djoBJPSEz ANHjOPkpSGNwXAPcSSDbOPYlVPEiIPYlKLItGH4KM1DtWGUpCDXCUHZ9i0OjHQUfewblsglcOj0qfvCu Ymo+OkeaKGYll8MfHOrdP7U6bKIuT5SgL1WpRH8UjJ UmNUkpJHWvBCIgONOzM752kkUcBI0+XC4wl1YuWrkaZALGRANgSLDcXKPlSEH7OnUgGQAvFEEtGFGrCf V4GiKbWhQSGEBpJWW4CdC2YCAxGIGkTEZyQKmoDVYlWUXkHbN8EFDsIYYfRG2nIuFoNDMcDASzXcCaGX RmFFYovmOLTODsRHWjFHZfCGM6PDKcQYEsKQonBSAr OOFbMDR6KCLwDEEbKS5hRyZrHONbHHXkOrbwELHbTAZwtlCJXXGcUWZlIDW2KdWiSWEqWMXsIYwvLTDy FEMoZdn1CNWzNSQkFJ1jSwJoZELaOCP4DQizLEOkAWGoeoIXEOBnGTJpSKGvDrXdYZKuWFIgTSqbFFXx OYUiFiKxVEIsTIXvCJ3mWtHiIJHzELC8GLEoIAOaOV WtspOYRBPgPZEgUYa6SGTrTYEsLRGpACdrRQQuUJMnRBN3DOKpLNVjWM4sXeIjOXLsPSJcVPMoEGSlPD NxznXQIAOaQSHwGJZ7TMPrHTOiRXKvAQmcSVSlISBpHwf2NRCiPVBjNN7mPtWiMBAoTOR5KFBtKLTgTF BixrXFPGAfLSI8YvTpKdQiTRVoEHLmGXreFAOnKTIk PiY8QCDbCYTqHF2gCdWbGRXwPKV6XeUaKNWaXUNpioJLKATvGVFfWAA0CyTtCXDlMSLlBMnrFDXvLCOm ANSuOAP1EAV8PQLrUlRsOCrsHZYYKHgYX8IyduTnLnQUD5vcNu3bBhTmTHIZI9Yzo6NhIKWiJBZWNd7+ YaC3EJE7aBWqPap6PxCxXPguMWLKUb== ID Date Data Source [id number] 12/30/2019 01:28:55 PM EDT [facility] Name Value Range Interpretation Code Description Data Jennifer rce(s) Supporting Document(s) &PDF [facility] HVXIPm7tMhORZxAd01/NLDyaODIak6UbNApvLGx0SZveWNLgN8MneMjnYCQOIn1UGUtCNo8RGNzhHyTg yKE CbyYZlN1aesNQbbmUGv9Poo7ZpqGvdpejKKqUmUt4AYbEuPY5gwj2JOCPcDS6oeo3ALLW7LZ3HrCt4LE JjD2QrMWJkXGFqu7OsJE8YKK3zzMzbNvF2Ye2+ARvrKJB5mxEzmH2BTYKkGBuj66vw+dD5YqX4YF9INi zk0OOYKLRKN0rvmjfjvh1aQH0dahM8fBGFpnd2k/6W J4jnLu6Ks6YMV8JJgTi6R7muU7elOwc/8xvbjULOOSv/wk0ZdQOMZfgt/2DLYUreDlv+VLL0c6GigdWa 7DvyRtLwg3rvYWmFChFtd4c3NFKzv0UcvY9bdU2Na5/M3ERbLzU2lh6fEhXaIzIppArI5BT40ABiehyk DeSGxdCVv7RLBtmozSwVXSPMr0te5WM3wqkk2ygY+w GQAkG2dhnQvLu/B7BGuZTMg9Rn8OKaiizEP+J8CMe+rsAXp+ms8aG3EmXMzQcCJuP8a+c/Dk/2fn [file] Cj4+DAyxlQRqdOhwUDSTWlEiOqAeMBzkLVNNSe5Y ID Date Data Source [id number] 12/30/2019 11:32:08 AM EDT [facility] NT INFORMATIONPatient MRN Name Date of Age Gend*PT [id number] Yousuf Ken W 1965 54 years M HOPPT Location Admission Date/Time Visit ID Attending [id number] 12/30/19 0958 --- Priscilla Flores MD([id number]) EPI ID CSN Admitting Provider [id number] Priscilla Flores MD([id number])Updated H&PPlease see the scanned/dictated outpatient note.I have reviewed the note, clinical history and physical exam findings. Therehave been no significant changes.Plan as outlined in the outpatient note.Risk/benifit/alternative of cardiac catheterization was discussed withpatient/family. Risks included, but not limited to; ID, CVA, , renalimpairment, vascular complication, and need for emergency surgery were discussedand accepted by patient.Priscilla Flores MD, [facility], [facility] SEMINOLEAIInterventional Supervisor [employer] Name Value Range Interpretation Code Description Data [facility] rce(s) Supporting Document(s) ID Date Data Source [id number] 12/24/2019 10:12:07 AM EDT Lab [address] [id number]# Surgical Pathology ReportAccession #:[id number](s) ReceivedA: GE junction bxsClinical Diagnosis and HistoryEsophageal thickeningDIAGNOSISGASTROESOPHAGEAL JUNCTION, BIOPSIES: GASTRIC-TYPE MUCOSA WITH MILD CHRONIC INFLAMMATION NO EVIDENCE OF MCCRAY'S ESOPHAGUS OR DYSPLASIA IMMUNOHISTOCHEMICALS STAIN FOR HELICOBACTER PYLORI IS NEGATIVECommentsAccording to the Hospital Information System, the patient was found tohave a large hiatal hernia. No mass, esophagitis, Mccray's esophagus, orstricture was seen. Gross DescriptionReceived in formalin labeled "GE junction biopsies rule out Mccray's" arefour grubbs-pink irregular fragments of tissue ranging from 0.1 to 0.6 cm. Entirely submitted as A1. Multilevel. Processed at Laboratory [facility], Histopathology, [address] [place] [address], [address].[email or web address] Reported: 12/24/2019Electronically Signed Out By Ashley Moses M.D. [facility] This report may include immunohistochemical or in-situ hybridizationresults. Testing was developed and the performance characteristicsdetermined by [facility] as required by CLIA '88. The FDAhas determined that approval for specific use is not necessary forclinical use. The quality of Hematoxylin and Eosin stains and asapplicable, for all immunohistochemical and/or special stains, includingpositive and negative controls, were reviewed and considered appropriate.ICD codes K22.8CPT codesA: 00481J, 74816t Name Value Range Interpretation Code Description Data [facility] rce(s) Supporting Document(s) ID Date Data Source [id number] 12/22/2019 11:58:01 AM EDT [facility]alePATIE NT INFORMATIONPatient MRN Name Date of Age Gend*PT [id number] Yousuf Ken 1965 54 years M SDCPT Location Admission Date/Time Visit ID [facility] 12/22/19 0907 --- Thom Sterling MD([id number]) EPI ID CSN Admitting Provider [id number] Thom Sterling MD([id number])Endoscopic Gastroduodenoscopy Procedure NotePatient: Yousuf CardonaonSurgery Date: December 22, 2019Surgeon(s):ARNIE Veere-Operative Diagnosis:Abnormal findings on diagnostic imaging of other parts of digestive tract[R93.3]Post-Op Diagnosis Codes: * Abnormal findings on diagnostic imaging of other parts of digestive tract[R93.3]Indication: Dysphagia, abnormal CT of esophagusProcedure: EndoscopySedation: Monitored Anesthesia Care (MAC) (see anesthesia report).ASA Class: IIIOther Equipment Type Equipment Setting Setting Low Setting High Applied By Endoscope ENDOSCOPE PENTAX [id number] REBEKAH Veeonsent:After obtaining history and performing the physical examination, the procedure,indications, potential complications, including but not limited to bleeding,perforation, infection, adverse medication reaction, and alternatives wereexplained to the patient. Patient appeared to understand the benefits and risksof this procedure. Informed consent was obtained from the patient afterproviding opportunity for questions.Procedure Details:The patient was placed in the left lateral decubitus position and monitored perendoscopy protocol. The gastroscope was inserted into the mouth and advancedunder direct visualization to second portion of the duodenum. A carefulinspection was made as the gastroscope was withdrawn, including a retroflexedview of the proximal stomach; findings and interventions are described below.After completion of the examination, the patient was transferred to the recoveryroom.NoneFindings:Oropharynx: NormalEsophagus: NormalEG Junction: Large hiatal hernia, 4 cm, no mass, esophagitis or Barretts, nostricture seen. GEJ @ 35cm. Biopsy taken.Cardia: NormalFundus: NormalBody: NormalAntrum: NormalPylorus: NormalDuodenum Bulb: NormalDuodenum 2nd Portion: NormalDuodenum 3rd Portion: NormalSpecimens:ID Type Source Tests Collected by Time DestinationA : GE junction bxs r/o barretts Tissue Biopsy SURGICAL PATHOLOGY EXAM MD Cuco 12/22/2019 1151Complications: findings; complications tube chest: None; patient tolerated theprocedure well.Estimated Blood Loss: noneImpression: Large hiatal hernia, 4 cm, no mass, esophagitis or Barretts, no stricture seen.GEJ @ 35cm. Biopsy taken.Otherwise unremarkable endoscopy. Recommendations:1. -Acid suppression with a proton pump inhibitor.2. Follow up with Dr Aleksey Sterling MD12/22/201911:55 AM Name Value Range Interpretation Code Description Data Ejnnifer rce(s) Supporting Document(s) ID Date Data Source [id number] 12/22/2019 10:51:06 AM EDT [facility] NT INFORMATIONPatient MRN Name Date of Age Gend*PT [id number] Yousuf Ken 1965 54 years M SDCPT Location Admission Date/Time Visit ID [facility] 12/22/19 0907 --- Thom Sterling MD([id number]) EPI ID [facility] Admitting Provider [id number] Thom Sterling MD([id number])HISTORY AND PHYSICALYousuf KenMRN: [id number]:Patient Active Problem ListDiagnosis Aortic valve diseasePre-Procedure History and Physical:Allergies:Patient has no known drug allergies.Medications:Medications Prior to AdmissionMedication Sig Dispense Refill Last Dose Albuterol Sulfate 108 (90 Base) MCG/ACT AEPB Inhale 2 puffs 4 (four) times aday 12/21/2019 at Unknown time amLODIPine (NORVASC) 10 MG tablet Take 10 mg by mouth daily 12/21/2019 atUnknown time aspirin EC 81 MG EC tablet Take 81 mg by mouth daily 12/22/2019 at Unknowntime benztropine (COGENTIN) 1 MG tablet Take 1 mg by mouth as needed 12/21/2019 atUnknown time Cholecalciferol (VITAMIN D-3 PO) Take by mouth daily 12/21/2019 at Unknowntime DAILY ULI (THERAGRAN) per tablet Take 1 tablet by mouth daily 12/21/2019 atUnknown time folic acid (FOLVITE) 1 MG tablet Take 1 mg by mouth daily 12/21/2019 atUnknown time hydrOXYzine (ATARAX) 25 MG tablet Take 25 mg by mouth 2 (two) times a day asneeded for itching 12/21/2019 at Unknown time Melatonin 3 MG TABS Take 6 mg by mouth nightly 12/21/2019 at Unknown time mirtazapine (REMERON) 15 MG tablet Take 15 mg by mouth nightly 12/21/2019 atUnknown time vitamin B-12 (CYANOCOBALAMIN) 500 MCG tablet Take 500 mcg by mouth daily12/21/2019 at Unknown timePast Medical History:Past Medical History:Diagnosis Date Alcohol abuse Chronic kidney disease Depression GERD (gastroesophageal reflux disease) Hypertension Schizoaffective schizophrenia TIA (transient ischemic attack)Past Surgical History:Past Surgical History:Procedure Laterality Date CARPAL TUNNEL RELEASE Left COLONOSCOPY ELBOW ARTHROSCOPY Left KNEE SURGERY Left SHOULDER SURGERY LeftFamily History:Family HistoryProblem Relation Age of Onset Stroke Mother Mental illness Mother Heart disease Father Heart attack FatherSocial History:Social HistoryTobacco Use Smoking status: Current Every Day Smoker Packs/day: 1.50 Years: 30.00 P ack years: 45.00 Types: Cigarettes Smokeless tobacco: Never UsedSubstance Use Topics Alcohol use: Yes Alcohol/week: 3.0 - 5.0 standard drinks Types: 3 - 5 Cans of beer per week Comment: dailt Drug use: NeverPre-Procedure Physical Exam:Temp: [98.4 F] 98.4 FHeart Rate: [73] 73Resp: [18] 18BP: (131)/(84) 131/84BP 131/84 (BP Location: Left upper arm, Patient Position: Lying) | Pulse 73 |Temp 98.4 F (Oral) | Resp 18 | Ht 1.549 m (5' 1") | Wt 59 kg (130 lb) |SpO2 97% | BMI 24.56 kg/m The history and physical were completed in my office , we reviewed and thepatient was examined. Today I confirmed no changes to patients med hx, meds,allergies.Exceptions: NoneThis procedure has been fully reviewed with the patient and written informedconsent has been obtained.Signature: Thom Sterling MDDate: December 22, 2019Time: 10:50 AM Name Value Range Interpretation Code Description Data Jennifer rce(s) Supporting Document(s) ID Date Data Source [id number] 12/18/2019 10:31:00 AM EDT MED[facility] ([facility]) Name Value Range Interpretation Code Description Data Jennifer rce(s) Supporting Document(s) Glucose, Fasting 87 mg/dL 70-100 Normal (applies to non-numeric results) [facility] ([facility]) Blood Urea Nitrogen 13 mg/dL 7-18 Normal (applies to non-nume [place] results) [facility] ([facility]) Creatinine For GFR 1.25 mg/dL 0.70-1.30 Normal (applies to non -numeric results) [facility] ([facility]) Sodium Level 139 meq/L 136-145 Normal (applies to non-numeric res ults) [facility] ([facility]) Glomerular Filtration Rate > 60.0 Normal (applies to n on-numeric results) [facility] ([facility]) <content>Units are mL/min/1.73 m2</content>
<content></content>
<content>Chronic Kidney Disease Staging per NKF:</content>
<content></content>
<content>Stage I & II GFR >=60 Normal to Mildly Decreased</content>
<content>Stage III GFR 30- 59 Moderately Decreased</content>
<content>Stage IV GFR 15-29 Severely Decreased</content>
<content>Stage V GFR <15 Very Little GFR Left</content>
<content>ESRD GFR <15 on WEED CUTTER</content>
<content></content> Carbon Dioxide Level 25 meq/L 21-32 Normal (applies to non-num courtney results) [facility] ([facility]) Potassium Serum 4.4 meq/L 3.5-5.1 Normal (applies to non-numeric results) [facility] ([facility]) Chloride Level 109 meq/L 98-107 Above high normal MED [facility] ([facility]) Anion Gap 5 meq/L 8-16 Below low normal [facility] ( [facility]) Calcium Level 8.3 mg/dL 8.5-10.1 Below low normal MEDEN T ([facility]) ID Date Data Source [id number] 12/18/2019 10:31:00 AM EDT [facility] ([facility]) Name Value Range Interpretation Code Description Data Jennifer rce(s) Supporting Document(s) Red Blood Count 5.50 10 4.30-6.10 Normal (applies to non-numeric results) [facility] ([facility]) White Blood Count 10.6 10 4.0-10.0 Above high normal [facility] ([facility]) Mean Corpuscular Volume 85.8 fl 80.0-96.0 Normal ( applies to non-numeric results) [facility] ([facility] Hematocrit 47.2 % 42.0-52.0 Normal (applies to non-numeric resul ts) [facility] ([facility]) Hemoglobin 15.5 g/dL 13.5-17.5 Normal (applies to non-numeric resul ts) [facility] ([facility]) Mean Corpuscular Hemoglobin 28.2 pg 27.0-33.0 Norm al (applies to non-numeric results) [facility] ([facility]) Mean Corpuscular HGB Conc 32.8 g/dL 32.0-36.5 Normal (applies to non-numeric results) [facility] ([facility] Red Cell Distribution Width 15.3 % 11.5-14.5 Above high normal [facility] ([facility]) Platelet Count, Automated 193 10 150-450 Normal (applies to non-numeric results) [facility] ([facility] Neutrophils % 59.7 % 36.0-66.0 Normal (applies to non-numeric re sults) [facility] ([facility]) Lymph % 25.6 % 24.0-44.0 Normal (applies to non-numeric resul ts) [facility] ([facility]) Eos % 4.0 % 0.0-3.0 Above high normal [facility] ([facility]) [place] % 8.7 % 0.0-5.0 Above high normal [facility] ([facility]) Baso % 1.4 % 0.0-1.0 Above high normal [facility] ([facility]) Immature Granulocyte % 0.6 % 0-3.0 Normal (applies to non-n umeric results) [facility] ([facility]) Nucleated Red Blood Cell % 0.0 % 0-0 Normal (applies to n on-numeric results) [facility] ([facility]) [place] # 0.9 10 0.0-0.8 Above high normal [facility] ([facility]) Lymph # 2.7 10 1.5-5.0 Normal (applies to non-numeric resul ts) [facility] ([facility]) Neutrophils # 6.4 10 1.5-8.5 Normal (applies to non-numeric re sults) [facility] ([facility]) Baso # 0.2 10 0.0-0.2 Normal (applies to non-numeric resul ts) [facility] ([facility]) Eos # 0.4 10 0.0-0.5 Normal (applies to non-numeric resul ts) [facility] ([facility]) ID Date Data Source [id number] 12/11/2019 03:16:01 PM EDT [facility] Name Date of Age Gend*PT [id number] Suellen Yousuf Puga 1965 54 years M ---PT Location Admission Date/Time Visit ID Attending Provider --- --- --- --- EPI ID CSN Admitting Provider [id number] ---[facility] [id number] [place] [address]. [address] [address]W: F: OFFICE CONSULTATIONDate: 12/10/19Patient: Yousufjose DawsonOB: [id number] Physician: No ref. provider foundConsulting Physician: LINETTE Beverly was asked to see this patient in consultation for evaluation of theirfibroblastoma of the aortic valve by .CHIEF COMPLAINT: The patient has a history of a syncope and basically loss ofconsciousness the patient had a slurred speech after he came back patient deniedany history of CVA the past history of any kind of heart disease denies anyheart disease negative family patientFamily history positive for myocardial infarction fatherAnd the stroke in mother the patient was evaluated for aortic valvePatient was evaluated for fibroblastoma of the aortic valve and was sent forcardiac's CT scan was suggestive of thickening of the esophagus suggestive ofmalignancyThat is why the patient was admitted for GI evaluationHISTORY OF PRESENT ILLNESS:Symptoms: N/ASeverity: N/ARadiating pain: N/AOnset: N/ARelieving factors: N/AAggravating factors: N/AMEDICATIONS:Current Outpatient Medications: Albuterol Sulfate 108 (90 Base) MCG/ACT AEPB, Inhale 2 puffs 4 (four) times aday, Disp: , Rfl: amLODIPine (NORVASC) 10 MG tablet, Take 10 mg by mouth daily, Disp: , Rfl: aspirin EC 81 MG EC tablet, Take 81 mg by mouth daily, Disp: , Rfl: benztropine (COGENTIN) 1 MG tablet, Take 1 mg by mouth as needed, Disp: ,Rfl: Cholecalciferol (VITAMIN D-3 PO), Take by mouth daily, Disp: , Rfl: DAILY ULI (THERAGRAN) per tablet, Take 1 tablet by mouth daily, Disp: , Rfl: folic acid (FOLVITE) 1 MG tablet, Take 1 mg by mouth daily, Disp: , Rfl: gabapentin (NEURONTIN) 100 MG capsule, Take 100 mg by mouth daily, Disp: ,Rfl: hydrOXYzine (ATARAX) 25 MG tablet, Take 25 mg by mouth 2 (two) times a day asneeded for itching, Disp: , Rfl: Melatonin 3 MG TABS, Take 6 mg by mouth nightly, Disp: , Rfl: mirtazapine (REMERON) 15 MG tablet, Take 15 mg by mouth nightly, Disp: , Rfl: vitamin B-12 (CYANOCOBALAMIN) 500 MCG tablet, Take 500 mcg by mouth daily,Disp: , Rfl:ALLERGIES: Patient has no known drug allergies.PAST MEDICAL HISTORY:Past Medical History:Diagnosis Date Alcohol abuse Chronic kidney disease Depression GERD (gastroesophageal reflux disease) Hypertension Schizoaffective schizophrenia TIA (transient ischemic attack)PAST SURGICAL HISTORY:Past Surgical History:Procedure Laterality Date CARPAL TUNNEL RELEASE Left ELBOW ARTHROSCOPY Left KNEE SURGERY Left SHOULDER SURGERY LeftFAMILY HISTORY:Family StatusRelation Name Status Mother at age 70's Father at age 82SOCIAL HISTORY:Social HistorySocioeconomic History Marital status: Spouse name: Not on file Number of children: Not on file Years of education: Not on file Highest education level: Not on fileOccupational History Not on fileSocial Needs Financial resource strain: Not on file Food insecurity: Worry: Not on file Inability: Not on file Transportation needs: Medical: Not on file Non-medical: Not on fileTobacco Use Smoking status: Current Every Day Smoker Packs/day: 1.50 Years: 30.00 Pack years: 45.00 Types: Cigarettes Smokeless tobacco: Never UsedSubstance and Sexual Activity Alcohol use: Yes Alcohol/week: 3.0 - 5.0 standard drinks Types: 3 - 5 Cans of beer per week Comment: dailt Drug use: Never Sexual activity: Not on fileLifestyle Physical activity: Days per week: Not on file Minutes per session: Not on file Stress: Not on fileRelationships Social connections: Talks on phone: Not on file Gets together: Not on file Attends mormon service: Not on file Active member of club or organization: Not on file Attends meetings of clubs or organizations: Not on file Relationship status: Not on file Intimate partner violence: Fear of current or ex partner: Not on file Emotionally abused: Not on file Physically abused: Not on file Forced sexual activity: Not on fileOther Topics Concern Bike Helmet Not Asked History of Falls Not Asked Self-Exams Not Asked Caffeine Concern Not Asked Hobby Hazards Not Asked Sleep Concern Not Asked Daily Calcium Supplement Not Asked Lead Exposure Not Asked Special Diet Not Asked Daily Vitamin D Supplement Not Asked Service Not Asked Stress Concern Not Asked Domestic Violence in home Not Asked Radon exposure Not Asked Weight Concern Not Asked Exercise Not Asked Seat Belt Not Asked Well water Not Asked Firearms in home Not AskedSocial History Narrative Not on fileREVIEW OF SYSTEMS:Constitutional: No chills no feverHENT: No ENT issuesEyes: No itchy eyes runny eyesRespiratory: No shortness of breath no coughingCardiovascular: No history of cardiac disease no upper or lower GI bleedingGastrointestinal: No upper or lower GI bleedingEndocrine: No endocrine problemsGenitourinary: No hematuria or dysuriaMuskoskelatal: No musculoskeletal painSkin: No skin rashes psoriasis eczemaAllergic/Immunologic: No allergic or immunologic diseaseNeurological: The patient has a history of passing out and no and loss ofconsciousness slurring of speech noted the patient is back to normalHematological: No anemia no bleeding disordersPHYSICAL EXAMINATION:BP 120/88 (BP Location: Left upper arm, Patient Position: Sitting) | Pulse 80| Resp 16 | SpO2 98%Lungs: No rales no rhonchi no wheezing.Cardiac: S1-S2 no murmur no abdominal bruit bowel sounds within normal limit.Abdomen: No palpable organomegaly no palpable abdominal mass no rigidity notenderness.Extremities: No edema.Neck: Trachea midline no neck lymphadenopathy no scapular node involve mentEyes: Conjunctiva is nonanemic sclera nonictericNeurologic: No unilateral weakness upper and lower extremity have utilizeduniversal strengthExamination of Joints: No swelling no edema.Chest: None chest is symmetric no lesion.Skin: Skin with normal limit no rash no wrist lesions.DIAGNOSTIC DATA: Echocardiogram suggestive of some fibroblastoma of the aorticvalveIMPRESSION: Fibroblastoma aortic valve with a history of passing out loss ofconsciousnessPLAN: Scheduled the patient for aortic valve exploration as a part ofpreparation we did a CT scan suggestive of thickening of the esophagus for thatreason I am planning to ask GI to see evaluate the patientI spoke with the patient and the family about all choices of treatment(including no treatment or medical therapy and all possible complications) andfibroblastoma of the aortic valve and their possible complications including butnot limited to bleeding, infections, arrhytmia, allergy, ID, organ failure anddeath and also nerve injury including but not limited to, phrenic nerve injuryand the consequences and the fact that the patient may not be able to doactivities she/he wants to do or used to do. Blood and product transfusion andtheir possible complications including but not limited to AIDS and hepatitis andpossible mediastinitis and possible muscle flap for non union of the sternumneed for tracheostomy and gastrostomy feeding tube and prolonged hospital stayand dying from any of these complications. The patient and the family indicatedunderstood and agreed to surgery.Emmanuel Eller MD Name Value Range Interpretation Code Description Data Jennifer rce(s) Supporting Document(s) ID Date Data Source [id number] 12/09/2019 09:24:00 AM EDT [facility] CT C HEST WO IV CONTRASTCLINICAL HISTORY: Calcification of aorta.Preadmission testing.COMPARISON: Chest x-ray 08/27/2019TECHNIQUE: Imaging of the chest was performed from the apices to the diaphragms, without contrast. Sagittal and coronal reconstructions were made.FINDINGS: The mid and distal thoracic esophagus is thick-walled.The heart is not enlarged. There is moderate coronary artery calcification, most profound in the left main and left anterior descending coronary arteries.No significant ascending aortic calcification is seen. There is mild calcification in the aortic arch and descending thoracic aorta. There is no significant thoracic aortic aneurysm. The ascending thoracic aorta measures 3.2 cm in diameter.No mediastinal or hilar adenopathy is seen.No pericardial or pleural effusion is appreciated.No acute abnormality is detected in the upper abdomen.There is moderate degenerative disc disease in the thoracic spine.There are numerous small bilateral pulmonary nodules. Largest right lung is in the lateral segment right middle lobe, 6.5 mm in diameter. Largest left lung is in the left lower lobe along the major fissure measuring 5.3 mm in diameter. It contains eccentric calcification.There are mild emphysematous changes.No pulmonary edema is detected. There is no pneumothorax or pleural effusion.IMPRESSION: Thick- walled thoracic esophagus. Barium swallow or endoscopy is recommended to exclude the possibility of esophageal carcinoma.There is moderate coronary artery calcification. No significant calcification is seen within the ascending aorta. There is no thoracic aortic aneurysm.There are numerous small bilateral pulmonary nodules, the largest in the right middle lobe, 6.5 mm in diameter. Comparison to prior CTs of the chest would be the most helpful, if they exist. If none exists, then I would recommend follow-up CT chest in six months.Dictated by: Harjit BUTLER M.D. on 12/09/2019 Transcribed by: melissa on <<TranscriptionDateTime1>>cc: Name Value Range Interpretation Code Description Data Jennifer rce(s) Supporting Document(s) Procedure Social History Code Duration Value Status Description Data Source(s ) Smoking 02/14/2020 12:00:00 AM EDT Current Smoker completed Curre nt Smoker eCW1 ([facility]) Smoking 02/14/2020 12:00:00 AM EDT Current Smoker completed Curre nt Smoker eCW1 ([facility]) Alcohol intake 01/12/2020 12:00:00 AM EDT Yes completed [facility] Cigarette pack-years 01/12/2020 12:00:00 AM EDT UNK completed [facility] Cigarettes smoked current (pack per day) - Reported 01/12/20 12:00:00 AM EDT UNK completed [facility] Smoking 01/12/2020 12:00:00 AM EDT Current every day smoker co mpleted Current every day smoker [facility] Alcohol intake 01/07/2020 12:00:00 AM EDT Yes completed [facility] Cigarette pack-years 01/07/2020 12:00:00 AM EDT UNK completed [facility] Cigarettes smoked current (pack per day) - Reported 01/07/20 12:00:00 AM EDT UNK completed [facility] Smoking 01/07/2020 12:00:00 AM EDT Current every day smoker co mpleted Current every day smoker [facility] Alcohol intake 12/30/2019 12:00:00 AM EDT Yes completed [facility] Cigarette pack-years 12/30/2019 12:00:00 AM EDT UNK completed [facility] Cigarettes smoked current (pack per day) - Reported 12/30/19 12:00:00 AM EDT UNK completed [facility] Smoking 12/30/2019 12:00:00 AM EDT Current every day smoker co mpleted Current every day smoker [facility] Alcohol intake 12/22/2019 12:00:00 AM EDT Yes completed [facility] Cigarette pack-years 12/22/2019 12:00:00 AM EDT UNK completed [facility] Cigarettes smoked current (pack per day) - Reported 12/22/19 20 12:00:00 AM EDT UNK completed [facility] Smoking 12/22/2019 12:00:00 AM EDT Current every day smoker co mpleted Current every day smoker [facility] Vital Signs ID Date Data Source UNK Name Value Range Interpretation Code Description Data Source(s) Diastolic blood pressure--standing 79 mm[Hg] 7 9 mm[Hg] [facility] ([facility]) [place], adult cuff/Ra; HR: 82 bpm Systolic blood pressure--standing 119 mm[Hg] 11 9 mm[Hg] [facility] ([facility]) [place], adult cuff/Ra; HR: 82 bpm Diastolic blood pressure--supine 80 mm[Hg] 80 mm[Hg] [facility] ([facility]) [place], adult cuff/Ra; HR: 70 bpm Systolic blood pressure--supine 143 mm[Hg] 143 mm[Hg] [facility] ([facility]) [place], adult cuff/Ra; HR: 70 bpm Diastolic blood pressure--sitting 89 mm[Hg] 89 mm[Hg] [facility] ([facility]) CBP, adult cuff/Ra Systolic blood pressure--sitting 133 mm[Hg] 133 mm[Hg] [facility] ([facility]) CBP, adult cuff/Ra Heart rate 79 /min 79 /min [facility] ([facility] Body mass index (BMI) [Ratio] 25.3 kg/m2 25.3 k g/m2 [facility] ([facility]) Body height 61 [in_i] 61 [in_i] [facility] ([facility]) 5'1" Body weight 134.00 [lb_av] 134.00 [lb_av] MEDEN T ([facility]) Body surface area Derived from formula 1.64 m2 1.64 m2 [facility] ([facility], ) Body weight 65.318 kg 65.318 kg [facility] [place] body weight 112 [lb_av] 112 [lb_av] MEDEN T ([facility], ) Body mass index (BMI) [Ratio] 27.2 kg/m2 27.2 k g/m2 [facility] Body weight 144.00 [lb_av] 144.00 [lb_av] MED[facility] T ([facility]) Body height 61 [in_i] 61 [in_i] [facility] ([facility]) 5'1" Diastolic blood pressure 82 mm[Hg] 82 mm[Hg] [facility] ([facility]) Systolic blood pressure 130 mm[Hg] 130 mm[Hg] [facility] ([facility]) Body surface area Derived from formula 1.59 m2 1.59 m2 [facility] ([facility]) Body weight 60.839 kg 60.839 kg [facility] ([facility]) [place] body weight 112 [lb_av] 112 [lb_av] MED[facility] T ([facility]) Body mass index (BMI) [Ratio] 25.3 kg/m2 25.3 k g/m2 [facility] ([facility]) Body weight 134.12 [lb_av] 134.12 [lb_av] [facility] T ([facility]) Body height 61 [in_i] 61 [in_i] [facility] ([facility]) 5'1" Oxygen saturation in Arterial blood by Pulse oximetry 98 % 98 % [facility] ([facility]) Heart rate 74 /min 74 /min [facility] ([facility]) Diastolic blood pressure 84 mm[Hg] 84 mm[Hg] [facility] ([facility]) Systolic blood pressure 142 mm[Hg] 142 mm[Hg] [facility] ([facility]) Body mass index (BMI) [Ratio] 24.9 kg/m2 24.9 k g/m2 [facility] ([facility]) Body weight 132.00 [lb_av] 132.00 [lb_av] MED[facility] T ([facility]) Body height 61 [in_i] 61 [in_i] [facility] ([facility]) 5'1" Diastolic blood pressure 78 mm[Hg] 78 mm[Hg] eCW1 ([facility]) Systolic blood pressure 118 mm[Hg] 118 mm[Hg] e CW1 ([facility]) Body temperature 98.4 [degF] 98.4 [degF] eCW1 ( [facility]) Respiratory rate 18 /min 18 /min eCW1 ([facility]) Heart rate 87 /min 87 /min eCW1 ([facility]) Body mass index (BMI) [Ratio] 26.49 kg/m2 26.49 kg/m2 eCW1 ([facility]) Body height 61 [in_us] 61 [in_us] eCW1 ([facility]) Body weight Measured 140.2 [lb_av] 140.2 [lb_av ] eCW1 ([facility]) Oxygen saturation in Arterial blood by Pulse oximetry 96 % 96 % [facility] Respiratory rate 18 /min 18 /min [facility] Body temperature 36.72 Chasity 36.72 Chasity [facility] Heart rate 80 /min 80 /min [facility] Diastolic blood pressure 73 mm[Hg] 73 mm[Hg] [facility] Systolic blood pressure 114 mm[Hg] 114 mm[Hg] [facility] Body mass index (BMI) [Ratio] 25.16 kg/m2 25.16 kg/m2 [facility] Body weight 60.4 kg 60.4 kg [facility] Body height 154.9 cm 154.9 cm [facility] Body temperature 36.11 Chasity 36.11 Chasity [facility] Diastolic blood pressure 79 mm[Hg] 79 mm[Hg] [facility] Systolic blood pressure 130 mm[Hg] 130 mm[Hg] [facility] Oxygen saturation in Arterial blood by Pulse oximetry 98 % 98 % [facility] Body mass index (BMI) [Ratio] 26.19 kg/m2 26.19 kg/m2 [facility] Body weight 62.869 kg 62.869 kg [facility] Body height 154.9 cm 154.9 cm [facility] Heart rate 74 /min 74 /min [facility] Heart rate 71 /min 71 /min [facility] Diastolic blood pressure 80 mm[Hg] 80 mm[Hg] [facility] Systolic blood pressure 128 mm[Hg] 128 mm[Hg] [facility] Oxygen saturation in Arterial blood by Pulse oximetry 96 % 96 % [facility] Respiratory rate 18 /min 18 /min [facility] Body temperature 36.83 Chasity 36.83 Chasity [facility] Body mass index (BMI) [Ratio] 24.04 kg/m2 24.04 kg/m2 [facility] Body weight 57.7 kg 57.7 kg [facility] Body height 154.9 cm 154.9 cm [facility] Oxygen saturation in Arterial blood by Pulse oximetry 98 % 98 % [facility] Respiratory rate 16 /min 16 /min [facility] Diastolic blood pressure 79 mm[Hg] 79 mm[Hg] [facility] Systolic blood pressure 138 mm[Hg] 138 mm[Hg] [facility] Heart rate 73 /min 73 /min [facility] Body mass index (BMI) [Ratio] 24.56 kg/m2 24.56 kg/m2 [facility] Body weight 58.968 kg 58.968 kg [facility] Body height 154.9 cm 154.9 cm [facility] Body temperature 36.89 Chasity 36.89 Chasity [facility] Diastolic blood pressure--standing 66 mm[Hg] 6 6 mm[Hg] [facility] ([facility]) [place] adult cuff Ra Systolic blood pressure--standing 94 mm[Hg] 94 mm[Hg] [facility] ([facility]) [place]ron adult cuff Ra Diastolic blood pressure--supine 81 mm[Hg] 81 mm[Hg] [facility] ([facility]) Omron adul cuff, Ra Systolic blood pressure--supine 131 mm[Hg] 131 mm[Hg] [facility] ([facility]) Omron adul cuff, Ra Diastolic blood pressure--sitting 87 mm[Hg] 87 mm[Hg] [facility] ([facility]) CBP adult cuff, Ra Systolic blood pressure--sitting 140 mm[Hg] 140 mm[Hg] [facility] ([facility]) CBP adult cuff, Ra Heart rate 88 /min 88 /min [facility] ([facility]) Laying HR 81, Standing HR 93 Body mass index (BMI) [Ratio] 23.8 kg/m2 23.8 k g/m2 [facility] ([facility]) Body height 61 [in_i] 61 [in_i] [facility] ([facility]) 5'1" Body weight 126.00 [lb_av] 126.00 [lb_av] MEDEN T ([facility]) Patient Treatment Plan of Care Planned Activity Planned Date Details Description Data Source (s) Acetaminophen 325 MG / Oxycodone Hydrochloride 5 MG Or al Tablet 02/01/2020 12:00:00 AM EDT eCW1 ([facility]) Acetaminophen 325 MG / Oxycodone Hydrochloride 5 MG Or al Tablet 02/01/2020 12:00:00 AM EDT eCW1 ([facility]) Acetaminophen 325 MG / Oxycodone Hydrochloride 5 MG Or al Tablet 02/01/2020 12:00:00 AM EDT eCW1 ([facility]) atorvastatin 20 MG Oral Tablet 01/18/2020 12:00:00 AM EDT [facility] potassium chloride SA (K-DUR,KLOR-CON) 10 MEQ tablet 020 12:00:00 AM EDT [facility] Acetaminophen 325 MG / Oxycodone Hydrochloride 5 MG Or al Tablet 01/18/2020 12:00:00 AM EDT [facility] Metoprolol Tartrate 25 MG Oral Tablet 01/18/2020 12:00:00 AM EDT [facility] Furosemide 20 MG Oral Tablet 01/18/2020 12:00:00 AM EDT [facility] ferrous gluconate 324 MG Oral Tablet 01/18/2020 12:00:00 AM EDT [facility] Docusate Sodium 100 MG Oral Capsule 01/18/2020 12:00:00 AM EDT [facility] Ascorbic Acid 500 MG Oral Tablet 01/18/2020 12:00:00 AM EDT [facility] Mirtazapine 15 MG Oral Tablet [facility] Melatonin 3 MG Oral Tablet S [facility] Vitamin B 12 0.5 MG Oral Tablet [facility] Amlodipine 10 MG Oral Tablet [facility] gabapentin 100 MG Oral Capsule [facility]
--- NOTE | 2020-11-07 14:22 | ROOR ---
Patient Name: Yousuf Mcguire Procedure Date: 11/07/2020 1:59 PM Date of : 1965 Age: 55 Room: [facility] Gender: Male Note Status: Finalized Procedure: Upper GI endoscopy Indications: Heartburn, Abnormal CT of the GI tract Providers: Danilo MACIAS MD Referring MD: Darrick Cee, Lima Peralta MD Requesting Provider: Medicines: Monitored Anesthesia Care Complications: No immediate complications. Procedure: Pre-Anesthesia Assessment: - The heart rate, respiratory rate, oxygen saturations, blood pressure, adequacy of pulmonary ventilation, and response to care were monitored throughout the procedure. The Endoscope was introduced through the mouth, and advanced to the second part of duodenum. The upper GI endoscopy was accomplished without difficulty. The patient tolerated the procedure well. Findings: Mildly severe esophagitis was found in the lower third of the esophagus. Biopsies were taken with a cold forceps for histology. A small hiatal hernia was present. The entire examined stomach was normal. The examined duodenum was normal. Impression: - Mildly severe reflux esophagitis. Rule out Mccray's esophagus. Biopsied. - Small hiatal hernia. - Normal stomach. - Normal examined duodenum. Recommendation: - Use Protonix (pantoprazole) 40 mg PO daily. - Continue present medications. - Follow an antireflux regimen. - Telephone endoscopist for pathology results in 2 weeks. Procedure Code(s): --- Professional --- 20309, Esophagogastroduodenoscopy, flexible, transoral; with biopsy, single or multiple Diagnosis Code(s): --- Professional --- R93.3, Abnormal findings on diagnostic imaging of other parts of digestive tract R12, Heartburn K44.9, Diaphragmatic hernia without obstruction or gangrene K21.0, Gastro-esophageal reflux disease with esophagitis CPT copyright 2019 [employer]. All rights reserved. The codes documented in this report are preliminary and upon boiler shop mechanic review may be revised to meet current compliance requirements. Danilo Macias MD Danilo MACIAS MD 11/07/2020 2:22:18 PM Electronically signed by Danilo MACIAS MD Number of Addenda: 0 Note Initiated On: 11/07/2020 1:59 PM Estimated Blood Loss: Estimated blood loss: none.
--- NOTE | 2020-11-07 14:40 | ROOR ---
Patient Name: Yousuf Mcguire Procedure Date: 11/07/2020 1:59 PM Date of : 1965 Age: 55 Room: [facility] Gender: Male Note Status: Finalized Procedure: Colonoscopy Indications: High risk colon cancer surveillance: Personal history of colonic polyps Providers: Danilo MACIAS MD Referring MD: Lima Nunez MD Requesting Provider: Medicines: Monitored Anesthesia Care Complications: No immediate complications. Procedure: Pre-Anesthesia Assessment: - The heart rate, respiratory rate, oxygen saturations, blood pressure, adequacy of pulmonary ventilation, and response to care were monitored throughout the procedure. The Colonoscope was introduced through the anus and advanced to the terminal ileum, with identification of the appendiceal orifice and IC valve. The colonoscopy was performed without difficulty. The patient tolerated the procedure well. The quality of the bowel preparation was adequate. Findings: The perianal and digital rectal examinations were normal. The colon (entire examined portion) appeared normal. Small Internal Hemorrhoids. Impression: - The colon is normal. - Small Internal Hemorrhoids. - No specimens collected. Recommendation: - Repeat colonoscopy in 5 years for surveillance. Procedure Code(s): --- Professional --- 78707, Colonoscopy, flexible; diagnostic, including collection of specimen(s) by brushing or washing, when performed (separate procedure) Diagnosis Code(s): --- Professional --- Z86.010, Personal history of colonic polyps CPT copyright 2019 [employer]. All rights reserved. The codes documented in this report are preliminary and upon telecommunication operator review may be revised to meet current compliance requirements. Danilo Macias MD Danilo MACIAS MD 11/07/2020 2:40:06 PM Electronically signed by Danilo MACIAS MD Number of Addenda: 0 Note Initiated On: 11/07/2020 1:59 PM Estimated Blood Loss: Estimated blood loss: none.
[2020-11-07 15:00] VITALS: BP 141/79
== END 2020-11-07 15:23 | disposition home or self-care (01) ==
LOC: M OPP 12:39
PROVIDERS: ATTEND Internal Medicine Gastroenterology
DX: Z12.11 Encounter for screening for malignant neoplasm of colon (principal); Z86.010 Personal history of colon polyps; R12 Heartburn; R93.3 Abnormal findings on diagnostic imaging of other parts of digestive tract; K64.8 Other hemorrhoids; D13.0 Benign neoplasm of esophagus; K21.00 Gastro-esophageal reflux disease with esophagitis, without bleeding; K44.9 Diaphragmatic hernia without obstruction or gangrene; I10 Essential (primary) hypertension; E78.5 Hyperlipidemia, unspecified; M10.9 Gout, unspecified; F41.9 Anxiety disorder, unspecified; F32.9 Major depressive disorder, single episode, unspecified; F20.9 Schizophrenia, unspecified; F43.10 Post-traumatic stress disorder, unspecified; F17.210 Nicotine dependence, cigarettes, uncomplicated; Z86.73 Personal history of transient ischemic attack (TIA), and cerebral infarction without residual deficits; Z88.8 Allergy status to other drugs, medicaments and biological substances; Z79.82 Long term (current) use of aspirin; Z79.899 Other long term (current) drug therapy; Z82.49 Family history of ischemic heart disease and other diseases of the circulatory system
CPT/HCPCS: 43239; 88305; G0105; J3010

== ENCOUNTER → 2020-11-30 | Outpatient (CLI) | payer MEDICARE ==
[~2020-11-30] MED LIST changes: -LIDOCAINE 2% 100MG/5ML SDV (FOR ANES.) As Ordered ONE; -NS 1,000 ML IV ONE; -fentaNYL 100 MCG/2 ML INJECTION (J3010) As Ordered ONE; -propofoL 200 MG/20 ML VIAL As Ordered ONE
--- NOTE | 2020-11-30 08:33 | REP ---
INDICATION: ABNORMAL FINDING OF LUNG FIELD. COMPARISON: 07/03/2018, 06/24/2020 and 08/31/[address]. TECHNIQUE: CT of the chest without IV contrast. FINDINGS: There are multiple small lung nodules bilaterally, all either similar in size or slightly smaller in size from 06/24/2020. These nodules were not present on 07/03/2018. The 6 mm nodule in the lateral segment of the right middle lobe identified on 08/31/2020 on image 53 is unchanged. Upon review this was also present on 06/24/2020 and is unchanged. It was not present on 07/03/2018. No new lung nodules are identified. No enlarging lung nodules are identified. There is a small calcified granuloma posteriorly in the right upper lobe, also unchanged. There are no infiltrates or pleural effusions. There is no mediastinal or axillary lymph node enlargement. In the absence of IV contrast the study is insensitive for hilar are lymph node enlargement. The unenhanced thoracic aorta is unremarkable. Cardiac size is normal. There is no pericardial effusion. There is calcified atheroma in the coronary arteries. Upper abdomen: There is no adrenal mass. The visualized areas of the unenhanced liver, gallbladder, pancreas and spleen are unremarkable. IMPRESSION: Multiple small lung nodules as described. There are no enlarging nodules. A few of the nodules have slightly decreased in size. No adenopathy, infiltrate or pleural effusion. A small retrocardiac hiatal hernia is incidentally noted, unchanged. <Electronically signed by Wesley Bay > 11/30/20 0817
== END ==
LOC: M RAD 07:04
PROVIDERS: ATTEND Internal Medicine Pulmonary Disease
DX: R91.8 Other nonspecific abnormal finding of lung field (principal)

== ENCOUNTER → 2020-12-01 | Outpatient (REF) | payer MEDICARE, MEDICAID ==
[2020-12-01 12:33] LABS: BASO # 0.1 10^3/uL (0.0-0.2); BASO % 1.3 % (0.0-1.0); EOS # 0.1 10^3/uL (0.0-0.5); HEMATOCRIT 49.8 % (42.0-52.0); HEMOGLOBIN 16.2 g/dl (13.5-17.5); LYMPH # 1.7 10^3/uL (1.5-5.0); LYMPH % 24.1 % (24.0-44.0); MEAN CORPUSCULAR HEMOGLOBIN 27.3 pg (27.0-33.0); MEAN CORPUSCULAR HGB CONC 32.5 g/dl (32.0-36.5); MEAN CORPUSCULAR VOLUME 83.8 fl (80.0-96.0); MONO # 0.8 10^3/uL (0.0-0.8); NEUTROPHILS # 4.1 10^3/uL (1.5-8.5); NEUTROPHILS % 60.2 % (36.0-66.0); PLATELET COUNT, AUTOMATED 134 10^3/uL (150-450); RED BLOOD COUNT 5.94 10^6/uL (4.30-6.10); WHITE BLOOD COUNT 6.9 10^3/uL (4.0-10.0)
[2020-12-01 12:58] LABS: BLOOD UREA NITROGEN 11 MG/DL (7-18); CARBON DIOXIDE LEVEL 28 MEQ/L (21-32); CHLORIDE LEVEL 103 MEQ/L (98-107); CREATININE FOR GFR 1.09 MG/DL (0.70-1.30); GLOMERULAR FILTRATION RATE > 60.0 (>56); GLUCOSE, FASTING 77 MG/DL (70-100); POTASSIUM SERUM 4.6 MEQ/L (3.5-5.1); SODIUM LEVEL 136 MEQ/L (136-145)
[2020-12-01 12:59] LABS: ALBUMIN 3.7 GM/DL (3.2-5.2); ALT/SGPT 34 U/L (12-78); BILIRUBIN,TOTAL 0.3 MG/DL (0.2-1.0); CALCIUM LEVEL 8.9 MG/DL (8.5-10.1); TOTAL PROTEIN 6.8 GM/DL (6.4-8.2)
[2020-12-01 13:20] LABS: ERYTHROCYTE SEDIMENTATION RATE 2 mm/hr (0-20)
[2020-12-01 13:46] LABS: HEPATITIS C VIRUS ABY INDEX < 0.0 INDEX (<0.8); HIV 1&2 SCREEN CENTAUR NEGATIVE (NEGATIVE)
[2020-12-11 01:06] LABS: CRYPTOCOCCUS ANTIBODY SERUM Negative (Neg:<1:2)
== END ==
LOC: M SFHCPLAZ 09:51
PROVIDERS: ATTEND Internal Medicine Infectious Disease
DX: A31.9 Mycobacterial infection, unspecified (principal)
CPT/HCPCS: 36415; 80053; 85025; 85652; 86641; 86698; 86803; 87389; G0463

== ENCOUNTER → 2020-12-05 | Outpatient (REF) | payer MEDICARE, MEDICAID | LOC: M SMT 13:44 | PROVIDERS: ATTEND Internal Medicine Infectious Disease | DX: A31.9 Mycobacterial infection, unspecified (principal) ==

== ENCOUNTER → 2021-01-09 | Outpatient (REF) | payer MEDICARE, MEDICAID | LOC: M SFHCPLAZ 13:11 | PROVIDERS: ATTEND Internal Medicine Infectious Disease | DX: A31.9 Mycobacterial infection, unspecified (principal) ==

== ENCOUNTER → 2021-01-25 | Outpatient (CLI) | payer MEDICARE, MEDICAID ==
--- NOTE | 2021-01-25 10:49 | REP ---
INDICATION: RT JAW LUMP ? CYST VS SOLID COMPARISON: None. TECHNIQUE: Directed B-mode ultrasound examination using linear high-frequency transducer.. FINDINGS: Directed ultrasound examination at the palpable mass along the right-side of the neck demonstrates 1.5 x 1.0 x 1.3 cm hypoechoic lesion in the subcutaneous tissue with debris likely representing complex fluid although mass cannot be excluded. Lesion is avascular, well-demarcated and otherwise nonspecific. IMPRESSION: Nonspecific hypoechoic complex cystic versus solid lesion. Lesion has relatively benign characteristics by ultrasound. Differential diagnosis includes but is not limited to branchial cleft cyst, dermoid cyst as well as cystic hygroma. <Electronically signed by Lefty Matthews > 01/25/21 1040
[2021-01-25 11:12] LABS: CHOLESTEROL RISK RATIO 3.673 (<5)
[2021-01-25 11:17] LABS: HEMOGLOBIN A1c 5.1 %
== END ==
LOC: M RAD 09:39 → M LAB 09:39
PROVIDERS: ATTEND Nurse Practitioner Family
DX: E78.5 Hyperlipidemia, unspecified (principal); R22.0 Localized swelling, mass and lump, head; R73.01 Impaired fasting glucose

== ENCOUNTER → 2021-02-14 | Outpatient (REF) | payer MEDICARE, MEDICAID | LOC: M SFHCPLAZ 13:42 | PROVIDERS: ATTEND Internal Medicine Infectious Disease | DX: A31.9 Mycobacterial infection, unspecified (principal) ==

== ENCOUNTER → 2021-02-21 | Outpatient (CLI) | payer MEDICARE, MEDICAID ==
--- NOTE | 2021-02-21 13:46 | REPPI ---
INDICATION: J13 PNEUMONIA OF UPPER LOBE DUE TO STREPTOCOCCUS PNEUMONIAE COMPARISON: CT dated 11/30/2020 TECHNIQUE: PA and lateral. FINDINGS: Surgical clips along the anterior right-side of the mediastinum noted. Cardiac silhouette is normal. Diffuse chronic interstitial changes are appreciated. No consolidation, effusion, or pneumothorax. Skeletal structures are intact. IMPRESSION: Chronic interstitial changes. No focal consolidation. <Electronically signed by Lefty Matthews > 02/21/21 [id number]
== END ==
LOC: M PLAIMG 10:18
PROVIDERS: ATTEND Internal Medicine Infectious Disease
DX: J13 Pneumonia due to Streptococcus pneumoniae (principal)

== ENCOUNTER → 2021-02-21 | Outpatient (REF) | payer MEDICARE, MEDICAID ==
[~2021-02-21] MED LIST changes: +AMBI5TAB PO; +SERO1TAB3 PO
[2021-02-21 14:17] LABS: BASO # 0.1 10^3/uL (0.0-0.2); EOS # 0.2 10^3/uL (0.0-0.5); EOS % 3.2 % (0.0-3.0); HEMOGLOBIN 16.1 g/dl (13.5-17.5); LYMPH # 1.2 10^3/uL (1.5-5.0); LYMPH % 16.8 % (24.0-44.0); MEAN CORPUSCULAR HEMOGLOBIN 27.3 pg (27.0-33.0); MEAN CORPUSCULAR HGB CONC 32.9 g/dl (32.0-36.5); MEAN CORPUSCULAR VOLUME 83.2 fl (80.0-96.0); NEUTROPHILS # 4.4 10^3/uL (1.5-8.5); NEUTROPHILS % 63.6 % (36.0-66.0); PLATELET COUNT, AUTOMATED 129 10^3/uL (150-450); RED BLOOD COUNT 5.89 10^6/uL (4.30-6.10)
[2021-02-21 14:46] LABS: ALBUMIN 3.2 GM/DL (3.2-5.2); ALT/SGPT 28 U/L (12-78); BILIRUBIN,TOTAL 0.2 MG/DL (0.2-1.0); BLOOD UREA NITROGEN 8 MG/DL (7-18); C REACTIVE PROTEIN QUANTITATIV 2.45 MG/DL (0.00-0.30); CALCIUM LEVEL 8.5 MG/DL (8.5-10.1); CARBON DIOXIDE LEVEL 29 MEQ/L (21-32); CHLORIDE LEVEL 108 MEQ/L (98-107); CREATININE FOR GFR 1.19 MG/DL (0.70-1.30); GLOMERULAR FILTRATION RATE > 60.0 (>56); GLUCOSE, FASTING 57 MG/DL (70-100); POTASSIUM SERUM 4.5 MEQ/L (3.5-5.1); SODIUM LEVEL 140 MEQ/L (136-145); TOTAL PROTEIN 6.2 GM/DL (6.4-8.2)
== END ==
LOC: M SFHCPLAZ 10:14
PROVIDERS: ATTEND Internal Medicine Infectious Disease
DX: J13 Pneumonia due to Streptococcus pneumoniae (principal)
CPT/HCPCS: 36415; 80053; 85025; 86140; G0463

== ENCOUNTER → 2021-03-16 | Outpatient (CLI) | payer MEDICARE, MEDICAID ==
--- NOTE | 2021-03-16 09:18 | REP ---
INDICATION: MYCOBACTRIUM TERRAE INFECTION COMPARISON: Multiple examinations dating through 07/03/2018 TECHNIQUE: Axial noncontrast images from the thoracic inlet to the upper abdomen with coronal and sagittal reformations. This CT examination was performed using the following dose reduction techniques: Automated exposure control, adjustment of mA and/or kv according to the patient's size, and use of iterative reconstruction technique. FINDINGS: Lung fowler demonstrate chronic COPD/emphysematous changes with bronchiectasis, scattered scarring, and small scattered calcified and noncalcified nodules which remain stable through 2018. No acute consolidation, suspicious nodule, or mass. No effusion. No pneumothorax. No adenopathy. Mediastinum demonstrates stable atherosclerotic changes to the thoracic aorta and coronary arteries. Small hiatal hernia at the gastroesophageal junction. Thyroid gland is unremarkable by CT. Surrounding musculoskeletal structures intact. IMPRESSION: Chronic stable changes. No suspicious nodule or mass. No acute mediastinal or pleuroparenchymal process. <Electronically signed by Lefty Matthews > 03/16/21 0915
== END ==
LOC: M RAD 08:04
PROVIDERS: ATTEND Internal Medicine Infectious Disease
DX: Z01.818 Encounter for other preprocedural examination (principal); A31.9 Mycobacterial infection, unspecified; Z11.52 Encounter for screening for COVID-19
CPT/HCPCS: 71250; U0003

== ENCOUNTER → 2021-03-16 | Outpatient (CLI) | payer MEDICARE, MEDICAID ==
[~2021-03-16] MED LIST changes: -SERO1TAB3 PO
== END ==
LOC: M LABSMTC 10:31
PROVIDERS: ATTEND Anesthesiology
DX: Z01.818 Encounter for other preprocedural examination (principal); Z11.52 Encounter for screening for COVID-19

== ENCOUNTER 2021-03-21 08:58 | Day surgery (SDC) | payer MEDICARE, MEDICAID ==
[~2021-03-21] VITALS: Ht 154.9 cm; Wt 55.3 kg
[~2021-03-21 08:58] MED LIST changes: +LIDOCAINE 1% MDV 20ML VIAL SQ PRN; +LR 1,000 ML IV ONE
[2021-03-21] MEDS ORDERED: SERO1TAB3 PO (09:29)
[2021-03-21] MEDS ORDERED: MIDAZOLAM INJ 2MG/2ML VIAL (J2250 PER 1MG) As Ordered ONE (10:17)
[2021-03-21] MEDS ORDERED: METHYLENE BLUE 0.5% (5MG/ML) 10 ML AMP (PROVAYBLUE) As Ordered ONE (10:18)
[2021-03-21] MEDS ORDERED: EPINEPHrine 1MG/ML INJ 30ML MD-VIAL As Ordered ONE (10:18)
[2021-03-21] MEDS ORDERED: BACITRACIN OINTMENT 30GM TUBE As Ordered ONE (10:18)
[2021-03-21] MEDS ORDERED: LIDOCAINE W/EPINEPHRINE 1% 20ML VIAL As Ordered ONE (10:18)
[2021-03-21] MEDS ORDERED: fentaNYL 100 MCG/2 ML INJECTION (J3010) As Ordered ONE (10:18)
[2021-03-21] MEDS ORDERED: LIDOCAINE 2% 100MG/5ML SDV (FOR ANES.) As Ordered ONE (10:20)
[2021-03-21] MEDS ORDERED: propofoL 200 MG/20 ML VIAL As Ordered ONE (10:21)
[2021-03-21] MEDS ORDERED: ONDANSETRON 4MG/2ML VIAL As Ordered ONE (10:52)
[2021-03-21] MEDS ORDERED: dexameTHASONE 4 MG/ML 1ML VIAL (J1100 PER 1MG) As Ordered ONE (10:52)
[2021-03-21] MEDS ORDERED: ePHEDrine SULFATE 25 MG/5 ML(5MG/ML) SYRINGE As Ordered ONE (10:54)
[2021-03-21] MEDS ORDERED: PHENYLephrine 500MCG 5ML (100MCG/ML) SYRINGE As Ordered ONE (11:01)
[2021-03-21] MEDS ORDERED: GLYCOPYRROLATE INJ 0.2 MG/ML 2 ML VIAL As Ordered ONE (11:06)
[2021-03-21] MEDS ORDERED: PERCOCET 5MG/325MG TAB PO PRN (12:05)
[2021-03-21] MEDS ORDERED: ONDANSETRON 4MG/2ML VIAL IV PRN (12:05)
[2021-03-21] MEDS ORDERED: METOCLOPRAMIDE INJ 10MG/2ML VIAL (J2765 PER 1) IV PRN (12:05)
[2021-03-21] MEDS ORDERED: fentaNYL 100 MCG/2 ML INJECTION (J3010) IV PRN (12:05)
[2021-03-21] MEDS ORDERED: LR 1,000 ML IV SCH (12:05)
[2021-03-21 12:40] VITALS: BP 168/86
--- NOTE | 2021-03-30 18:17 | RO ---
OPERATIVE NOTE DATE OF OPERATION: 03/21/2021 PREOPERATIVE DIAGNOSIS: Sebaceous cyst of the right neck. POSTOPERATIVE DIAGNOSIS: Sebaceous cyst of the right neck. PROCEDURE: Excision of sebaceous cyst of the neck. INDICATIONS: This is a 56-year-old who presents with a swelling of the subcutaneous tissue of the right neck. DESCRIPTION OF PROCEDURE: Satisfactory mask anesthesia was administered. Then, 1% Xylocaine with 1:100,000 epinephrine was injected into the skin over the right neck mass. Horizontal incision was made in the natural skin crease. Just beneath the subcutaneous fat, a white pearly cystic mass was identified. Using a combination of blunt and sharp dissection, the mass was removed intact. No significant bleeding was encountered at the dissection area. The specimen was removed as one piece. The incision was closed using interrupted 5-0 plain suture in the subcutaneous tissue and then a 4-0 PDS Monocryl was used to close the skin subcuticularly. He tolerated the procedure well. He was sent to the recovery room in satisfactory condition. He will be seen in the office in one week.
== END 2021-03-21 13:19 | disposition home or self-care (01) ==
LOC: M SDC 08:58
PROVIDERS: ATTEND Specialist
DX: L72.3 Sebaceous cyst (principal); J44.9 Chronic obstructive pulmonary disease, unspecified; R91.8 Other nonspecific abnormal finding of lung field; K21.9 Gastro-esophageal reflux disease without esophagitis; I25.2 Old myocardial infarction; I10 Essential (primary) hypertension; E78.5 Hyperlipidemia, unspecified; F17.218 Nicotine dependence, cigarettes, with other nicotine-induced disorders; N18.9 Chronic kidney disease, unspecified; Z86.73 Personal history of transient ischemic attack (TIA), and cerebral infarction without residual deficits
CPT/HCPCS: 11421; 88304; J1100; J2250; J2370; J2405; J3010; Q9968

== ENCOUNTER → 2021-06-14 | Outpatient (CLI) | payer MEDICARE, MEDICAID ==
[~2021-06-14] MED LIST changes: +ISOVUE-370 76% 100ML VIAL As Ordered ONE; -LIDOCAINE 1% MDV 20ML VIAL SQ PRN; -LR 1,000 ML IV ONE; +SERO1TAB3 PO
[2021-06-14 12:42] LABS: CREATININE FOR GFR 1.26 MG/DL (0.70-1.30); GLOMERULAR FILTRATION RATE > 60.0 (>56)
--- NOTE | 2021-06-14 16:38 | REP ---
INDICATION: HEMATURIA. COMPARISON: Standard noncontrast enhanced CT of the abdomen and pelvis of 06/23/2018 the latest prior TECHNIQUE: Standard helical technique before and after intravenous contrast administration. 100 cc Isovue [address] urogram was also obtained. MIP reformatted 3D images were obtained. FINDINGS: There are chronic lung base changes status quo. There are no pleural or pericardial effusions. The pre contrast enhanced portion of the examination shows hepatic and splenic densities to be within normal limits. There is no nephroureterolithiasis, hydronephrosis, or hydroureter. There are no urinary bladder calcifications. There are no choleliths. The contrast-enhanced portion examination shows the liver, gallbladder, spleen, pancreas, adrenal glands, and kidneys to be within normal limits. The abdominal aorta and para-regions are within normal limits. The bowel loops and the mesenteries are within normal limits. There is no evidence of free fluid or free air. Delayed imaging through the pelvis shows no evidence of a filling defect in the opacified portion of urinary bladder. MIP reformatted 3D images show incomplete opacification of the ureters likely secondary to peristaltic activity. No filling defects are identified on the opacified portions. Bone window technique throughout the examination shows mild age-related spinal degenerative changes. Bilateral sacroiliac joint anterior fusion is noted consistent with chronic changes. IMPRESSION: Findings and limitations as described above. There is no evidence of acute disease. <Electronically signed by Kalen Hahn > 06/14/21 1468
[2021-06-15 07:06] LABS: BLOOD UREA NITROGEN 10 MG/DL (7-18)
== END ==
LOC: M LAB 10:27 → M RAD 10:27
PROVIDERS: ATTEND Nurse Practitioner Family
DX: N18.2 Chronic kidney disease, stage 2 (mild) (principal); R31.9 Hematuria, unspecified; M43.28 Fusion of spine, sacral and sacrococcygeal region
CPT/HCPCS: 36415; 74178; 82565; 84520; Q9967

== ENCOUNTER 2022-08-10 09:11 | Emergency (ER) | payer MEDICAID, MEDICARE ==
[~2022-08-10] VITALS: Ht 154.9 cm; Wt 58.4 kg
[~2022-08-10 09:11] MED LIST changes: -D31000TA2 PO; -ISOVUE-370 76% 100ML VIAL As Ordered ONE; -OMEP-221 PO; +OMEP40CA5 PO; +VITA100093 PO
[2022-08-10 11:44] VITALS: BP 145/92
== END 2022-08-10 11:52 | disposition home or self-care (01) ==
LOC: M ED 09:11
DX: S83.92XA Sprain of unspecified site of left knee, initial encounter (principal); M25.552 Pain in left hip; W01.0XXA Fall on same level from slipping, tripping and stumbling without subsequent striking against object, initial encounter; I10 Essential (primary) hypertension; J44.9 Chronic obstructive pulmonary disease, unspecified; N18.30 Chronic kidney disease, stage 3 unspecified; F43.10 Post-traumatic stress disorder, unspecified; F41.9 Anxiety disorder, unspecified; G40.89 Other seizures; F10.10 Alcohol abuse, uncomplicated; F17.200 Nicotine dependence, unspecified, uncomplicated; Z88.8 Allergy status to other drugs, medicaments and biological substances; Z79.51 Long term (current) use of inhaled steroids; Z79.811 Long term (current) use of aromatase inhibitors; Z79.899 Other long term (current) drug therapy

== ENCOUNTER 2023-04-17 09:44 | Emergency (ER) | payer MEDICARE ==
[~2023-04-17] VITALS: Ht 154.9 cm; Wt 57.4 kg
[~2023-04-17 09:44] MED LIST changes: +ALBU8.5H INH; +ATOR40TA75 PO; -BENZ-52 PO; +BENZ0.5T2 PO; -BENZ0.5T23 PO; +BENZ1TAB5 PO; +C 50TAB PO; +CLOP75TA2 PO; +DICL100G10 TOP; -DICL1GEL3 TOP; +DOCU100C16 PO; +HYDR50TA30 PO; +MECL-86 PO; +MIRT-84 PO; +NICO21PAT TD; +PANT40TA29 PO; +PRAZ1CAP46 PO; +PRED20TA PO; -REME15TA2 PO; -STIO1AER IN; +STIO1AER INH; +ZOLO100T PO
[2023-04-17 09:47] VITALS: TEMP 98.3
[2023-04-17] MEDS ORDERED: CAPS0.022 TOP (12:28)
[2023-04-17] MEDS ORDERED: ANEC4CRE3 TOP (12:28)
[2023-04-17 12:34] VITALS: BP 167/84; O2SAT 99
== END 2023-04-17 12:36 | disposition home or self-care (01) ==
LOC: M ED 09:44
DX: M25.562 Pain in left knee (principal); M79.662 Pain in left lower leg; I25.2 Old myocardial infarction; J44.9 Chronic obstructive pulmonary disease, unspecified; N18.30 Chronic kidney disease, stage 3 unspecified; G40.909 Epilepsy, unspecified, not intractable, without status epilepticus; F17.200 Nicotine dependence, unspecified, uncomplicated; F10.10 Alcohol abuse, uncomplicated; Z88.8 Allergy status to other drugs, medicaments and biological substances